=== PATIENT | female | born 1965 | race Caucasian/White ===

== ENCOUNTER 2017-02-18 15:40 | Emergency (ER) | payer MEDICAID ==
[2017-02-18 15:59] VITALS: BP 145/97
--- NOTE | 2017-02-18 16:14 | EDM.PDOC ---
ED HPI GENERAL MEDICAL PROBLEM - General Chief Complaint: ENT Problem Stated Complaint: INFECTION IN EAR Time Seen by Provider: 02/18/17 16:08 Source of Information: Reports: Patient History Limitations: Reports: No Limitations - History of Present Illness INITIAL COMMENTS - FREE TEXT/NARRATIVE: pt has pain in the rt facial area nd in the rt ear. Sh has no pain with swallowing. Sh was concerned that she might have a tick in the rt ear canal. Onset: Gradual Duration: Day(s): Location: Reports: Face, Neck Associated Symptoms: Reports: No Other Symptoms Right Ear Pain Score (Numeric/FACES): 9 - Related Data Allergies Allergy/AdvReac Type Severity Reaction Status Date / Time hydromorphone HCl Allergy Hives Verified 09/19/16 13:24 [From Dilaudid] NSAIDS (Non-Steroidal AdvReac Stomach Verified 09/19/16 13:24 Anti-Inflamma Upset Home Meds: Home Meds Nicotine Polacrilex [Nicotine Gum] 4 mg TRDERM TID PRN 09/20/14 [History] Nicotine [Habitrol] 14 mg TRDERM DAILY #30 patch 07/20/15 [Rx] Albuterol [Ventolin HFA] 18 gm IH Q4H PRN 03/12/16 [History] Cyanocobalamin (Vitamin B-12) [Vitamin B-12] 1 injection IM ASDIRECTED 03/12/16 [History] FLUoxetine [PROzac] 40 mg PO BEDTIME 03/12/16 [History] Lisinopril [Zestril] 20 mg PO DAILY 03/12/16 [History] Famotidine 40 mg PO DAILY #30 tablet 09/19/16 [Rx] Multivit-Min/FA/Lycopene/Lut [Centrum Silver Tablet] 1 tab PO DAILY 09/19/16 [ History] Omeprazole 40 mg PO DAILY 09/19/16 [History] Ondansetron [Zofran ODT] 4 mg PO Q6H PRN #7 tab.dis 09/19/16 [Rx] Sucralfate [Carafate] 1 gm PO Q6HR #60 tab 09/19/16 [Rx] Past Medical History Cardiovascular History: Reports: Hypertension Respiratory History: Reports: Other (See Below) Other Respiratory History: pneumonia, 2012 and 2014 patinet states she had respiratory failure Gastrointestinal History: Reports: GERD, GI Bleed, Pancreatitis Other Gastrointestinal History: Hernia surgery x 5. perforated gastric ulcer Genitourinary History: Reports: Acute Renal Failure [employer]RATOR History: Reports: Other (See Below) Other OB/BYN History: enlarged ovaries Musculoskeletal History: Reports: Fracture Neurological History: Reports: Other (See Below) Other Neuro History: patient states she had a seizure d/t hyponatremia Psychiatric History: Reports: Anxiety, Depression, Panic Attack, PTSD Hematologic History: Reports: Anemia, Blood Transfusion(s) - Infectious Disease History Infectious Disease History: Reports: Chicken Pox - Past Surgical History GI Surgical History: Reports: Bariatric Procedure, Cholecystectomy, Colonoscopy , EGD, Hernia, Abdominal, Hernia Repair/Other, Small Bowel Musculoskeletal Surgical History: Reports: Knee Replacement, Other (See Below) Social & Family History - Family History Family Medical History: Noncontributory Cardiac: Reports: CAD Psychiatric: Reports: Depression - Tobacco Use Smoking Status *Q: Light Tobacco Smoker Years of Tobacco use: 25 Packs/Tins Daily: 0.5 Used Tobacco, but Quit: Yes Month Tobacco Last Used: unknown Second Hand Smoke Exposure: No - Caffeine Use Caffeine Use: Reports: Soda - Alcohol Use Days Per Week of Alcohol Use: 0 Number of Drinks Per Day: 4 Total Drinks Per Week: 0 - Recreational Drug Use Recreational Drug Use: No ED ROS ENT - Review of Systems Review Of Systems: See Below Constitutional: Reports: Other ( facial pain) HEENT: Reports: Ear Pain, Sinus Problem Respiratory: Reports: No Symptoms Cardiovascular: Reports: No Symptoms Endocrine: Reports: No Symptoms GI/Abdominal: Reports: No Symptoms : Reports: No Symptoms ED EXAM, ENT - Physical Exam Exam: See Below Text/Narrative:: Pt felt like she had a tick in her rt ear. She has pain in the ear and pain in rt facial area. Exam Limited By: No Limitations General Appearance: Alert, Anxious, Mild Distress Ears: Other ( left ear is normal. rt ear looks red in the canal and she is tender over the maxillary sinus. ) Nose: Normal Inspection Mouth/Throat: Dental Pain, Other (pt has normal looking teeth but all of her teeth re painful on the rt up and lower. ) Head: Atraumatic Neck: Normal Inspection, Lymphadenopathy (R) Respiratory/Chest: No Respiratory Distress Cardiovascular: Regular Rate, Rhythm GI/Abdominal: Soft, Non-Tender (Female) Exam: Deferred Rectal (Female) Exam: Deferred Course - Vital Signs Last Recorded V/S: Last Vital Signs Temp 36.2 C 02/18/17 15:59 Pulse 75 02/18/17 15:59 Resp 16 02/18/17 15:59 BP 145/97 H 02/18/17 15:59 Pulse Ox 99 02/18/17 15:59 - Orders/Labs/Meds Orders: Active Orders 24 hr Category Date Time Status Sinus Less 4V [CR] Stat Exams 02/18/17 16:06 Ordered Departure - Departure Time of Disposition: 16:19 Disposition: Home, Self-Care 01 Condition: fair Clinical Impression: Otitis media, right, Acute maxillary sinusitis - Discharge Information Forms: ED Department Discharge Care Plan Goals: push fluids, , , tylenol 650 for facial pain. amoxicillin 500mg 2 tabs bid, use yogurt or probiotic. - My Orders Last 24 Hours: My Active Orders 02/18/17 16:06 Sinus Less 4V [CR] Stat - Assessment/Plan Last 24 Hours: My Active Orders 02/18/17 16:06 Sinus Less 4V [CR] Stat
--- NOTE | 2017-02-19 08:36 | CR ---
No evidence for air-fluid levels to suggest sinusitis. The visualized sinuses appear clear.
== END 2017-02-18 16:30 | disposition home or self-care (01) ==
LOC: JP.ED 15:40
DX: H66.91 Otitis media, unspecified, right ear (principal); J01.00 Acute maxillary sinusitis, unspecified; K21.9 Gastro-esophageal reflux disease without esophagitis; F41.0 Panic disorder [episodic paroxysmal anxiety]; F32.9 Major depressive disorder, single episode, unspecified; F17.210 Nicotine dependence, cigarettes, uncomplicated; Z98.84 Bariatric surgery status; Z90.49 Acquired absence of other specified parts of digestive tract; Z96.659 Presence of unspecified artificial knee joint; Z98.890 Other specified postprocedural states; Z79.899 Other long term (current) drug therapy; Z88.5 Allergy status to narcotic agent; Z88.8 Allergy status to other drugs, medicaments and biological substances
CPT/HCPCS: 70210; 70210-26; 99284

== ENCOUNTER 2017-08-12 07:15 | Inpatient (IN) | payer MEDICAID ==
[2017-09-03] MEDS ORDERED: Gabapentin 300 MG Cap PO ONE (06:30)
[2017-09-03] MEDS ORDERED: ceFAZolin 2 GM in Premix Bag 1 BAG IV ONE ×2 (06:30→08:30)
[2017-09-03] MEDS ORDERED: Dextrose 5%-Lactated Ringers 1,000 ML IV SCH (06:30)
[2017-09-03] MEDS ORDERED: Albuterol/Ipratropium 3.0-0.5 MG/3 ML Neb Soln NEB ONE (06:30)
[2017-09-03] MEDS ORDERED: Acetaminophen 500 MG Tab PO ONE (06:30)
[2017-09-03] MEDS ORDERED: Scopolamine 1.5 MG Transdermal Patch TOP SCH (06:30)
[2017-09-03] MEDS ORDERED: Meropenem 500 MG SDV ONE (06:43)
[2017-09-03] MEDS ORDERED: Bupivacaine 0.5%/EPINEPHrine 1:200,000 50 ML MDV ONE (06:43)
[2017-09-03] MEDS ORDERED: Propofol 200 MG/20 ML SDV ONE (07:41)
[2017-09-03] MEDS ORDERED: Glycopyrrolate 0.2 MG/ML 5 ML MDV ONE (07:41)
[2017-09-03] MEDS ORDERED: fentaNYL 250 MCG/5 ML SDV ONE (07:41)
[2017-09-03] MEDS ORDERED: Ondansetron 4 MG/2 ML SDV ONE (07:41)
[2017-09-03] MEDS ORDERED: Rocuronium 50 MG/5 ML Vial ONE (07:41)
[2017-09-03] MEDS ORDERED: Dexamethasone 4 MG/ML SDV ONE (07:41)
[2017-09-03] MEDS ORDERED: Succinylcholine 200 MG/10 ML MDV ONE (07:41)
[2017-09-03] MEDS ORDERED: Neostigmine Methylsulfate 1 MG/ML 5 ML Syringe ONE (07:41)
[2017-09-03] MEDS ORDERED: Ketamine 500 MG/5 ML MDV IV ONE (08:45)
[2017-09-03] MEDS ORDERED: Lidocaine 2% 100 MG/5 ML Syringe IVPUSH ONE (08:45)
[2017-09-03] MEDS ORDERED: Ropivacaine 40 ML, Dexamethasone 8 MG, EPINEPHrine 0.4 MG, Sodium Chloride 0.9% 37.6 ML NERVRT ONE ×4 (10:00)
[2017-09-03] MEDS ORDERED: Linezolid 200 MG/100 ML Bag IRR ONE (10:27)
[2017-09-03] MEDS ORDERED: fentaNYL 100 MCG/2 ML SDV ONE (10:54)
[2017-09-03] MEDS ORDERED: Sugammadex Sodium 200 MG/2 ML VIAL ONE (11:18)
[2017-09-03] MEDS ORDERED: Naloxone 0.4 MG/ML SDV IV PRN (11:37)
[2017-09-03] MEDS: Meperidine 300 MG/30 ML PCA Vial IV PRN (11:40)
[2017-09-03] MEDS: Lidocaine 0.4%/D5W 2 GM/500 ML BAG IV SCH (12:48)
[2017-09-03] MEDS: Dextrose 5%-Lactated Ringers 1,000 ML IV SCH ×2 (13:36→19:37)
[2017-09-03] MEDS ORDERED: hydrOXYzine HCl 100 MG/2 ML SDV IM PRN (14:00)
[2017-09-03] MEDS ORDERED: Albuterol/Ipratropium 3.0-0.5 MG/3 ML Neb Soln INH PRN (14:00)
[2017-09-03] MEDS: FLUoxetine 20 MG Cap PO SCH (14:03)
[2017-09-03] MEDS: Gabapentin 300 MG Cap PO SCH ×2 (14:03→22:06)
[2017-09-03] MEDS: Pantoprazole 40 MG Tab.CR PO SCH (14:03)
[2017-09-03] MEDS: Albuterol/Ipratropium 3.0-0.5 MG/3 ML Neb Soln INH SCH ×2 (14:34→22:06)
[2017-09-03] MEDS ORDERED: LORazepam 2 MG/ML MDV IVPUSH PRN (15:16)
[2017-09-03] MEDS ORDERED: diphenhydrAMINE 25 MG Cap PO PRN (15:17)
[2017-09-03] MEDS ORDERED: diphenhydrAMINE 50 MG/ML SDV IVPUSH PRN (15:19)
[2017-09-03] MEDS: LORazepam 0.5 MG Tab PO PRN (16:06)
[2017-09-03] MEDS: Acetaminophen 325 MG Tab PO SCH ×2 (16:07→22:06)
[2017-09-03] MEDS: traZODone 50 MG Tab PO SCH (22:06)
[2017-09-03] MEDS: Nicotine 14 MG/24 Hr Patch TRDERM SCH (22:23)
[2017-09-04] MEDS: Dextrose 5%-Lactated Ringers 1,000 ML IV SCH ×2 (02:19→10:30)
[2017-09-04] MEDS: Acetaminophen 325 MG Tab PO SCH ×4 (03:15→22:14)
[2017-09-04] MEDS: Lidocaine 0.4%/D5W 2 GM/500 ML BAG IV SCH (03:49)
[2017-09-04] MEDS: Albuterol/Ipratropium 3.0-0.5 MG/3 ML Neb Soln INH SCH ×4 (07:21→22:17)
--- NOTE | 2017-09-04 09:07 | PN ---
DATE OF SERVICE: 09/04/2017 SUBJECTIVE: Kaushik had a temp max of 100.3. She had quite a bit in the way of confusion, tremors. Lidocaine was discontinued. Vital signs; temp max of 100.3, but unable to use her IS effectively due to tremors and confusion. She does have a Freeman catheter and urine output was marginal at 675. Kaushik did state that she does drink Captain Eusebio a little bit throughout the entire day, starts early in the morning and drinks until she goes to bed. She is signed up for outpatient therapy. Surgical pain is controlled. REVIEW OF SYSTEMS: Remainder of review of systems negative for any pertinent positives and negatives. OBJECTIVE: GENERAL: Kaushik Oreilly is a 51-year-old female. VITAL SIGNS: TPR 100.2, 93, 16, blood pressure 135/86. HEENT: Negative. NECK: Supple. HEART: Regular rate and rhythm. LUNGS: Clear. ABDOMEN: Dressings dry and intact. Abdominal binder is on. EXTREMITIES: SCDs are on. There is no peripheral edema. ASSESSMENT: 1. Alcohol withdrawal. 2. Laparoscopy turned to laparotomy with lysis of adhesions and repair of recurrent incarcerated incisional hernia with mesh, repair are of desterilization of the transverse colon and placement of Vicryl mesh for extensive intraabdominal adhesions, recurrent incarcerated incisional hernia, area of desterilization of the transverse colon, part of adherence to previous mesh. Date of surgery, 09/03/2017. PLAN: 1. Give either svetlana or Captain Eusebio one shot every 6 hours to decrease IV to 100 mL at 1600 hours. 2. Leave in Freeman catheter for accurate urine output. 3. Good pulmonary toilet. 4. We will evaluate p.r.n. or in a.m. Annie Hyde PA-C /[id number]
[2017-09-04] MEDS: Pantoprazole 40 MG Tab.CR PO SCH (09:27)
[2017-09-04] MEDS: Nicotine 14 MG/24 Hr Patch TRDERM SCH (09:27)
[2017-09-04] MEDS: FLUoxetine 20 MG Cap PO SCH (09:31)
[2017-09-04] MEDS: Lisinopril 20 MG Tab PO SCH (09:31)
[2017-09-04] MEDS: Gabapentin 300 MG Cap PO SCH ×3 (09:31→22:13)
[2017-09-04] MEDS: SCOPOLAMINE PATCH CHECK TOP SCH (09:31)
[2017-09-04] MEDS: ALCOHOL PO SCH ×4 (09:33→22:14)
[2017-09-04] MEDS: LORazepam 0.5 MG Tab PO PRN (14:30)
[2017-09-04] MEDS: Meperidine 300 MG/30 ML PCA Vial IV PRN (15:54)
[2017-09-04] MEDS ORDERED: Dextrose 5%-Lactated Ringers 1,000 ML IV SCH ×2 (16:00→16:15)
[2017-09-04] MEDS ORDERED: Albuterol/Ipratropium 3.0-0.5 MG/3 ML Neb Soln INH PRN (16:18)
[2017-09-04] MEDS ORDERED: LORazepam 2 MG/ML MDV IM PRN (16:18)
[2017-09-04] MEDS: LORazepam 1 MG Tab PO PRN (16:57)
[2017-09-04] MEDS: traZODone 50 MG Tab PO SCH (22:14)
[2017-09-04] MEDS ORDERED: [UNRECOGNIZED DRUG - OTHER] PO PRN (22:32)
[2017-09-05] MEDS: LORazepam 1 MG Tab PO PRN ×2 (02:28→10:00)
[2017-09-05] MEDS: Acetaminophen 325 MG Tab PO SCH ×4 (04:35→22:19)
[2017-09-05] MEDS: Albuterol/Ipratropium 3.0-0.5 MG/3 ML Neb Soln INH SCH ×4 (07:27→20:36)
[2017-09-05] MEDS: Pantoprazole 40 MG Tab.CR PO SCH (07:34)
[2017-09-05] MEDS ORDERED: [UNRECOGNIZED DRUG - OTHER] PO PRN (08:04)
[2017-09-05] MEDS ORDERED: Albuterol 0.083% 2.5 MG/3 ML Neb Soln NEB PRN (09:30)
[2017-09-05] MEDS ORDERED: Magnesium Hydroxide 400 MG/5 ML Susp 30 ML Cup PO ONE (09:30)
[2017-09-05] MEDS ORDERED: Dextrose 5%-Lactated Ringers 1,000 ML IV SCH (09:30)
--- NOTE | 2017-09-05 09:34 | PCM.CONS ---
H&P History of Present Illness - General Date of Service: 09/05/17 Admit Problem/Dx: Admission Diagnosis/Problem Admission Diagnosis/Problem Hernia repair Source of Information: Patient, Provider, RN History Limitations: Reports: Altered Mental Status (some confusion) - History of Present Illness Initial Comments - Free Text/Narative: Kaushik was admitted 2 days ago for a hernia repair. I was asked to see her today regarding alcohol withdrawal. She is currently delirious and doesn't add much in the way of history. She is oriented to person but not place or time. She currently reports moderate abdominal pain but does not feel short of breath. She is currently on 3 L of supplemental oxygen. CIWA scores have ranged from 9- 14 in signs of alcohol withdrawal include delirium, tremulousness and tachycardia. There is some concern about hallucinations though she denies this. She has been seen picking at things that don't seem to be there. She reports that she's been drinking a liter of rum approximately every 2-3 days. she has not had any fevers. She does report having bronchitis prior to surgery but this seemed to have resolved. She does admit she's been coughing the last couple of days. Abdominal Pain Score (Numeric/FACES): 8 - Related Data Allergies/Adverse Reactions: Allergies Allergy/AdvReac Type Severity Reaction Status Date / Time hydromorphone HCl Allergy Hives Verified 09/03/17 07:03 [From Dilaudid] tramadol Allergy Hives Verified 09/03/17 07:03 amoxicillin [From Augmentin] AdvReac Nausea Verified 09/03/17 09:20 clavulanic acid AdvReac Nausea Verified 09/03/17 09:20 [From Augmentin] NSAIDS (Non-Steroidal AdvReac Stomach Verified 09/03/17 07:03 Anti-Inflamma Upset Home Medications: Home Meds Nicotine [Habitrol] 14 mg TRDERM DAILY #30 patch 07/20/15 [Rx] Albuterol [Ventolin HFA] 1 - 2 puff IH Q4H PRN 03/12/16 [History] Cyanocobalamin (Vitamin B-12) [Vitamin B-12] 1 injection IM ASDIRECTED 03/12/16 [History] FLUoxetine [PROzac] 40 mg PO BEDTIME 03/12/16 [History] Lisinopril [Zestril] 20 mg PO DAILY 03/12/16 [History] Multivit-Min/FA/Lycopene/Lut [Centrum Silver Tablet] 1 tab PO DAILY 09/19/16 [ History] Omeprazole 40 mg PO DAILY 09/19/16 [History] Calcium Citrate/Vitamin D3 [Calcium Cit-Vit D 250-200] 1 each PO BID 08/30/17 [ History] diphenhydrAMINE [Benadryl] 25 mg PO BEDTIME PRN 08/30/17 [History] traZODone 50 mg PO BEDTIME 08/30/17 [History] Past Medical History Cardiovascular History: Reports: Hypertension Respiratory History: Reports: Other (See Below) Other Respiratory History: pneumonia, 2011 and 2013 patinet states she had respiratory failure. icu in 2014 Gastrointestinal History: Reports: Bowel Obstruction, GERD, GI Bleed, Pancreatitis, Other (See Below) Other Gastrointestinal History: Hernia surgery x 5. perforated gastric ulcer. B.M 12-4 girth 41 Genitourinary History: Reports: Acute Renal Failure [employer]PER[employer]OR History: Reports: Other (See Below) Other OB/BYN History: enlarged ovaries Musculoskeletal History: Reports: Fracture Neurological History: Reports: Other (See Below) Other Neuro History: patient states she had a seizure d/t hyponatremia Psychiatric History: Reports: Anxiety, Depression, Panic Attack, PTSD Hematologic History: Reports: Anemia, Blood Transfusion(s) - Infectious Disease History Infectious Disease History: Reports: Chicken Pox - Past Surgical History Cardiovascular Surgical History: Reports: None Respiratory Surgical History: Reports: None GI Surgical History: Reports: Bariatric Procedure, Cholecystectomy, Colonoscopy , EGD, Hernia, Abdominal, Hernia Repair/Other, Small Bowel Female Surgical History: Reports: Hysterectomy, Salpingo-Oophorectomy Neurological Surgical History: Reports: None Musculoskeletal Surgical History: Reports: Knee Replacement, Other (See Below) Other Musculoskeletal Surgeries/Procedures:: left knee, right ankle Social & Family History - Family History Family Medical History: Noncontributory Cardiac: Reports: CAD Psychiatric: Reports: Depression - Tobacco Use Smoking Status *Q: Current Every Day Smoker Years of Tobacco use: 30 Packs/Tins Daily: 0.5 Used Tobacco, but Quit: No Month Tobacco Last Used: unknown Second Hand Smoke Exposure: No - Caffeine Use Caffeine Use: Reports: Soda - Alcohol Use Days Per Week of Alcohol Use: 2 Number of Drinks Per Day: 3 Total Drinks Per Week: 6 Date of Last Drink: 08/31/17 Time of Last Drink: 20:00 - Recreational Drug Use Recreational Drug Use: No H&P Review of Systems - Review of Systems: Review Of Systems: See Below Free Text/Narrative: A complete 12 point review of systems was attempted but I'm not sure of the validity of the questions because the patient is currently confused. Pertinent positives and negatives are noted in the history of present illness. All other systems were reviewed and were negative except as noted. Exam - Exam Exam: See Below - Vital Signs Vital Signs: Last Vital Signs Temp 36.1 C 09/05/17 07:06 Pulse 98 09/05/17 07:22 Resp 17 09/05/17 07:06 BP 121/69 09/05/17 07:06 Pulse Ox 92 L 09/05/17 07:45 Weight: 80.286 kg - Exam Quality Assessment: Supplemental Oxygen General: Alert, Cooperative, Mild Distress. No: Oriented HEENT: Conjunctiva Clear, Mucosa Moist & [place]. No: Scleral Icterus Neck: Supple, Trachea Midline Lungs: Normal Respiratory Effort, Crackles (few both bases and both upper lungs anteriorly) Cardiovascular: Regular Rhythm, Tachycardia. No: Systolic Murmur GI/Abdominal Exam: Normal Bowel Sounds, Soft, Tender Extremities: No Pedal Edema. No: Increased Warmth Skin: Warm, Dry Neuro Extensive - Mental Status: Alert, Nl Response to Commands Neuro Extensive - Motor, Sensory, Reflexes: CN II-XII Intact, Tremor. No: Dysarthria, Abnormal Motor Psychiatric: Alert, Anxious - Patient Data Result Diagrams: 09/05/17 09:25 09/05/17 09:25 Imaging Impressions Last 24 hrs: CXR - images personally reviewed - there is evidence for interstitial infiltrates concerning for congestive heart failure. These are seen diffusely throughout both lungs. Heart size is normal. No definite lobar infiltrate. Consult PN Assessment/Plan POD#: 2 Procedures: Procedures ASSAY OF LIPASE (09/19/16) COMPLETE CBC AUTOMATED (09/19/16) COMPLETE CBC W/AUTO DIFF WBC (11/16/13) COMPREHEN METABOLIC PANEL (11/16/13) CT ABD & PELV W/CONTRAST (06/13/17) CULTURE AEROBIC IDENTIFY (11/20/13) EMERGENCY DEPT VISIT (02/18/17) EMERGENCY DEPT VISIT (05/19/14) EMERGENCY DEPT VISIT (11/16/13) EXTREMITY STUDY (11/16/13) METABOLIC PANEL TOTAL CA (09/19/16) MICROBE SUSCEPTIBLE LIVIA (11/20/13) POLYSOM 6/> YRS 4/> MINI (01/22/16) PT EVALUATION (11/27/13) RBC SED RATE NONAUTOMATED (11/16/13) ROUTINE VENIPUNCTURE (09/19/16) THER/PROPH/DIAG INJ IV PUSH (11/16/13) THER/PROPH/DIAG INJ SC/IM (05/19/14) THERAPEUTIC EXERCISES (12/15/13) TTE W/DOPPLER COMPLETE (05/03/14) TX/PRO/DX INJ NEW DRUG ADDON (11/16/13) URINALYSIS AUTO W/SCOPE (09/19/16) URINE BACTERIA CULTURE (11/20/13) X-RAY EXAM OF LOWER LEG (05/19/14) X-RAY EXAM OF SINUSES (02/18/17) (1) Alcohol withdrawal delirium, acute, mixed level of activity SNOMED Code(s): 1229441 Code(s): F10.231 - ALCOHOL DEPENDENCE WITH WITHDRAWAL DELIRIUM Current Visit: Yes (2) Status post hernia repair SNOMED Code(s): 73335348166733 Code(s): Z98.890 - OTHER SPECIFIED POSTPROCEDURAL STATES; Z87.19 - PERSONAL HISTORY OF OTHER DISEASES OF THE DIGESTIVE SYSTEM Current Visit: Yes Comment : large abdominal incisional hernia repair with mesh, repair of deserosalization of transverse colon Problem List Initiated/Reviewed/Updated: Yes My Orders Last 24 Hours: My Active Orders 09/05/17 09:27 Urinary Catheter Assessment [RC] ASDIRECTED 09/05/17 09:29 Transfer Patient (Change bed) [ADT] Routine CIWAA Assessment [RC] Q1H Furosemide [Lasix] 40 mg IVPUSH NOW ONE 09/05/17 09:30 Insert Freeman Catheter [Insert Urinary Catheter] [OM.PC] Q24H RT Aerosol Therapy [RC] ASDIRECTED Albuterol [Proventil Neb Soln] 2.5 mg NEB Q2H PRN Dextrose 5%-Lactated Ringers 1,000 ml IV ASDIRECTED 09/05/17 09:31 CXR [Chest 1V Frontal] [CR] Routine 09/05/17 21:00 Melatonin 9 mg PO BEDTIME Plan: assessment and plan Acute alcohol withdrawal delirium tremens - patient is disoriented, somnolent as well as tachycardic and tremulous. Per her report as well as her family she' s been drinking regularly and heavily. She would benefit from transfer to the intensive care unit for more aggressive management of her alcohol withdrawal. -intensive care unit transfer -CIWA protocol with lorazepam -Continue 3 times a day gabapentin -Melatonin at bedtime -Consider Haldol if she becomes agitated -Cardiac monitoring Volume overload with hypoxia - history of ARDS following surgeries. She is currently 6 L on the positive side and would benefit from urgent diuresis. Currently requiring supplemental oxygen and need seems to be increasing throughout the day. -Chest x-ray -Furosemide 1 now, reassess this evening -ICU transfer as above Status post hernia repair - patient reports suboptimally controlled pain at this time. Still nothing by mouth. -Postop cares per surgical team Julian Lara M.D. Requesting Provider: Annei Hyde Date Consult Requested: 09/05/17 Reason for Consult: alcohol withdrawal Patient History Reviewed: Yes Admission H&P Reviewed: No (not available) Notified Requestor: No Time Spent (in minutes): 60
[2017-09-05] MEDS: SCOPOLAMINE PATCH CHECK TOP SCH (09:55)
[2017-09-05] MEDS: Lisinopril 20 MG Tab PO SCH (09:55)
[2017-09-05] MEDS: Gabapentin 300 MG Cap PO SCH ×3 (09:55→20:28)
[2017-09-05] MEDS: Folic Acid 1 MG Tab PO SCH (09:55)
[2017-09-05] MEDS: Nicotine 14 MG/24 Hr Patch TRDERM SCH (09:55)
[2017-09-05] MEDS: Multivitamins with Iron/Calcium/Folic Acid/Minerals Tab PO SCH (09:56)
[2017-09-05] MEDS: FLUoxetine 20 MG Cap PO SCH (09:56)
[2017-09-05] MEDS: Thiamine 100 MG Tab PO SCH (09:56)
[2017-09-05] MEDS ORDERED: Furosemide 40 MG/4 ML VIAL IVPUSH ONE ×2 (10:00→19:04)
[2017-09-05] MEDS ORDERED: Bisacodyl 5 MG Tab PO ONE (10:30)
--- NOTE | 2017-09-05 10:41 | CR ---
Chest 1V Frontal INDICATION: hypoxia FINDINGS: Comparison 03/21/2016. Mild pulmonary venous hypertension and prominence of the interstitium . Findings concerning for early CHF versus atypical infectious process.
--- NOTE | 2017-09-05 10:55 | PN ---
DATE OF SERVICE: 09/05/2017 SUBJECTIVE: Kaushik is a 51-year-old female. She is postop day #2. She has been given 1 shot of alcohol every 4 hours plus she is on CIWA. She has ranged between 9 and 14, is in and out of delirium, has some tremors, other times will be well clear, other times will be picking at the air. She has not been up ambulating postoperatively. Her oral intake has been 1460. She is on step-1. Urine output was 2900. She does arouse and use her IS. Reports this morning sore throat and is requesting that if she does go inpatient to go to [place]. REVIEW OF SYSTEMS: Remainder of review of systems negative for any other pertinent positives and negatives. OBJECTIVE: GENERAL: Kaushik Oreilly is a 51-year-old female. She is talkative this morning, mostly alert. VITAL SIGNS: TPR is 96.9, 91, 17, blood pressure 121/69, O2 on at 2 L with O2 saturations by pulse oximetry at 94%. HEENT: Negative. NECK: Supple. HEART: Regular rate and rhythm. LUNGS: Clear, but she can not take a real deep breath. ABDOMEN: Dressing dry and intact. Abdominal binder is on. EXTREMITIES: Reveal trace peripheral edema. SCDs are. ASSESSMENT: 1. Alcohol withdrawal, delirium acute, next level of consciousness. 2. Laparoscopic turned to laparotomy with lysis of adhesions and repair of recurrent incarcerated incisional hernia with mesh repair, de-serialization of the transverse colon, and placement of Vicryl mesh for extensive intraabdominal adhesions, recurrent incarcerated incisional hernia, area of the de-serialization of the transverse colon, part of adherence to previous mesh. Date of surgery 09/03/2017. PLAN: 1. Discontinue Freeman catheter. 2. Physical therapy to evaluate and treat. 3. Ambulate if tolerated to avoid pneumonia. 4. Consult with Julian Lara MD, hospitalist in regard to managing alcohol withdrawal. 5. Referral made for rule 25. Kaushik Oreilly requested and has already contacted a better connection referral made and discharge planning will be contacting them. 6. We will evaluate p.r.n. or in a.m. Annie Hyde PA-C /[id number]
[2017-09-05] MEDS: LORazepam 2 MG/ML MDV IV PRN ×3 (11:04→17:39)
[2017-09-05] MEDS: Haloperidol Lactate 5 MG/ML SDV IVPUSH PRN (19:36)
[2017-09-05] MEDS: Melatonin 3 MG Tab PO SCH (20:28)
[2017-09-05] MEDS: traZODone 50 MG Tab PO SCH (20:28)
[2017-09-06] MEDS: Acetaminophen 325 MG Tab PO SCH ×4 (03:51→21:26)
[2017-09-06] MEDS: LORazepam 2 MG/ML MDV IV PRN (04:04)
[2017-09-06] MEDS: Albuterol/Ipratropium 3.0-0.5 MG/3 ML Neb Soln INH SCH ×4 (07:17→21:28)
--- NOTE | 2017-09-06 07:45 | PN ---
DATE OF SERVICE: 09/06/2017 SUBJECTIVE: Kaushik was transferred to ICU yesterday for closer monitoring with alcohol withdrawal from the surgical standpoint of view. She has slept well. Pain managed. She was given Haldol and Ativan once. Pain has been managed with her WAFER MOUNTER. She has had 3 bowel movements. Oral intake just on sips of clear, basically n.p.o. was 360 and output was 5025. She was given Lasix IV yesterday. She does ambulate to the commode with assistance of 2. Temp max of 99.8. REVIEW OF SYSTEMS: Remainder of review of systems negative for any pertinent positives and negatives. OBJECTIVE: GENERAL: Kaushik Oreilly is a 51-year-old female. She arouses easily, but sleepy. Answers questions appropriately. VITAL SIGNS: TPR is 99, 95, 18, blood pressure 119/81. Saturations by pulse oximetry 90% on 4 L of O2. HEENT: Negative. NECK: Supple. HEART: Regular rate and rhythm. LUNGS: Revealed decreased breath sounds bilaterally. ABDOMEN: Aquacel dressing is on, 4x4s over small stapled sites. EXTREMITIES: Revealed trace peripheral edema. ASSESSMENT: 1. Acute alcohol withdrawal, delirium state. 2. Laparoscopy turned to laparotomy with lysis of adhesions and repair of recurrent incarcerated incisional hernia with mesh repair. De-serialization of the transverse colon and placement of Vicryl mesh for extensive intraabdominal adhesions. Recurrent incarcerated incisional hernia. Area of de-serialization of the transverse colon, part of adherence to previous mesh. Date of surgery 09/03/2017. Surgeon, Obdulio Anna MD. PLAN: 1. Advance diet is step 4 gastric bypass diet. 2. Discontinue WAFER MOUNTER. 3. [place] 5/325 mg 1 to 2 q.4 hours p.r.n. pain. 4. She may shower. 5. Before discharge, remove Aquacel occlusive dressing. 6. Good pulmonary toilet. 7. We will evaluate p.r.n. or in a.m. Annie Hyde PA-C /[id number]
[2017-09-06] MEDS: LORazepam 1 MG Tab PO PRN ×3 (08:07→19:32)
[2017-09-06] MEDS: Pantoprazole 40 MG Tab.CR PO SCH (08:07)
[2017-09-06] MEDS: Folic Acid 1 MG Tab PO SCH (08:08)
[2017-09-06] MEDS: Nicotine 14 MG/24 Hr Patch TRDERM SCH (08:08)
[2017-09-06] MEDS: SCOPOLAMINE PATCH CHECK TOP SCH (08:09)
[2017-09-06] MEDS: Gabapentin 300 MG Cap PO SCH ×3 (08:09→21:26)
[2017-09-06] MEDS: Lisinopril 20 MG Tab PO SCH (08:10)
[2017-09-06] MEDS: FLUoxetine 20 MG Cap PO SCH (08:11)
[2017-09-06] MEDS: Multivitamins with Iron/Calcium/Folic Acid/Minerals Tab PO SCH (08:12)
[2017-09-06] MEDS: Thiamine 100 MG Tab PO SCH (08:12)
--- NOTE | 2017-09-06 08:27 | PCM.CONSN ---
- General Info Date of Service: 09/06/17 Functional Status: Reports: Pain Controlled - Review of Systems General: Reports: Weakness Gastrointestinal: Reports: Abdominal Pain Neurological: Reports: Confusion, Tremors Systems Review Comment:: No acute events overnight. She slept well after a dose of Haldol and did receive one dose of lorazepam overnight as well. She is more alert and interactive but still has obvious evidence for alcohol withdrawal including some confusion and tremor. Heart rate has improved and is now in the 90s. Blood pressures have been stable. Oxygenation improving with diuresis. She did have a bowel movement last night. - Patient Data Vitals - Most Recent: Last Vital Signs Temp 37.2 C 09/06/17 05:41 Pulse 87 09/06/17 07:18 Resp 18 09/06/17 05:41 BP 116/77 09/06/17 08:10 Pulse Ox 90 L 09/06/17 05:42 Weight - Most Recent: 83.6 kg I&O - Last 24 Hours: Intake & Output 09/05/17 09/06/17 09/06/17 22:59 06:59 14:59 Intake Total 1118 316 60 Output Total 2225 500 Balance -1107 -184 60 Lab Results Last 24 Hours: Laboratory Results - last 24 hr 09/05/17 09/05/17 Range/Units 09:25 09:25 WBC 9.4 (4.5-11.0) K/uL RBC 3.21 L (3.30-5.50) M/uL Hgb 11.0 L D (12.0-15.0) g/dL Hct 34.3 L (36.0-48.0) % MCV 107 H (80-98) fL MCH 34 H (27-31) pg MCHC 32 (32-36) % Plt Count 176 (150-400) K/uL Sodium 131 L (140-148) mmol/L Potassium 4.3 (3.6-5.2) mmol/L Chloride 98 L (100-108) mmol/L Carbon Dioxide 29 (21-32) mmol/L Anion Gap 8.3 (5.0-14.0) mmol/L BUN 4 L (7-18) mg/dL Creatinine 0.6 (0.6-1.0) mg/dL Est Cr Clr Drug Dosing 98.65 mL/min Estimated GFR (MDRD) > 60 (>60) Glucose 93 (74-106) mg/dL Calcium 8.9 (8.5-10.1) mg/dL Phosphorus 3.5 (2.5-4.9) mg/dL Magnesium 1.5 L (1.8-2.4) mg/dL Total Bilirubin 0.8 D (0.2-1.0) mg/dL AST 49 H (15-37) U/L ALT 42 (12-78) U/L Alkaline Phosphatase 174 H (46-116) U/L Total Protein 6.6 (6.4-8.2) g/dL Albumin 2.9 L (3.4-5.0) g/dL Globulin 3.7 H (2.3-3.5) g/dL Albumin/Globulin Ratio 0.8 L (1.2-2.2) Med Orders - Current: Current Medications Acetaminophen (Tylenol) 650 mg PO Q6H [facility] Last Admin: 09/06/17 03:51 Dose: 650 mg Hydrocodone Bitart/Acetaminophen (Lulu 325-5 Mg) 1 - 2 tab PO Q4H PRN PRN Reason: Pain Albuterol (Proventil Neb Soln) 2.5 mg NEB Q2H PRN PRN Reason: Shortness of Breath Albuterol/Ipratropium (Duoneb 3.0-0.5 Mg/3 Ml) 3 ml INH QIDRT [facility] Last Admin: 09/06/17 07:17 Dose: 3 ml Cyclobenzaprine HCl (Flexeril) 10 mg PO Q8H PRN PRN Reason: Muscle Spasm Diphenhydramine HCl (Benadryl) 25 - 50 mg PO Q4H PRN PRN Reason: Itching Diphenhydramine HCl (Benadryl) 25 - 50 mg IVPUSH Q4H PRN PRN Reason: Itching Fluoxetine HCl (Prozac) 40 mg PO DAILY [facility] Last Admin: 09/06/17 08:11 Dose: 40 mg Folic Acid (Folic Acid) 1 mg PO DAILY [facility] Last Admin: 09/06/17 08:08 Dose: 1 mg Furosemide (Lasix) 40 mg IVPUSH ONETIME ONE Stop: 09/06/17 08:26 Gabapentin (Neurontin) 300 mg PO TID [facility] Last Admin: 09/06/17 08:09 Dose: 300 mg Haloperidol Lactate (Haldol) 1 mg IVPUSH Q2H PRN PRN Reason: Agitation Last Admin: 09/05/17 19:36 Dose: 1 mg Hydroxyzine HCl (Vistaril) 100 mg IM Q4H PRN PRN Reason: pain Dextrose/Lactated Ringer's (Dextrose 5%-Lactated Ringers) 1,000 mls @ 25 mls/ hr IV ASDIRECTED [facility] Last Admin: 09/06/17 01:23 Dose: 25 mls/hr Magnesium Sulfate 2 gm/ Premix 50 mls @ 25 mls/hr IV Q6H [facility] Stop: 09/06/17 16:59 Lisinopril (Prinivil) 20 mg PO DAILY [facility] Last Admin: 09/06/17 08:10 Dose: 20 mg Lorazepam (Ativan) 0 mg PO ASDIRECTED PRN; Protocol PRN Reason: ETOH WITHDRAWAL Last Admin: 09/06/17 08:07 Dose: 1 mg Lorazepam (Ativan) 0 mg IV ASDIRECTED PRN; Protocol PRN Reason: ETOH WITHDRAWAL Last Admin: 09/06/17 04:04 Dose: 2 mg Lorazepam (Ativan) 0 mg IM ASDIRECTED PRN; Protocol PRN Reason: ETOH WITHDRAWAL Melatonin (Melatonin) 9 mg PO BEDTIME [facility] Last Admin: 09/05/17 20:28 Dose: 9 mg Multivitamins/Minerals (Thera M Plus) 1 tab PO DAILY [facility] Last Admin: 09/06/17 08:12 Dose: 1 tab Naloxone HCl (Narcan) 0.1 mg IV ASDIRECTED PRN PRN Reason: decreased respiratory rate Nicotine (Habitrol) 14 mg TRDERM DAILY [facility] Last Admin: 09/06/17 08:08 Dose: 14 mg Scopolamine Patch (Check) 1 each TOP DAILY [facility] Last Admin: 09/06/17 08:09 Dose: Not Given Pantoprazole Sodium (Protonix) 40 mg PO ACBREAKFAST [facility] Last Admin: 09/06/17 08:07 Dose: 40 mg Spiced Rum (Ptom) 0 each PO ASDIRECTED PRN PRN Reason: ALCOHOL WITHDRAWAL Last Admin: 09/05/17 08:12 Dose: 30 each Thiamine HCl (Vitamin B-1) 100 mg PO DAILY [facility] Stop: 09/08/17 09:01 Last Admin: 09/06/17 08:12 Dose: 100 mg Trazodone HCl (Trazodone) 50 mg PO BEDTIME [facility] Last Admin: 09/05/17 20:28 Dose: 50 mg Discontinued Medications Acetaminophen (Tylenol Extra Strength) 1,000 mg PO ONETIME ONE Stop: 09/03/17 06:31 Last Admin: 09/03/17 06:59 Dose: 1,000 mg Albuterol/Ipratropium (Duoneb 3.0-0.5 Mg/3 Ml) 3 ml NEB ONETIME ONE Stop: 09/03/17 06:31 Last Admin: 09/03/17 06:58 Dose: 3 ml Albuterol/Ipratropium (Duoneb 3.0-0.5 Mg/3 Ml) 3 ml INH ASDIRECTED PRN PRN Reason: BREATHING Albuterol/Ipratropium (Duoneb 3.0-0.5 Mg/3 Ml) 3 ml INH Q2H PRN PRN Reason: SHORTNESS OF BREATH Bisacodyl (Dulcolax) 20 mg PO ONETIME ONE Stop: 09/05/17 10:31 Last Admin: 09/05/17 10:44 Dose: 20 mg Bupivacaine HCl/Epinephrine Bitart (Marcaine 0.5%/Epinephrine 1:200,000) Confirm Administered Dose 50 ml .ROUTE .STK-MED ONE Stop: 09/03/17 06:44 Last Admin: 09/03/17 10:26 Dose: 20 ml Ropivacaine 40 ml/Dexamethasone 8 mg/Epinephrine HCl 0.4 mg/ Sodium Chloride 37.6 ml 0 ml NERVRT ONETIME ONE Stop: 09/03/17 10:01 Last Admin: 09/03/17 09:39 Dose: 80 syringe Dexamethasone (Dexamethasone) Confirm Administered Dose 4 mg .ROUTE .STK-MED ONE Stop: 09/03/17 07:42 Fentanyl (Sublimaze) Confirm Administered Dose 250 mcg .ROUTE .STK-MED ONE Stop: 09/03/17 07:42 Fentanyl (Sublimaze) Confirm Administered Dose 100 mcg .ROUTE .STK-MED ONE Stop: 09/03/17 10:55 Furosemide (Lasix) 40 mg IVPUSH NOW ONE Stop: 09/05/17 10:01 Last Admin: 09/05/17 10:48 Dose: 40 mg Furosemide (Lasix) 40 mg IVPUSH ONETIME ONE Stop: 09/05/17 19:05 Last Admin: 09/05/17 19:57 Dose: 40 mg Gabapentin (Neurontin) 300 mg PO ONETIME ONE Stop: 09/03/17 06:31 Last Admin: 09/03/17 06:58 Dose: 300 mg Glycopyrrolate (Robinul) Confirm Administered Dose 1 mg .ROUTE .STK-MED ONE Stop: 09/03/17 07:42 Dextrose/Lactated Ringer's (Dextrose 5%-Lactated Ringers) 1,000 mls @ 100 mls/ hr IV ASDIRECTED [facility] Cefazolin Sodium 2 gm/ Premix 20 mls @ 600 mls/hr IV ONETIME ONE Stop: 09/03/17 08:31 Last Admin: 09/03/17 09:36 Dose: 600 mls/hr Lidocaine HCl/Dextrose (Lidocaine 2 Gm/D5w 500 Ml) 2 gm in 500 mls @ 30 mls/hr IV .[id number] [facility] PRN Reason: 2 MG/MIN Stop: 09/04/17 12:00 Last Admin: 09/04/17 03:49 Dose: Not Given Ketamine HCl 100 mg/ Sodium (Chloride) 100 mls @ 16 mls/hr IV ASDIRECTED [facility] Stop: 09/03/17 10:45 Linezolid (Zyvox) Confirm Administered Dose 100 mls @ as directed .ROUTE .STK- MED ONE Stop: 09/03/17 08:41 Dextrose/Lactated Ringer's (Dextrose 5%-Lactated Ringers) 1,000 mls @ 175 mls/ hr IV ASDIRECTED [facility] Last Admin: 09/04/17 10:30 Dose: 175 mls/hr Dextrose/Lactated Ringer's (Dextrose 5%-Lactated Ringers) 1,000 mls @ 175 mls/ hr IV ASDIRECTED [facility] Dextrose/Lactated Ringer's (Dextrose 5%-Lactated Ringers) 1,000 mls @ 100 mls/ hr IV ASDIRECTED [facility] Last Infusion: 09/05/17 15:00 Dose: 25 mls/hr Ketamine HCl (Ketalar) 27 mg IV ONETIME ONE Stop: 09/03/17 08:46 Last Admin: 09/03/17 12:48 Dose: Not Given Lidocaine HCl (Xylocaine 2%) 98 mg IVPUSH ONETIME ONE Stop: 09/03/17 08:46 Last Admin: 09/03/17 12:48 Dose: Not Given Linezolid (Zyvox) 200 mg IRR .STK-MED ONE Stop: 09/03/17 10:28 Last Admin: 09/03/17 10:27 Dose: 200 mg Lorazepam (Ativan) 0.5 mg PO Q6H PRN PRN Reason: Anxiety Last Admin: 09/04/17 14:30 Dose: 0.5 mg Lorazepam (Ativan) 0.5 mg IVPUSH Q6H PRN PRN Reason: Anxiety Last Admin: 09/04/17 08:19 Dose: 0.5 mg Magnesium Hydroxide (Milk Of Magnesia) 30 ml PO ONETIME ONE Stop: 09/05/17 09:31 Last Admin: 09/05/17 10:43 Dose: 30 ml Meperidine HCl (Demerol [employer] 300 Mg In 30 Ml) 0 mg IV ASDIRECTED PRN; Protocol PRN Reason: Pain Last Admin: 09/04/17 15:54 Dose: 300 mg Meropenem (Merrem) Confirm Administered Dose 500 mg .ROUTE .STK-MED ONE Stop: 09/03/17 06:44 Last Admin: 09/03/17 10:26 Dose: 500 mg Neostigmine Methylsulfate (Neostigmine) Confirm Administered Dose 5 mg .ROUTE .STK-MED ONE Stop: 09/03/17 07:42 Alcohol 30ml (Vodka) 0 each PO Q6H [facility] Last Admin: 09/04/17 22:14 Dose: Not Given Vodka 30ml Non- (Form) 0 each PO ASDIRECTED PRN PRN Reason: prevent alcohol withdrawl Last Admin: 09/04/17 23:45 Dose: 30 each Ondansetron HCl (Zofran) Confirm Administered Dose 4 mg .ROUTE .STK-MED ONE Stop: 09/03/17 07:42 Propofol (Diprivan 20 Ml) Confirm Administered Dose 200 mg .ROUTE .STK-MED ONE Stop: 09/03/17 07:42 Rocuronium [place] (Zemuron) Confirm Administered Dose 50 mg .ROUTE .STK-MED ONE Stop: 09/03/17 07:42 Scopolamine (Transderm-Scop) 1.5 mg TOP Q72H [facility] Last Admin: 09/03/17 06:58 Dose: 1.5 mg Succinylcholine Chloride (Quelicin) Confirm Administered Dose 200 mg .ROUTE .STK -MED ONE Stop: 09/03/17 07:42 - Exam Quality Assessment: Supplemental Oxygen General: Alert, Cooperative, No Acute Distress, Lethargic Neck: Supple Lungs: Clear to Auscultation, Normal Respiratory Effort. No: Crackles, Wheezing Cardiovascular: Regular Rate, Regular Rhythm GI/Abdominal Exam: Soft, No Distention Extremities: No Pedal Edema Skin: Warm, Dry Psy/Mental Status: Alert, Other (lethargic) Consult PN Assessment/Plan POD#: 3 Procedures: Procedures ASSAY OF LIPASE (09/19/16) COMPLETE CBC AUTOMATED (09/19/16) COMPLETE CBC W/AUTO DIFF WBC (11/16/13) COMPREHEN METABOLIC PANEL (11/16/13) CT ABD & PELV W/CONTRAST (06/13/17) CULTURE AEROBIC IDENTIFY (11/20/13) EMERGENCY DEPT VISIT (02/18/17) EMERGENCY DEPT VISIT (05/19/14) EMERGENCY DEPT VISIT (11/16/13) EXTREMITY STUDY (11/16/13) METABOLIC PANEL TOTAL CA (09/19/16) MICROBE SUSCEPTIBLE LIVIA (11/20/13) POLYSOM 6/> YRS 4/> MINI (01/22/16) PT EVALUATION (11/27/13) RBC SED RATE NONAUTOMATED (11/16/13) ROUTINE VENIPUNCTURE (09/19/16) THER/PROPH/DIAG INJ IV PUSH (11/16/13) THER/PROPH/DIAG INJ SC/IM (05/19/14) THERAPEUTIC EXERCISES (12/15/13) TTE W/DOPPLER COMPLETE (05/03/14) TX/PRO/DX INJ NEW DRUG ADDON (11/16/13) URINALYSIS AUTO W/SCOPE (09/19/16) URINE BACTERIA CULTURE (11/20/13) X-RAY EXAM OF LOWER LEG (05/19/14) X-RAY EXAM OF SINUSES (02/18/17) (1) Alcohol withdrawal delirium, acute, mixed level of activity SNOMED Code(s): 3776141 Code(s): F10.231 - ALCOHOL DEPENDENCE WITH WITHDRAWAL DELIRIUM Current Visit: Yes (2) Status post hernia repair SNOMED Code(s): 56924723756880 Code(s): Z98.890 - OTHER SPECIFIED POSTPROCEDURAL STATES; Z87.19 - PERSONAL HISTORY OF OTHER DISEASES OF THE DIGESTIVE SYSTEM Current Visit: Yes Comment : large abdominal incisional hernia repair with mesh, repair of deserosalization of transverse colon Problem List Initiated/Reviewed/Updated: Yes My Orders Last 24 Hours: My Active Orders 09/05/17 09:27 Urinary Catheter Assessment [RC] ASDIRECTED 09/05/17 09:29 Transfer Patient (Change bed) [ADT] Routine CIWAA Assessment [RC] Q1H 09/05/17 09:30 Insert Freeman Catheter [Insert Urinary Catheter] [OM.PC] Q24H RT Aerosol Therapy [RC] ASDIRECTED Albuterol [Proventil Neb Soln] 2.5 mg NEB Q2H PRN Dextrose 5%-Lactated Ringers 1,000 ml IV ASDIRECTED 09/05/17 19:13 Haloperidol Lactate [Haldol] 1 mg IVPUSH Q2H PRN 09/05/17 21:00 Melatonin 9 mg PO BEDTIME 09/06/17 08:25 Furosemide [Lasix] 40 mg IVPUSH ONETIME ONE 09/06/17 09:00 Magnesium Sulfate/Water [Magnesium Sulfate 2 GM in Water 50 ML] 2 gm Premix Bag 1 bag IV Q6H 09/07/17 05:00 CBC W/O DIFF,HEMOGRAM [HEME] Timed (1) COMPREHENSIVE METABOLIC PN,CMP [CHEM] Timed Plan: assessment and plan Acute alcohol withdrawal delirium tremens - more alert and interactive but still somnolent and tremulous. No obvious hallucinations today. Responded well to Haldol last night. -Haldol as needed for agitation -CIWA protocol with lorazepam -Continue 3 times a day gabapentin -Melatonin at bedtime -Cardiac monitoring Volume overload with hypoxia - history of ARDS following surgeries. Respiratory status improving with diuresis. Clinical exam improving as well. -Furosemide 1 this morning -Supplement oxygen -Close monitoring of respiratory status Status post hernia repair - pain control better today. She is having bowel movements and has been started on a diet. -Postop cares per surgical team Julian Lara M.D.
[2017-09-06] MEDS: Magnesium Sulfate/Water 2 GM in Premix Bag 1 BAG IV SCH ×2 (08:37→14:43)
[2017-09-06] MEDS: Haloperidol Lactate 5 MG/ML SDV IVPUSH PRN ×2 (08:53→14:50)
[2017-09-06] MEDS ORDERED: Furosemide 40 MG/4 ML VIAL IVPUSH ONE (09:00)
[2017-09-06] MEDS: Acetaminophen/HYDROcodone 325-5 MG Tab PO PRN (19:32)
[2017-09-06] MEDS: Melatonin 3 MG Tab PO SCH (21:25)
[2017-09-06] MEDS: traZODone 50 MG Tab PO SCH (21:26)
[2017-09-07] MEDS: Acetaminophen/HYDROcodone 325-5 MG Tab PO PRN ×2 (00:50→11:22)
[2017-09-07] MEDS: LORazepam 1 MG Tab PO PRN ×4 (02:50→21:25)
[2017-09-07] MEDS: Acetaminophen 325 MG Tab PO SCH ×4 (03:00→21:25)
[2017-09-07] MEDS: Albuterol/Ipratropium 3.0-0.5 MG/3 ML Neb Soln INH SCH ×4 (07:03→20:20)
--- NOTE | 2017-09-07 07:15 | PN ---
DATE OF SERVICE: 09/07/2017 SUBJECTIVE: Kaushik has been receiving [place] for her pain. She continues on the same alcohol withdrawal regime. Oral intake 1360. Catheter output 2400. She does arouse easily, but falls back asleep. Has been transferring from her bed to the chair. REVIEW OF SYSTEMS: Remainder of review of systems negative for any pertinent positives and negatives. OBJECTIVE: GENERAL: Kaushik Oreilly is a 51-year-old female. VITAL SIGNS: TPR is 98, 80, 20. Blood pressure 126/88. HEENT: Negative. NECK: Supple. HEART: Regular rate and rhythm. LUNGS: Revealed decreased breath sounds. She remains to be on oxygen. ABDOMEN: Aquacel dressing on, and abdominal binder is on. EXTREMITIES: Without peripheral edema. ASSESSMENT: 1. Acute alcohol withdrawal, delirium state. 2. Laparoscopic turned to laparotomy with lysis of adhesions and repair of recurrent incarcerated incisional hernia with mesh. De-serialization of the transverse colon and placement of Vicryl mesh for extensive intraabdominal adhesions. Recurrent incarcerated incisional hernia. Area of de-serialization of the transverse colon, part of adherence to previous mass. Date of surgery, 09/03/2017. Surgeon, Obdulio Anna M.D. PLAN: 1. Continue same orders per Surgery from a surgical standpoint of view. 2. Following with Julian Lara M.D. for acute alcohol withdrawal. 3. We will evaluate p.r.n. or in the a.m. Annie Hyde PA-C /[id number]
[2017-09-07] MEDS: Pantoprazole 40 MG Tab.CR PO SCH (07:27)
--- NOTE | 2017-09-07 08:37 | PCM.PN ---
- General Info Date of Service: 09/07/17 Functional Status: Reports: Pain Controlled, Tolerating Diet - Review of Systems General: Reports: Weakness Gastrointestinal: Reports: Abdominal Pain Neurological: Reports: Confusion, Tremors Systems Review Comment:: No acute events overnight. Still confused but seems more clear today. Vital signs have been stable and oxygenation has been improving. Still reports moderately severe abdominal pain. Tolerating diet. Still very shaky. Weak and requires the assistance of 2 people to get to the commode near the bed. - Patient Data Vitals - Most Recent: Last Vital Signs Temp 36.7 C 09/07/17 06:00 Pulse 78 09/07/17 06:00 Resp 23 H 09/07/17 06:00 BP 140/77 09/07/17 06:00 Pulse Ox 95 09/07/17 06:00 Weight - Most Recent: 81.9 kg I&O - Last 24 Hours: Intake & Output 09/06/17 09/07/17 09/07/17 22:59 06:59 14:59 Intake Total 990 2407 Output Total 325 275 Balance 665 8812 Lab Results Last 24 Hours: Laboratory Results - last 24 hr 09/07/17 09/07/17 Range/Units 05:36 05:36 WBC 8.4 (4.5-11.0) K/uL RBC 3.13 L (3.30-5.50) M/uL Hgb 10.8 L (12.0-15.0) g/dL Hct 32.8 L (36.0-48.0) % MCV 105 H (80-98) fL MCH 35 H (27-31) pg MCHC 33 (32-36) % Plt Count 215 (150-400) K/uL Sodium 133 L (140-148) mmol/L Potassium 3.6 (3.6-5.2) mmol/L Chloride 98 L (100-108) mmol/L Carbon Dioxide 28 (21-32) mmol/L Anion Gap 10.6 (5.0-14.0) mmol/L BUN 6 L (7-18) mg/dL Creatinine 0.6 (0.6-1.0) mg/dL Est Cr Clr Drug Dosing 98.65 mL/min Estimated GFR (MDRD) > 60 (>60) Glucose 94 (74-106) mg/dL Calcium 8.7 (8.5-10.1) mg/dL Total Bilirubin 0.8 (0.2-1.0) mg/dL AST 39 H (15-37) U/L ALT 30 (12-78) U/L Alkaline Phosphatase 206 H (46-116) U/L Total Protein 6.4 (6.4-8.2) g/dL Albumin 2.4 L (3.4-5.0) g/dL Globulin 4.0 H (2.3-3.5) g/dL Albumin/Globulin Ratio 0.6 L (1.2-2.2) Med Orders - Current: Current Medications Acetaminophen (Tylenol) 650 mg PO Q6H [facility] Last Admin: 09/07/17 03:00 Dose: 650 mg Hydrocodone Bitart/Acetaminophen (Dewey 325-5 Mg) 1 - 2 tab PO Q4H PRN PRN Reason: Pain Last Admin: 09/07/17 00:50 Dose: 2 tab Albuterol (Proventil Neb Soln) 2.5 mg NEB Q2H PRN PRN Reason: Shortness of Breath Albuterol/Ipratropium (Duoneb 3.0-0.5 Mg/3 Ml) 3 ml INH QIDRT [facility] Last Admin: 09/07/17 07:03 Dose: 3 ml Cyclobenzaprine HCl (Flexeril) 10 mg PO Q8H PRN PRN Reason: Muscle Spasm Diphenhydramine HCl (Benadryl) 25 - 50 mg PO Q4H PRN PRN Reason: Itching Diphenhydramine HCl (Benadryl) 25 - 50 mg IVPUSH Q4H PRN PRN Reason: Itching Fluoxetine HCl (Prozac) 40 mg PO DAILY [facility] Last Admin: 09/06/17 08:11 Dose: 40 mg Folic Acid (Folic Acid) 1 mg PO DAILY [facility] Last Admin: 09/06/17 08:08 Dose: 1 mg Gabapentin (Neurontin) 300 mg PO TID [facility] Last Admin: 09/06/17 21:26 Dose: 300 mg Haloperidol Lactate (Haldol) 1 mg IVPUSH Q2H PRN PRN Reason: Agitation Last Admin: 09/06/17 14:50 Dose: 1 mg Hydroxyzine HCl (Vistaril) 100 mg IM Q4H PRN PRN Reason: pain Dextrose/Lactated Ringer's (Dextrose 5%-Lactated Ringers) 1,000 mls @ 25 mls/ hr IV ASDIRECTED [facility] Last Admin: 09/06/17 01:23 Dose: 25 mls/hr Lisinopril (Prinivil) 20 mg PO DAILY [facility] Last Admin: 09/06/17 08:10 Dose: 20 mg Lorazepam (Ativan) 0 mg PO ASDIRECTED PRN; Protocol PRN Reason: ETOH WITHDRAWAL Last Admin: 09/07/17 07:28 Dose: 2 mg Lorazepam (Ativan) 0 mg IV ASDIRECTED PRN; Protocol PRN Reason: ETOH WITHDRAWAL Last Admin: 09/06/17 04:04 Dose: 2 mg Melatonin (Melatonin) 9 mg PO BEDTIME [facility] Last Admin: 09/06/17 21:25 Dose: 9 mg Multivitamins/Minerals (Thera M Plus) 1 tab PO DAILY [facility] Last Admin: 09/06/17 08:12 Dose: 1 tab Naloxone HCl (Narcan) 0.1 mg IV ASDIRECTED PRN PRN Reason: decreased respiratory rate Nicotine (Habitrol) 14 mg TRDERM DAILY [facility] Last Admin: 09/06/17 08:08 Dose: 14 mg Scopolamine Patch (Check) 1 each TOP DAILY [facility] Last Admin: 09/06/17 08:09 Dose: Not Given Pantoprazole Sodium (Protonix) 40 mg PO ACBREAKFAST [facility] Last Admin: 09/07/17 07:27 Dose: 40 mg Spiced Rum (Ptom) 0 each PO ASDIRECTED PRN PRN Reason: ALCOHOL WITHDRAWAL Last Admin: 09/05/17 08:12 Dose: 30 each Potassium Chloride (Klor-Con M20) 40 meq PO ONETIME ONE Stop: 09/07/17 08:36 Thiamine HCl (Vitamin B-1) 100 mg PO DAILY [facility] Stop: 09/08/17 09:01 Last Admin: 09/06/17 08:12 Dose: 100 mg Trazodone HCl (Trazodone) 50 mg PO BEDTIME [facility] Last Admin: 09/06/17 21:26 Dose: 50 mg Discontinued Medications Acetaminophen (Tylenol Extra Strength) 1,000 mg PO ONETIME ONE Stop: 09/03/17 06:31 Last Admin: 09/03/17 06:59 Dose: 1,000 mg Albuterol/Ipratropium (Duoneb 3.0-0.5 Mg/3 Ml) 3 ml NEB ONETIME ONE Stop: 09/03/17 06:31 Last Admin: 09/03/17 06:58 Dose: 3 ml Albuterol/Ipratropium (Duoneb 3.0-0.5 Mg/3 Ml) 3 ml INH ASDIRECTED PRN PRN Reason: BREATHING Albuterol/Ipratropium (Duoneb 3.0-0.5 Mg/3 Ml) 3 ml INH Q2H PRN PRN Reason: SHORTNESS OF BREATH Bisacodyl (Dulcolax) 20 mg PO ONETIME ONE Stop: 09/05/17 10:31 Last Admin: 09/05/17 10:44 Dose: 20 mg Bupivacaine HCl/Epinephrine Bitart (Marcaine 0.5%/Epinephrine 1:200,000) Confirm Administered Dose 50 ml .ROUTE .STK-MED ONE Stop: 09/03/17 06:44 Last Admin: 09/03/17 10:26 Dose: 20 ml Ropivacaine 40 ml/Dexamethasone 8 mg/Epinephrine HCl 0.4 mg/ Sodium Chloride 37.6 ml 0 ml NERVRT ONETIME ONE Stop: 09/03/17 10:01 Last Admin: 09/03/17 09:39 Dose: 80 syringe Dexamethasone (Dexamethasone) Confirm Administered Dose 4 mg .ROUTE .STK-MED ONE Stop: 09/03/17 07:42 Fentanyl (Sublimaze) Confirm Administered Dose 250 mcg .ROUTE .STK-MED ONE Stop: 09/03/17 07:42 Fentanyl (Sublimaze) Confirm Administered Dose 100 mcg .ROUTE .STK-MED ONE Stop: 09/03/17 10:55 Furosemide (Lasix) 40 mg IVPUSH NOW ONE Stop: 09/05/17 10:01 Last Admin: 09/05/17 10:48 Dose: 40 mg Furosemide (Lasix) 40 mg IVPUSH ONETIME ONE Stop: 09/05/17 19:05 Last Admin: 09/05/17 19:57 Dose: 40 mg Furosemide (Lasix) 40 mg IVPUSH ONETIME ONE Stop: 09/06/17 09:01 Last Admin: 09/06/17 09:30 Dose: 40 mg Gabapentin (Neurontin) 300 mg PO ONETIME ONE Stop: 09/03/17 06:31 Last Admin: 09/03/17 06:58 Dose: 300 mg Glycopyrrolate (Robinul) Confirm Administered Dose 1 mg .ROUTE .STK-MED ONE Stop: 09/03/17 07:42 Dextrose/Lactated Ringer's (Dextrose 5%-Lactated Ringers) 1,000 mls @ 100 mls/ hr IV ASDIRECTED [facility] Cefazolin Sodium 2 gm/ Premix 20 mls @ 600 mls/hr IV ONETIME ONE Stop: 09/03/17 08:31 Last Admin: 09/03/17 09:36 Dose: 600 mls/hr Lidocaine HCl/Dextrose (Lidocaine 2 Gm/D5w 500 Ml) 2 gm in 500 mls @ 30 mls/hr IV .[id number] [facility] PRN Reason: 2 MG/MIN Stop: 09/04/17 12:00 Last Admin: 09/04/17 03:49 Dose: Not Given Ketamine HCl 100 mg/ Sodium (Chloride) 100 mls @ 16 mls/hr IV ASDIRECTED [facility] Stop: 09/03/17 10:45 Linezolid (Zyvox) Confirm Administered Dose 100 mls @ as directed .ROUTE .STK- MED ONE Stop: 09/03/17 08:41 Dextrose/Lactated Ringer's (Dextrose 5%-Lactated Ringers) 1,000 mls @ 175 mls/ hr IV ASDIRECTED [facility] Last Admin: 09/04/17 10:30 Dose: 175 mls/hr Dextrose/Lactated Ringer's (Dextrose 5%-Lactated Ringers) 1,000 mls @ 175 mls/ hr IV ASDIRECTED [facility] Dextrose/Lactated Ringer's (Dextrose 5%-Lactated Ringers) 1,000 mls @ 100 mls/ hr IV ASDIRECTED [facility] Last Infusion: 09/05/17 15:00 Dose: 25 mls/hr Magnesium Sulfate 2 gm/ Premix 50 mls @ 25 mls/hr IV Q6H [facility] Stop: 09/06/17 16:59 Last Admin: 09/06/17 14:43 Dose: 25 mls/hr Ketamine HCl (Ketalar) 27 mg IV ONETIME ONE Stop: 09/03/17 08:46 Last Admin: 09/03/17 12:48 Dose: Not Given Lidocaine HCl (Xylocaine 2%) 98 mg IVPUSH ONETIME ONE Stop: 09/03/17 08:46 Last Admin: 09/03/17 12:48 Dose: Not Given Linezolid (Zyvox) 200 mg IRR .STK-MED ONE Stop: 09/03/17 10:28 Last Admin: 09/03/17 10:27 Dose: 200 mg Lorazepam (Ativan) 0.5 mg PO Q6H PRN PRN Reason: Anxiety Last Admin: 09/04/17 14:30 Dose: 0.5 mg Lorazepam (Ativan) 0.5 mg IVPUSH Q6H PRN PRN Reason: Anxiety Last Admin: 09/04/17 08:19 Dose: 0.5 mg Lorazepam (Ativan) 0 mg IM ASDIRECTED PRN; Protocol PRN Reason: ETOH WITHDRAWAL Magnesium Hydroxide (Milk Of Magnesia) 30 ml PO ONETIME ONE Stop: 09/05/17 09:31 Last Admin: 09/05/17 10:43 Dose: 30 ml Meperidine HCl (Demerol [employer] Giving [employer] 300 Mg In 30 Ml) 0 mg IV ASDIRECTED PRN; Protocol PRN Reason: Pain Last Admin: 09/04/17 15:54 Dose: 300 mg Meropenem (Merrem) Confirm Administered Dose 500 mg .ROUTE .STK-MED ONE Stop: 09/03/17 06:44 Last Admin: 09/03/17 10:26 Dose: 500 mg Neostigmine Methylsulfate (Neostigmine) Confirm Administered Dose 5 mg .ROUTE .STK-MED ONE Stop: 09/03/17 07:42 Alcohol 30ml (Vodka) 0 each PO Q6H [facility] Last Admin: 09/04/17 22:14 Dose: Not Given Vodka 30ml Non- (Form) 0 each PO ASDIRECTED PRN PRN Reason: prevent alcohol withdrawl Last Admin: 09/04/17 23:45 Dose: 30 each Ondansetron HCl (Zofran) Confirm Administered Dose 4 mg .ROUTE .STK-MED ONE Stop: 09/03/17 07:42 Propofol (Diprivan 20 Ml) Confirm Administered Dose 200 mg .ROUTE .STK-MED ONE Stop: 09/03/17 07:42 Rocuronium Ozone (Zemuron) Confirm Administered Dose 50 mg .ROUTE .STK-MED ONE Stop: 09/03/17 07:42 Scopolamine (Transderm-Scop) 1.5 mg TOP Q72H [facility] Last Admin: 09/03/17 06:58 Dose: 1.5 mg Succinylcholine Chloride (Quelicin) Confirm Administered Dose 200 mg .ROUTE .STK -MED ONE Stop: 09/03/17 07:42 - Exam Quality Assessment: Supplemental Oxygen General: Alert, Cooperative, No Acute Distress. No: Oriented Neck: Supple Lungs: Clear to Auscultation, Normal Respiratory Effort Cardiovascular: Regular Rhythm, Tachycardia GI/Abdominal Exam: Soft, No Distention Extremities: No Pedal Edema Skin: Warm, Dry Psy/Mental Status: Alert, Anxious (mild) - Problem List & Annotations (1) Alcohol withdrawal delirium, acute, mixed level of activity SNOMED Code(s): 4186164 Code(s): F10.231 - ALCOHOL DEPENDENCE WITH WITHDRAWAL DELIRIUM Status: Acute Current Visit: Yes (2) Status post hernia repair SNOMED Code(s): 56592607102735 Code(s): Z98.890 - OTHER SPECIFIED POSTPROCEDURAL STATES; Z87.19 - PERSONAL HISTORY OF OTHER DISEASES OF THE DIGESTIVE SYSTEM Status: Acute Current Visit: Yes Annotation/Comment:: large abdominal incisional hernia repair with mesh, repair of deserosalization of transverse colon - Problem List Review Problem List Initiated/Reviewed/Updated: Yes - My Orders Last 24 Hours: My Active Orders 09/07/17 08:18 Convert IV to Saline Lock [OM.PC] Routine 09/07/17 08:35 Potassium Chloride [Klor-Con M20] 40 meq PO ONETIME ONE 09/08/17 05:00 BASIC METABOLIC PANEL,BMP [CHEM] Timed HGB [HEMOGLOBIN] [HEME] Timed - Plan Plan:: ASSESSMENT AND PLAN Acute alcohol withdrawal delirium tremens - slowly clearing but still obviously confused. Still tremulous but otherwise vital signs have been stable. Very weak. -Haldol as needed for agitation -CIWA protocol with lorazepam -Continue 3 times a day gabapentin -Melatonin at bedtime -Cardiac monitoring -Physical therapy Volume overload with hypoxia - history of ARDS following surgeries. Exam and clinical status slowly improving. No evidence for volume overload at this time. -Hold on diuresis today -Supplement oxygen -Close monitoring of respiratory status Status post hernia repair - appears comfortable but reports moderately severe pain. Bowels moving and tolerating diet. -Postop cares per surgical team Julian Lara M.D.
[2017-09-07] MEDS ORDERED: Benzocaine/Cetylpyridinium/Menthol Lozenge MUCMEM PRN (08:40)
[2017-09-07] MEDS ORDERED: Potassium Chloride 20 MEQ Tab.ER PO ONE (09:00)
[2017-09-07] MEDS: Folic Acid 1 MG Tab PO SCH (09:08)
[2017-09-07] MEDS: Gabapentin 300 MG Cap PO SCH ×3 (09:09→20:19)
[2017-09-07] MEDS: Nicotine 14 MG/24 Hr Patch TRDERM SCH (09:09)
[2017-09-07] MEDS: SCOPOLAMINE PATCH CHECK TOP SCH (09:10)
[2017-09-07] MEDS: Lisinopril 20 MG Tab PO SCH (09:10)
[2017-09-07] MEDS: Multivitamins with Iron/Calcium/Folic Acid/Minerals Tab PO SCH (09:11)
[2017-09-07] MEDS: FLUoxetine 20 MG Cap PO SCH (09:11)
[2017-09-07] MEDS: Thiamine 100 MG Tab PO SCH (09:12)
[2017-09-07] MEDS: Melatonin 3 MG Tab PO SCH (20:20)
[2017-09-07] MEDS: Cyclobenzaprine 10 MG Tab PO PRN (20:20)
[2017-09-07] MEDS: traZODone 50 MG Tab PO SCH (20:20)
--- NOTE | 2017-09-07 23:50 | PCM.SN ---
- Free Text/Narrative Note: Time 20:49 call from ICU; request escobar cath removal. Ms. Oreilly is ambulatory at this time a; stable p; remove escobar cath. monitor for next voiding, continue present plan of care.
[2017-09-08] MEDS: Acetaminophen/HYDROcodone 325-5 MG Tab PO PRN ×4 (04:32→22:27)
[2017-09-08] MEDS: Acetaminophen 325 MG Tab PO SCH ×5 (04:32→21:00)
[2017-09-08] MEDS: Albuterol/Ipratropium 3.0-0.5 MG/3 ML Neb Soln INH SCH ×4 (07:51→21:00)
[2017-09-08] MEDS: Pantoprazole 40 MG Tab.CR PO SCH (08:28)
[2017-09-08] MEDS: Gabapentin 300 MG Cap PO SCH ×3 (08:29→21:00)
[2017-09-08] MEDS: Nicotine 14 MG/24 Hr Patch TRDERM SCH (08:29)
[2017-09-08] MEDS: Folic Acid 1 MG Tab PO SCH (08:29)
[2017-09-08] MEDS: Lisinopril 20 MG Tab PO SCH (08:30)
[2017-09-08] MEDS: SCOPOLAMINE PATCH CHECK TOP SCH (08:30)
[2017-09-08] MEDS: FLUoxetine 20 MG Cap PO SCH (08:31)
[2017-09-08] MEDS: Multivitamins with Iron/Calcium/Folic Acid/Minerals Tab PO SCH (08:31)
[2017-09-08] MEDS: Thiamine 100 MG Tab PO SCH (08:32)
--- NOTE | 2017-09-08 09:03 | PCM.SURGPN ---
- General Info Date of Service: 09/08/17 Date of Surgery/Procedure: 09/03/17 POD#: 5 Post-Op Diagnosis: Incisional hernia repair Functional Status: Reports: Pain Controlled (She complains of pain but appears well. ), Tolerating Diet - Review of Systems General: Reports: No Symptoms HEENT: Reports: No Symptoms Pulmonary: Reports: No Symptoms Cardiovascular: Reports: No Symptoms Gastrointestinal: Reports: No Symptoms, Abdominal Pain, Flatus Genitourinary: Reports: No Symptoms Musculoskeletal: Reports: No Symptoms Skin: Reports: No Symptoms Neurological: Reports: No Symptoms Psychiatric: Reports: No Symptoms - Patient Data Vitals - Most Recent: Last Vital Signs Temp 205.0 F H 09/08/17 08:32 Pulse 88 09/08/17 07:52 Resp 25 H 09/08/17 05:57 BP 113/72 09/08/17 08:30 Pulse Ox 98 09/08/17 05:57 Weight - Most Recent: 179 lb 14.355 oz I&O - Last 24 Hours: Intake & Output 09/07/17 09/08/17 09/08/17 22:59 06:59 14:59 Intake Total 720 600 Output Total 1800 475 Balance -1080 125 Lab Results Last 24 Hrs: Laboratory Results - last 24 hr 09/08/17 09/08/17 Range/Units 05:00 05:00 Hgb 10.8 L (12.0-15.0) g/dL Sodium 136 L (140-148) mmol/L Potassium 4.0 (3.6-5.2) mmol/L Chloride 103 (100-108) mmol/L Carbon Dioxide 26 (21-32) mmol/L Anion Gap 11.0 (5.0-14.0) mmol/L BUN 7 (7-18) mg/dL Creatinine 0.6 (0.6-1.0) mg/dL Est Cr Clr Drug Dosing 98.65 mL/min Estimated GFR (MDRD) > 60 (>60) Glucose 95 (74-106) mg/dL Calcium 8.9 (8.5-10.1) mg/dL Med Orders - Current: Current Medications Acetaminophen (Tylenol) 650 mg PO Q6H [facility] Last Admin: 09/08/17 08:32 Dose: 650 mg Hydrocodone Bitart/Acetaminophen ([place] 325-5 Mg) 1 - 2 tab PO Q4H PRN PRN Reason: Pain Last Admin: 09/08/17 04:32 Dose: 2 tab Albuterol (Proventil Neb Soln) 2.5 mg NEB Q2H PRN PRN Reason: Shortness of Breath Albuterol/Ipratropium (Duoneb 3.0-0.5 Mg/3 Ml) 3 ml INH QIDRT [facility] Last Admin: 09/08/17 07:51 Dose: 3 ml Benzocaine/Menthol (Cepacol Sore Throat) 1 lozenge MUCMEM Q2H PRN PRN Reason: Sore Throat Last Admin: 09/07/17 09:17 Dose: 1 lozenge Cyclobenzaprine HCl (Flexeril) 10 mg PO Q8H PRN PRN Reason: Muscle Spasm Last Admin: 09/07/17 20:20 Dose: 10 mg Diphenhydramine HCl (Benadryl) 25 - 50 mg PO Q4H PRN PRN Reason: Itching Diphenhydramine HCl (Benadryl) 25 - 50 mg IVPUSH Q4H PRN PRN Reason: Itching Fluoxetine HCl (Prozac) 40 mg PO DAILY [facility] Last Admin: 09/08/17 08:31 Dose: 40 mg Folic Acid (Folic Acid) 1 mg PO DAILY [facility] Last Admin: 09/08/17 08:29 Dose: 1 mg Gabapentin (Neurontin) 300 mg PO TID [facility] Last Admin: 09/08/17 08:29 Dose: 300 mg Haloperidol Lactate (Haldol) 1 mg IVPUSH Q2H PRN PRN Reason: Agitation Last Admin: 09/06/17 14:50 Dose: 1 mg Hydroxyzine HCl (Vistaril) 100 mg IM Q4H PRN PRN Reason: pain Dextrose/Lactated Ringer's (Dextrose 5%-Lactated Ringers) 1,000 mls @ 25 mls/ hr IV ASDIRECTED [facility] Last Admin: 09/06/17 01:23 Dose: 25 mls/hr Lisinopril (Prinivil) 20 mg PO DAILY [facility] Last Admin: 09/08/17 08:30 Dose: 20 mg Lorazepam (Ativan) 0 mg PO ASDIRECTED PRN; Protocol PRN Reason: ETOH WITHDRAWAL Last Admin: 09/07/17 21:25 Dose: 2 mg Lorazepam (Ativan) 0 mg IV ASDIRECTED PRN; Protocol PRN Reason: ETOH WITHDRAWAL Last Admin: 09/06/17 04:04 Dose: 2 mg Melatonin (Melatonin) 9 mg PO BEDTIME [facility] Last Admin: 09/07/17 20:20 Dose: 9 mg Multivitamins/Minerals (Thera M Plus) 1 tab PO DAILY [facility] Last Admin: 09/08/17 08:31 Dose: 1 tab Naloxone HCl (Narcan) 0.1 mg IV ASDIRECTED PRN PRN Reason: decreased respiratory rate Nicotine (Habitrol) 14 mg TRDERM DAILY [facility] Last Admin: 09/08/17 08:29 Dose: 14 mg Scopolamine Patch (Check) 1 each TOP DAILY [facility] Last Admin: 09/08/17 08:30 Dose: Not Given Pantoprazole Sodium (Protonix) 40 mg PO ACBREAKFAST [facility] Last Admin: 09/08/17 08:28 Dose: 40 mg Spiced Rum (Ptom) 0 each PO ASDIRECTED PRN PRN Reason: ALCOHOL WITHDRAWAL Last Admin: 09/05/17 08:12 Dose: 30 each Trazodone HCl (Trazodone) 50 mg PO BEDTIME [facility] Last Admin: 09/07/17 20:20 Dose: 50 mg Discontinued Medications Acetaminophen (Tylenol Extra Strength) 1,000 mg PO ONETIME ONE Stop: 09/03/17 06:31 Last Admin: 09/03/17 06:59 Dose: 1,000 mg Albuterol/Ipratropium (Duoneb 3.0-0.5 Mg/3 Ml) 3 ml NEB ONETIME ONE Stop: 09/03/17 06:31 Last Admin: 09/03/17 06:58 Dose: 3 ml Albuterol/Ipratropium (Duoneb 3.0-0.5 Mg/3 Ml) 3 ml INH ASDIRECTED PRN PRN Reason: BREATHING Albuterol/Ipratropium (Duoneb 3.0-0.5 Mg/3 Ml) 3 ml INH Q2H PRN PRN Reason: SHORTNESS OF BREATH Bisacodyl (Dulcolax) 20 mg PO ONETIME ONE Stop: 09/05/17 10:31 Last Admin: 09/05/17 10:44 Dose: 20 mg Bupivacaine HCl/Epinephrine Bitart (Marcaine 0.5%/Epinephrine 1:200,000) Confirm Administered Dose 50 ml .ROUTE .STK-MED ONE Stop: 09/03/17 06:44 Last Admin: 09/03/17 10:26 Dose: 20 ml Ropivacaine 40 ml/Dexamethasone 8 mg/Epinephrine HCl 0.4 mg/ Sodium Chloride 37.6 ml 0 ml NERVRT ONETIME ONE Stop: 09/03/17 10:01 Last Admin: 09/03/17 09:39 Dose: 80 syringe Dexamethasone (Dexamethasone) Confirm Administered Dose 4 mg .ROUTE .STK-MED ONE Stop: 09/03/17 07:42 Fentanyl (Sublimaze) Confirm Administered Dose 250 mcg .ROUTE .STK-MED ONE Stop: 09/03/17 07:42 Fentanyl (Sublimaze) Confirm Administered Dose 100 mcg .ROUTE .STK-MED ONE Stop: 09/03/17 10:55 Furosemide (Lasix) 40 mg IVPUSH NOW ONE Stop: 09/05/17 10:01 Last Admin: 09/05/17 10:48 Dose: 40 mg Furosemide (Lasix) 40 mg IVPUSH ONETIME ONE Stop: 09/05/17 19:05 Last Admin: 09/05/17 19:57 Dose: 40 mg Furosemide (Lasix) 40 mg IVPUSH ONETIME ONE Stop: 09/06/17 09:01 Last Admin: 09/06/17 09:30 Dose: 40 mg Gabapentin (Neurontin) 300 mg PO ONETIME ONE Stop: 09/03/17 06:31 Last Admin: 09/03/17 06:58 Dose: 300 mg Glycopyrrolate (Robinul) Confirm Administered Dose 1 mg .ROUTE .STK-MED ONE Stop: 09/03/17 07:42 Dextrose/Lactated Ringer's (Dextrose 5%-Lactated Ringers) 1,000 mls @ 100 mls/ hr IV ASDIRECTED [facility] Cefazolin Sodium 2 gm/ Premix 20 mls @ 600 mls/hr IV ONETIME ONE Stop: 09/03/17 08:31 Last Admin: 09/03/17 09:36 Dose: 600 mls/hr Lidocaine HCl/Dextrose (Lidocaine 2 Gm/D5w 500 Ml) 2 gm in 500 mls @ 30 mls/hr IV .[id number] [facility] PRN Reason: 2 MG/MIN Stop: 09/04/17 12:00 Last Admin: 09/04/17 03:49 Dose: Not Given Ketamine HCl 100 mg/ Sodium (Chloride) 100 mls @ 16 mls/hr IV ASDIRECTED [facility] Stop: 09/03/17 10:45 Linezolid (Zyvox) Confirm Administered Dose 100 mls @ as directed .ROUTE .STK- MED ONE Stop: 09/03/17 08:41 Dextrose/Lactated Ringer's (Dextrose 5%-Lactated Ringers) 1,000 mls @ 175 mls/ hr IV ASDIRECTED [facility] Last Admin: 09/04/17 10:30 Dose: 175 mls/hr Dextrose/Lactated Ringer's (Dextrose 5%-Lactated Ringers) 1,000 mls @ 175 mls/ hr IV ASDIRECTED [facility] Dextrose/Lactated Ringer's (Dextrose 5%-Lactated Ringers) 1,000 mls @ 100 mls/ hr IV ASDIRECTED [facility] Last Infusion: 09/05/17 15:00 Dose: 25 mls/hr Magnesium Sulfate 2 gm/ Premix 50 mls @ 25 mls/hr IV Q6H [facility] Stop: 09/06/17 16:59 Last Admin: 09/06/17 14:43 Dose: 25 mls/hr Ketamine HCl (Ketalar) 27 mg IV ONETIME ONE Stop: 09/03/17 08:46 Last Admin: 09/03/17 12:48 Dose: Not Given Lidocaine HCl (Xylocaine 2%) 98 mg IVPUSH ONETIME ONE Stop: 09/03/17 08:46 Last Admin: 09/03/17 12:48 Dose: Not Given Linezolid (Zyvox) 200 mg IRR .STK-MED ONE Stop: 09/03/17 10:28 Last Admin: 09/03/17 10:27 Dose: 200 mg Lorazepam (Ativan) 0.5 mg PO Q6H PRN PRN Reason: Anxiety Last Admin: 09/04/17 14:30 Dose: 0.5 mg Lorazepam (Ativan) 0.5 mg IVPUSH Q6H PRN PRN Reason: Anxiety Last Admin: 09/04/17 08:19 Dose: 0.5 mg Lorazepam (Ativan) 0 mg IM ASDIRECTED PRN; Protocol PRN Reason: ETOH WITHDRAWAL Magnesium Hydroxide (Milk Of Magnesia) 30 ml PO ONETIME ONE Stop: 12/07/17 09:31 Last Admin: 09/05/17 10:43 Dose: 30 ml Meperidine HCl (Demerol [employer] 300 Mg In 30 Ml) 0 mg IV ASDIRECTED PRN; Protocol PRN Reason: Pain Last Admin: 09/04/17 15:54 Dose: 300 mg Meropenem (Merrem) Confirm Administered Dose 500 mg .ROUTE .STK-MED ONE Stop: 09/03/17 06:44 Last Admin: 09/03/17 10:26 Dose: 500 mg Neostigmine Methylsulfate (Neostigmine) Confirm Administered Dose 5 mg .ROUTE .STK-MED ONE Stop: 09/03/17 07:42 Alcohol 30ml (Vodka) 0 each PO Q6H [facility] Last Admin: 09/04/17 22:14 Dose: Not Given Vodka 30ml Non- (Form) 0 each PO ASDIRECTED PRN PRN Reason: prevent alcohol withdrawl Last Admin: 09/04/17 23:45 Dose: 30 each Ondansetron HCl (Zofran) Confirm Administered Dose 4 mg .ROUTE .STK-MED ONE Stop: 09/03/17 07:42 Potassium Chloride (Klor-Con M20) 40 meq PO ONETIME ONE Stop: 09/07/17 09:01 Last Admin: 09/07/17 09:12 Dose: 40 meq Propofol (Diprivan 20 Ml) Confirm Administered Dose 200 mg .ROUTE .STK-MED ONE Stop: 09/03/17 07:42 Rocuronium [place] (Zemuron) Confirm Administered Dose 50 mg .ROUTE .STK-MED ONE Stop: 09/03/17 07:42 Scopolamine (Transderm-Scop) 1.5 mg TOP Q72H [facility] Last Admin: 09/03/17 06:58 Dose: 1.5 mg Succinylcholine Chloride (Quelicin) Confirm Administered Dose 200 mg .ROUTE .STK -MED ONE Stop: 09/03/17 07:42 Thiamine HCl (Vitamin B-1) 100 mg PO DAILY [facility] Stop: 09/08/17 09:01 Last Admin: 09/08/17 08:32 Dose: 100 mg - Exam General: Alert, Oriented, Cooperative, No Acute Distress, Other (Her withdrawal is improving. ) Lungs: Clear to Auscultation, Normal Respiratory Effort Cardiovascular: Regular Rate, Regular Rhythm GI/Abdominal Exam: Normal Bowel Sounds, Soft, No Organomegaly, Other (Incisions appear well with no evidence of infection. ) Skin: Warm, Dry, Intact Neurological: No New Focal Deficit Psy/Mental Status: Alert, Normal Affect, Normal Mood - Problem List & Annotations (1) Status post hernia repair SNOMED Code(s): 41307380246416 Code(s): Z98.890 - OTHER SPECIFIED POSTPROCEDURAL STATES; Z87.19 - PERSONAL HISTORY OF OTHER DISEASES OF THE DIGESTIVE SYSTEM Status: Acute Current Visit: Yes Annotation/Comment:: large abdominal incisional hernia repair with mesh, repair of deserosalization of transverse colon - Problem List Review Problem List Initiated/Reviewed/Updated: Yes - My Orders Last 24 Hours: Active Orders 24 hr Category Date Time Status Benzocaine/Cetylpyrd/Menthol [Cepacol Sore Throat] Med 09/07/17 08:40 Active 1 lozenge MUCMEM Q2H PRN Convert IV to Saline Lock [OM.PC] Routine Oth 09/07/17 08:18 Ordered Peripheral IV Discontinue [OM.PC] Routine Oth 09/07/17 22:02 Ordered Medication Orders Acetaminophen (Tylenol) 650 mg PO Q6H [facility] Last Admin: 09/08/17 08:32 Dose: 650 mg Admin: 09/08/17 04:32 Dose: 650 mg Admin: 09/07/17 21:25 Dose: 650 mg Admin: 09/07/17 15:55 Dose: 650 mg Admin: 09/07/17 09:12 Dose: 650 mg Admin: 09/07/17 03:00 Dose: 650 mg Admin: 09/06/17 21:26 Dose: 650 mg Admin: 09/06/17 17:15 Dose: 650 mg Admin: 09/06/17 09:32 Dose: 650 mg Admin: 09/06/17 03:51 Dose: 650 mg Admin: 09/05/17 22:19 Dose: 650 mg Admin: 09/05/17 15:28 Dose: 650 mg Admin: 09/05/17 09:57 Dose: 650 mg Admin: 09/05/17 04:35 Dose: 650 mg Admin: 09/04/17 22:14 Dose: 650 mg Admin: 09/04/17 16:47 Dose: 650 mg Admin: 09/04/17 09:32 Dose: 650 mg Admin: 09/04/17 03:15 Dose: 650 mg Admin: 09/03/17 22:06 Dose: 650 mg Admin: 09/03/17 16:07 Dose: 650 mg Hydrocodone Bitart/Acetaminophen ([place] 325-5 Mg) 1 - 2 tab PO Q4H PRN PRN Reason: Pain Last Admin: 09/08/17 04:32 Dose: 2 tab Admin: 09/07/17 11:22 Dose: 1 tab Admin: 09/07/17 00:50 Dose: 2 tab Admin: 09/06/17 19:32 Dose: 1 tab Albuterol (Proventil Neb Soln) 2.5 mg NEB Q2H PRN PRN Reason: Shortness of Breath Albuterol/Ipratropium (Duoneb 3.0-0.5 Mg/3 Ml) 3 ml INH QIDRT [facility] Last Admin: 09/08/17 07:51 Dose: 3 ml Admin: 09/07/17 20:20 Dose: 3 ml Admin: 09/07/17 14:44 Dose: 3 ml Admin: 09/07/17 11:01 Dose: 3 ml Admin: 09/07/17 07:03 Dose: 3 ml Admin: 09/06/17 21:28 Dose: 3 ml Admin: 09/06/17 14:34 Dose: 3 ml Admin: 09/06/17 10:55 Dose: 3 ml Admin: 09/06/17 07:17 Dose: 3 ml Admin: 09/05/17 20:36 Dose: 3 ml Admin: 09/05/17 14:22 Dose: 3 ml Admin: 09/05/17 11:13 Dose: 3 ml Admin: 09/05/17 07:27 Dose: 3 ml Admin: 09/04/17 22:17 Dose: 3 ml Admin: 09/04/17 14:42 Dose: 3 ml Admin: 09/04/17 11:03 Dose: 3 ml Admin: 09/04/17 07:21 Dose: 3 ml Admin: 09/03/17 22:06 Dose: 3 ml Admin: 09/03/17 14:34 Dose: 3 ml Benzocaine/Menthol (Cepacol Sore Throat) 1 lozenge MUCMEM Q2H PRN PRN Reason: Sore Throat Last Admin: 09/07/17 09:17 Dose: 1 lozenge Cyclobenzaprine HCl (Flexeril) 10 mg PO Q8H PRN PRN Reason: Muscle Spasm Last Admin: 09/07/17 20:20 Dose: 10 mg Diphenhydramine HCl (Benadryl) 25 - 50 mg PO Q4H PRN PRN Reason: Itching Diphenhydramine HCl (Benadryl) 25 - 50 mg IVPUSH Q4H PRN PRN Reason: Itching Fluoxetine HCl (Prozac) 40 mg PO DAILY [facility] Last Admin: 09/08/17 08:31 Dose: 40 mg Admin: 09/07/17 09:11 Dose: 40 mg Admin: 09/06/17 08:11 Dose: 40 mg Admin: 09/05/17 09:56 Dose: 40 mg Admin: 09/04/17 09:31 Dose: 40 mg Admin: 09/03/17 14:03 Dose: 40 mg Folic Acid (Folic Acid) 1 mg PO DAILY [facility] Last Admin: 09/08/17 08:29 Dose: 1 mg Admin: 09/07/17 09:08 Dose: 1 mg Admin: 09/06/17 08:08 Dose: 1 mg Admin: 09/05/17 09:55 Dose: 1 mg Gabapentin (Neurontin) 300 mg PO TID [facility] Last Admin: 09/08/17 08:29 Dose: 300 mg Admin: 09/07/17 20:19 Dose: 300 mg Admin: 09/07/17 14:15 Dose: 300 mg Admin: 09/07/17 09:09 Dose: 300 mg Admin: 09/06/17 21:26 Dose: 300 mg Admin: 09/06/17 14:45 Dose: 300 mg Admin: 09/06/17 08:09 Dose: 300 mg Admin: 09/05/17 20:28 Dose: 300 mg Admin: 09/05/17 15:28 Dose: 300 mg Admin: 09/05/17 09:55 Dose: 300 mg Admin: 09/04/17 22:13 Dose: 300 mg Admin: 09/04/17 13:35 Dose: 300 mg Admin: 09/04/17 09:31 Dose: 300 mg Admin: 09/03/17 22:06 Dose: 300 mg Admin: 09/03/17 14:03 Dose: 300 mg Haloperidol Lactate (Haldol) 1 mg IVPUSH Q2H PRN PRN Reason: Agitation Last Admin: 09/06/17 14:50 Dose: 1 mg Admin: 09/06/17 08:53 Dose: 1 mg Admin: 09/05/17 19:36 Dose: 1 mg Hydroxyzine HCl (Vistaril) 100 mg IM Q4H PRN PRN Reason: pain Dextrose/Lactated Ringer's (Dextrose 5%-Lactated Ringers) 1,000 mls @ 25 mls/ hr IV ASDIRECTED [facility] Last Admin: 09/06/17 01:23 Dose: 25 mls/hr Lisinopril (Prinivil) 20 mg PO DAILY [facility] Last Admin: 09/08/17 08:30 Dose: 20 mg Admin: 09/07/17 09:10 Dose: 20 mg Admin: 09/06/17 08:10 Dose: 20 mg Admin: 09/05/17 09:55 Dose: 20 mg Admin: 09/04/17 09:31 Dose: 20 mg Lorazepam (Ativan) 0 mg PO ASDIRECTED PRN; Protocol PRN Reason: ETOH WITHDRAWAL Last Admin: 09/07/17 21:25 Dose: 2 mg Admin: 09/07/17 15:54 Dose: 1 mg Admin: 09/07/17 07:28 Dose: 2 mg Admin: 09/07/17 02:50 Dose: 2 mg Admin: 09/06/17 19:32 Dose: 1 mg Admin: 09/06/17 14:49 Dose: 1 mg Admin: 09/06/17 08:07 Dose: 1 mg Admin: 09/05/17 10:00 Dose: 1 mg Admin: 09/05/17 02:28 Dose: 1 mg Admin: 09/04/17 16:57 Dose: 1 mg Lorazepam (Ativan) 0 mg IV ASDIRECTED PRN; Protocol PRN Reason: ETOH WITHDRAWAL Last Admin: 09/06/17 04:04 Dose: 2 mg Admin: 09/05/17 17:39 Dose: 2 mg Admin: 09/05/17 13:04 Dose: 2 mg Admin: 09/05/17 11:04 Dose: 2 mg Melatonin (Melatonin) 9 mg PO BEDTIME [facility] Last Admin: 09/07/17 20:20 Dose: 9 mg Admin: 09/06/17 21:25 Dose: 9 mg Admin: 09/05/17 20:28 Dose: 9 mg Multivitamins/Minerals (Thera M Plus) 1 tab PO DAILY [facility] Last Admin: 09/08/17 08:31 Dose: 1 tab Admin: 09/07/17 09:11 Dose: 1 tab Admin: 09/06/17 08:12 Dose: 1 tab Admin: 09/05/17 09:56 Dose: 1 tab Naloxone HCl (Narcan) 0.1 mg IV ASDIRECTED PRN PRN Reason: decreased respiratory rate Nicotine (Habitrol) 14 mg TRDERM DAILY [facility] Last Admin: 09/08/17 08:29 Dose: 14 mg Admin: 09/07/17 09:09 Dose: 14 mg Admin: 09/06/17 08:08 Dose: 14 mg Admin: 09/05/17 09:55 Dose: 14 mg Admin: 09/04/17 09:27 Dose: 14 mg Admin: 09/03/17 22:23 Dose: 14 mg Scopolamine Patch (Check) 1 each TOP DAILY [facility] Last Admin: 09/08/17 08:30 Dose: Admin: 09/07/17 09:10 Dose: Admin: 09/06/17 08:09 Dose: Admin: 09/05/17 09:55 Dose: Admin: 09/04/17 09:31 Dose: Pantoprazole Sodium (Protonix) 40 mg PO ACBREAKFAST [facility] Last Admin: 09/08/17 08:28 Dose: 40 mg Admin: 09/07/17 07:27 Dose: 40 mg Admin: 09/06/17 08:07 Dose: 40 mg Admin: 09/05/17 07:34 Dose: 40 mg Admin: 09/04/17 09:27 Dose: 40 mg Admin: 09/03/17 14:03 Dose: 40 mg Spiced Rum (Ptom) 0 each PO ASDIRECTED PRN PRN Reason: ALCOHOL WITHDRAWAL Last Admin: 09/05/17 08:12 Dose: 30 each Trazodone HCl (Trazodone) 50 mg PO BEDTIME [facility] Last Admin: 09/07/17 20:20 Dose: 50 mg Admin: 09/06/17 21:26 Dose: 50 mg Admin: 09/05/17 20:28 Dose: 50 mg Admin: 09/04/17 22:14 Dose: 50 mg Admin: 09/03/17 22:06 Dose: 50 mg - Assessment Assessment (Free Text/Narrative):: Improving. - Plan Plan (Free Text/Narrative):: No change. Dr. Anna will be back tomorrow.
--- NOTE | 2017-09-08 09:19 | PCM.PN ---
- General Info Date of Service: 09/08/17 Functional Status: Reports: Pain Controlled, Tolerating Diet, Ambulating - Review of Systems General: Reports: Weakness Gastrointestinal: Reports: Abdominal Pain Systems Review Comment:: No acute events overnight. Her Freeman catheter was removed yesterday evening. She has not required and lorazepam. Mental status seems to have improved and is now back to baseline. No identifiable confusion or hallucinations today. Strength has been improving steadily. She continues to have bowel movements. Tolerating her diet. She does continue to report moderately severe abdominal pain but appears very comfortable. - Patient Data Vitals - Most Recent: Last Vital Signs Temp 96.1 C H 09/08/17 08:32 Pulse 87 09/08/17 08:00 Resp 17 09/08/17 08:00 BP 113/72 09/08/17 08:30 Pulse Ox 97 09/08/17 08:00 Weight - Most Recent: 81.6 kg I&O - Last 24 Hours: Intake & Output 09/07/17 09/08/17 09/08/17 22:59 06:59 14:59 Intake Total 720 600 Output Total 1800 475 300 Balance -1080 125 -300 Lab Results Last 24 Hours: Laboratory Results - last 24 hr 09/08/17 09/08/17 Range/Units 05:00 05:00 Hgb 10.8 L (12.0-15.0) g/dL Sodium 136 L (140-148) mmol/L Potassium 4.0 (3.6-5.2) mmol/L Chloride 103 (100-108) mmol/L Carbon Dioxide 26 (21-32) mmol/L Anion Gap 11.0 (5.0-14.0) mmol/L BUN 7 (7-18) mg/dL Creatinine 0.6 (0.6-1.0) mg/dL Est Cr Clr Drug Dosing 98.65 mL/min Estimated GFR (MDRD) > 60 (>60) Glucose 95 (74-106) mg/dL Calcium 8.9 (8.5-10.1) mg/dL Med Orders - Current: Current Medications Acetaminophen (Tylenol) 650 mg PO Q6H [facility] Last Admin: 09/08/17 08:32 Dose: 650 mg Hydrocodone Bitart/Acetaminophen ([place] 325-5 Mg) 1 - 2 tab PO Q4H PRN PRN Reason: Pain Last Admin: 09/08/17 04:32 Dose: 2 tab Albuterol (Proventil Neb Soln) 2.5 mg NEB Q2H PRN PRN Reason: Shortness of Breath Albuterol/Ipratropium (Duoneb 3.0-0.5 Mg/3 Ml) 3 ml INH QIDRT [facility] Last Admin: 09/08/17 07:51 Dose: 3 ml Benzocaine/Menthol (Cepacol Sore Throat) 1 lozenge MUCMEM Q2H PRN PRN Reason: Sore Throat Last Admin: 09/07/17 09:17 Dose: 1 lozenge Cyclobenzaprine HCl (Flexeril) 10 mg PO Q8H PRN PRN Reason: Muscle Spasm Last Admin: 09/07/17 20:20 Dose: 10 mg Diphenhydramine HCl (Benadryl) 25 - 50 mg PO Q4H PRN PRN Reason: Itching Fluoxetine HCl (Prozac) 40 mg PO DAILY [facility] Last Admin: 09/08/17 08:31 Dose: 40 mg Folic Acid (Folic Acid) 1 mg PO DAILY [facility] Last Admin: 09/08/17 08:29 Dose: 1 mg Gabapentin (Neurontin) 300 mg PO TID [facility] Last Admin: 09/08/17 08:29 Dose: 300 mg Hydroxyzine HCl (Vistaril) 100 mg IM Q4H PRN PRN Reason: pain Lisinopril (Prinivil) 20 mg PO DAILY [facility] Last Admin: 09/08/17 08:30 Dose: 20 mg Melatonin (Melatonin) 9 mg PO BEDTIME [facility] Last Admin: 09/07/17 20:20 Dose: 9 mg Multivitamins/Minerals (Thera M Plus) 1 tab PO DAILY [facility] Last Admin: 09/08/17 08:31 Dose: 1 tab Naloxone HCl (Narcan) 0.1 mg IV ASDIRECTED PRN PRN Reason: decreased respiratory rate Nicotine (Habitrol) 14 mg TRDERM DAILY [facility] Last Admin: 09/08/17 08:29 Dose: 14 mg Scopolamine Patch (Check) 1 each TOP DAILY [facility] Last Admin: 09/08/17 08:30 Dose: Not Given Pantoprazole Sodium (Protonix) 40 mg PO ACBREAKFAST [facility] Last Admin: 09/08/17 08:28 Dose: 40 mg Spiced Rum (Ptom) 0 each PO ASDIRECTED PRN PRN Reason: ALCOHOL WITHDRAWAL Last Admin: 09/05/17 08:12 Dose: 30 each Trazodone HCl (Trazodone) 50 mg PO BEDTIME [facility] Last Admin: 09/07/17 20:20 Dose: 50 mg Discontinued Medications Acetaminophen (Tylenol Extra Strength) 1,000 mg PO ONETIME ONE Stop: 09/03/17 06:31 Last Admin: 09/03/17 06:59 Dose: 1,000 mg Albuterol/Ipratropium (Duoneb 3.0-0.5 Mg/3 Ml) 3 ml NEB ONETIME ONE Stop: 09/03/17 06:31 Last Admin: 09/03/17 06:58 Dose: 3 ml Albuterol/Ipratropium (Duoneb 3.0-0.5 Mg/3 Ml) 3 ml INH ASDIRECTED PRN PRN Reason: BREATHING Albuterol/Ipratropium (Duoneb 3.0-0.5 Mg/3 Ml) 3 ml INH Q2H PRN PRN Reason: SHORTNESS OF BREATH Bisacodyl (Dulcolax) 20 mg PO ONETIME ONE Stop: 09/05/17 10:31 Last Admin: 09/05/17 10:44 Dose: 20 mg Bupivacaine HCl/Epinephrine Bitart ([place] 0.5%/Epinephrine 1:200,000) Confirm Administered Dose 50 ml .ROUTE .STK-MED ONE Stop: 09/03/17 06:44 Last Admin: 09/03/17 10:26 Dose: 20 ml Ropivacaine 40 ml/Dexamethasone 8 mg/Epinephrine HCl 0.4 mg/ Sodium Chloride 37.6 ml 0 ml NERVRT ONETIME ONE Stop: 09/03/17 10:01 Last Admin: 09/03/17 09:39 Dose: 80 syringe Dexamethasone (Dexamethasone) Confirm Administered Dose 4 mg .ROUTE .STK-MED ONE Stop: 09/03/17 07:42 Diphenhydramine HCl (Benadryl) 25 - 50 mg IVPUSH Q4H PRN PRN Reason: Itching Fentanyl (Sublimaze) Confirm Administered Dose 250 mcg .ROUTE .STK-MED ONE Stop: 09/03/17 07:42 Fentanyl (Sublimaze) Confirm Administered Dose 100 mcg .ROUTE .STK-MED ONE Stop: 09/03/17 10:55 Furosemide (Lasix) 40 mg IVPUSH NOW ONE Stop: 09/05/17 10:01 Last Admin: 09/05/17 10:48 Dose: 40 mg Furosemide (Lasix) 40 mg IVPUSH ONETIME ONE Stop: 09/05/17 19:05 Last Admin: 09/05/17 19:57 Dose: 40 mg Furosemide (Lasix) 40 mg IVPUSH ONETIME ONE Stop: 09/06/17 09:01 Last Admin: 09/06/17 09:30 Dose: 40 mg Gabapentin (Neurontin) 300 mg PO ONETIME ONE Stop: 09/03/17 06:31 Last Admin: 09/03/17 06:58 Dose: 300 mg Glycopyrrolate (Robinul) Confirm Administered Dose 1 mg .ROUTE .ST-MED ONE Stop: 09/03/17 07:42 Haloperidol Lactate (Haldol) 1 mg IVPUSH Q2H PRN PRN Reason: Agitation Last Admin: 09/06/17 14:50 Dose: 1 mg Dextrose/Lactated Ringer's (Dextrose 5%-Lactated Ringers) 1,000 mls @ 100 mls/ hr IV ASDIRECTED [facility] Cefazolin Sodium 2 gm/ Premix 20 mls @ 600 mls/hr IV ONETIME ONE Stop: 09/03/17 08:31 Last Admin: 09/03/17 09:36 Dose: 600 mls/hr Lidocaine HCl/Dextrose (Lidocaine 2 Gm/D5w 500 Ml) 2 gm in 500 mls @ 30 mls/hr IV .[id number] [facility] PRN Reason: 2 MG/MIN Stop: 09/04/17 12:00 Last Admin: 09/04/17 03:49 Dose: Not Given Ketamine HCl 100 mg/ Sodium (Chloride) 100 mls @ 16 mls/hr IV ASDIRECTED [facility] Stop: 09/03/17 10:45 Linezolid (Zyvox) Confirm Administered Dose 100 mls @ as directed .ROUTE .ST- MED ONE Stop: 09/03/17 08:41 Dextrose/Lactated Ringer's (Dextrose 5%-Lactated Ringers) 1,000 mls @ 175 mls/ hr IV ASDIRECTED [facility] Last Admin: 09/04/17 10:30 Dose: 175 mls/hr Dextrose/Lactated Ringer's (Dextrose 5%-Lactated Ringers) 1,000 mls @ 175 mls/ hr IV ASDIRECTED [facility] Dextrose/Lactated Ringer's (Dextrose 5%-Lactated Ringers) 1,000 mls @ 100 mls/ hr IV ASDIRECTED [facility]HU[facility] Last Infusion: 09/05/17 15:00 Dose: 25 mls/hr Dextrose/Lactated Ringer's (Dextrose 5%-Lactated Ringers) 1,000 mls @ 25 mls/ hr IV ASDIRECTED [facility] Last Admin: 09/06/17 01:23 Dose: 25 mls/hr Magnesium Sulfate 2 gm/ Premix 50 mls @ 25 mls/hr IV Q6H [facility] Stop: 09/06/17 16:59 Last Admin: 09/06/17 14:43 Dose: 25 mls/hr Ketamine HCl (Ketalar) 27 mg IV ONETIME ONE Stop: 09/03/17 08:46 Last Admin: 09/03/17 12:48 Dose: Not Given Lidocaine HCl (Xylocaine 2%) 98 mg IVPUSH ONETIME ONE Stop: 09/03/17 08:46 Last Admin: 09/03/17 12:48 Dose: Not Given Linezolid (Zyvox) 200 mg IRR .STK-MED ONE Stop: 09/03/17 10:28 Last Admin: 09/03/17 10:27 Dose: 200 mg Lorazepam (Ativan) 0.5 mg PO Q6H PRN PRN Reason: Anxiety Last Admin: 09/04/17 14:30 Dose: 0.5 mg Lorazepam (Ativan) 0.5 mg IVPUSH Q6H PRN PRN Reason: Anxiety Last Admin: 09/04/17 08:19 Dose: 0.5 mg Lorazepam (Ativan) 0 mg PO ASDIRECTED PRN; Protocol PRN Reason: ETOH WITHDRAWAL Last Admin: 09/07/17 21:25 Dose: 2 mg Lorazepam (Ativan) 0 mg IV ASDIRECTED PRN; Protocol PRN Reason: ETOH WITHDRAWAL Last Admin: 09/06/17 04:04 Dose: 2 mg Lorazepam (Ativan) 0 mg IM ASDIRECTED PRN; Protocol PRN Reason: ETOH WITHDRAWAL Magnesium Hydroxide (Milk Of Magnesia) 30 ml PO ONETIME ONE Stop: 09/05/17 09:31 Last Admin: 09/05/17 10:43 Dose: 30 ml Meperidine HCl (Demerol Industrial Engineering Technologist 300 Mg In 30 Ml) 0 mg IV ASDIRECTED PRN; Protocol PRN Reason: Pain Last Admin: 09/04/17 15:54 Dose: 300 mg Meropenem (Merrem) Confirm Administered Dose 500 mg .ROUTE .STK-MED ONE Stop: 09/03/17 06:44 Last Admin: 09/03/17 10:26 Dose: 500 mg Neostigmine Methylsulfate (Neostigmine) Confirm Administered Dose 5 mg .ROUTE .STK-MED ONE Stop: 09/03/17 07:42 Alcohol 30ml (Vodka) 0 each PO Q6H [facility] Last Admin: 09/04/17 22:14 Dose: Not Given Vodka 30ml Non- (Form) 0 each PO ASDIRECTED PRN PRN Reason: prevent alcohol withdrawl Last Admin: 09/04/17 23:45 Dose: 30 each Ondansetron HCl (Zofran) Confirm Administered Dose 4 mg .ROUTE .STK-MED ONE Stop: 09/03/17 07:42 Potassium Chloride (Klor-Con M20) 40 meq PO ONETIME ONE Stop: 09/07/17 09:01 Last Admin: 09/07/17 09:12 Dose: 40 meq Propofol (Diprivan 20 Ml) Confirm Administered Dose 200 mg .ROUTE .STK-MED ONE Stop: 09/03/17 07:42 Rocuronium [place] (Zemuron) Confirm Administered Dose 50 mg .ROUTE .STK-MED ONE Stop: 09/03/17 07:42 Scopolamine (Transderm-Scop) 1.5 mg TOP Q72H [facility] Last Admin: 09/03/17 06:58 Dose: 1.5 mg Succinylcholine Chloride (Quelicin) Confirm Administered Dose 200 mg .ROUTE .STK -MED ONE Stop: 09/03/17 07:42 Thiamine HCl (Vitamin B-1) 100 mg PO DAILY [facility] Stop: 09/08/17 09:01 Last Admin: 09/08/17 08:32 Dose: 100 mg - Exam Quality Assessment: Supplemental Oxygen General: Alert, Oriented, Cooperative, No Acute Distress Neck: Supple Lungs: Clear to Auscultation, Normal Respiratory Effort Cardiovascular: Regular Rate, Regular Rhythm GI/Abdominal Exam: Soft, No Distention Extremities: No Pedal Edema Psy/Mental Status: Alert, Normal Affect - Problem List & Annotations (1) Alcohol withdrawal delirium, acute, mixed level of activity SNOMED Code(s): 6238999 Code(s): F10.231 - ALCOHOL DEPENDENCE WITH WITHDRAWAL DELIRIUM Status: Acute Current Visit: Yes (2) Status post hernia repair SNOMED Code(s): 14136995579753 Code(s): Z98.890 - OTHER SPECIFIED POSTPROCEDURAL STATES; Z87.19 - PERSONAL HISTORY OF OTHER DISEASES OF THE DIGESTIVE SYSTEM Status: Acute Current Visit: Yes Annotation/Comment:: large abdominal incisional hernia repair with mesh, repair of deserosalization of transverse colon - Problem List Review Problem List Initiated/Reviewed/Updated: Yes - My Orders Last 24 Hours: My Active Orders 09/07/17 08:40 Benzocaine/Cetylpyrd/Menthol [Cepacol Sore Throat] 1 lozenge MUCMEM Q2H PRN 09/08/17 09:17 Transfer Patient (Change bed) [ADT] Routine - Plan Plan:: ASSESSMENT AND PLAN Acute alcohol withdrawal delirium tremens - mental status back to baseline. No evidence for hallucinations and withdrawal seems to have resolved at this time. She is interested in therapy and reports that she has outpatient therapy are lined up with a local counseling team. -Continue 3 times a day gabapentin -Melatonin at bedtime -Physical therapy -Transfer to med/surg floor today Volume overload with hypoxia - history of ARDS following surgeries. Slowly seems to be getting better but is not off supplemental oxygen at this time. She is down to 1-1/2 L. Volume status seems appropriate to me today. Exam is benign. -Hold on diuresis today -Supplement oxygen -Good pulmonary toilet -Close monitoring of respiratory status Status post hernia repair - appears comfortable but still reports moderately severe pain. Bowels moving and tolerating diet. -Postop cares per surgical team Disposition - patient will be transferred out of the intensive care unit today and should be ready to go home in a day or 2. Julian Lara M.D.
[2017-09-08] MEDS: Melatonin 3 MG Tab PO SCH (21:00)
[2017-09-08] MEDS: traZODone 50 MG Tab PO SCH (21:01)
[2017-09-09] MEDS: Acetaminophen/HYDROcodone 325-5 MG Tab PO PRN ×5 (03:52→23:56)
[2017-09-09] MEDS: Acetaminophen 325 MG Tab PO SCH ×4 (03:53→22:24)
--- NOTE | 2017-09-09 07:02 | PN ---
DATE OF SERVICE: 09/09/2017 SUBJECTIVE: Kaushik cabrera is postop day #6 and she reports she is having some incisional pain. The [place] is helping relieve the pain. She has been up ambulating, alert, orientated. Vital signs have been stable. She has been afebrile. Oral intake, on a step-4 gastric bypass diet, was 2320. Output was 1800. REVIEW OF SYSTEMS: Remainder of review of systems negative for any pertinent positives and negatives. OBJECTIVE: GENERAL: Kaushik Oreilly is a 51-year-old female. She is alert and orientated today. VITAL SIGNS: TPR is 97.4, 77, 18, blood pressure 110/74, and O2 is 91% by pulse oximetry on 1 L. HEENT: Negative. NECK: Supple. HEART: Regular rate and rhythm. LUNGS: Clear. ABDOMEN: [place] intact and incision looks good. Washcloth was rolled up to put pressure over the actual former hernia site to prevent seroma build up. Abdominal binder has been on. EXTREMITIES: Without peripheral edema. ASSESSMENT: 1. Acute alcohol withdrawal, delirium state. 2. Laparoscopic turned to laparotomy with lysis of adhesions and repair of recurrent incarcerated incisional hernia with mesh, de-serialization of the transverse colon and placement of Vicryl mesh for extensive intraabdominal adhesions, recurrent incarcerated incisional hernia, area of de-serialization of the transverse colon, part of adherence up to previous mesh. Date of surgery 09/03/2015. Surgeon, Obdulio Anna MD. PLAN: 1. Continue same orders. 2. Discharge planning to work on chemical dependency issues. 3. We will evaluate p.r.n. or in a.m. Annie Hyde PA-C /[id number]
[2017-09-09] MEDS: Albuterol/Ipratropium 3.0-0.5 MG/3 ML Neb Soln INH SCH ×4 (07:13→20:00)
[2017-09-09] MEDS: Pantoprazole 40 MG Tab.CR PO SCH (08:36)
[2017-09-09] MEDS: Folic Acid 1 MG Tab PO SCH (08:36)
[2017-09-09] MEDS: Nicotine 14 MG/24 Hr Patch TRDERM SCH (08:36)
[2017-09-09] MEDS: Gabapentin 300 MG Cap PO SCH ×3 (08:37→20:00)
[2017-09-09] MEDS: Lisinopril 20 MG Tab PO SCH (08:38)
[2017-09-09] MEDS: SCOPOLAMINE PATCH CHECK TOP SCH (08:38)
[2017-09-09] MEDS: FLUoxetine 20 MG Cap PO SCH (08:39)
[2017-09-09] MEDS: Multivitamins with Iron/Calcium/Folic Acid/Minerals Tab PO SCH (08:39)
--- NOTE | 2017-09-09 11:59 | PCM.PN ---
- General Info Date of Service: 09/09/17 Subjective Update: Ms. Oreilly has been stable since yesterday, no further evidence of delirium related to alcohol withdrawal. Respiratory status and fluid status have been good and she denies significant shortness of breath. - Review of Systems General: Reports: Weakness. Denies: Fever, Chills Pulmonary: Denies: Shortness of Breath, Pleuritic Chest Pain, Cough, Sputum, Hemoptysis, Wheezing Cardiovascular: Denies: Chest Pain, Palpitations, Dyspnea on Exertion, Orthopnea , PND, Edema Gastrointestinal: Reports: Abdominal Pain, Constipation, Flatus. Denies: Difficulty Swallowing, Nausea, Vomiting - Patient Data Vitals - Most Recent: Last Vital Signs Temp 97.8 F 09/09/17 07:00 Pulse 84 09/09/17 10:53 Resp 18 09/09/17 07:00 BP 142/87 H 09/09/17 08:38 Pulse Ox 91 L 09/09/17 07:00 Weight - Most Recent: 179 lb 14.355 oz I&O - Last 24 Hours: Intake & Output 09/08/17 09/09/17 09/09/17 22:59 06:59 14:59 Intake Total 1300 500 Output Total 200 1000 300 Balance 1100 -500 -300 Med Orders - Current: Current Medications Acetaminophen (Tylenol) 650 mg PO Q6H [facility] Last Admin: 09/09/17 09:48 Dose: Not Given Hydrocodone Bitart/Acetaminophen ([place] 325-5 Mg) 1 - 2 tab PO Q4H PRN PRN Reason: Pain Last Admin: 09/09/17 09:47 Dose: 2 tab Albuterol (Proventil Neb Soln) 2.5 mg NEB Q2H PRN PRN Reason: Shortness of Breath Albuterol/Ipratropium (Duoneb 3.0-0.5 Mg/3 Ml) 3 ml INH QIDRT [facility] Last Admin: 09/09/17 10:53 Dose: 3 ml Benzocaine/Menthol (Cepacol Sore Throat) 1 lozenge MUCMEM Q2H PRN PRN Reason: Sore Throat Last Admin: 09/07/17 09:17 Dose: 1 lozenge Bisacodyl (Dulcolax) 10 mg PO ONETIME ONE Stop: 09/09/17 12:01 Cyclobenzaprine HCl (Flexeril) 10 mg PO Q8H PRN PRN Reason: Muscle Spasm Last Admin: 09/07/17 20:20 Dose: 10 mg Diphenhydramine HCl (Benadryl) 25 - 50 mg PO Q4H PRN PRN Reason: Itching Fluoxetine HCl (Prozac) 40 mg PO DAILY [facility] Last Admin: 09/09/17 08:39 Dose: 40 mg Folic Acid (Folic Acid) 1 mg PO DAILY [facility] Last Admin: 09/09/17 08:36 Dose: 1 mg Gabapentin (Neurontin) 300 mg PO TID [facility] Last Admin: 09/09/17 08:37 Dose: 300 mg Hydroxyzine HCl (Vistaril) 100 mg IM Q4H PRN PRN Reason: pain Lisinopril (Prinivil) 20 mg PO DAILY [facility] Last Admin: 09/09/17 08:38 Dose: 20 mg Melatonin (Melatonin) 9 mg PO BEDTIME [facility] Last Admin: 09/08/17 21:00 Dose: 9 mg Multivitamins/Minerals (Thera M Plus) 1 tab PO DAILY [facility] Last Admin: 09/09/17 08:39 Dose: 1 tab Naloxone HCl (Narcan) 0.1 mg IV ASDIRECTED PRN PRN Reason: decreased respiratory rate Nicotine (Habitrol) 14 mg TRDERM DAILY [facility] Last Admin: 09/09/17 08:36 Dose: 14 mg Scopolamine Patch (Check) 1 each TOP DAILY [facility] Last Admin: 09/09/17 08:38 Dose: Not Given Pantoprazole Sodium (Protonix) 40 mg PO ACBREAKFAST [facility] Last Admin: 09/09/17 08:36 Dose: 40 mg Spiced Rum (Ptom) 0 each PO ASDIRECTED PRN PRN Reason: ALCOHOL WITHDRAWAL Last Admin: 09/05/17 08:12 Dose: 30 each Trazodone HCl (Trazodone) 50 mg PO BEDTIME [facility] Last Admin: 09/08/17 21:01 Dose: 50 mg Discontinued Medications Acetaminophen (Tylenol Extra Strength) 1,000 mg PO ONETIME ONE Stop: 09/03/17 06:31 Last Admin: 09/03/17 06:59 Dose: 1,000 mg Albuterol/Ipratropium (Duoneb 3.0-0.5 Mg/3 Ml) 3 ml NEB ONETIME ONE Stop: 09/03/17 06:31 Last Admin: 09/03/17 06:58 Dose: 3 ml Albuterol/Ipratropium (Duoneb 3.0-0.5 Mg/3 Ml) 3 ml INH ASDIRECTED PRN PRN Reason: BREATHING Albuterol/Ipratropium (Duoneb 3.0-0.5 Mg/3 Ml) 3 ml INH Q2H PRN PRN Reason: SHORTNESS OF BREATH Bisacodyl (Dulcolax) 20 mg PO ONETIME ONE Stop: 09/05/17 10:31 Last Admin: 09/05/17 10:44 Dose: 20 mg Bupivacaine HCl/Epinephrine Bitart (Marcaine 0.5%/Epinephrine 1:200,000) Confirm Administered Dose 50 ml .ROUTE .STK-MED ONE Stop: 09/03/17 06:44 Last Admin: 09/03/17 10:26 Dose: 20 ml Ropivacaine 40 ml/Dexamethasone 8 mg/Epinephrine HCl 0.4 mg/ Sodium Chloride 37.6 ml 0 ml NERVRT ONETIME ONE Stop: 09/03/17 10:01 Last Admin: 09/03/17 09:39 Dose: 80 syringe Dexamethasone (Dexamethasone) Confirm Administered Dose 4 mg .ROUTE .STK-MED ONE Stop: 09/03/17 07:42 Diphenhydramine HCl (Benadryl) 25 - 50 mg IVPUSH Q4H PRN PRN Reason: Itching Fentanyl (Sublimaze) Confirm Administered Dose 250 mcg .ROUTE .STK-MED ONE Stop: 09/03/17 07:42 Fentanyl (Sublimaze) Confirm Administered Dose 100 mcg .ROUTE .STK-MED ONE Stop: 09/03/17 10:55 Furosemide (Lasix) 40 mg IVPUSH NOW ONE Stop: 09/05/17 10:01 Last Admin: 09/05/17 10:48 Dose: 40 mg Furosemide (Lasix) 40 mg IVPUSH ONETIME ONE Stop: 09/05/17 19:05 Last Admin: 09/05/17 19:57 Dose: 40 mg Furosemide (Lasix) 40 mg IVPUSH ONETIME ONE Stop: 09/06/17 09:01 Last Admin: 09/06/17 09:30 Dose: 40 mg Gabapentin (Neurontin) 300 mg PO ONETIME ONE Stop: 09/03/17 06:31 Last Admin: 09/03/17 06:58 Dose: 300 mg Glycopyrrolate (Robinul) Confirm Administered Dose 1 mg .ROUTE .STK-MED ONE Stop: 09/03/17 07:42 Haloperidol Lactate (Haldol) 1 mg IVPUSH Q2H PRN PRN Reason: Agitation Last Admin: 09/06/17 14:50 Dose: 1 mg Dextrose/Lactated Ringer's (Dextrose 5%-Lactated Ringers) 1,000 mls @ 100 mls/ hr IV ASDIRECTED [facility] Cefazolin Sodium 2 gm/ Premix 20 mls @ 600 mls/hr IV ONETIME ONE Stop: 09/03/17 08:31 Last Admin: 09/03/17 09:36 Dose: 600 mls/hr Lidocaine HCl/Dextrose (Lidocaine 2 Gm/D5w 500 Ml) 2 gm in 500 mls @ 30 mls/hr IV .[id number] [facility] PRN Reason: 2 MG/MIN Stop: 09/04/17 12:00 Last Admin: 09/04/17 03:49 Dose: Not Given Ketamine HCl 100 mg/ Sodium (Chloride) 100 mls @ 16 mls/hr IV ASDIRECTED [facility] Stop: 09/03/17 10:45 Linezolid (Zyvox) Confirm Administered Dose 100 mls @ as directed .ROUTE .STK- MED ONE Stop: 09/03/17 08:41 Dextrose/Lactated Ringer's (Dextrose 5%-Lactated Ringers) 1,000 mls @ 175 mls/ hr IV ASDIRECTED [facility] Last Admin: 09/04/17 10:30 Dose: 175 mls/hr Dextrose/Lactated Ringer's (Dextrose 5%-Lactated Ringers) 1,000 mls @ 175 mls/ hr IV ASDIRECTED [facility] Dextrose/Lactated Ringer's (Dextrose 5%-Lactated Ringers) 1,000 mls @ 100 mls/ hr IV ASDIRECTED [facility] Last Infusion: 09/05/17 15:00 Dose: 25 mls/hr Dextrose/Lactated Ringer's (Dextrose 5%-Lactated Ringers) 1,000 mls @ 25 mls/ hr IV ASDIRECTED [facility] Last Admin: 09/06/17 01:23 Dose: 25 mls/hr Magnesium Sulfate 2 gm/ Premix 50 mls @ 25 mls/hr IV Q6H [facility] Stop: 09/06/17 16:59 Last Admin: 09/06/17 14:43 Dose: 25 mls/hr Ketamine HCl (Ketalar) 27 mg IV ONETIME ONE Stop: 09/03/17 08:46 Last Admin: 09/03/17 12:48 Dose: Not Given Lidocaine HCl (Xylocaine 2%) 98 mg IVPUSH ONETIME ONE Stop: 09/03/17 08:46 Last Admin: 09/03/17 12:48 Dose: Not Given Linezolid (Zyvox) 200 mg IRR .STK-MED ONE Stop: 09/03/17 10:28 Last Admin: 09/03/17 10:27 Dose: 200 mg Lorazepam (Ativan) 0.5 mg PO Q6H PRN PRN Reason: Anxiety Last Admin: 09/04/17 14:30 Dose: 0.5 mg Lorazepam (Ativan) 0.5 mg IVPUSH Q6H PRN PRN Reason: Anxiety Last Admin: 09/04/17 08:19 Dose: 0.5 mg Lorazepam (Ativan) 0 mg PO ASDIRECTED PRN; Protocol PRN Reason: ETOH WITHDRAWAL Last Admin: 09/07/17 21:25 Dose: 2 mg Lorazepam (Ativan) 0 mg IV ASDIRECTED PRN; Protocol PRN Reason: ETOH WITHDRAWAL Last Admin: 09/06/17 04:04 Dose: 2 mg Lorazepam (Ativan) 0 mg IM ASDIRECTED PRN; Protocol PRN Reason: ETOH WITHDRAWAL Magnesium Hydroxide (Milk Of Magnesia) 30 ml PO ONETIME ONE Stop: 09/05/17 09:31 Last Admin: 09/05/17 10:43 Dose: 30 ml Magnesium Hydroxide (Milk Of Magnesia) 30 ml PO ONETIME ONE Stop: 09/09/17 11:01 Meperidine HCl (Demerol Supervisor Hardboard 300 Mg In 30 Ml) 0 mg IV ASDIRECTED PRN; Protocol PRN Reason: Pain Last Admin: 09/04/17 15:54 Dose: 300 mg Meropenem (Merrem) Confirm Administered Dose 500 mg .ROUTE .STK-MED ONE Stop: 09/03/17 06:44 Last Admin: 09/03/17 10:26 Dose: 500 mg Neostigmine Methylsulfate (Neostigmine) Confirm Administered Dose 5 mg .ROUTE .STK-MED ONE Stop: 09/03/17 07:42 Alcohol 30ml (Vodka) 0 each PO Q6H [facility] Last Admin: 09/04/17 22:14 Dose: Not Given Vodka 30ml Non- (Form) 0 each PO ASDIRECTED PRN PRN Reason: prevent alcohol withdrawl Last Admin: 09/04/17 23:45 Dose: 30 each Ondansetron HCl (Zofran) Confirm Administered Dose 4 mg .ROUTE .STK-MED ONE Stop: 09/03/17 07:42 Potassium Chloride (Klor-Con M20) 40 meq PO ONETIME ONE Stop: 09/07/17 09:01 Last Admin: 09/07/17 09:12 Dose: 40 meq Propofol (Diprivan 20 Ml) Confirm Administered Dose 200 mg .ROUTE .STK-MED ONE Stop: 09/03/17 07:42 Rocuronium [place] (Zemuron) Confirm Administered Dose 50 mg .ROUTE .STK-MED ONE Stop: 09/03/17 07:42 Scopolamine (Transderm-Scop) 1.5 mg TOP Q72H [facility] Last Admin: 09/03/17 06:58 Dose: 1.5 mg Succinylcholine Chloride (Quelicin) Confirm Administered Dose 200 mg .ROUTE .STK -MED ONE Stop: 09/03/17 07:42 Thiamine HCl (Vitamin B-1) 100 mg PO DAILY [facility] Stop: 09/08/17 09:01 Last Admin: 09/08/17 08:32 Dose: 100 mg - Exam Quality Assessment: DVT Prophylaxis. No: Supplemental Oxygen General: Alert, Oriented, No Acute Distress Lungs: Clear to Auscultation, Normal Respiratory Effort Cardiovascular: Regular Rate, Regular Rhythm, No Murmurs GI/Abdominal Exam: Soft, No Organomegaly, Tender. No: Distended, Guarding, Rigid, Rebound Extremities: Non-Tender, No Pedal Edema Skin: Warm, Dry - Problem List Review Problem List Initiated/Reviewed/Updated: Yes - Plan Plan:: ASSESSMENT AND PLAN Acute alcohol withdrawal delirium tremens - mental status back to baseline. No evidence for hallucinations and withdrawal seems to have resolved at this time. Continues to experience some weakness and shakiness with activity -Continue 3 times a day gabapentin -Melatonin at bedtime -Physical therapy -Transfer to med/surg floor today Volume overload with hypoxia - off of supplemental oxygen, denies shortness of breath -Hold on diuresis today -Good pulmonary toilet -Close monitoring of respiratory status Status post hernia repair - appears comfortable but still reports moderately severe pain. Bowels moving and tolerating diet. -Postop cares per surgical team Disposition -anticipate discharge to home tomorrow
[2017-09-09] MEDS ORDERED: Bisacodyl 5 MG Tab PO ONE (12:00)
[2017-09-09] MEDS: Magnesium Hydroxide 400 MG/5 ML Susp 30 ML Cup PO ONE ×2 (12:04→15:17)
[2017-09-09] MEDS: traZODone 50 MG Tab PO SCH (20:00)
[2017-09-09] MEDS: Melatonin 3 MG Tab PO SCH (20:01)
[2017-09-10] MEDS: Cyclobenzaprine 10 MG Tab PO PRN (02:49)
[2017-09-10] MEDS: Acetaminophen 325 MG Tab PO SCH ×2 (05:32→09:27)
[2017-09-10] MEDS: Acetaminophen/HYDROcodone 325-5 MG Tab PO PRN (06:29)
[2017-09-10 06:53] VITALS: BP 129/93
[2017-09-10] MEDS: Albuterol/Ipratropium 3.0-0.5 MG/3 ML Neb Soln INH SCH (07:09)
[2017-09-10] MEDS: Pantoprazole 40 MG Tab.CR PO SCH (07:52)
[2017-09-10] MEDS: Folic Acid 1 MG Tab PO SCH (08:57)
[2017-09-10] MEDS: Gabapentin 300 MG Cap PO SCH (08:58)
[2017-09-10] MEDS: SCOPOLAMINE PATCH CHECK TOP SCH (08:58)
[2017-09-10] MEDS: Nicotine 14 MG/24 Hr Patch TRDERM SCH (08:58)
[2017-09-10] MEDS: FLUoxetine 20 MG Cap PO SCH (08:59)
[2017-09-10] MEDS: Lisinopril 20 MG Tab PO SCH (08:59)
[2017-09-10] MEDS: Multivitamins with Iron/Calcium/Folic Acid/Minerals Tab PO SCH (08:59)
[2017-09-10] MEDS ORDERED: FLU Vacc QS 2017-18 (36mos UP)/PF 60 MCG/0.5 ML Syringe IM ONE (10:00)
--- NOTE | 2017-09-10 17:14 | DISCH ---
FINAL DIAGNOSES: 1. Recurrent incarcerated incisional hernia. 2. Area of deserosalization of transverse colon at point of adherence to previous mesh secondary to operation. 3. Postoperative alcohol withdrawal. 4. Bariatric surgery status. 5. Nicotine addiction. OPERATIVE PROCEDURES: This was done on the date of admission, which was 09/03/2017, would be diagnostic laparoscopy converted to laparotomy with lysis of extensive adhesions and; 1. Repair of recurrent incarcerated incisional hernia with mesh. 2. Repair of area of deserosalization of transverse colon. 3. Placement of Vicryl mesh to displace small bowel and other viscera from pelvic and abdominal wall. HOSPITAL COURSE: This is a 51-year-old presenting with a recurrent incisional hernia located above previously placed mesh. Initial diagnostic laparoscopy found too much in the way of adhesions and an open laparotomy was performed. Extensive adhesions were taken down, which included an area of deserosalization of the transverse colon, which was repaired, and a new mesh then placed along with Vicryl mesh underneath the pelvic and abdominal wall to limit recurrent adhesion formation. Postoperatively, the patient had some degree of alcohol withdrawal requiring ICU management. This now appears to have been resolved. The patient will be discharged home at this time to follow up with Annie Hyde this 09/13/2017, for suture removal and postoperative check. She has established care with [facility] regarding alcoholism treatment and that appointment will be started tomorrow. DISCHARGE MEDICATIONS: Include those prior to hospitalization plus [facility] 5/325 mg 1 or 2 tabs q.4 hours p.r.n. pain, #50.
--- NOTE | 2017-09-10 17:50 | OR ---
DATE OF PROCEDURE: 09/03/2017 PREOPERATIVE DIAGNOSIS: Recurrent incisional hernia. POSTOPERATIVE DIAGNOSES: 1. Recurrent incarcerated incisional hernia. 2. Extensive intraabdominal adhesions including area of dense adherence at the transverse colon to portion of previously placed intraperitoneal mesh. OPERATIVE PROCEDURES: Diagnostic laparoscopy converted to laparotomy with lysis of extensive adhesions and; 1. Repair of recurrent incarcerated incisional hernia with mesh (95388, [id number]). 2. Repair of area of deserosalization of the transverse colon ([id number]). 3. Placement of Vicryl mesh to displace small bowel and other viscera away from pelvic and abdominal wall to limit recurrent adhesion formation ([id number]). ANESTHESIA: General. SKOOG PATCHING MACHINE OPERATOR: Annie Hyde PA-C. INDICATIONS FOR PROCEDURE: The patient presents with increasingly symptomatic incisional hernia. This is located at a point adjacent to previous mesh repair, however, it has recurred. The plan is to proceed with a diagnostic laparoscopy, laparotomy if necessary, and repair of the hernia most likely with mesh if open bowel is encountered. She is aware that we may not be able to repair the mesh and also there may be some indication to remove the previously-placed mesh otherwise. Potential risks including bleeding, infection, injury to underlying viscera, problems with the mesh becoming infected, hernia recurring, as well as the remote possibility of cardiopulmonary, septic, or hemorrhagic complications leading to were all discussed, and the patient wishes to proceed. DETAILS OF PROCEDURE: The patient was taken to the operating room and placed in a supine position. After general endotracheal anesthesia was induced, a Freeman catheter was inserted, and the abdomen was prepped and draped. Beginning in the right lateral abdomen, a transverse incision was made. The peritoneal cavity was entered under direct vision with an Optiview trocar and inflated to 15 mmHg pressure with CO2. Laparoscope was then reinserted. No underlying trocar insertion site injuries were seen. Following this, two 5 mm trocars were placed on the right side of the abdomen. After initial evaluation, the patient was noted to have extensive small and large bowel adhesions quite densely adherent to the abdominal wall including areas of previously- placed mesh. Given this, the decision was made to convert to an open laparotomy. Trocars were removed, and the peritoneal cavity was deflated. A midline incision from below the xiphoid to the lower to midabdomen was made and carried down through the skin and subcutaneous tissue and down to the hernia sac. The hernia sac was eventually opened and dissected free from the surrounding soft tissues. There was some incarcerated omentum as well as a loop of small bowel within the area of the recurrent hernia formation. In order to obtain a satisfactory coverage of the recurrent hernia, extensive dissection was then initiated, removing small and large bowel from the previously- placed mesh, which was inferior to the current hernia. This included an area which was densely adherent to the transverse colon. This resulted in an area of deserosalization with no entrance into the transverse colon itself. Once this was accomplished, this was then closed off with a SEE omer load, again, without entering the bowel lumen. This area was then reinforced with some 3-0 Vicryl seromuscular stitch and, at the end of the case, some omentum tacked over that area as well. Eventually, the adhesions were sufficiently cleared that the new mesh could be placed with a good margin around the current hernia. A 15 x [address] hernia patch was then selected. The best orientation for this appeared to be transverse with a long axis in transverse orientation and roughly 5 to 6 cm intervals around its circumference. 2-0 Vicryl sutures were placed on the polypropylene side of the mesh. Small stab wounds were made in the abdominal wall where those sutures will be pulled up, thus initially fixing the mesh in a location well away from the edges of the current hernia. Once after these were in place, the abdomen was irrigated with an antibiotic- containing saline solution and to limit recurrent adhesion formation, a 12 square inch of Vicryl mesh was placed. This was placed down toward the pelvis, along the pelvic sidewalls, and up against the abdominal wall underneath the current mesh as well as the previously- placed mesh, thus displacing the small bowel, colon, and other viscera from the surfaces to limit recurrent adhesion formation. At that point, the remaining of the initial sutures were pulled up through the abdominal wall, and the mesh appeared to be generally fixed well away from the edges of the current defect. The underside shelf of the mesh was then tacked with titanium tacking screws to the abdominal wall circumferentially as well and, at that point, the area was once again irrigated with antibiotic-containing saline solution. The midline fascia was then approximated with #2 Vicryl stitch. The subcutaneous tissue was then closed with 2 layers of 3-0 and 4-0 Vicryl stitch deep and then lavon for the skin. Dressing was applied. The patient was taken to the recovery room in satisfactory condition. Physician mortgage assistant, Annie Hyde, played an essential role in assisting in this case, helping to position the patient, retracting structures as needed, as well as suturing and cutting sutures when indicated. Her presence improved patient safety and decreased the operative time. Obdulio Anna MD /[id number]
== END 2017-09-10 10:05 | disposition home or self-care (01) | DRG 330 ==
LOC: JP.SDSSCHI 09-03 06:44 → UNDOADMIN 09-03 06:44 → JP.SDS 09-03 06:44 → EDSTATUS 09-03 07:30 → JP.SDSSCHI 09-03 11:30 → JP.2SS 09-03 11:30 → JP.ICU 09-05 10:07 → JP.MS 09-08 14:02
PROVIDERS: ADMIT Surgery; ATTEND Surgery
PROC: 0WUF0JZ Supplement Abdominal Wall with Synthetic Substitute, Open Approach (ICD-10-PCS; principal; 2017-09-03)
PROC: 0DQL0ZZ Repair Transverse Colon, Open Approach (ICD-10-PCS; 2017-09-03)
PROC: 0WJF4ZZ Inspection of Abdominal Wall, Percutaneous Endoscopic Approach (ICD-10-PCS; 2017-09-03)
PROC: 3E0M05Z Introduction of Adhesion Barrier into Peritoneal Cavity, Open Approach (ICD-10-PCS; 2017-09-03)
DX: K43.0 Incisional hernia with obstruction, without gangrene (principal); F10.231 Alcohol dependence with withdrawal delirium; Z53.31 Laparoscopic surgical procedure converted to open procedure; K66.0 Peritoneal adhesions (postprocedural) (postinfection); Z98.84 Bariatric surgery status; K21.9 Gastro-esophageal reflux disease without esophagitis; F32.9 Major depressive disorder, single episode, unspecified; F41.9 Anxiety disorder, unspecified; F17.210 Nicotine dependence, cigarettes, uncomplicated; F43.10 Post-traumatic stress disorder, unspecified; I10 Essential (primary) hypertension; Z87.11 Personal history of peptic ulcer disease; E87.70 Fluid overload, unspecified; R09.02 Hypoxemia; Z96.659 Presence of unspecified artificial knee joint; Z88.6 Allergy status to analgesic agent; Z88.1 Allergy status to other antibiotic agents; Z88.5 Allergy status to narcotic agent; Z88.8 Allergy status to other drugs, medicaments and biological substances; K63.89 Other specified diseases of intestine
CPT/HCPCS: 36415; 51702; 71010; 71010-26; 80048; 80053; 83735; 84100; 85018; 85027; 88302; 90686; 94640; 94667; 94668; 94762; A9270-GY; C1781; C9399; J0171; J0330; J0690; J1100; J1630; J1940; J2001; J2020; J2060; J2175; J2185; J2405; J2704; J2710; J2795; J3010; J3410; J3475; J7030; J7042; J7050; J7620

== ENCOUNTER 2018-02-09 09:46 | Emergency (ER) | payer MEDICAID ==
[2018-02-09 10:46] VITALS: BP 129/88
--- NOTE | 2018-02-09 11:13 | EDM.PDOC ---
ED HPI GENERAL MEDICAL PROBLEM - General Chief Complaint: Respiratory Problem Stated Complaint: COUGH Time Seen by Provider: 02/09/18 11:00 Source of Information: Reports: Patient History Limitations: Reports: No Limitations - History of Present Illness INITIAL COMMENTS - FREE TEXT/NARRATIVE: 52 yo presents to ER with complaint of nasal congestion that has been present for 7 days. Frontal headache and face pressure. Cough harsh and painful. spouse has like symptoms. fatigue. smoke free for 5 months. Chest Pain Score (Numeric/FACES): 6 - Related Data Allergies Allergy/AdvReac Type Severity Reaction Status Date / Time hydromorphone HCl Allergy Hives Verified 02/09/18 10:51 [From Dilaudid] tramadol Allergy Hives Verified 02/09/18 10:51 amoxicillin [From Augmentin] AdvReac Nausea Verified 02/09/18 10:51 clavulanic acid AdvReac Nausea Verified 02/09/18 10:51 [From Augmentin] NSAIDS (Non-Steroidal AdvReac Stomach Verified 02/09/18 10:51 Anti-Inflamma Upset Home Meds: Home Meds Nicotine [Habitrol] 14 mg TRDERM DAILY #30 patch 07/20/15 [Rx] Albuterol [Ventolin HFA] 1 - 2 puff IH Q4H PRN 03/12/16 [History] Cyanocobalamin (Vitamin B-12) [Vitamin B-12] 1 injection IM ASDIRECTED 03/12/16 [History] FLUoxetine [PROzac] 40 mg PO BEDTIME 03/12/16 [History] Lisinopril [Zestril] 20 mg PO DAILY 03/12/16 [History] Multivit-Min/FA/Lycopene/Lut [Centrum Silver Tablet] 1 tab PO DAILY 09/19/16 [ History] Omeprazole 40 mg PO DAILY 09/19/16 [History] Calcium Citrate/Vitamin D3 [Calcium Cit-Vit D 250-200] 1 each PO BID 08/30/17 [ History] diphenhydrAMINE [Benadryl] 25 mg PO BEDTIME PRN 08/30/17 [History] traZODone 50 mg PO BEDTIME 08/30/17 [History] Past Medical History Cardiovascular History: Reports: Hypertension Respiratory History: Reports: Other (See Below) Other Respiratory History: pneumonia, 2012 and 2013 patinet states she had respiratory failure. icu in 2015 Gastrointestinal History: Reports: Bowel Obstruction, GERD, GI Bleed, Pancreatitis, Other (See Below) Other Gastrointestinal History: Hernia surgery x 5. perforated gastric ulcer. B.M 12-4 girth 41 Genitourinary History: Reports: Acute Renal Failure DONOR SERVICES COORDINATOR History: Reports: Other (See Below) Other OB/BYN History: enlarged ovaries Musculoskeletal History: Reports: Fracture Neurological History: Reports: Other (See Below) Other Neuro History: patient states she had a seizure d/t hyponatremia Psychiatric History: Reports: Anxiety, Depression, Panic Attack, PTSD Hematologic History: Reports: Anemia, Blood Transfusion(s) - Infectious Disease History Infectious Disease History: Reports: Chicken Pox - Past Surgical History GI Surgical History: Reports: Bariatric Procedure, Cholecystectomy, Colonoscopy , EGD, Hernia, Abdominal, Hernia Repair/Other, Small Bowel Female Surgical History: Reports: Hysterectomy, Salpingo-Oophorectomy Musculoskeletal Surgical History: Reports: Knee Replacement, Other (See Below) Other Musculoskeletal Surgeries/Procedures:: left knee, right ankle Social & Family History - Family History Family Medical History: Noncontributory Cardiac: Reports: CAD Psychiatric: Reports: Depression - Tobacco Use Smoking Status *Q: Never Smoker - Caffeine Use Caffeine Use: Reports: Soda - Recreational Drug Use Recreational Drug Use: No ED ROS GENERAL - Review of Systems Review Of Systems: See Below Constitutional: Reports: Chills, Malaise, Fatigue. Denies: Fever HEENT: Reports: Rhinitis, Sinus Problem Respiratory: Reports: Cough. Denies: Shortness of Breath, Wheezing, Sputum Cardiovascular: Denies: Chest Pain GI/Abdominal: Denies: Abdominal Pain : Denies: Dysuria Skin: Denies: Rash ED EXAM, GENERAL - Physical Exam Exam: See Below Exam Limited By: No Limitations General Appearance: Alert, WD/WN, No Apparent Distress Ears: Normal External Exam, Normal Canal, Normal TMs Nose: Nasal Swelling, Clear Rhinorrhea Throat/Mouth: No Airway Compromise, Inflammation (tonsils 2+ with exudate) Head: Atraumatic, Normocephalic Neck: Normal Inspection, Supple, Non-Tender, Full Range of Motion Respiratory/Chest: No Respiratory Distress, Lungs Clear, Normal Breath Sounds. No: Rhonchi, Wheezing Cardiovascular: Regular Rate, Rhythm, No Gallop, No Murmur, No Rub GI/Abdominal: Normal Bowel Sounds, Soft, Non-Tender Extremities: Normal Inspection, Normal Range of Motion Neurological: Alert, Oriented Psychiatric: Normal Affect, Normal Mood Skin Exam: Warm, Dry, Intact. No: Rash Course - Vital Signs Last Recorded V/S: Last Vital Signs Temp 36.1 C 02/09/18 10:49 Pulse 78 02/09/18 10:49 Resp 16 02/09/18 10:49 BP 129/88 02/09/18 10:49 Pulse Ox 96 02/09/18 10:49 Departure - Departure Time of Disposition: 11:11 Disposition: Home, Self-Care 01 Condition: Good Clinical Impression: Sinusitis, acute Qualifiers: Sinusitis location: unspecified location Recurrence: non-recurrent Qualified Code(s): J01.90 - Acute sinusitis, unspecified - Discharge Information Instructions: Sinus Rinse Referrals: Artemio Santiago MD [Primary Care Provider] - Forms: ED Department Discharge Additional Instructions: increase fluid intake with goal of 1.5-2 liters per day Rest nasal saline flushes for relief of nasal congestion
== END 2018-02-09 11:48 | disposition home or self-care (01) ==
LOC: JP.ED 09:46
DX: J01.90 Acute sinusitis, unspecified (principal); K21.9 Gastro-esophageal reflux disease without esophagitis; F41.9 Anxiety disorder, unspecified; F32.9 Major depressive disorder, single episode, unspecified; Z88.5 Allergy status to narcotic agent; Z88.1 Allergy status to other antibiotic agents; Z88.8 Allergy status to other drugs, medicaments and biological substances; Z79.899 Other long term (current) drug therapy
CPT/HCPCS: 99283

== ENCOUNTER 2018-04-09 17:05 | Emergency (ER) | payer MEDICAID ==
[2018-04-09] MEDS ORDERED: fentaNYL 12 MCG/HR Transdermal Patch TRDERM SCH (18:30)
[2018-04-09] MEDS ORDERED: Acetaminophen/HYDROcodone 325-5 MG Tab PO ONE (18:31)
--- NOTE | 2018-04-09 18:36 | EDM.PDOC ---
ED HPI GENERAL MEDICAL PROBLEM - General Chief Complaint: Respiratory Problem Stated Complaint: BROKEN RIBS Time Seen by Provider: 04/09/18 18:25 Source of Information: Reports: Patient, RN History Limitations: Reports: No Limitations - History of Present Illness INITIAL COMMENTS - FREE TEXT/NARRATIVE: 52 yo female was referred to the ER from the clinic for rib fx's x 3 from an injury almost 2 days ago. Has not had any SOB. Her oximeter readings are normal and her CXR from the clinic did not reveal any pneumothorax. Was given Toradol with partial relief of her pain. Onset: Sudden Onset Date: 04/07/18 Duration: Day(s): (2), Constant Location: Reports: Chest Quality: Reports: Sharp, Stabbing Severity: Moderate Improves with: Reports: Rest Worsens with: Reports: Breathing, Movement Associated Symptoms: Reports: No Other Symptoms Treatments GRADUATE STUDENT INSTRUCTOR: Reports: NSAIDS Left Chest Pain Score (Numeric/FACES): 14 - Related Data Allergies Allergy/AdvReac Type Severity Reaction Status Date / Time hydromorphone HCl Allergy Hives Verified 04/09/18 18:05 [From Dilaudid] tramadol Allergy Hives Verified 04/09/18 18:05 amoxicillin [From Augmentin] AdvReac Nausea Verified 04/09/18 18:05 clavulanic acid AdvReac Nausea Verified 04/09/18 18:05 [From Augmentin] NSAIDS (Non-Steroidal AdvReac Stomach Verified 04/09/18 18:05 Anti-Inflamma Upset Home Meds: Home Meds Nicotine [Habitrol] 14 mg TRDERM DAILY #30 patch 07/20/15 [Rx] Albuterol [Ventolin HFA] 1 - 2 puff IH Q4H PRN 03/12/16 [History] Cyanocobalamin (Vitamin B-12) [Vitamin B-12] 1 injection IM ASDIRECTED 03/12/16 [History] FLUoxetine [PROzac] 50 mg PO BEDTIME 03/12/16 [History] Lisinopril [Zestril] 20 mg PO DAILY 03/12/16 [History] Multivit-Min/FA/Lycopene/Lut [Centrum Silver Tablet] 1 tab PO DAILY 09/19/16 [ History] Omeprazole 40 mg PO DAILY 09/19/16 [History] Calcium Citrate/Vitamin D3 [Calcium Cit-Vit D 250-200] 1 each PO BID 08/30/17 [ History] diphenhydrAMINE [Benadryl] 25 mg PO BEDTIME PRN 08/30/17 [History] Ferrous Sulfate, Dried [Iron] 1 tab PO DAILY 04/09/18 [History] fentaNYL [Duragesic] 12 mcg TD Q72H PRN #3 patch.[id number] 04/09/18 [Rx] Past Medical History Cardiovascular History: Reports: Hypertension Respiratory History: Reports: Other (See Below) Other Respiratory History: pneumonia, 2012 and 2013 patinet states she had respiratory failure. icu in 2014 Gastrointestinal History: Reports: Bowel Obstruction, GERD, GI Bleed, Pancreatitis, Other (See Below) Other Gastrointestinal History: Hernia surgery x 5. perforated gastric ulcer. B.M 12-4 girth 41 Genitourinary History: Reports: Acute Renal Failure SYSTEMS INTEGRATOR History: Reports: Other (See Below) Other SYSTEMS INTEGRATOR History: enlarged ovaries Musculoskeletal History: Reports: Fracture Neurological History: Reports: Other (See Below) Other Neuro History: patient states she had a seizure d/t hyponatremia Psychiatric History: Reports: Anxiety, Depression, Panic Attack, PTSD Hematologic History: Reports: Anemia, Blood Transfusion(s) - Infectious Disease History Infectious Disease History: Reports: Chicken Pox, Measles, Mumps - Past Surgical History GI Surgical History: Reports: Bariatric Procedure, Cholecystectomy, Colonoscopy , EGD, Hernia, Abdominal, Hernia Repair/Other, Small Bowel Female Surgical History: Reports: Hysterectomy, Salpingo-Oophorectomy Musculoskeletal Surgical History: Reports: Knee Replacement, Other (See Below) Other Musculoskeletal Surgeries/Procedures:: left knee, right ankle Social & Family History - Family History Family Medical History: Noncontributory Cardiac: Reports: CAD Psychiatric: Reports: Depression - Tobacco Use Smoking Status *Q: Former Smoker Years of Tobacco use: 32 Packs/Tins Daily: 0.5 Used Tobacco, but Quit: Yes Month/Year Tobacco Last Used: 01/2016 Second Hand Smoke Exposure: Yes - Caffeine Use Caffeine Use: Reports: Coffee - Recreational Drug Use Recreational Drug Use: No ED ROS GENERAL - Review of Systems Review Of Systems: See Below Constitutional: Reports: No Symptoms HEENT: Reports: No Symptoms Respiratory: Reports: Pleuritic Chest Pain. Denies: Shortness of Breath Cardiovascular: Reports: No Symptoms GI/Abdominal: Reports: No Symptoms : Reports: No Symptoms Musculoskeletal: Reports: Other (Rib pain) Skin: Reports: No Symptoms Neurological: Reports: No Symptoms ED EXAM, GENERAL - Physical Exam Exam: See Below Exam Limited By: No Limitations General Appearance: Alert, WD/WN, No Apparent Distress Eye Exam: Bilateral Eye: Normal Inspection Ears: Normal External Exam, Normal Canal, Hearing Grossly Normal Ear Exam: Bilateral Ear: Auricle Normal, Canal Normal Nose: Normal Inspection, Normal Mucosa, No Blood Throat/Mouth: Normal Inspection, Normal Lips, Normal Oropharynx, Normal Voice, No Airway Compromise Head: Atraumatic, Normocephalic Neck: Normal Inspection, Supple, Non-Tender Respiratory/Chest: No Respiratory Distress, Lungs Clear, Normal Breath Sounds, No Accessory Muscle Use Cardiovascular: Regular Rate, Rhythm, No Edema GI/Abdominal: Normal Bowel Sounds, Soft, Non-Tender, No Distention Extremities: Normal Inspection Neurological: Alert, Oriented, CN II-XII Intact, Normal Cognition, No Motor/ Sensory Deficits Psychiatric: Normal Affect, Normal Mood Skin Exam: Warm, Dry, Intact, Normal Color, No Rash Lymphatic: No Adenopathy Course - Vital Signs Last Recorded V/S: Last Vital Signs Temp 37.1 C 04/09/18 18:15 Pulse 66 04/09/18 19:32 Resp 16 04/09/18 19:32 BP 155/98 H 04/09/18 19:32 Pulse Ox 97 04/09/18 19:32 - Orders/Labs/Meds Orders: Active Orders 24 hr Category Date Time Status fentaNYL [Duragesic] Med 04/09/18 18:30 Active 12 mcg TRDERM Q72H Medication Orders Fentanyl (Duragesic) 12 mcg TRDERM Q72H YEHUDA Last Admin: 04/09/18 18:51 Dose: 12 mcg Meds: Medications Generic Name Dose Route Start Last Admin Trade Name Freq PRN Reason Stop Dose Admin Fentanyl 12 mcg 04/09/18 18:30 04/09/18 18:51 Duragesic TRDERM 12 mcg Q72H YEHUDA Administration Discontinued Medications Generic Name Dose Route Start Last Admin Trade Name Freq PRN Reason Stop Dose Admin Hydrocodone Bitart/Acetaminophen 2 tab 04/09/18 18:31 04/09/18 19:00 [place] 325-5 Mg PO 04/09/18 18:32 2 tab ONETIME ONE Administration Hydrocodone Bitart/Acetaminophen Confirm 07/11/18 18:58 04/09/18 19:01 [place] 325-5 Mg Administered 04/09/18 18:59 Not Given Dose 1 tab .ROUTE .STK-MED ONE Departure - Departure Time of Disposition: 19:39 Disposition: Home, Self-Care 01 Condition: Good Clinical Impression: Ribs, multiple fractures Qualifiers: Encounter type: initial encounter Fracture type: closed Laterality: left Qualified Code(s): S22.42XA - Multiple fractures of ribs, left side, initial encounter for closed fracture - Discharge Information Prescriptions: fentaNYL [Duragesic] 12 mcg TD Q72H PRN #3 patch.td72 PRN Reason: Pain Referrals: Artemio Santiago MD [Primary Care Provider] - Forms: ED Department Discharge - My Orders Last 24 Hours: My Active Orders 04/09/18 18:30 fentaNYL [Duragesic] 12 mcg TRDERM Q72H - Assessment/Plan Last 24 Hours: My Active Orders 04/09/18 18:30 fentaNYL [Duragesic] 12 mcg TRDERM Q72H
[2018-04-09] MEDS ORDERED: Acetaminophen/HYDROcodone 325-5 MG Tab ONE (18:58)
[2018-04-09 19:33] VITALS: BP 155/98
== END 2018-04-09 19:50 | disposition home or self-care (01) ==
LOC: JP.ED 17:05
DX: S22.42XA Multiple fractures of ribs, left side, initial encounter for closed fracture (principal); I10 Essential (primary) hypertension; K21.9 Gastro-esophageal reflux disease without esophagitis; Z88.5 Allergy status to narcotic agent; Z88.1 Allergy status to other antibiotic agents; Z88.8 Allergy status to other drugs, medicaments and biological substances; Z79.899 Other long term (current) drug therapy; Z87.891 Personal history of nicotine dependence; X58.XXXA Exposure to other specified factors, initial encounter
CPT/HCPCS: 99283; A9270

== ENCOUNTER 2019-01-26 12:38 | Inpatient (IN) | payer MEDICAID ==
--- NOTE | 2019-01-26 13:31 | EDM.PDOC ---
ED HPI GENERAL MEDICAL PROBLEM - General Chief Complaint: Respiratory Problem Stated Complaint: BREATHING ISSUES COLD Time Seen by Provider: 01/26/19 13:31 Source of Information: Reports: Patient History Limitations: Reports: No Limitations - History of Present Illness INITIAL COMMENTS - FREE TEXT/NARRATIVE: 53-year-old female who arrives to the emergency room with shortness of breath. She had increased respiratory effort and O2 saturations of 84% on room air on arrival. She has been evaluated in the emergency room recently where she was diagnosed with bilateral pneumonia, given antibiotics and told to follow-up if not improving. She feels she is worsening. No fever or chills but she is constantly wheezing and her inhalers are not helping. She has not smoked for 2 years. She has a history of severe respiratory failure and mechanical ventilation. She has developed upper abdominal pain from "coughing so hard". Onset: Today Associated Symptoms: Reports: Cough, Malaise, Shortness of Breath, Weakness. Denies: Fever/Chills Back Pain Score (Numeric/FACES): 9 - Related Data Allergies Allergy/AdvReac Type Severity Reaction Status Date / Time fentanyl Allergy Delusions Verified 01/26/19 13:07 hydromorphone HCl Allergy Hives Verified 04/09/18 18:05 [From Dilaudid] tramadol Allergy Hives Verified 04/09/18 18:05 amoxicillin [From Augmentin] AdvReac Nausea Verified 04/09/18 18:05 clavulanic acid AdvReac Nausea Verified 04/09/18 18:05 [From Augmentin] NSAIDS (Non-Steroidal AdvReac Stomach Verified 04/09/18 18:05 Anti-Inflamma Upset Home Meds: Home Meds Nicotine [Habitrol] 14 mg TRDERM DAILY #30 patch 07/20/15 [Rx] Albuterol [Ventolin HFA] 1 - 2 puff IH Q4H PRN 03/12/16 [History] Cyanocobalamin (Vitamin B-12) [Vitamin B-12] 1 injection IM ASDIRECTED 03/12/16 [History] FLUoxetine [PROzac] 50 mg PO BEDTIME 03/12/16 [History] Lisinopril [Zestril] 20 mg PO DAILY 03/12/16 [History] Multivit-Min/FA/Lycopene/Lut [Centrum Silver Tablet] 1 tab PO DAILY 09/19/16 [ History] Omeprazole 40 mg PO DAILY 09/19/16 [History] Calcium Citrate/Vitamin D3 [Calcium Cit-Vit D 250-200] 1 each PO BID 08/30/17 [ History] diphenhydrAMINE [Benadryl] 25 mg PO BEDTIME PRN 08/30/17 [History] Ferrous Sulfate, Dried [Iron] 1 tab PO DAILY 04/09/18 [History] Cefdinir [Omnicef] 300 mg PO BID 01/26/19 [History] Past Medical History Cardiovascular History: Reports: Hypertension Respiratory History: Reports: Pneumonia, Recurrent, Other (See Below) Other Respiratory History: pneumonia, 2011 and 2013 patinet states she had respiratory failure. icu in 2014 Gastrointestinal History: Reports: Bowel Obstruction, GERD, GI Bleed, Pancreatitis, Other (See Below) Other Gastrointestinal History: Hernia surgery x 5. perforated gastric ulcer. B.M 12-4 girth 43 Genitourinary History: Reports: Acute Renal Failure APPLICATIONS INTERN History: Reports: Other (See Below) Other APPLICATIONS INTERN History: enlarged ovaries Musculoskeletal History: Reports: Fracture Neurological History: Reports: Other (See Below) Other Neuro History: patient states she had a seizure d/t hyponatremia Psychiatric History: Reports: Anxiety, Depression, Panic Attack, PTSD Hematologic History: Reports: Anemia, Blood Transfusion(s) - Infectious Disease History Infectious Disease History: Reports: Chicken Pox - Past Surgical History GI Surgical History: Reports: Bariatric Procedure, Cholecystectomy, Colonoscopy , EGD, Hernia, Abdominal, Hernia Repair/Other, Small Bowel Female Surgical History: Reports: Hysterectomy, Salpingo-Oophorectomy Musculoskeletal Surgical History: Reports: Knee Replacement, Other (See Below) Other Musculoskeletal Surgeries/Procedures:: left knee, right ankle Social & Family History - Family History Family Medical History: Noncontributory Cardiac: Reports: CAD Psychiatric: Reports: Depression - Tobacco Use Smoking Status *Q: Never Smoker - Caffeine Use Caffeine Use: Reports: None - Recreational Drug Use Recreational Drug Use: No - Living Situation & Occupation Living situation: Reports: Single, with Family ED ROS GENERAL - Review of Systems Review Of Systems: See Below Constitutional: Reports: Malaise, Weakness, Decreased Appetite. Denies: Fever, Chills HEENT: Denies: Throat Pain Respiratory: Reports: Shortness of Breath, Wheezing, Cough. Denies: Sputum Cardiovascular: Denies: Chest Pain GI/Abdominal: Reports: Abdominal Pain (Muscular pain from coughing) Skin: Reports: No Symptoms Neurological: Reports: Weakness. Denies: Headache Psychiatric: Reports: No Symptoms ED EXAM, GENERAL - Physical Exam Exam: See Below Exam Limited By: No Limitations General Appearance: Alert, No Apparent Distress, Other (Now 94% saturations with 2 L nasal cannula oxygen) Eye Exam: Bilateral Eye: EOMI (No jaundice) Respiratory/Chest: No Respiratory Distress, Other (Decreased breath sounds left base, some rales right base) Cardiovascular: Regular Rate, Rhythm. No: Tachycardia GI/Abdominal: Soft, Tender Neurological: Alert (Some tenderness to palpation across the upper abdomen but no guarding or rebound tenderness), Oriented Skin Exam: Warm, Dry, Other (Some pallor) Course - Vital Signs Last Recorded V/S: Last Vital Signs Temp 97.4 F 01/26/19 15:07 Pulse 68 01/26/19 15:07 Resp 24 H 01/26/19 13:11 BP 133/58 L 01/26/19 15:07 Pulse Ox 96 01/26/19 15:07 - Orders/Labs/Meds Orders: Active Orders 24 hr Category Date Time Status CULTURE BLOOD [BC] Urgent Lab 01/26/19 14:41 Received CULTURE BLOOD [BC] Urgent Lab 01/26/19 14:50 Received Blood Culture x2 Reflex Set [OM.PC] Urgent Oth 01/26/19 14:22 Ordered Medication Orders Acetaminophen (Tylenol) 650 mg PO Q4H PRN PRN Reason: Pain (Mild 1-3)/fever Albuterol (Proventil Neb Soln) 2.5 mg NEB Q4H PRN PRN Reason: Shortness Of Breath/wheezing Enoxaparin Sodium (Lovenox) 40 mg SUBCUT Q24H YEHUDA Fluoxetine HCl 40 mg/ (Fluoxetine HCl 10 mg) 50 mg PO BEDTIME YEHUDA Lactated Ringer's (Ringers, Lactated) 1,000 mls @ 125 mls/hr IV ASDIRECTED YEHUDA Levofloxacin/Dextrose 750 mg/ (Premix) 150 mls @ 100 mls/hr IV Q24H YEHUDA Meropenem 1 gm/ Sodium (Chloride) 50 mls @ 100 mls/hr IV Q8H YEHUDA Lisinopril (Prinivil) 20 mg PO DAILY YEHUDA Ondansetron HCl (Zofran) 4 mg IV Q4H PRN PRN Reason: Nausea/Vomiting Pantoprazole Sodium (Protonix) 40 mg PO ACBREAKFAST [facility] Polyethylene Glycol (Miralax) 17 gm PO DAILY PRN PRN Reason: Constipation Sodium Chloride (Saline Flush) 10 ml FLUSH ASDIRECTED PRN PRN Reason: Keep Vein Open Labs: Laboratory Tests 01/26/19 01/26/19 01/26/19 Range/Units 13:51 13:51 13:51 WBC 8.5 (4.5-11.0) K/uL RBC 3.39 (3.30-5.50) M/uL Hgb 12.2 (12.0-15.0) g/dL Hct 35.0 L (36.0-48.0) % MCV 103 H (80-98) fL MCH 36 H (27-31) pg MCHC 35 (32-36) % Plt Count 251 (150-400) K/uL Neut % (Auto) 72 H (36-66) % Lymph % (Auto) 20 L (24-44) % [place] % (Auto) 7 H (2-6) % Eos % (Auto) 1 L (2-4) % Baso % (Auto) 0 (0-1) % D-Dimer, Quantitative 487 H (0.0-400.0) ng/mL Puncture Site ABG pH (7.350-7.450) ABG pCO2 (35.0-42.0) mmHg ABG pO2 (75.0-100.0) mmHg ABG HCO3 (22.0-26.0) mmol/L ABG Total CO2 (21.0-25.0) mmol/L ABG O2 Saturation (95.0-98.0) % ABG O2 Content (15.0-23.0) %vol ABG Base Excess mm/L ABG Hemoglobin (12.0-16.0) g/dL ABG Oxyhemoglobin % ABG Carboxyhemoglobin (0.0-1.6) % ABG Methemoglobin % Brown Test O2 Delivery Device Oxygen Flow Rate L Sodium 134 L (140-148) mmol/L Potassium 3.3 L (3.6-5.2) mmol/L Chloride 97 L (100-108) mmol/L Carbon Dioxide 24 (21-32) mmol/L Anion Gap 16.3 H (5.0-14.0) mmol/L BUN 5 L (7-18) mg/dL Creatinine 0.5 L (0.6-1.0) mg/dL Est Cr Clr Drug Dosing 117.36 mL/min Estimated GFR (MDRD) > 60 (>60) Glucose 94 (74-106) mg/dL Lactic Acid (0.4-2.0) mmol/L Calcium 9.1 (8.5-10.1) mg/dL Total Bilirubin 0.8 D (0.2-1.0) mg/dL AST 81 H (15-37) U/L ALT 57 (12-78) U/L Alkaline Phosphatase 275 H (46-116) U/L Total Protein 7.0 (6.4-8.2) g/dL Albumin 3.0 L (3.4-5.0) g/dL Globulin 4.0 H (2.3-3.5) g/dL Albumin/Globulin Ratio 0.8 L (1.2-2.2) 01/26/19 01/26/19 Range/Units 14:41 14:50 WBC (4.5-11.0) K/uL RBC (3.30-5.50) M/uL Hgb (12.0-15.0) g/dL Hct (36.0-48.0) % MCV (80-98) fL MCH (27-31) pg MCHC (32-36) % Plt Count (150-400) K/uL Neut % (Auto) (36-66) % Lymph % (Auto) (24-44) % [place] % (Auto) (2-6) % Eos % (Auto) (2-4) % Baso % (Auto) (0-1) % D-Dimer, Quantitative (0.0-400.0) ng/mL Puncture Site Rt radial ABG pH 7.493 H (7.350-7.450) ABG pCO2 29.9 L (35.0-42.0) mmHg ABG pO2 68.5 L (75.0-100.0) mmHg ABG HCO3 22.7 (22.0-26.0) mmol/L ABG Total CO2 20.1 L (21.0-25.0) mmol/L ABG O2 Saturation 93.7 L (95.0-98.0) % ABG O2 Content 16.0 (15.0-23.0) %vol ABG Base Excess 0.6 mm/L ABG Hemoglobin 12.4 (12.0-16.0) g/dL ABG Oxyhemoglobin 91.9 % ABG Carboxyhemoglobin 1.2 (0.0-1.6) % ABG Methemoglobin 0.7 % Brown Test Pass O2 Delivery Device Nasal cannula Oxygen Flow Rate 2 L Sodium (140-148) mmol/L Potassium (3.6-5.2) mmol/L Chloride (100-108) mmol/L Carbon Dioxide (21-32) mmol/L Anion Gap (5.0-14.0) mmol/L BUN (7-18) mg/dL Creatinine (0.6-1.0) mg/dL Est Cr Clr Drug Dosing mL/min Estimated GFR (MDRD) (>60) Glucose (74-106) mg/dL Lactic Acid 1.4 (0.4-2.0) mmol/L Calcium (8.5-10.1) mg/dL Total Bilirubin (0.2-1.0) mg/dL AST (15-37) U/L ALT (12-78) U/L Alkaline Phosphatase (46-116) U/L Total Protein (6.4-8.2) g/dL Albumin (3.4-5.0) g/dL Globulin (2.3-3.5) g/dL Albumin/Globulin Ratio (1.2-2.2) Meds: Medications Generic Name Dose Route Start Last Admin Trade Name Freq PRN Reason Stop Dose Admin Acetaminophen 650 mg 01/26/19 16:26 Tylenol PO Q4H PRN Pain (Mild 1-3)/fever Albuterol 2.5 mg 01/26/19 16:26 Proventil Neb Soln NEB Q4H PRN Shortness Of Breath/wheezing Enoxaparin Sodium 40 mg 01/26/19 17:30 Lovenox SUBCUT Q24H YEHUDA Fluoxetine HCl 40 mg/ 50 mg 01/26/19 21:00 Fluoxetine HCl 10 mg PO BEDTIME YEHUDA Lactated Ringer's 1,000 mls @ 125 mls/hr 01/26/19 16:26 Ringers, Lactated IV ASDIRECTED YEHUDA Levofloxacin/Dextrose 750 mg/ 150 mls @ 100 mls/hr 01/26/19 17:00 Premix IV Q24H YEHUDA Meropenem 1 gm/ Sodium 50 mls @ 100 mls/hr 01/26/19 20:30 Chloride IV Q8H YEHUDA Lisinopril 20 mg 01/27/19 09:00 Prinivil PO DAILY YEHUDA Ondansetron HCl 4 mg 01/26/19 16:26 Zofran IV Q4H PRN Nausea/Vomiting Pantoprazole Sodium 40 mg 01/27/19 07:30 Protonix PO ACBREAKFAST YEHUDA Polyethylene Glycol 17 gm 01/26/19 16:26 Miralax PO DAILY PRN Constipation Sodium Chloride 10 ml 01/26/19 16:26 Saline Flush FLUSH ASDIRECTED PRN Keep Vein Open Discontinued Medications Generic Name Dose Route Start Last Admin Trade Name Freq PRN Reason Stop Dose Admin Meropenem 1 gm/ Sodium 50 mls @ 100 mls/hr 01/26/19 14:28 01/26/19 15:19 Chloride IV 01/26/19 14:57 100 mls/hr ONETIME ONE Administration - Re-Assessments/Exams Free Text/Narrative Re-Assessment/Exam: 01/26/19 14:29 O2 nasal cannula was given to the patient which improved her sats to 94%. Two- view chest x-ray confirmed worsening bilateral pulmonary infiltrates. 01/26/19 16:58 Blood cultures were drawn, an IV started and the hospitalist service consulted. ABGs revealed a pH of 7.49, and decreased O2 and CO2. Lactic acid was normal, white count normal. After blood cultures were drawn, patient was given 1 g of IV meropenem. Patient was admitted by the hospitalist service, Dr. Cooper. Departure - Departure Time of Disposition: 16:15 Disposition: Admitted As Inpatient 68 Condition: Fair Clinical Impression: Pneumonia Qualifiers: Pneumonia type: due to unspecified organism Laterality: bilateral Lung location : unspecified part of lung Qualified Code(s): J18.9 - Pneumonia, unspecified organism - Discharge Information - My Orders Last 24 Hours: My Active Orders 01/26/19 14:22 Blood Culture x2 Reflex Set [OM.PC] Urgent 01/26/19 14:41 CULTURE BLOOD [BC] Urgent 01/26/19 14:50 CULTURE BLOOD [BC] Urgent - Assessment/Plan Last 24 Hours: My Active Orders 01/26/19 14:22 Blood Culture x2 Reflex Set [OM.PC] Urgent 01/26/19 14:41 CULTURE BLOOD [BC] Urgent 01/26/19 14:50 CULTURE BLOOD [BC] Urgent
--- NOTE | 2019-01-26 14:13 | CR ---
CHEST: 2 view CLINICAL HISTORY:Dyspnea COMPARISON:2018 FINDINGS: Heart and pulmonary vascularity are normal. There are diffuse bilateral pulmonary infiltrates predominating in both lower lobes.. There is also some left upper lobe infiltrate. There is no effusion Impression: Diffuse bilateral pulmonary infiltrates most consistent with bilateral pneumonia Short-term follow-up recommended until clear
--- NOTE | 2019-01-26 15:27 | PCM.HP ---
H&P History of Present Illness - General Date of Service: 01/26/19 Admit Problem/Dx: Admission Diagnosis/Problem Admission Diagnosis/Problem Pneumonia Source of Information: Patient, Old Records, Provider, RN Notes Reviewed History Limitations: Reports: No Limitations - History of Present Illness Initial Comments - Free Text/Narative: Ms. Oreilly is a 53-year-old woman who was admitted through the emergency department with shortness of breath and cough secondary to bilateral pneumonia. She has had a history of recurrent episodes of pancreatitis as well as pulmonary infections. She has had a cough over the past 2 weeks and has noted progressive symptoms of shortness of breath. She was seen in an urgent care clinic in [facility], just one week ago. At that time she was told that she had pneumonia and was given oral antibiotic therapy with Omnicef. Initially she felt somewhat improved but now over the past few days has developed progressive weakness and shortness of breath with cough. White blood cell count is within normal range, chest x-ray shows bilateral pulmonary infiltrates consistent with infection. On initial presentation to the emergency department was found to be hypoxic, current oxygen saturation within the desired range on supplemental oxygen. Back Pain Score (Numeric/FACES): 9 - Related Data Allergies/Adverse Reactions: Allergies Allergy/AdvReac Type Severity Reaction Status Date / Time fentanyl Allergy Delusions Verified 01/26/19 13:07 hydromorphone HCl Allergy Hives Verified 04/09/18 18:05 [From Dilaudid] tramadol Allergy Hives Verified 04/09/18 18:05 amoxicillin [From Augmentin] AdvReac Nausea Verified 04/09/18 18:05 clavulanic acid AdvReac Nausea Verified 04/09/18 18:05 [From Augmentin] NSAIDS (Non-Steroidal AdvReac Stomach Verified 04/09/18 18:05 Anti-Inflamma Upset Home Medications: Home Meds Nicotine [Habitrol] 14 mg TRDERM DAILY #30 patch 07/20/15 [Rx] Albuterol [Ventolin HFA] 1 - 2 puff IH Q4H PRN 03/12/16 [History] Cyanocobalamin (Vitamin B-12) [Vitamin B-12] 1 injection IM ASDIRECTED 03/12/16 [History] FLUoxetine [PROzac] 50 mg PO BEDTIME 03/12/16 [History] Lisinopril [Zestril] 20 mg PO DAILY 03/12/16 [History] Multivit-Min/FA/Lycopene/Lut [Centrum Silver Tablet] 1 tab PO DAILY 09/19/16 [ History] Omeprazole 40 mg PO DAILY 09/19/16 [History] Calcium Citrate/Vitamin D3 [Calcium Cit-Vit D 250-200] 1 each PO BID 08/30/17 [ History] diphenhydrAMINE [Benadryl] 25 mg PO BEDTIME PRN 08/30/17 [History] Ferrous Sulfate, Dried [Iron] 1 tab PO DAILY 04/09/18 [History] Cefdinir [Omnicef] 300 mg PO BID 01/26/19 [History] Past Medical History Cardiovascular History: Reports: Hypertension Respiratory History: Reports: Pneumonia, Recurrent, Other (See Below) Other Respiratory History: pneumonia, 2011 and 2013 patinet states she had respiratory failure. icu in 2014 Gastrointestinal History: Reports: Bowel Obstruction, GERD, GI Bleed, Pancreatitis, Other (See Below) Other Gastrointestinal History: Hernia surgery x 5. perforated gastric ulcer. B.M 12-4 girth 43 Genitourinary History: Reports: Acute Renal Failure CORE DIPPER History: Reports: Other (See Below) Other OB/BYN History: enlarged ovaries Musculoskeletal History: Reports: Fracture Neurological History: Reports: Other (See Below) Other Neuro History: patient states she had a seizure d/t hyponatremia Psychiatric History: Reports: Anxiety, Depression, Panic Attack, PTSD Hematologic History: Reports: Anemia, Blood Transfusion(s) - Infectious Disease History Infectious Disease History: Reports: Chicken Pox - Past Surgical History GI Surgical History: Reports: Bariatric Procedure, Cholecystectomy, Colonoscopy , EGD, Hernia, Abdominal, Hernia Repair/Other, Small Bowel Female Surgical History: Reports: Hysterectomy, Salpingo-Oophorectomy Musculoskeletal Surgical History: Reports: Knee Replacement, Other (See Below) Other Musculoskeletal Surgeries/Procedures:: left knee, right ankle Social & Family History - Family History Family Medical History: Noncontributory Cardiac: Reports: CAD Psychiatric: Reports: Depression - Tobacco Use Smoking Status *Q: Never Smoker - Caffeine Use Caffeine Use: Reports: None - Recreational Drug Use Recreational Drug Use: No - Living Situation & Occupation Living situation: Reports: Single, with Family H&P Review of Systems - Review of Systems: Review Of Systems: See Below General: Reports: Fever, Chills, Weakness HEENT: Reports: No Symptoms Pulmonary: Reports: Shortness of Breath, Cough, Sputum. Denies: Wheezing, Pleuritic Chest Pain, Hemoptysis Cardiovascular: Reports: Dyspnea on Exertion. Denies: Chest Pain, Palpitations , Orthopnea, PND, Edema, Lightheadedness Gastrointestinal: Reports: No Symptoms Genitourinary: Reports: No Symptoms Musculoskeletal: Reports: No Symptoms Skin: Reports: No Symptoms Psychiatric: Reports: No Symptoms Neurological: Reports: No Symptoms Hematologic/Lymphatic: Reports: No Symptoms Immunologic: Reports: No Symptoms Exam - Exam Exam: See Below - Vital Signs Vital Signs: Last Vital Signs Temp 97.4 F 01/26/19 15:07 Pulse 68 01/26/19 15:07 Resp 24 H 01/26/19 13:11 BP 133/58 L 01/26/19 15:07 Pulse Ox 96 01/26/19 15:07 Weight: 178 lb - Exam Quality Assessment: Supplemental Oxygen, DVT Prophylaxis General: Alert, Oriented, Cooperative, Mild Distress HEENT: Conjunctiva Clear, Hearing Intact, Mucosa Moist & [place], Normal Nasal Septum, Posterior Pharynx Clear, Pupils Equal Neck: Supple, Trachea Midline, +2 Carotid Pulse wo Bruit Lungs: Decreased Breath Sounds, Crackles, Rhonchi. No: Rales, Rub, Stridor Cardiovascular: Regular Rate, Regular Rhythm, Normal S1, Normal S2. No: Systolic Murmur, Diastolic Murmur GI/Abdominal Exam: Soft, Non-Tender, No Organomegaly, No Distention Back Exam: Normal Inspection, Full Range of Motion Extremities: Non-Tender, No Pedal Edema Skin: Warm, Dry, Intact Neurological: Cranial Nerves Intact, Strength Equal Bilateral, Normal Speech, Normal Tone, Sensation Intact. No: Focal Deficit Neuro Extensive - Mental Status: Alert, Oriented x3, Normal Mood/Affect, Normal Cognition, Memory Intact - Patient Data Lab Results Last 24 hrs: Laboratory Results - last 24 hr 01/26/19 01/26/19 01/26/19 Range/Units 13:51 13:51 13:51 WBC 8.5 (4.5-11.0) K/uL RBC 3.39 (3.30-5.50) M/uL Hgb 12.2 (12.0-15.0) g/dL Hct 35.0 L (36.0-48.0) % MCV 103 H (80-98) fL MCH 36 H (27-31) pg MCHC 35 (32-36) % Plt Count 251 (150-400) K/uL Neut % (Auto) 72 H (36-66) % Lymph % (Auto) 20 L (24-44) % [place] % (Auto) 7 H (2-6) % Eos % (Auto) 1 L (2-4) % Baso % (Auto) 0 (0-1) % D-Dimer, Quantitative 487 H (0.0-400.0) ng/mL Puncture Site ABG pH (7.350-7.450) ABG pCO2 (35.0-42.0) mmHg ABG pO2 (75.0-100.0) mmHg ABG HCO3 (22.0-26.0) mmol/L ABG Total CO2 (21.0-25.0) mmol/L ABG O2 Saturation (95.0-98.0) % ABG O2 Content (15.0-23.0) %vol ABG Base Excess mm/L ABG Hemoglobin (12.0-16.0) g/dL ABG Oxyhemoglobin % ABG Carboxyhemoglobin (0.0-1.6) % ABG Methemoglobin % Brown Test O2 Delivery Device Oxygen Flow Rate L Sodium 134 L (140-148) mmol/L Potassium 3.3 L (3.6-5.2) mmol/L Chloride 97 L (100-108) mmol/L Carbon Dioxide 24 (21-32) mmol/L Anion Gap 16.3 H (5.0-14.0) mmol/L BUN 5 L (7-18) mg/dL Creatinine 0.5 L (0.6-1.0) mg/dL Est Cr Clr Drug Dosing 117.36 mL/min Estimated GFR (MDRD) > 60 (>60) Glucose 94 (74-106) mg/dL Lactic Acid (0.4-2.0) mmol/L Calcium 9.1 (8.5-10.1) mg/dL Total Bilirubin 0.8 D (0.2-1.0) mg/dL AST 81 H (15-37) U/L ALT 57 (12-78) U/L Alkaline Phosphatase 275 H (46-116) U/L Total Protein 7.0 (6.4-8.2) g/dL Albumin 3.0 L (3.4-5.0) g/dL Globulin 4.0 H (2.3-3.5) g/dL Albumin/Globulin Ratio 0.8 L (1.2-2.2) 01/26/19 01/26/19 Range/Units 14:41 14:50 WBC (4.5-11.0) K/uL RBC (3.30-5.50) M/uL Hgb (12.0-15.0) g/dL Hct (36.0-48.0) % MCV (80-98) fL MCH (27-31) pg MCHC (32-36) % Plt Count (150-400) K/uL Neut % (Auto) (36-66) % Lymph % (Auto) (24-44) % [place] % (Auto) (2-6) % Eos % (Auto) (2-4) % Baso % (Auto) (0-1) % D-Dimer, Quantitative (0.0-400.0) ng/mL Puncture Site Rt radial ABG pH 7.493 H (7.350-7.450) ABG pCO2 29.9 L (35.0-42.0) mmHg ABG pO2 68.5 L (75.0-100.0) mmHg ABG HCO3 22.7 (22.0-26.0) mmol/L ABG Total CO2 20.1 L (21.0-25.0) mmol/L ABG O2 Saturation 93.7 L (95.0-98.0) % ABG O2 Content 16.0 (15.0-23.0) %vol ABG Base Excess 0.6 mm/L ABG Hemoglobin 12.4 (12.0-16.0) g/dL ABG Oxyhemoglobin 91.9 % ABG Carboxyhemoglobin 1.2 (0.0-1.6) % ABG Methemoglobin 0.7 % Brown Test Pass O2 Delivery Device Nasal cannula Oxygen Flow Rate 2 L Sodium (140-148) mmol/L Potassium (3.6-5.2) mmol/L Chloride (100-108) mmol/L Carbon Dioxide (21-32) mmol/L Anion Gap (5.0-14.0) mmol/L BUN (7-18) mg/dL Creatinine (0.6-1.0) mg/dL Est Cr Clr Drug Dosing mL/min Estimated GFR (MDRD) (>60) Glucose (74-106) mg/dL Lactic Acid 1.4 (0.4-2.0) mmol/L Calcium (8.5-10.1) mg/dL Total Bilirubin (0.2-1.0) mg/dL AST (15-37) U/L ALT (12-78) U/L Alkaline Phosphatase (46-116) U/L Total Protein (6.4-8.2) g/dL Albumin (3.4-5.0) g/dL Globulin (2.3-3.5) g/dL Albumin/Globulin Ratio (1.2-2.2) Result Diagrams: 01/26/19 13:51 01/26/19 13:51 *Q Meaningful Use (ADM) - VTE Risk Assess *Q Each Risk Factor Represents 1 Point: Age 41 - 59 years, Obesity ( BMI > 25 kg/m2 ) Total Score 1 Point Risk Factors: 2 Each Risk Factor Represents 2 Points: None Total Score 2 Point Risk Factors: 0 Each Risk Factor Represents 3 Points: None Total Score 3 Point Risk Factors: 0 Each Risk Factor Represents 5 Points: None Total Score 5 Point Risk Factors: 0 Venous Thromboembolism Risk Factor Score *Q: 2 Problem List Initiated/Reviewed/Updated: Yes Orders Last 24hrs: Active Orders 24 hr Category Date Time Status Patient Status Manage Transfer [TRANSFER] Routine ADT 01/26/19 15:22 Ordered CULTURE BLOOD [BC] Urgent Lab 01/26/19 14:41 Received CULTURE BLOOD [BC] Urgent Lab 01/26/19 14:50 Received Blood Culture x2 Reflex Set [OM.PC] Urgent Oth 01/26/19 14:22 Ordered Resuscitation Status Routine Resus Stat 01/26/19 15:23 Ordered Assessment/Plan Comment:: ASSESSMENT AND PLAN BILATERAL PNEUMONIA-failed outpatient management with oral antibiotic therapy, complicated by hypoxia, no evidence of sepsis at the present time. -Sputum and blood cultures pending -IV fluids for hydration -IV meropenem and levofloxacin, pending culture results HYPOXIA-secondary to bilateral pneumonia -Supplemental oxygen as needed HISTORY OF ALCOHOL ABUSE-she reports no alcohol use since July of last year -Monitor closely for alcohol withdrawal MAINTENANCE ISSUES -DVT prophylaxis; Lovenox 40 mg subcutaneous daily -GI prophylaxis; not indicated -Freeman catheter; not indicated -Nutrition; regular diet -Nicotine dependence; not required CODE STATUS-FULL CODE ADMISSION STATUS-patient will be admitted to inpatient status, expect at least a 2 night hospital stay for evaluation and management of problems as outlined above. At the time of this admission I do not reasonably expected evaluation and management of this problem will require more than a 96 hour hospital stay. DISPOSITION-anticipate discharge to home after the hospital stay. PRIMARY CARE PROVIDER-
[2019-01-26] MEDS ORDERED: Ondansetron 4 MG/2 ML SDV IV PRN (16:26)
[2019-01-26] MEDS ORDERED: Sodium Chloride 0.9% 10 ML Syringe FLUSH PRN (16:26)
[2019-01-26] MEDS ORDERED: Polyethylene Glycol 3350 Powder 17 GM Packet PO PRN (16:26)
[2019-01-26] MEDS: Enoxaparin 40 MG/0.4 ML Syringe SUBCUT SCH (17:32)
[2019-01-26] MEDS: Acetaminophen 325 MG Tab PO PRN (17:32)
[2019-01-26] MEDS: Levofloxacin/Dextrose 5%-Water 750 MG in Premix Bag 1 BAG IV SCH (17:32)
[2019-01-26] MEDS: Lactated Ringers 1,000 ML IV SCH (17:40)
[2019-01-26] MEDS ORDERED: FLUoxetine 20 MG Cap PO SCH (21:00)
[2019-01-26] MEDS: FLUOXETINE PO SCH ×2 (21:41)
[2019-01-26] MEDS: Melatonin 3 MG Tab PO PRN (21:42)
[2019-01-26] MEDS: oxyCODONE 5 MG Tab PO PRN (21:45)
[2019-01-27] MEDS: oxyCODONE 5 MG Tab PO PRN ×5 (01:56→21:58)
[2019-01-27] MEDS: Lactated Ringers 1,000 ML IV SCH (04:11)
[2019-01-27] MEDS: Pantoprazole 40 MG Tab.CR PO SCH (07:19)
[2019-01-27] MEDS ORDERED: Non-Formulary Medication 1 Each (Omeprazole [Omeprazole] 40 MG) PO SCH (09:00)
[2019-01-27] MEDS: Magnesium Oxide 400 MG Tab PO SCH ×2 (09:31→20:23)
[2019-01-27] MEDS: Lisinopril 20 MG Tab PO SCH (09:31)
[2019-01-27] MEDS ORDERED: Potassium Chloride 20 MEQ Tab.ER PO ONE (10:00)
[2019-01-27] MEDS ORDERED: Magnesium Sulfate/Water 2 GM in Premix Bag 1 BAG IV ONE (10:00)
[2019-01-27] MEDS: Potassium Chloride 20 MEQ, Lidocaine 1% 2 ML in Sodium Chloride 0.9% 100 ML IV SCH ×2 (10:39→12:28)
--- NOTE | 2019-01-27 14:34 | PCM.PN ---
- General Info Date of Service: 01/27/19 Subjective Update: Ms. Oreilly has been stable since admission, but continues to experience significant shortness of breath with minimal exertion. White blood cell count remains normal and there have been no significant temperature elevations. Functional Status: Reports: Tolerating Diet, Ambulating, Urinating - Review of Systems General: Reports: Weakness. Denies: Fever, Chills Pulmonary: Reports: Shortness of Breath, Cough, Sputum. Denies: Pleuritic Chest Pain, Hemoptysis, Wheezing Cardiovascular: Reports: Dyspnea on Exertion. Denies: Chest Pain, Palpitations , Orthopnea, PND, Edema, Lightheadedness Gastrointestinal: Reports: No Symptoms - Patient Data Vitals - Most Recent: Last Vital Signs Temp 98.6 F 01/27/19 11:30 Pulse 72 01/27/19 11:30 Resp 16 01/27/19 11:30 BP 134/75 01/27/19 11:30 Pulse Ox 95 01/27/19 11:30 Weight - Most Recent: 175 lb 6.008 oz I&O - Last 24 Hours: Intake & Output 01/26/19 01/27/19 01/27/19 22:59 06:59 14:59 Intake Total 1300 1441 Balance 1300 1441 Lab Results Last 24 Hours: Laboratory Results - last 24 hr 01/26/19 01/26/19 01/27/19 Range/Units 14:41 14:50 05:00 WBC 7.1 (4.5-11.0) K/uL RBC 3.22 L (3.30-5.50) M/uL Hgb 11.8 L (12.0-15.0) g/dL Hct 34.0 L (36.0-48.0) % MCV 106 H (80-98) fL MCH 37 H (27-31) pg MCHC 35 (32-36) % Plt Count 264 (150-400) K/uL Neut % (Auto) 65 (36-66) % Lymph % (Auto) 23 L (24-44) % [place] % (Auto) 9 H (2-6) % Eos % (Auto) 2 (2-4) % Baso % (Auto) 0 (0-1) % Puncture Site Rt radial ABG pH 7.493 H (7.350-7.450) ABG pCO2 29.9 L (35.0-42.0) mmHg ABG pO2 68.5 L (75.0-100.0) mmHg ABG HCO3 22.7 (22.0-26.0) mmol/L ABG Total CO2 20.1 L (21.0-25.0) mmol/L ABG O2 Saturation 93.7 L (95.0-98.0) % ABG O2 Content 16.0 (15.0-23.0) %vol ABG Base Excess 0.6 mm/L ABG Hemoglobin 12.4 (12.0-16.0) g/dL ABG Oxyhemoglobin 91.9 % ABG Carboxyhemoglobin 1.2 (0.0-1.6) % ABG Methemoglobin 0.7 % Brown Test Pass O2 Delivery Device Nasal cannula Oxygen Flow Rate 2 L Sodium (140-148) mmol/L Potassium (3.6-5.2) mmol/L Chloride (100-108) mmol/L Carbon Dioxide (21-32) mmol/L Anion Gap (5.0-14.0) mmol/L BUN (7-18) mg/dL Creatinine (0.6-1.0) mg/dL Est Cr Clr Drug Dosing mL/min Estimated GFR (MDRD) (>60) Glucose (74-106) mg/dL Lactic Acid 1.4 (0.4-2.0) mmol/L Calcium (8.5-10.1) mg/dL Magnesium (1.8-2.4) mg/dL 01/27/19 Range/Units 05:00 WBC (4.5-11.0) K/uL RBC (3.30-5.50) M/uL Hgb (12.0-15.0) g/dL Hct (36.0-48.0) % MCV (80-98) fL MCH (27-31) pg MCHC (32-36) % Plt Count (150-400) K/uL Neut % (Auto) (36-66) % Lymph % (Auto) (24-44) % [place] % (Auto) (2-6) % Eos % (Auto) (2-4) % Baso % (Auto) (0-1) % Puncture Site ABG pH (7.350-7.450) ABG pCO2 (35.0-42.0) mmHg ABG pO2 (75.0-100.0) mmHg ABG HCO3 (22.0-26.0) mmol/L ABG Total CO2 (21.0-25.0) mmol/L ABG O2 Saturation (95.0-98.0) % ABG O2 Content (15.0-23.0) %vol ABG Base Excess mm/L ABG Hemoglobin (12.0-16.0) g/dL ABG Oxyhemoglobin % ABG Carboxyhemoglobin (0.0-1.6) % ABG Methemoglobin % Brown Test O2 Delivery Device Oxygen Flow Rate L Sodium 132 L (140-148) mmol/L Potassium 3.1 L (3.6-5.2) mmol/L Chloride 95 L (100-108) mmol/L Carbon Dioxide 28 (21-32) mmol/L Anion Gap 12.1 (5.0-14.0) mmol/L BUN 3 L (7-18) mg/dL Creatinine 0.6 (0.6-1.0) mg/dL Est Cr Clr Drug Dosing 95.79 mL/min Estimated GFR (MDRD) > 60 (>60) Glucose 94 (74-106) mg/dL Lactic Acid (0.4-2.0) mmol/L Calcium 9.0 (8.5-10.1) mg/dL Magnesium 1.6 L (1.8-2.4) mg/dL Med Orders - Current: Current Medications Acetaminophen (Tylenol) 650 mg PO Q4H PRN PRN Reason: Pain (Mild 1-3)/fever Last Admin: 01/26/19 17:32 Dose: 650 mg Albuterol (Proventil Neb Soln) 2.5 mg NEB Q4H PRN PRN Reason: Shortness Of Breath/wheezing Enoxaparin Sodium (Lovenox) 40 mg SUBCUT Q24H [facility] Last Admin: 01/26/19 17:32 Dose: 40 mg Fluoxetine HCl 40 mg/ (Fluoxetine HCl 10 mg) 50 mg PO BEDTIME [facility] Last Admin: 01/26/19 21:41 Dose: 50 mg Guaifenesin/Codeine Phosphate (Robitussin Ac) 10 ml PO Q4H PRN PRN Reason: Cough Levofloxacin/Dextrose 750 mg/ (Premix) 150 mls @ 100 mls/hr IV Q24H [facility] Last Admin: 01/26/19 17:32 Dose: 100 mls/hr Meropenem 1 gm/ Sodium (Chloride) 50 mls @ 100 mls/hr IV Q8H [facility] Last Admin: 01/27/19 13:30 Dose: 100 mls/hr Lisinopril (Prinivil) 20 mg PO DAILY [facility] Last Admin: 01/27/19 09:31 Dose: 20 mg Magnesium Oxide (Magnesium Oxide) 400 mg PO BID [facility] Last Admin: 01/27/19 09:31 Dose: 400 mg Melatonin (Melatonin) 9 mg PO BEDTIME PRN PRN Reason: Insomnia Last Admin: 01/26/19 21:42 Dose: 9 mg Nicotine (Habitrol) 7 mg TRDERM DAILY [facility] Nicotine Polacrilex (Nicorelief) 2 mg CHEW Q1H PRN PRN Reason: Other Ondansetron HCl (Zofran) 4 mg IV Q4H PRN PRN Reason: Nausea/Vomiting Oxycodone HCl (Oxycodone) 5 mg PO Q4H PRN PRN Reason: Pain Last Admin: 01/27/19 12:33 Dose: 5 mg Pantoprazole Sodium (Protonix) 40 mg PO ACBREAKFAST [facility] Last Admin: 01/27/19 07:19 Dose: 40 mg Polyethylene Glycol (Miralax) 17 gm PO DAILY PRN PRN Reason: Constipation Sodium Chloride (Saline Flush) 10 ml FLUSH ASDIRECTED PRN PRN Reason: Keep Vein Open Discontinued Medications Meropenem 1 gm/ Sodium (Chloride) 50 mls @ 100 mls/hr IV ONETIME ONE Stop: 01/26/19 14:57 Last Admin: 01/26/19 15:19 Dose: 100 mls/hr Lactated Ringer's (Ringers, Lactated) 1,000 mls @ 125 mls/hr IV ASDIRECTED [facility] Last Admin: 01/27/19 04:11 Dose: 125 mls/hr Magnesium Sulfate 2 gm/ Premix 50 mls @ 25 mls/hr IV ONETIME ONE Stop: 01/27/19 11:59 Last Admin: 01/27/19 09:32 Dose: 25 mls/hr Potassium Chloride 20 meq/Lidocaine HCl 2 ml/ Sodium Chloride 112 mls @ 56 mls/ hr IV Q2H [facility] Stop: 01/27/19 13:59 Last Admin: 01/27/19 12:28 Dose: 56 mls/hr Potassium Chloride (Klor-Con M20) 40 meq PO ONETIME ONE Stop: 01/27/19 10:01 Last Admin: 01/27/19 09:32 Dose: 40 meq - Exam Quality Assessment: DVT Prophylaxis General: Alert, Oriented, Cooperative, Moderate Distress Lungs: Clear to Auscultation, Normal Respiratory Effort, Decreased Breath Sounds. No: Rales, Rhonchi, Wheezing Cardiovascular: Regular Rate, Regular Rhythm, No Murmurs GI/Abdominal Exam: Soft, Non-Tender, No Organomegaly, No Distention Extremities: Non-Tender, No Pedal Edema - Problem List Review Problem List Initiated/Reviewed/Updated: Yes - My Orders Last 24 Hours: My Active Orders 01/26/19 15:23 Resuscitation Status Routine 01/26/19 16:26 Patient Status [ADT] Routine Ambulate [RC] QID Height and Weight [RC] DAILY Intake and Output [RC] QSHIFT Notify Provider Vital Signs [RC] ASDIRECTED Oxygen Therapy [RC] PRN Peripheral IV Care [RC] . DIRECTED RT Aerosol Therapy [RC] ASDIRECTED Up to Chair [RC] QID Vital Signs [RC] Q4H CULTURE RESPIRATORY + SMEAR [RM] Stat Acetaminophen [Tylenol] 650 mg PO Q4H PRN Albuterol [Proventil Neb Soln] 2.5 mg NEB Q4H PRN Ondansetron [Zofran] 4 mg IV Q4H PRN Polyethylene Glycol 3350 [MiraLAX] 17 gm PO DAILY PRN Sodium Chloride 0.9% [Saline Flush] 10 ml FLUSH ASDIRECTED PRN Peripheral IV Insertion Adult [OM.PC] Routine 01/26/19 17:00 Levofloxacin/Dextrose 5%-Water [Levaquin in D5W 750 MG/150 ML] 750 mg Premix Bag 1 bag IV Q24H 01/26/19 17:30 Enoxaparin [Lovenox] 40 mg SUBCUT Q24H 01/26/19 20:11 Melatonin 9 mg PO BEDTIME PRN oxyCODONE 5 mg PO Q4H PRN 01/26/19 20:30 Meropenem [Merrem] 1 gm Sodium Chloride 0.9% [Normal Saline] 50 ml IV Q8H 01/26/19 21:00 Fluoxetine [Prozac] 50 mg PO BEDTIME 01/27/19 07:30 Pantoprazole [ProTONIX] 40 mg PO ACBREAKFAST 01/27/19 09:00 Lisinopril [Prinivil] 20 mg PO DAILY Magnesium Oxide 400 mg PO BID 01/27/19 13:58 Ang Chest [CT] Stat 01/27/19 14:00 Codeine/guaiFENesin [Robitussin AC] 10 ml PO Q4H PRN Nicotine Polacrilex [Nicorelief] 2 mg CHEW Q1H PRN Convert IV to Saline Lock [OM.PC] Routine 01/27/19 14:15 Nicotine [Habitrol] 7 mg TRDERM DAILY 01/28/19 05:00 BASIC METABOLIC PANEL,BMP [CHEM] Timed MAGNESIUM [CHEM] Timed - Plan Plan:: ASSESSMENT AND PLAN BILATERAL PNEUMONIA-failed outpatient management with oral antibiotic therapy, complicated by hypoxia, no evidence of sepsis at the present time. Level of dyspnea and hypoxia worse than expected based on infiltrates noted on chest x- ray. -CT angiogram of the chest to evaluate for other causes of dyspnea -Sputum and blood cultures pending -Saline lock IV -IV meropenem and levofloxacin, pending culture results HYPOXIA-secondary to bilateral pneumonia, seems to be disproportionate to infiltrates noted on chest x-ray, CT scan of the chest as above -Supplemental oxygen as needed HISTORY OF ALCOHOL ABUSE-she reports no alcohol use since July of last year -Monitor closely for alcohol withdrawal MAINTENANCE ISSUES -DVT prophylaxis; Lovenox 40 mg subcutaneous daily -GI prophylaxis; not indicated -Freeman catheter; not indicated -Nutrition; regular diet -Nicotine dependence; not required CODE STATUS-FULL CODE ADMISSION STATUS-patient will be admitted to inpatient status, expect at least a 2 night hospital stay for evaluation and management of problems as outlined above. At the time of this admission I do not reasonably expected evaluation and management of this problem will require more than a 96 hour hospital stay. DISPOSITION-anticipate discharge to home after the hospital stay. PRIMARY CARE PROVIDER-
[2019-01-27] MEDS: Nicotine 7 MG/24 Hr Patch TRDERM SCH (14:49)
[2019-01-27] MEDS ORDERED: Iopamidol 755 Mg/ML 100 ML Bottle IV SCH (15:45)
[2019-01-27] MEDS ORDERED: Sodium Chloride 0.9% 100 ML IV SCH (15:45)
[2019-01-27] MEDS: Levofloxacin/Dextrose 5%-Water 750 MG in Premix Bag 1 BAG IV SCH (16:20)
[2019-01-27] MEDS: Enoxaparin 40 MG/0.4 ML Syringe SUBCUT SCH (16:37)
--- NOTE | 2019-01-27 17:22 | CRLCT ---
INDICATION: Hypoxia, persistent infiltrates TECHNIQUE: CT chest pulmonary angiogram acquired with IV contrast. 100 cc Isovue 370 COMPARISON: 03/15/2016 FINDINGS: Cardiovascular structures: Normal vascular enhancement of the pulmonary arteries, no sign of pulmonary embolism. Heart size is normal. No sign of aneurysm or dissection in the thoracic aorta. Mediastinum and rufino: Stone adenopathy measuring up to 1.7 centimeters. Lungs: Diffuse bilateral infiltrates consistent with pneumonia. Pleura and pericardium: No effusions. Chest wall and axilla: No mass or adenopathy. Bones: No significant findings. Upper abdomen: Evidence of prior bariatric surgery. IMPRESSION: No evidence of pulmonary embolus. Diffuse bilateral infiltrates. Mediastinal adenopathy measuring up to 1.7 centimeters. Dictated by Artemio Canela MD @ 01/27/2019 5:19:24 PM Please note that all CT scans at this facility use dose modulation, iterative reconstruction, and/or weight-based dosing when appropriate to reduce radiation dose to as low as reasonably achievable. Dictated by: Artemio Canela MD @ 01/27/2019 17:19:37 (Electronically Signed)
[2019-01-27] MEDS: Codeine/guaiFENesin 100mg-10 MG/5 ML Syrup 10 ML Cup PO PRN (19:26)
[2019-01-27] MEDS: Acetaminophen 325 MG Tab PO PRN (19:29)
[2019-01-27] MEDS: FLUOXETINE PO SCH ×2 (20:23)
[2019-01-27] MEDS: Melatonin 3 MG Tab PO PRN (20:23)
[2019-01-28] MEDS: Acetaminophen 325 MG Tab PO PRN ×5 (02:35→22:56)
[2019-01-28] MEDS: Codeine/guaiFENesin 100mg-10 MG/5 ML Syrup 10 ML Cup PO PRN ×3 (02:35→19:03)
[2019-01-28] MEDS: Pantoprazole 40 MG Tab.CR PO SCH (08:10)
[2019-01-28] MEDS: Nicotine 7 MG/24 Hr Patch TRDERM SCH (09:03)
[2019-01-28] MEDS: Magnesium Oxide 400 MG Tab PO SCH ×2 (09:04→20:49)
[2019-01-28] MEDS: Lisinopril 20 MG Tab PO SCH (09:04)
[2019-01-28] MEDS: Albuterol 0.083% 2.5 MG/3 ML Neb Soln NEB PRN ×2 (09:25→15:42)
--- NOTE | 2019-01-28 13:04 | PCM.PN ---
- General Info Date of Service: 01/28/19 Subjective Update: Ms. Oreilly is noted significant improvement over last 24 hours with less shortness of breath and cough. She has been able to be more active and has noted less shortness of breath. Vital signs have been stable and she has remained afebrile. - Review of Systems General: Reports: Weakness. Denies: Fever, Chills Pulmonary: Reports: Shortness of Breath, Cough, Sputum. Denies: Hemoptysis, Wheezing Cardiovascular: Reports: Dyspnea on Exertion. Denies: Chest Pain, Palpitations , Orthopnea, PND, Edema, Lightheadedness Gastrointestinal: Reports: No Symptoms - Patient Data Vitals - Most Recent: Last Vital Signs Temp 97.3 F 01/28/19 10:42 Pulse 82 01/28/19 10:42 Resp 18 01/28/19 10:42 BP 122/75 01/28/19 10:42 Pulse Ox 94 L 01/28/19 10:42 Weight - Most Recent: 174 lb 3.2 oz I&O - Last 24 Hours: Intake & Output 01/27/19 01/28/19 01/28/19 22:59 06:59 14:59 Intake Total 100 Balance 100 Lab Results Last 24 Hours: Laboratory Results - last 24 hr 01/28/19 Range/Units 05:00 Sodium 134 L (140-148) mmol/L Potassium 4.2 (3.6-5.2) mmol/L Chloride 99 L (100-108) mmol/L Carbon Dioxide 28 (21-32) mmol/L Anion Gap 11.2 (5.0-14.0) mmol/L BUN 3 L (7-18) mg/dL Creatinine 0.6 (0.6-1.0) mg/dL Est Cr Clr Drug Dosing 96.48 mL/min Estimated GFR (MDRD) > 60 (>60) Glucose 100 (74-106) mg/dL Calcium 8.8 (8.5-10.1) mg/dL Magnesium 1.8 (1.8-2.4) mg/dL Clem Results Last 24 Hours: Microbiology 01/26/19 14:50 Aerobic Blood Culture - Preliminary Blood - Artery NO GROWTH AFTER 1 DAY Anaerobic Blood Culture - Preliminary NO GROWTH AFTER 1 DAY 01/26/19 14:41 Aerobic Blood Culture - Preliminary Blood - Venous - Iv Start NO GROWTH AFTER 1 DAY Anaerobic Blood Culture - Preliminary NO GROWTH AFTER 1 DAY Med Orders - Current: Current Medications Acetaminophen (Tylenol) 650 mg PO Q4H PRN PRN Reason: Pain (Mild 1-3)/fever Last Admin: 01/28/19 11:18 Dose: 650 mg Albuterol (Proventil Neb Soln) 2.5 mg NEB Q4H PRN PRN Reason: Shortness Of Breath/wheezing Last Admin: 01/28/19 09:25 Dose: 2.5 mg Enoxaparin Sodium (Lovenox) 40 mg SUBCUT Q24H [facility] Last Admin: 01/27/19 16:37 Dose: 40 mg Fluoxetine HCl 40 mg/ (Fluoxetine HCl 10 mg) 50 mg PO BEDTIME [facility] Last Admin: 01/27/19 20:23 Dose: 50 mg Guaifenesin/Codeine Phosphate (Robitussin Ac) 10 ml PO Q4H PRN PRN Reason: Cough Last Admin: 01/28/19 11:20 Dose: 10 ml Levofloxacin/Dextrose 750 mg/ (Premix) 150 mls @ 100 mls/hr IV Q24H [facility] Last Admin: 01/27/19 16:20 Dose: 100 mls/hr Meropenem 1 gm/ Sodium (Chloride) 50 mls @ 100 mls/hr IV Q8H [facility] Last Admin: 01/28/19 04:11 Dose: 100 mls/hr Lisinopril (Prinivil) 20 mg PO DAILY [facility] Last Admin: 01/28/19 09:04 Dose: 20 mg Magnesium Oxide (Magnesium Oxide) 400 mg PO BID [facility] Last Admin: 01/28/19 09:04 Dose: 400 mg Melatonin (Melatonin) 9 mg PO BEDTIME PRN PRN Reason: Insomnia Last Admin: 01/27/19 20:23 Dose: 9 mg Nicotine (Habitrol) 7 mg TRDERM DAILY [facility] Last Admin: 01/28/19 09:03 Dose: 7 mg Nicotine Polacrilex (Nicorelief) 2 mg CHEW Q1H PRN PRN Reason: Other Ondansetron HCl (Zofran) 4 mg IV Q4H PRN PRN Reason: Nausea/Vomiting Oxycodone HCl (Oxycodone) 5 mg PO Q4H PRN PRN Reason: Pain Last Admin: 01/27/19 21:58 Dose: 5 mg Pantoprazole Sodium (Protonix) 40 mg PO ACBREAKFAST [facility] Last Admin: 01/28/19 08:10 Dose: 40 mg Polyethylene Glycol (Miralax) 17 gm PO DAILY PRN PRN Reason: Constipation Sodium Chloride (Saline Flush) 10 ml FLUSH ASDIRECTED PRN PRN Reason: Keep Vein Open Last Admin: 01/27/19 16:11 Dose: 10 ml Discontinued Medications Meropenem 1 gm/ Sodium (Chloride) 50 mls @ 100 mls/hr IV ONETIME ONE Stop: 01/26/19 14:57 Last Admin: 01/26/19 15:19 Dose: 100 mls/hr Lactated Ringer's (Ringers, Lactated) 1,000 mls @ 125 mls/hr IV ASDIRECTED [facility] Last Admin: 01/27/19 04:11 Dose: 125 mls/hr Magnesium Sulfate 2 gm/ Premix 50 mls @ 25 mls/hr IV ONETIME ONE Stop: 01/27/19 11:59 Last Admin: 01/27/19 09:32 Dose: 25 mls/hr Potassium Chloride 20 meq/Lidocaine HCl 2 ml/ Sodium Chloride 112 mls @ 56 mls/ hr IV Q2H [facility] Stop: 01/27/19 13:59 Last Admin: 01/27/19 12:28 Dose: 56 mls/hr Sodium Chloride (Normal Saline) 100 mls @ 3 mls/sec IV ASDIRECTED [facility] Stop: 01/27/19 16:30 Last Admin: 01/27/19 16:11 Dose: 3 mls/sec Iopamidol (Isovue-370 (76%)) 100 ml IV . DIRECTED [facility] Stop: 01/27/19 16:30 Last Admin: 01/27/19 16:11 Dose: 100 ml Potassium Chloride (Klor-Con M20) 40 meq PO ONETIME ONE Stop: 01/27/19 10:01 Last Admin: 01/27/19 09:32 Dose: 40 meq - Exam General: Alert, Oriented, Cooperative, Mild Distress Lungs: Decreased Breath Sounds, Rales, Rhonchi. No: Rub, Wheezing Cardiovascular: Regular Rate, Regular Rhythm, No Murmurs GI/Abdominal Exam: Soft, Non-Tender, No Organomegaly, No Distention Extremities: Non-Tender, No Pedal Edema - Problem List Review Problem List Initiated/Reviewed/Updated: Yes - My Orders Last 24 Hours: My Active Orders 01/27/19 14:00 Codeine/guaiFENesin [Robitussin AC] 10 ml PO Q4H PRN Nicotine Polacrilex [Nicorelief] 2 mg CHEW Q1H PRN Convert IV to Saline Lock [OM.PC] Routine 01/27/19 14:15 Nicotine [Habitrol] 7 mg TRDERM DAILY - Plan Plan:: ASSESSMENT AND PLAN BILATERAL PNEUMONIA-failed outpatient management with oral antibiotic therapy, complicated by hypoxia, no evidence of sepsis at the present time. CT angiogram of the chest obtained yesterday did show bilateral infiltrates, no evidence of pulmonary emboli. She has noted significant improvement over the last 24 hours with less shortness of breath and cough -Sputum and blood cultures pending -Saline lock IV -IV meropenem and levofloxacin, pending culture results HYPOXIA-secondary to bilateral pneumonia, seems to be disproportionate to infiltrates noted on chest x-ray, CT scan of the chest as above -Supplemental oxygen as needed HISTORY OF ALCOHOL ABUSE-she reports no alcohol use since July of last year -Monitor closely for alcohol withdrawal MAINTENANCE ISSUES -DVT prophylaxis; Lovenox 40 mg subcutaneous daily -GI prophylaxis; not indicated -Freeman catheter; not indicated -Nutrition; regular diet -Nicotine dependence; not required CODE STATUS-FULL CODE ADMISSION STATUS-patient will be admitted to inpatient status, expect at least a 2 night hospital stay for evaluation and management of problems as outlined above. At the time of this admission I do not reasonably expected evaluation and management of this problem will require more than a 96 hour hospital stay. DISPOSITION-anticipate discharge to home after the hospital stay. PRIMARY CARE PROVIDER-
[2019-01-28] MEDS: Nicotine Polacrilex 2 MG Gum CHEW PRN (13:50)
[2019-01-28] MEDS: Levofloxacin/Dextrose 5%-Water 750 MG in Premix Bag 1 BAG IV SCH (16:15)
[2019-01-28] MEDS: Enoxaparin 40 MG/0.4 ML Syringe SUBCUT SCH (17:44)
[2019-01-28] MEDS: FLUOXETINE PO SCH ×2 (20:49)
[2019-01-28] MEDS: Melatonin 3 MG Tab PO PRN (22:56)
[2019-01-29] MEDS: Codeine/guaiFENesin 100mg-10 MG/5 ML Syrup 10 ML Cup PO PRN ×2 (02:45→09:44)
[2019-01-29] MEDS: Acetaminophen 325 MG Tab PO PRN ×4 (06:10→21:16)
[2019-01-29] MEDS: Pantoprazole 40 MG Tab.CR PO SCH (08:28)
[2019-01-29] MEDS: Nicotine 7 MG/24 Hr Patch TRDERM SCH (08:30)
[2019-01-29] MEDS: Lisinopril 20 MG Tab PO SCH (08:32)
[2019-01-29] MEDS: Magnesium Oxide 400 MG Tab PO SCH ×2 (08:33→20:42)
--- NOTE | 2019-01-29 12:17 | PCM.PN ---
- General Info Date of Service: 01/29/19 Subjective Update: Ms. Oreilly does not feel as well today as she did yesterday, slightly more short of breath, cough has significantly improved. She is currently off of supplemental oxygen and has been able to ambulate the hallways without significant difficulty. Vital signs have been stable and she has remained afebrile. Functional Status: Reports: Tolerating Diet, Ambulating, Urinating - Review of Systems General: Reports: Weakness. Denies: Fever, Chills Pulmonary: Reports: Shortness of Breath, Cough. Denies: Pleuritic Chest Pain, Sputum, Hemoptysis, Wheezing Cardiovascular: Reports: Dyspnea on Exertion. Denies: Chest Pain, Palpitations , Orthopnea, PND, Edema, Lightheadedness Gastrointestinal: Reports: No Symptoms - Patient Data Vitals - Most Recent: Last Vital Signs Temp 98.0 F 01/29/19 08:07 Pulse 66 01/29/19 08:07 Resp 16 01/29/19 03:00 BP 159/88 H 01/29/19 08:32 Pulse Ox 94 L 01/29/19 08:07 Weight - Most Recent: 174 lb 3.2 oz I&O - Last 24 Hours: Intake & Output 01/28/19 01/29/19 01/29/19 22:59 06:59 14:59 Intake Total 880 331 7220 Balance 977 629 9520 Clem Results Last 24 Hours: Microbiology 01/26/19 14:50 Aerobic Blood Culture - Preliminary Blood - Artery NO GROWTH AFTER 2 DAYS Anaerobic Blood Culture - Preliminary NO GROWTH AFTER 2 DAYS 01/26/19 14:41 Aerobic Blood Culture - Preliminary Blood - Venous - Iv Start NO GROWTH AFTER 2 DAYS Anaerobic Blood Culture - Preliminary NO GROWTH AFTER 2 DAYS Med Orders - Current: Current Medications Acetaminophen (Tylenol) 650 mg PO Q4H PRN PRN Reason: Pain (Mild 1-3)/fever Last Admin: 01/29/19 06:10 Dose: 650 mg Albuterol (Proventil Neb Soln) 2.5 mg NEB Q4H PRN PRN Reason: Shortness Of Breath/wheezing Last Admin: 01/28/19 15:42 Dose: 2.5 mg Enoxaparin Sodium (Lovenox) 40 mg SUBCUT Q24H [facility] Last Admin: 01/28/19 17:44 Dose: 40 mg Fluoxetine HCl 40 mg/ (Fluoxetine HCl 10 mg) 50 mg PO BEDTIME [facility] Last Admin: 01/28/19 20:49 Dose: 50 mg Guaifenesin/Codeine Phosphate (Robitussin Ac) 10 ml PO Q4H PRN PRN Reason: Cough Last Admin: 01/29/19 09:44 Dose: 10 ml Levofloxacin/Dextrose 750 mg/ (Premix) 150 mls @ 100 mls/hr IV Q24H [facility] Last Admin: 01/28/19 16:15 Dose: 100 mls/hr Meropenem 1 gm/ Sodium (Chloride) 50 mls @ 100 mls/hr IV Q8H [facility] Last Admin: 01/29/19 04:11 Dose: 100 mls/hr Lisinopril (Prinivil) 20 mg PO DAILY [facility] Last Admin: 01/29/19 08:32 Dose: 20 mg Magnesium Oxide (Magnesium Oxide) 400 mg PO BID [facility] Last Admin: 01/29/19 08:33 Dose: 400 mg Melatonin (Melatonin) 9 mg PO BEDTIME PRN PRN Reason: Insomnia Last Admin: 01/28/19 22:56 Dose: 9 mg Nicotine (Habitrol) 7 mg TRDERM DAILY [facility] Last Admin: 01/29/19 08:30 Dose: 7 mg Nicotine Polacrilex (Nicorelief) 2 mg CHEW Q1H PRN PRN Reason: Other Last Admin: 01/28/19 13:50 Dose: 2 mg Ondansetron HCl (Zofran) 4 mg IV Q4H PRN PRN Reason: Nausea/Vomiting Oxycodone HCl (Oxycodone) 5 mg PO Q4H PRN PRN Reason: Pain Last Admin: 01/27/19 21:58 Dose: 5 mg Pantoprazole Sodium (Protonix) 40 mg PO ACBREAKFAST [facility] Last Admin: 01/29/19 08:28 Dose: 40 mg Polyethylene Glycol (Miralax) 17 gm PO DAILY PRN PRN Reason: Constipation Sodium Chloride (Saline Flush) 10 ml FLUSH ASDIRECTED PRN PRN Reason: Keep Vein Open Last Admin: 01/27/19 16:11 Dose: 10 ml Discontinued Medications Meropenem 1 gm/ Sodium (Chloride) 50 mls @ 100 mls/hr IV ONETIME ONE Stop: 01/26/19 14:57 Last Admin: 01/26/19 15:19 Dose: 100 mls/hr Lactated Ringer's (Ringers, Lactated) 1,000 mls @ 125 mls/hr IV ASDIRECTED [facility] Last Admin: 01/27/19 04:11 Dose: 125 mls/hr Magnesium Sulfate 2 gm/ Premix 50 mls @ 25 mls/hr IV ONETIME ONE Stop: 01/27/19 11:59 Last Admin: 01/27/19 09:32 Dose: 25 mls/hr Potassium Chloride 20 meq/Lidocaine HCl 2 ml/ Sodium Chloride 112 mls @ 56 mls/ hr IV Q2H [facility] Stop: 01/27/19 13:59 Last Admin: 01/27/19 12:28 Dose: 56 mls/hr Sodium Chloride (Normal Saline) 100 mls @ 3 mls/sec IV ASDIRECTED [facility] Stop: 01/27/19 16:30 Last Admin: 01/27/19 16:11 Dose: 3 mls/sec Iopamidol (Isovue-370 (76%)) 100 ml IV . DIRECTED [facility] Stop: 01/27/19 16:30 Last Admin: 01/27/19 16:11 Dose: 100 ml Potassium Chloride (Klor-Con M20) 40 meq PO ONETIME ONE Stop: 01/27/19 10:01 Last Admin: 01/27/19 09:32 Dose: 40 meq - Exam Quality Assessment: DVT Prophylaxis. No: Supplemental Oxygen, Urine Catheter General: Alert, Oriented, Cooperative, Mild Distress Lungs: Decreased Breath Sounds. No: Rales, Rhonchi, Rub, Wheezing Cardiovascular: Regular Rate, Regular Rhythm, No Murmurs GI/Abdominal Exam: Soft, Non-Tender, No Organomegaly, No Distention Extremities: Non-Tender, No Pedal Edema - Problem List Review Problem List Initiated/Reviewed/Updated: Yes - Plan Plan:: ASSESSMENT AND PLAN BILATERAL PNEUMONIA-failed outpatient management with oral antibiotic therapy, complicated by hypoxia, no evidence of sepsis at the present time. Feeling as well as she did yesterday but overall significantly improved from admission. -Sputum and blood cultures pending -Saline lock IV -IV meropenem and levofloxacin, pending culture results HYPOXIA-secondary to bilateral pneumonia, significantly improved from admission , currently off of supplemental oxygen -Supplemental oxygen as needed HISTORY OF ALCOHOL ABUSE-she reports no alcohol use since July of last year -Monitor closely for alcohol withdrawal MAINTENANCE ISSUES -DVT prophylaxis; Lovenox 40 mg subcutaneous daily -GI prophylaxis; not indicated -Freeman catheter; not indicated -Nutrition; regular diet -Nicotine dependence; not required CODE STATUS-FULL CODE ADMISSION STATUS-patient will be admitted to inpatient status, expect at least a 2 night hospital stay for evaluation and management of problems as outlined above. At the time of this admission I do not reasonably expected evaluation and management of this problem will require more than a 96 hour hospital stay. DISPOSITION-anticipate discharge to home after the hospital stay. PRIMARY CARE PROVIDER-Dr. Santiago
[2019-01-29] MEDS ORDERED: Fluconazole 150 MG Tab PO ONE (14:26)
[2019-01-29] MEDS: Nicotine Polacrilex 2 MG Gum CHEW PRN ×2 (14:26→20:49)
[2019-01-29] MEDS: oxyCODONE 5 MG Tab PO PRN ×2 (17:17→21:16)
[2019-01-29] MEDS: Levofloxacin/Dextrose 5%-Water 750 MG in Premix Bag 1 BAG IV SCH (17:20)
[2019-01-29] MEDS: Enoxaparin 40 MG/0.4 ML Syringe SUBCUT SCH (18:38)
[2019-01-29] MEDS: FLUOXETINE PO SCH ×2 (20:42)
[2019-01-29] MEDS ORDERED: Clotrimazole 1% Vaginal Crm 45 GM Tube VAG SCH (21:00)
[2019-01-29] MEDS: Melatonin 3 MG Tab PO PRN (21:15)
[2019-01-30] MEDS: Codeine/guaiFENesin 100mg-10 MG/5 ML Syrup 10 ML Cup PO PRN ×3 (01:35→12:19)
[2019-01-30 07:13] VITALS: BP 143/84
[2019-01-30] MEDS: Pantoprazole 40 MG Tab.CR PO SCH (07:15)
[2019-01-30] MEDS: oxyCODONE 5 MG Tab PO PRN ×2 (07:19→12:19)
[2019-01-30] MEDS: Acetaminophen 325 MG Tab PO PRN ×2 (07:19→12:19)
[2019-01-30] MEDS: Magnesium Oxide 400 MG Tab PO SCH (08:57)
[2019-01-30] MEDS: Nicotine 7 MG/24 Hr Patch TRDERM SCH (08:57)
[2019-01-30] MEDS: Lisinopril 20 MG Tab PO SCH (08:57)
[2019-01-30] MEDS ORDERED: Ondansetron 4 MG Tab.DIS PO PRN (09:08)
--- NOTE | 2019-01-30 13:12 | PCM.DCSUM1 ---
Discharge Summary - Hospital Course Brief History: Ms. Oreilly is a 53-year-old woman who was admitted through the emergency department with, hypoxia, shortness of breath and cough secondary to bilateral pneumonia. - Discharge Data Discharge Date: 01/30/19 Discharge Disposition: Home, Self-Care 01 Condition: Fair - Discharge Diagnosis/Problem(s) (1) Hypoxia SNOMED Code(s): 195574081 ICD Code: R09.02 - HYPOXEMIA Status: Acute Current Visit: Yes (2) Pneumonia SNOMED Code(s): 475987237 ICD Code: J18.9 - PNEUMONIA, UNSPECIFIED ORGANISM Status: Acute Current Visit: Yes Qualifiers: Pneumonia type: due to unspecified organism Laterality: bilateral Lung location: unspecified part of lung Qualified Code(s): J18.9 - Pneumonia, unspecified organism (3) Bariatric surgery status SNOMED Code(s): 686503094, 599482119, 180580135 ICD Code: Z98.84 - BARIATRIC SURGERY STATUS Status: Chronic Current Visit : No - Patient Summary/Data Hospital Course: Ms. Oreilly is a 53-year-old woman who was admitted through the emergency department with shortness of breath and cough secondary to bilateral pneumonia. She has had a history of recurrent episodes of pancreatitis as well as pulmonary infections. She has had a cough over the past 2 weeks and has noted progressive symptoms of shortness of breath. She was seen in an urgent care clinic in [facility], just one week ago. At that time she was told that she had pneumonia and was given oral antibiotic therapy with Omnicef. Initially she felt somewhat improved but now over the past few days has developed progressive weakness and shortness of breath with cough. White blood cell count is within normal range, chest x-ray shows bilateral pulmonary infiltrates consistent with infection. On initial presentation to the emergency department was found to be hypoxic, current oxygen saturation within the desired range on supplemental oxygen. Because she had failed outpatient treatment she was initially placed on broad- spectrum IV antibiotic therapy with meropenem and levofloxacin. Blood cultures were obtained at time of admission and remained negative throughout her hospital stay. She was treated with supplemental oxygen, over the next few days of hospitalization oxygenation improved and she no longer required supplemental oxygen at the time of discharge. Prior to discharge she was up and walking in the halls feeling significantly improved although still somewhat weak. She was transitioned to oral levofloxacin and will be discharged with an additional 3 days which should complete a 7 day course of antibiotic therapy. She is instructed to take probiotic twice daily for the next several weeks. Activity will be as tolerated and she will resume her usual diet. Follow-up appointment will be scheduled with her primary care provider within one week, chest x-ray will be obtained at the time of follow-up appointment. - Patient Instructions Diet: Usual Diet as Tolerated Activity: As Tolerated Other/Special Instructions: Instruct patient to take probiotic twice daily for several weeks. Please schedule follow-up appointment with primary care provider within one week, chest x-ray should be obtained at the time of follow-up appointment. - Discharge Plan *PRESCRIPTION DRUG MONITORING PROGRAM REVIEWED*: Not Applicable *COPY OF PRESCRIPTION DRUG MONITORING REPORT IN PATIENT DIMAS: Not Applicable Prescriptions/Med Rec: Codeine/guaiFENesin [Robitussin AC] 10 ml PO Q4H PRN #4 oz PRN Reason: Cough Levofloxacin [Levaquin] 750 mg PO DAILY #3 tablet Home Medications: Home Meds Nicotine [Habitrol] 14 mg TRDERM DAILY #30 patch 07/20/15 [Rx] Albuterol [Ventolin HFA] 1 - 2 puff IH Q4H PRN 03/12/16 [History] Cyanocobalamin (Vitamin B-12) [Vitamin B-12] 1 injection IM ASDIRECTED 03/12/16 [History] FLUoxetine [PROzac] 50 mg PO BEDTIME 03/12/16 [History] Lisinopril [Zestril] 20 mg PO DAILY 03/12/16 [History] Multivit-Min/FA/Lycopene/Lut [Centrum Silver Tablet] 1 tab PO DAILY 09/19/16 [ History] Omeprazole 40 mg PO DAILY 09/19/16 [History] Calcium Citrate/Vitamin D3 [Calcium Cit-Vit D 250-200] 1 each PO BID 08/30/17 [ History] diphenhydrAMINE [Benadryl] 25 mg PO BEDTIME PRN 08/30/17 [History] Ferrous Sulfate, Dried [Iron] 1 tab PO DAILY 04/09/18 [History] Codeine/guaiFENesin [Robitussin AC] 10 ml PO Q4H PRN #4 oz 01/30/19 [Rx] Levofloxacin [Levaquin] 750 mg PO DAILY #3 tablet 01/30/19 [Rx] Patient Handouts: Community-Acquired Pneumonia, Adult, [id number] Referrals: Artemio Santiago MD [Primary Care Provider] - - Discharge Summary/Plan Comment DC Time >30 min.: No - Patient Data Vitals - Most Recent: Last Vital Signs Temp 98.6 F 01/30/19 07:11 Pulse 64 01/30/19 07:11 Resp 18 01/30/19 07:11 BP 143/84 H 01/30/19 08:57 Pulse Ox 95 01/30/19 07:11 Weight - Most Recent: 180 lb 12.8 oz I&O - Last 24 hours: Intake & Output 01/29/19 01/30/19 01/30/19 22:59 06:59 14:59 Intake Total 150 500 500 Balance 150 500 500 LIVIA Results - Last 24 hrs: Microbiology 01/26/19 14:50 Aerobic Blood Culture - Preliminary Blood - Artery NO GROWTH AFTER 3 DAYS Anaerobic Blood Culture - Preliminary NO GROWTH AFTER 3 DAYS 01/26/19 14:41 Aerobic Blood Culture - Preliminary Blood - Venous - Iv Start NO GROWTH AFTER 3 DAYS Anaerobic Blood Culture - Preliminary NO GROWTH AFTER 3 DAYS Med Orders - Current: Current Medications Acetaminophen (Tylenol) 650 mg PO Q4H PRN PRN Reason: Pain (Mild 1-3)/fever Last Admin: 01/30/19 12:19 Dose: 650 mg Albuterol (Proventil Neb Soln) 2.5 mg NEB Q4H PRN PRN Reason: Shortness Of Breath/wheezing Last Admin: 01/28/19 15:42 Dose: 2.5 mg Clotrimazole (Clotrimazole 1%) 0 gm VAG BEDTIME [facility] Stop: 02/04/19 21:01 Last Admin: 01/29/19 20:41 Dose: 1 applic Enoxaparin Sodium (Lovenox) 40 mg SUBCUT Q24H YEHUDA Last Admin: 01/29/19 18:38 Dose: 40 mg Fluoxetine HCl 40 mg/ (Fluoxetine HCl 10 mg) 50 mg PO BEDTIME YEHUDA Last Admin: 01/29/19 20:42 Dose: 50 mg Guaifenesin/Codeine Phosphate (Robitussin Ac) 10 ml PO Q4H PRN PRN Reason: Cough Last Admin: 01/30/19 12:19 Dose: 10 ml Levofloxacin/Dextrose 750 mg/ (Premix) 150 mls @ 100 mls/hr IV Q24H [facility] Last Admin: 01/29/19 17:20 Dose: 100 mls/hr Lisinopril (Prinivil) 20 mg PO DAILY [facility] Last Admin: 01/30/19 08:57 Dose: 20 mg Magnesium Oxide (Magnesium Oxide) 400 mg PO BID [facility] Last Admin: 01/30/19 08:57 Dose: 400 mg Melatonin (Melatonin) 9 mg PO BEDTIME PRN PRN Reason: Insomnia Last Admin: 01/29/19 21:15 Dose: 9 mg Nicotine (Habitrol) 7 mg TRDERM DAILY [facility] Last Admin: 01/30/19 08:57 Dose: 7 mg Nicotine Polacrilex (Nicorelief) 2 mg CHEW Q1H PRN PRN Reason: Other Last Admin: 01/29/19 20:49 Dose: 2 mg Ondansetron HCl (Zofran) 4 mg IV Q4H PRN PRN Reason: Nausea/Vomiting Last Admin: 01/29/19 17:15 Dose: 4 mg Ondansetron HCl (Zofran Odt) 4 mg PO Q4H PRN PRN Reason: Nausea/Vomiting Last Admin: 01/30/19 09:35 Dose: 4 mg Oxycodone HCl (Oxycodone) 5 mg PO Q4H PRN PRN Reason: Pain Last Admin: 01/30/19 12:19 Dose: 5 mg Pantoprazole Sodium (Protonix) 40 mg PO ACBREAKFAST [facility] Last Admin: 01/30/19 07:15 Dose: 40 mg Polyethylene Glycol (Miralax) 17 gm PO DAILY PRN PRN Reason: Constipation Sodium Chloride (Saline Flush) 10 ml FLUSH ASDIRECTED PRN PRN Reason: Keep Vein Open Last Admin: 01/27/19 16:11 Dose: 10 ml Discontinued Medications Meropenem 1 gm/ Sodium (Chloride) 50 mls @ 100 mls/hr IV ONETIME ONE Stop: 01/26/19 14:57 Last Admin: 01/26/19 15:19 Dose: 100 mls/hr Lactated Ringer's (Ringers, Lactated) 1,000 mls @ 125 mls/hr IV ASDIRECTED [facility] Last Admin: 01/27/19 04:11 Dose: 125 mls/hr Meropenem 1 gm/ Sodium (Chloride) 50 mls @ 100 mls/hr IV Q8H [facility] Last Admin: 01/29/19 12:55 Dose: 100 mls/hr Magnesium Sulfate 2 gm/ Premix 50 mls @ 25 mls/hr IV ONETIME ONE Stop: 01/27/19 11:59 Last Admin: 01/27/19 09:32 Dose: 25 mls/hr Potassium Chloride 20 meq/Lidocaine HCl 2 ml/ Sodium Chloride 112 mls @ 56 mls/ hr IV Q2H YEHUDA Stop: 01/27/19 13:59 Last Admin: 01/27/19 12:28 Dose: 56 mls/hr Sodium Chloride (Normal Saline) 100 mls @ 3 mls/sec IV ASDIRECTED [facility] Stop: 01/27/19 16:30 Last Admin: 01/27/19 16:11 Dose: 3 mls/sec Iopamidol (Isovue-370 (76%)) 100 ml IV . DIRECTED YEHUDA Stop: 01/27/19 16:30 Last Admin: 01/27/19 16:11 Dose: 100 ml Potassium Chloride (Klor-Con M20) 40 meq PO ONETIME ONE Stop: 01/27/19 10:01 Last Admin: 01/27/19 09:32 Dose: 40 meq - Exam General: Reports: Alert, Oriented, Cooperative, No Acute Distress Lungs: Reports: Clear to Auscultation, Normal Respiratory Effort, Decreased Breath Sounds Cardiovascular: Reports: Regular Rate, Regular Rhythm, No Murmurs GI/Abdominal Exam: Soft, Non-Tender, No Organomegaly, No Distention Extremities: Non-Tender, No Pedal Edema
[2019-01-30] MEDS: Nicotine Polacrilex 2 MG Gum CHEW PRN (13:57)
== END 2019-01-30 14:10 | disposition home or self-care (01) | DRG 195 ==
LOC: JP.ED 12:38 → JP.MS 15:22
PROVIDERS: ADMIT Hospitalist; ATTEND Hospitalist
DX: J18.9 Pneumonia, unspecified organism (principal); F10.21 Alcohol dependence, in remission; R09.02 Hypoxemia; I10 Essential (primary) hypertension; Z98.84 Bariatric surgery status; K21.9 Gastro-esophageal reflux disease without esophagitis; Z87.891 Personal history of nicotine dependence; F32.9 Major depressive disorder, single episode, unspecified; F41.9 Anxiety disorder, unspecified; F43.10 Post-traumatic stress disorder, unspecified; F41.0 Panic disorder [episodic paroxysmal anxiety]; Z88.1 Allergy status to other antibiotic agents; Z88.5 Allergy status to narcotic agent; Z88.8 Allergy status to other drugs, medicaments and biological substances; Z90.49 Acquired absence of other specified parts of digestive tract; Z90.710 Acquired absence of both cervix and uterus; Z90.79 Acquired absence of other genital organ(s); Z90.722 Acquired absence of ovaries, bilateral; Z96.659 Presence of unspecified artificial knee joint
CPT/HCPCS: 36415; 36600; 71046; 71046-26; 71275; 80048; 80053; 82803; 83605; 83735; 85025; 85379; 87040; 94640; 96374; 99285; 99285-25; A9270-GY; J1650; J1956; J2001; J2185; J2405; J3475; J3480; J7030; J7050; J7120; Q9967

== ENCOUNTER 2020-10-07 23:29 | Emergency (ER) | payer MEDICAID ==
[2020-10-07 23:49] VITALS: PULSE 87
[2020-10-08] MEDS ORDERED: Morphine 4 MG/ML Syringe IVPUSH ONE (00:03)
--- NOTE | 2020-10-08 00:06 | EDM.PDOC ---
ED HPI GENERAL MEDICAL PROBLEM - General Chief Complaint: Abdominal Pain Stated Complaint: [facility] Time Seen by Provider: 10/08/20 00:00 Source of Information: Reports: Patient, Old Records, RN History Limitations: Reports: No Limitations - History of Present Illness INITIAL COMMENTS - FREE TEXT/NARRATIVE: 54 yo female with a complicated medical hx presents with epigastric pain that began about 16 hrs ago. Has had some nausea and vomiting. Had one loose stool in the morning, but none since. Pain seems worse after eating. Has had multiple abdominal surgeries per Dr. Anna. EMS transported and administered 100 mcg of IV Fentanyl with partial relief. Has had perforated gastric ulcer, pancreatitis, and bowel obstructions and is not able to tell based on her sx's which of these may be going on? Onset: Gradual Onset Date: 10/07/20 Duration: Hour(s): (16), Getting Worse Location: Reports: Abdomen Quality: Reports: Ache Severity: Moderate (now, was severe before Fentanyl) Improves with: Reports: Medication Worsens with: Reports: Eating Context: Reports: Other (See HPI) Associated Symptoms: Reports: Nausea/Vomiting. Denies: Fever/Chills Treatments RN PAIN MANAGEMENT: Reports: IV/IO, Other Medication(s) abd pain Pain Score (Numeric/FACES): 8 - Related Data Allergies Allergy/AdvReac Type Severity Reaction Status Date / Time fentanyl Allergy Delusions Verified 10/07/20 23:44 hydromorphone HCl Allergy Hives Verified 10/07/20 23:44 [From Dilaudid] tramadol Allergy Hives Verified 10/07/20 23:44 amoxicillin [From Augmentin] AdvReac Nausea Verified 10/07/20 23:44 clavulanic acid AdvReac Nausea Verified 10/07/20 23:44 [From Augmentin] NSAIDS (Non-Steroidal AdvReac Stomach Verified 10/07/20 23:44 Anti-Inflamma Upset Home Meds: Home Meds Nicotine [Habitrol] 14 mg TRDERM DAILY #30 patch 07/20/15 [Rx] Albuterol [Ventolin HFA] 1 - 2 puff IH Q4H PRN 03/12/16 [History] Cyanocobalamin (Vitamin B-12) [Vitamin B-12] 1 injection IM ASDIRECTED 03/12/16 [History] FLUoxetine [PROzac] 50 mg PO DAILY 03/12/16 [History] lisinopriL [Zestril] 20 mg PO BEDTIME 03/12/16 [History] Multivit-Min/FA/Lycopen/Lutein [Centrum Silver Tablet] 1 tab PO DAILY 09/19/16 [History] Omeprazole 40 mg PO DAILY 09/19/16 [History] Calcium Citrate/Vitamin D3 [Calcium Cit-Vit D 250-200] 1 each PO BID 08/30/17 [History] diphenhydrAMINE [Benadryl] 25 mg PO BEDTIME PRN 08/30/17 [History] Ferrous Sulfate, Dried [Iron] 1 tab PO DAILY 04/09/18 [History] Codeine/guaiFENesin [Robitussin AC] 10 ml PO Q4H PRN #4 oz 01/30/19 [Rx] Acetaminophen/HYDROcodone [[place] 325-5 MG] 1 - 2 tab PO Q6H PRN #15 tab 10/08/20 [Rx] Ondansetron [Zofran ODT] 4 mg PO Q6H PRN #7 tab.dis 10/08/20 [Rx] Pantoprazole Sodium [Protonix] 40 mg PO DAILY #30 tablet. 10/08/20 [Rx] Past Medical History Cardiovascular History: Reports: Hypertension Respiratory History: Reports: Pneumonia, Recurrent, Other (See Below) Other Respiratory History: pneumonia, 2011 and 2013 patinet states she had respiratory failure. icu in 2014 Gastrointestinal History: Reports: Bowel Obstruction, GERD, GI Bleed, Pancre atitis, Other (See Below) Other Gastrointestinal History: Hernia surgery x 5. perforated gastric ulcer. B.M 12-4 girth 41 Genitourinary History: Reports: Acute Renal Failure [employer] History: Reports: Other (See Below) Other [employer] History: enlarged ovaries Musculoskeletal History: Reports: Fracture Neurological History: Reports: Other (See Below) Other Neuro History: patient states she had a seizure d/t hyponatremia Psychiatric History: Reports: Anxiety, Depression, Panic Attack, PTSD Hematologic History: Reports: Anemia, Blood Transfusion(s) - Infectious Disease History Infectious Disease History: Reports: Chicken Pox - Past Surgical History Cardiovascular Surgical History: Reports: None Respiratory Surgical History: Reports: None GI Surgical History: Reports: Bariatric Procedure, Cholecystectomy, Colonoscopy, EGD, Hernia, Abdominal, Hernia Repair/Other, Small Bowel Female Surgical History: Reports: Hysterectomy, Salpingo-Oophorectomy Neurological Surgical History: Reports: None Musculoskeletal Surgical History: Reports: Knee Replacement, Other (See Below) Other Musculoskeletal Surgeries/Procedures:: left knee, right ankle Social & Family History - Family History Family Medical History: No Pertinent Family History Cardiac: Reports: CAD Psychiatric: Reports: Depression - Tobacco Use Tobacco Use Status *Q: Unknown Ever Used Tobacco - Caffeine Use Caffeine Use: Reports: None Other Caffeine Use: Gatorade - Recreational Drug Use Recreational Drug Use: No - Living Situation & Occupation Living situation: Reports: Single, with Family ED ROS GENERAL - Review of Systems Review Of Systems: See Below Constitutional: Reports: No Symptoms HEENT: Reports: No Symptoms Respiratory: Reports: No Symptoms Cardiovascular: Reports: No Symptoms GI/Abdominal: Reports: Abdominal Pain, Diarrhea, Nausea, Vomiting. Denies: Black Stool, Bloody Stool, Constipation, Distension, Hematemesis, Hematochezia, Melena : Reports: No Symptoms Musculoskeletal: Reports: No Symptoms Skin: Reports: No Symptoms Neurological: Reports: No Symptoms ED EXAM, GI/ABD - Physical Exam Exam: See Below Exam Limited By: No Limitations General Appearance: Alert, WD/WN, No Apparent Distress Eyes: Bilateral: Normal Appearance Ears: Normal External Exam, Normal Canal, Hearing Grossly Normal Nose: Normal Inspection, No Blood Throat/Mouth: Normal Inspection, Normal Lips, Normal Oropharynx, Normal Voice, No Airway Compromise Head: Atraumatic, Normocephalic Neck: Normal Inspection Respiratory/Chest: No Respiratory Distress, Lungs Clear, Normal Breath Sounds, No Accessory Muscle Use Cardiovascular: Regular Rate, Rhythm, No Edema GI/Abdominal Exam: Normal Bowel Sounds, Soft, No Distention, Tender (moderate increase in pain with palpation). No: Non-Tender, Distended, Guarding, Rigid, Rebound Back Exam: Normal Inspection Extremities: Normal Inspection, Normal Range of Motion, Non-Tender, No Pedal Edema. No: Pedal Edema Neurological: Alert, Oriented, CN II-XII Intact, Normal Cognition, No Motor/Sensory Deficits Psychiatric: Normal Affect, Normal Mood Skin Exam: Warm, Dry, Intact, Normal Color, No Rash Course - Vital Signs Last Recorded V/S: Last Vital Signs Temp 36.1 C 10/07/20 23:53 Pulse 87 10/07/20 23:53 Resp 14 10/07/20 23:53 BP 137/85 10/07/20 23:53 Pulse Ox 97 10/07/20 23:53 - Orders/Labs/Meds Orders: Active Orders 24 hr Category Date Time Status Lactated Ringers [Ringers, Lactated] 1,000 ml Med 10/08/20 00:15 Active IV ASDIRECTED Sodium Chloride 0.9% [Normal Saline] 80 ml Med 10/08/20 00:30 Active IV ASDIRECTED Medication Orders Lactated Ringer's (Ringers, Lactated) 1,000 mls @ 500 mls/hr IV ASDIRECTED YEHUDA Last Admin: 10/08/20 00:10 Dose: 500 mls/hr Documented by: JACQUE Sodium Chloride (Normal Saline) 80 mls @ 3.5 mls/sec IV ASDIRECTED YEHUDA Last Admin: 10/08/20 00:36 Dose: 3.5 mls/sec Documented by: SAMARA Labs: Laboratory Tests 10/08/20 10/08/20 Range/Units 00:14 00:14 WBC 6.7 (4.5-11.0) K/uL RBC 4.02 (3.30-5.50) M/uL Hgb 14.0 D (12.0-15.0) g/dL Hct 40.7 (36.0-48.0) % MCV 101 H (80-98) fL MCH 35 H (27-31) pg MCHC 34 (32-36) % Plt Count 229 (150-400) K/uL Sodium 132 L (140-148) mmol/L Potassium 4.2 (3.6-5.2) mmol/L Chloride 98 L (100-108) mmol/L Carbon Dioxide 21 (21-32) mmol/L Anion Gap 17.2 H (5.0-14.0) mmol/L BUN 7 D (7-18) mg/dL Creatinine 0.8 (0.6-1.0) mg/dL Est Cr Clr Drug Dosing 71.03 mL/min Estimated GFR (MDRD) > 60 (>60) Glucose 133 H (74-106) mg/dL Calcium 9.5 (8.5-10.1) mg/dL Total Bilirubin 0.7 (0.2-1.0) mg/dL AST 91 H (15-37) U/L ALT 71 (12-78) U/L Alkaline Phosphatase 158 H (46-116) U/L Total Protein 7.5 (6.4-8.2) g/dL Albumin 3.7 (3.4-5.0) g/dL Globulin 3.8 H (2.3-3.5) g/dL Albumin/Globulin Ratio 1.0 L (1.2-2.2) Lipase 47 L (73-393) U/L Meds: Medications Generic Name Dose Route Start Last Admin Trade Name Freq PRN Reason Stop Dose Admin Lactated Ringer's 1,000 mls @ 500 mls/hr 10/08/20 00:15 10/08/20 00:10 Ringers, Lactated IV 500 mls/hr ASDIRECTED YEHUDA Administration Sodium Chloride 80 mls @ 3.5 mls/sec 10/08/20 00:30 10/08/20 00:36 Normal Saline IV 3.5 mls/sec ASDIRECTED YEHUDA Administration Discontinued Medications Generic Name Dose Route Start Last Admin Trade Name Freq PRN Reason Stop Dose Admin Al Hydroxide/Mg Hydroxide 15 0 ml 10/08/20 01:19 10/08/20 01:24 ml/ Lidocaine HCl 15 ml PO 10/08/20 01:20 30 ml ONETIME ONE Administration Iopamidol 118 ml 10/08/20 00:25 10/08/20 00:36 Isovue-300 (61%) IV 10/08/20 00:26 118 ml ONETIME ONE Administration Morphine Sulfate 4 mg 10/08/20 00:03 10/08/20 00:12 Morphine IVPUSH 10/08/20 00:04 4 mg ONETIME ONE Administration Sodium Chloride 10 ml 10/08/20 00:25 10/08/20 00:36 Saline Flush FLUSH 10/08/20 00:26 10 ml ONETIME ONE Administration - Radiology Interpretation Free Text/Narrative:: CT abd/pelvis with IV contrast-neg CT Results Date: 10/08/20 CT Results Time: 01:19 - Re-Assessments/Exams Free Text/Narrative Re-Assessment/Exam: 10/08/20 01:33 Got good relief with a GI cocktail. Departure - Departure Time of Disposition: 01:55 Disposition: Home, Self-Care 01 Condition: Fair Clinical Impression: Gastritis Qualifiers: Gastritis type: unspecified gastritis Chronicity: acute Gastritis bleeding: without bleeding Qualified Code(s): K29.00 - Acute gastritis without bleeding - Discharge Information *PRESCRIPTION DRUG MONITORING PROGRAM REVIEWED*: No *COPY OF PRESCRIPTION DRUG MONITORING REPORT IN PATIENT DIMAS: No Instructions: Gastritis, Adult, [id number] Referrals: PCP,None [Primary Care Provider] - Forms: ED Department Discharge Additional Instructions: Take [place] as directed for pain relief. Take Protonix 40 mg every day. You may substitute acetaminophen for the [place]. Take Zofran as needed for nausea control. Avoid ibuprofen, Aleve, or aspirin. Also, avoid carbonated beverages, caffeine, alcohol, or tobacco. Take Maalox or Mylanta 30 ml after meals and at bedtime until your pain stays away. Recheck in the clinic this next week. Return for bloody emesis or bloody stool. Sepsis Event Note (ED) - Evaluation Sepsis Screening Result: No Definite Risk - Focused Exam Vital Signs: Vital Signs Temp Pulse Resp BP Pulse Ox 10/07/20 23:53 36.1 C 87 14 137/85 97 10/07/20 23:48 36.1 C 87 14 137/85 97 - My Orders Last 24 Hours: My Active Orders 10/08/20 00:15 Lactated Ringers [Ringers, Lactated] 1,000 ml IV ASDIRECTED 10/08/20 00:30 Sodium Chloride 0.9% [Normal Saline] 80 ml IV ASDIRECTED - Assessment/Plan Last 24 Hours: My Active Orders 10/08/20 00:15 Lactated Ringers [Ringers, Lactated] 1,000 ml IV ASDIRECTED 10/08/20 00:30 Sodium Chloride 0.9% [Normal Saline] 80 ml IV ASDIRECTED
[2020-10-08] MEDS ORDERED: Lactated Ringers 1,000 ML IV SCH (00:15)
[2020-10-08] MEDS ORDERED: Sodium Chloride 0.9% 10 ML Syringe FLUSH ONE (00:25)
[2020-10-08] MEDS ORDERED: Iopamidol 612 MG/ML 500 ML Multipack Bottle IV ONE (00:25)
[2020-10-08] MEDS ORDERED: Sodium Chloride 0.9% 80 ML IV SCH (00:30)
--- NOTE | 2020-10-08 01:06 | CRLCT ---
INDICATION: Pain, nausea, vomiting. History of gastric bypass. COMPARISON: CT of the abdomen and pelvis with contrast from 08/14/2018 TECHNIQUE: CT examination of the abdomen and pelvis was performed with the uneventful intravenous administration of 118 cc of Isovue-300 while 3 mm thick axial sections were obtained from the lung bases through the pubic symphysis. Oral contrast was not administered. Please note that all CT scans at this facility use dose modulation, iterative reconstruction, and/or weight-based dosing when appropriate to reduce radiation dose to as low as reasonably achievable. FINDINGS: In the abdomen, the liver is seen to have slightly increased mild intrahepatic ductal dilatation. This is associated with slightly increased moderate dilatation of the common bile duct to 12 millimeters and surgical clips from cholecystectomy. Previously the common bile duct was dilated to 10 millimeters. I do not see any choledocholithiasis, and the findings are consistent with post-cholecystectomy status. Recommend correlation with patient`s LFTs. Again seen is moderate hepatomegaly, with the spleen measuring slack spleen measuring liver measuring 23.6 centimeters in length, previously 24.0 centimeters. There continues to be mildly decreased density of the liver from mild fatty infiltration. The liver is otherwise normal in appearance. Small calcified granulomata are again seen in the otherwise normal spleen. The pancreas and adrenals are normal in appearance. The kidneys are normal in appearance. The gallbladder is normal in appearance. The abdominal aorta is normal in caliber with no sign of dilatation. There is no sign of retroperitoneal mass or adenopathy. There are stable changes mesh hernia repair of the abdominal and superior pelvic wall. There is no sign of recurrence of a hernia. Again are several lines of surgical lavon in the gastric fundus consistent with gastric bypass surgery. A small bowl anastamosis is again seen in the left upper quadrant with no sign of stricture. The distal stomach, the rest of the loops of small bowel, and colon in the abdomen are normal in appearance. In the pelvis, the appendix is nonvisualized, but there is no sign of an inflammatory process in the area of the appendix. The loops of small bowel and colon in the pelvis are normal in appearance. The uterus is again seen to be absent and the adnexal regions are normal in appearance. The urinary bladder is normal in appearance. There is no sign of pelvic or inguinal mass or adenopathy. There is no sign of free air or free fluid in the abdomen or pelvis. The lung bases are clear. There is no change in prominent L5-S1 and moderate L3-4 disc degenerative disease. Again seen is minimal scoliosis of the thoracolumbar spine convex towards the right. IMPRESSION: Nothing seen to explain the patient`s abdominal pain, nausea, or vomiting. No sign of distention of the stomach or small bowel, with stable satisfactory appearance status post gastric bypass surgery. CT of the abdomen shows slightly increased mild intrahepatic and moderate extrahepatic biliary ductal dilatation consistent with post cholecystectomy status. Recommend correlation with patient`s LFTs. Stable moderate hepatomegaly with mild fatty infiltration. Spleen remains normal in size. CT of the pelvis shows stable changes of hysterectomy. Please note that all CT scans at this facility use dose modulation, iterative reconstruction, and/or weight-based dosing when appropriate to reduce radiation dose to as low as reasonably achievable. Dictated by Reza Angeles MD @ Oct 08 2020 12:57AM Signed by Dr. Reza Angeles @ Oct 08 2020 1:06AM
[2020-10-08] MEDS ORDERED: Alum Hydrox/Mag Hydrox/Simeth 15 ML, Lidocaine 2% 15 ML PO ONE ×2 (01:19)
[2020-10-08] MEDS ORDERED: Pantoprazole 40 MG Vial IVPUSH ONE (01:33)
[2020-10-08] MEDS ORDERED: Acetaminophen/HYDROcodone 325-5 MG Tab PO ONE (01:39)
[2020-10-08 01:51] VITALS: BP 131/85
== END 2020-10-08 02:10 | disposition home or self-care (01) ==
LOC: JP.ED 23:29
DX: K29.00 Acute gastritis without bleeding (principal); K21.9 Gastro-esophageal reflux disease without esophagitis; I10 Essential (primary) hypertension; Z88.4 Allergy status to anesthetic agent; Z88.5 Allergy status to narcotic agent; Z88.1 Allergy status to other antibiotic agents; Z88.8 Allergy status to other drugs, medicaments and biological substances; Z79.899 Other long term (current) drug therapy
CPT/HCPCS: 36415; 74177; 80053; 83690; 85027; 96374; 96375; 99283; 99285-25; A9270-GY; C9113; J2270; J7120; Q9967

== ENCOUNTER 2020-10-10 15:13 | Emergency (ER) | payer MEDICAID ==
[2020-10-10 15:58] VITALS: BP 156/110; PULSE 76
--- NOTE | 2020-10-10 16:23 | EDM.PDOC ---
ED HPI GENERAL MEDICAL PROBLEM - General Chief Complaint: Abdominal Pain Stated Complaint: SEVERE STOMACH PAIN Time Seen by Provider: 10/10/20 16:03 Source of Information: Reports: Patient, Old Records, RN Notes Reviewed History Limitations: Reports: No Limitations - History of Present Illness INITIAL COMMENTS - FREE TEXT/NARRATIVE: 54-year-old female presents emergency department a complaint of abdominal pain, she was evaluated in the emergency department on 08 [address] scan at that time did not reveal any etiology to her abdominal pain, she does have a history of gastric bypass surgery she was scheduled for follow-up in the gastric bypass clinic tomorrow however she could not take the pain because it was so intense she reported to the emergency department Abdominal Pain Score (Numeric/FACES): 10 - Related Data Allergies Allergy/AdvReac Type Severity Reaction Status Date / Time fentanyl Allergy Delusions Verified 10/10/20 15:50 hydromorphone HCl Allergy Hives Verified 10/10/20 15:50 [From Dilaudid] tramadol Allergy Hives Verified 10/10/20 15:50 amoxicillin [From Augmentin] AdvReac Nausea Verified 10/10/20 15:50 clavulanic acid AdvReac Nausea Verified 10/10/20 15:50 [From Augmentin] NSAIDS (Non-Steroidal AdvReac Stomach Verified 10/10/20 15:50 Anti-Inflamma Upset Home Meds: Home Meds Nicotine [Habitrol] 14 mg TRDERM DAILY #30 patch 07/20/15 [Rx] Albuterol [Ventolin HFA] 1 - 2 puff IH Q4H PRN 03/12/16 [History] Cyanocobalamin (Vitamin B-12) [Vitamin B-12] 1 injection IM ASDIRECTED 03/12/16 [History] FLUoxetine [PROzac] 50 mg PO DAILY 03/12/16 [History] lisinopriL [Zestril] 20 mg PO BEDTIME 03/12/16 [History] Multivit-Min/FA/Lycopen/Lutein [Centrum Silver Tablet] 1 tab PO DAILY 09/19/16 [History] Omeprazole 20 mg PO DAILY 09/19/16 [History] Calcium Citrate/Vitamin D3 [Calcium Cit-Vit D 250-200] 1 each PO BID 08/30/17 [History] diphenhydrAMINE [Benadryl] 25 mg PO BEDTIME PRN 08/30/17 [History] Ferrous Sulfate, Dried [Iron] 1 tab PO DAILY 04/09/18 [History] Acetaminophen/HYDROcodone [Raritan 325-5 MG] 1 - 2 tab PO Q6H PRN #15 tab 10/08/20 [Rx] Ondansetron [Zofran ODT] 4 mg PO Q6H PRN #7 tab.dis 10/08/20 [Rx] Pantoprazole Sodium [Protonix] 40 mg PO DAILY #30 tablet. 10/08/20 [Rx] Past Medical History Cardiovascular History: Reports: Hypertension Respiratory History: Reports: Pneumonia, Recurrent, Other (See Below) Other Respiratory History: pneumonia, 2011 and 2013 patinet states she had respiratory failure. icu in 2014 Gastrointestinal History: Reports: Bowel Obstruction, GERD, GI Bleed, Pancreatitis, Other (See Below) Other Gastrointestinal History: Hernia surgery x 5. perforated gastric ulcer. 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 Musculoskeletal History: Reports: Fracture Neurological History: Reports: Other (See Below) Other Neuro History: patient states she had a seizure d/t hyponatremia Psychiatric History: Reports: Anxiety, Depression, Panic Attack, PTSD Hematologic History: Reports: Anemia, Blood Transfusion(s) - Infectious Disease History Infectious Disease History: Reports: Chicken Pox - Past Surgical History Cardiovascular Surgical History: Reports: None Respiratory Surgical History: Reports: None GI Surgical History: Reports: Bariatric Procedure, Cholecystectomy, Colonoscopy, EGD, Hernia, Abdominal, Hernia Repair/Other, Small Bowel Female Surgical History: Reports: Hysterectomy, Salpingo-Oophorectomy Neurological Surgical History: Reports: None Musculoskeletal Surgical History: Reports: Knee Replacement, Other (See Below) Other Musculoskeletal Surgeries/Procedures:: left knee, right ankle Social & Family History - Family History Family Medical History: No Pertinent Family History Cardiac: Reports: CAD Psychiatric: Reports: Depression - Tobacco Use Tobacco Use Status *Q: Former Tobacco User Used Tobacco, but Quit: Yes Month/Year Tobacco Last Used: years - Caffeine Use Caffeine Use: Reports: None Other Caffeine Use: Gatorade Caffeine Use Comment: for 2 weeks - Recreational Drug Use Recreational Drug Use: No - Living Situation & Occupation Living situation: Reports: Single, with Family ED ROS GENERAL - Review of Systems Review Of Systems: See Below GI/Abdominal: Reports: Abdominal Pain, Nausea, Vomiting ED EXAM, RENAL/ - Physical Exam Exam: See Below Exam Limited By: No Limitations General Appearance: Alert, WD/WN, No Apparent Distress GI/Abdominal: Soft, Tender (Epigastric region) Course - Vital Signs Last Recorded V/S: Last Vital Signs Temp 96.3 F L 10/10/20 15:45 Pulse 76 10/10/20 15:57 Resp 16 10/10/20 15:57 BP 156/110 H 10/10/20 15:57 Pulse Ox 95 10/10/20 15:57 Departure - Departure Time of Disposition: 16:22 Disposition: Home, Self-Care 01 Condition: Fair Clinical Impression: Abdominal pain Qualifiers: Abdominal location: epigastric Qualified Code(s): R10.13 - Epigastric pain - Discharge Information Instructions: Abdominal Pain, Adult, [id number] Referrals: Artemio Santiago MD [Primary Care Provider] - Additional Instructions: Use hydrocodone as needed for pain control, use Zofran as needed for nausea and vomiting symptoms, outpatient will schedule with you when to report to the outpatient surgery for your EGD Sepsis Event Note (ED) - Evaluation Sepsis Screening Result: No Definite Risk - Focused Exam Vital Signs: Vital Signs Temp Pulse Resp BP Pulse Ox 10/10/20 15:57 76 16 156/110 H 95 10/10/20 15:45 96.3 F L 90 18 155/106 H 97 10/10/20 15:28 96.3 F L 90 18 155/106 H 97 - Assessment/Plan Plan: Assessment Acuity = acute Site and laterality = epigastric tenderness complicating the patient with known history of gastric bypass Etiology = unknown Manifestations = none Location of injury = Home Lab values = none Plan Call discussed case with Dr. Anna at 1610 recommended EGD and dilation she is w ill be scheduled for that tomorrow morning, prescription written for hydrocodone 5/325 1 tab p.o. 3 times daily as needed total #4 as well as Zofran 4 mg ODT 1 tab p.o. 3 times daily as needed total #5 This note was dictated using [employer] voice recognition software please call with any questions on syntax or grammar.
== END 2020-10-10 16:43 | disposition home or self-care (01) ==
LOC: JP.ED 15:13
DX: R10.13 Epigastric pain (principal); I10 Essential (primary) hypertension; Z88.5 Allergy status to narcotic agent; Z88.1 Allergy status to other antibiotic agents; Z88.8 Allergy status to other drugs, medicaments and biological substances; K21.9 Gastro-esophageal reflux disease without esophagitis; Z79.899 Other long term (current) drug therapy; Z87.891 Personal history of nicotine dependence
CPT/HCPCS: 99283

== ENCOUNTER 2020-10-11 10:00 | Inpatient (IN) | payer MEDICAID ==
[~2020-10-11 10:00] MED LIST: Midazolam 1 MG/ML 2 ML SDV ONE; Propofol 200 MG/20 ML SDV ONE; fentaNYL 100 MCG/2 ML SDV ONE
[2020-10-11] MEDS ORDERED: Cyanocobalamin (Vitamin B12) 1,000 MCG/ML SDV IM ONE (10:30)
[2020-10-11] MEDS ORDERED: Lactated Ringers 1,000 ML IV ONE (10:30)
[2020-10-11] MEDS ORDERED: Glycopyrrolate 0.2 MG/ML 2 ML SDV IVPUSH ONE (10:30)
[2020-10-11] MEDS ORDERED: Ampicillin/Sulbactam Na 1.5 GM in Sodium Chloride 0.9% 50 ML IV ONE (10:30)
[2020-10-11] MEDS ORDERED: MVI, Adult with Vitamin K 10 ML, Thiamine 200 MG, Zinc/Copper/Manganese/Selenium 1 ML i... IV ONE ×4 (11:30)
[2020-10-11] MEDS ORDERED: Morphine 2 MG/ML SYRINGE IVPUSH ONE (13:37)
[2020-10-11] MEDS ORDERED: Ondansetron 4 MG/2 ML SDV IVPUSH PRN (13:39)
[2020-10-11] MEDS ORDERED: Albuterol/Ipratropium 3.0-0.5 MG/3 ML Neb Soln INH PRN (13:41)
[2020-10-11] MEDS ORDERED: Naloxone 0.4 MG/ML SDV IV PRN (14:00)
[2020-10-11] MEDS: Morphine PF 150 MG/30 ML PCA Syringe IV PRN (14:29)
[2020-10-11] MEDS: Albuterol/Ipratropium 3.0-0.5 MG/3 ML Neb Soln INH SCH ×2 (14:30→22:18)
--- NOTE | 2020-10-11 14:31 | US ---
Abdomen Comp CLINICAL HISTORY: Fullness and pain in the right mid upper abdomen FINDINGS: Real-time images were obtained over the region of tenderness and fullness. This is correlated with current CT. There is a loop of bowel with peristalsis near the midline. Just above this is a a portion of the left lobe of the liver which causes a slight anterior convexity of the abdominal wall no solid mass or abnormal fluid collection identified IMPRESSION: Area of discomfort and fullness correlates to a loop of peristalsing bowel which appears to be transverse colon and above this portion of the left lobe of the liver.
[2020-10-11] MEDS: Dextrose 5%-Lactated Ringers 1,000 ML IV SCH ×2 (15:35→23:40)
[2020-10-11] MEDS: Nicotine 14 MG/24 Hr Patch TRDERM SCH (15:48)
[2020-10-11] MEDS: hydrOXYzine HCL 100 MG/2 ML SDV IM PRN (17:08)
[2020-10-11] MEDS: FLUoxetine 20 MG Cap PO SCH (17:10)
[2020-10-11] MEDS: Lisinopril 20 MG Tab PO SCH (22:17)
[2020-10-11] MEDS ORDERED: diphenhydrAMINE 50 MG/ML SDV IVPUSH PRN (22:21)
[2020-10-11] MEDS: diphenhydrAMINE 25 MG Cap PO PRN (23:40)
[2020-10-12] MEDS: Albuterol/Ipratropium 3.0-0.5 MG/3 ML Neb Soln INH SCH ×4 (07:11→20:51)
[2020-10-12] MEDS: Pantoprazole 40 MG Tab.CR PO SCH (07:25)
[2020-10-12] MEDS: hydrOXYzine HCL 100 MG/2 ML SDV IM PRN (07:33)
[2020-10-12] MEDS: Dextrose 5%-Lactated Ringers 1,000 ML IV SCH ×2 (07:39→16:45)
[2020-10-12] MEDS ORDERED: FLUoxetine 20 MG Cap PO SCH (09:00)
[2020-10-12] MEDS ORDERED: Iopamidol 612 MG/ML 50 ML SDV PO ONE (09:04)
[2020-10-12] MEDS ORDERED: Sodium Chloride 0.9% 75 ML IV ONE (09:04)
[2020-10-12] MEDS ORDERED: Iopamidol 612 MG/ML 100 ML Bottle IV PRN (09:04)
[2020-10-12] MEDS: Sodium Chloride 0.9% 10 ML Syringe FLUSH PRN (09:27)
[2020-10-12] MEDS: Nicotine 14 MG/24 Hr Patch TRDERM SCH (10:09)
[2020-10-12] MEDS: FLUoxetine 20 MG Cap PO SCH ×2 (10:10→16:52)
--- NOTE | 2020-10-12 10:33 | CT ---
Abdomen Pelvis w Cont CLINICAL HISTORY: Liver enlargement, abdominal pain COMPARISON: 10/08/2020. TECHNIQUE: Axial tomographic images are obtained from the dome of the diaphragm to the pubic symphysis with IV contrast enhancement. Oral contrast was used. The dosage reduction and iterative reconstruction techniques employed. FINDINGS: The lung bases show some mild patchy groundglass opacities. These are new since the prior study. The liver is enlarged. There is some intrahepatic biliary dilatation. This is likely related to previous cholecystectomy. Common bile duct remains prominent at 1.6 cm in diameter. This is unchanged from prior study. Patient has had previous bariatric surgery. There is also been previous ventral hernia repair in the upper abdomen. There is a mild convexity. There are are some fluid-filled mildly dilated loops of proximal small bowel. The spleen has a normal size and shape. The pancreas shows some atrophic changes. The adrenal glands appear normal bilaterally. The kidneys show no mass, stones or hydronephrosis. The aorta has a normal course and contour. There is no suspicious retroperitoneal adenopathy. There is a small fluid collection in the presacral region of the mid pelvis. This measures 3.2 x 1.2 x 1.5 cm. This is not identified on the prior study. No other free pelvic or abdominal fluid is seen. IMPRESSION: Previous bariatric surgery as well as previous ventral hernia repair Mild proximal small bowel distention is nonspecific. Small nonspecific fluid collection in the presacral space in the mid pelvis, new since prior study. There is no other free pelvic or abdominal fluid seen. Hepatomegaly Previous cholecystectomy
--- NOTE | 2020-10-12 10:43 | HP ---
HISTORY OF PRESENT ILLNESS: Kaushik states she developed severe abdominal pain which started on Saturday, . Her boyfriend, Rudy Hassan, called the ambulance and she was brought into [facility] ED. She was given 100 mcg IV fentanyl with only partial relief. She states the pain started on 10/07/2020, gradually getting worse. It is a "hard dull ache" without any radiation. Worsens with eating and it is associated with nausea, vomiting. Kaushik was seen on 10/08/2020, and then she returned to the emergency room on 10/10/2020, had an EGD on 10/11/2020 by Obdulio Anna MD, and was admitted to the hospital for further evaluation. MEDICATIONS: See Formatta. PAST MEDICAL HISTORY: Hypertension, multiple episodes of pneumonia. She has had acute respiratory distress after surgeries in 2013 and 2019. GI history of Johana-en-Y gastric bypass surgery, bowel obstruction, GERD, GI bleed, pancreatitis. She has had a perforated ulcer, hernia surgery x5. history of acute renal failure. Neuro history of seizure secondary to hyponatremia. Psychiatric history; anxiety, depression, panic attack, PTSD, and alcoholism. She reports she last drink 2 years ago. Hematology; has had iron infusions in the past. PAST SURGICAL HISTORY: See EMR. FAMILY HISTORY: Positive for coronary artery disease and depression. Negative for diabetes, liver disease, kidney disease, and cancer. SOCIAL HISTORY: , currently unemployed. History of smoking, but quit. Caffeine use, negative. Alcohol use, she reports 2 years ago. REVIEW OF SYSTEM: HEENT: Negative for headache, dizziness, loss of coordination. NECK: Negative. RESPIRATORY: No shortness of breath, cough. CARDIOVASCULAR: No chest pain. Fast irregular heart beat. GASTROINTESTINAL: As above. GENITOURINARY: No UTI signs and symptoms. Post hysterectomy. MUSCULOSKELETAL: No joint pain or swelling. SKIN: Without rash. NEUROLOGIC: No headaches, dizziness, loss of coordination. PHYSICAL EXAMINATION: GENERAL: Kaushik Oreilly is a 54-year-old female. She is alert and orientated. VITAL SIGNS: TPR; 97.9, 80, and 16. Blood pressure 99/69. HEENT: Negative. NECK: Supple. HEART: Regular rate and rhythm. LUNGS: Clear. ABDOMEN: Slightly distended, increased pain and fullness in the right upper quadrant. Incisions are well healed. EXTREMITIES: Without peripheral edema. NEUROLOGIC: Intact. PSYCHIATRIC: Mood and affect appropriate. SKIN: Eleuterio facial complexion. ASSESSMENT: 1. Abdominal pain. 2. Hepatomegaly by CT scan. 3. SP Johana-en-Y gastric bypass surgery. 4. Unspecified surgical malabsorption. 5. B12 deficiency. 6. History of pancreatitis. 7. EGD on 10/11/2020, Obdulio Anna MD. PLAN: 1. CT scan of abdomen and pelvis with IV and oral contrast stat, call results to Obdulio Anna MD. 2. Check CBC, CMP, mag, phos, amylase and lipase in a.m. 3. We will evaluate p.r.n. or in a.m. Annie Hyde PA-C /[id number]
[2020-10-12] MEDS ORDERED: Lisinopril 10 MG Tab ONE (21:32)
[2020-10-12] MEDS: diphenhydrAMINE 25 MG Cap PO PRN (21:51)
[2020-10-12] MEDS: Lisinopril 20 MG Tab PO SCH (21:53)
[2020-10-12] MEDS ORDERED: Acetaminophen 1,000 MG in Premix Bag 1 BAG IV ONE (23:37)
[2020-10-13] MEDS: Dextrose 5%-Lactated Ringers 1,000 ML IV SCH ×2 (01:27→09:18)
[2020-10-13] MEDS: Albuterol/Ipratropium 3.0-0.5 MG/3 ML Neb Soln INH SCH ×4 (07:24→20:10)
[2020-10-13] MEDS: Pantoprazole 40 MG Tab.CR PO SCH (07:38)
[2020-10-13] MEDS: FLUoxetine 20 MG Cap PO SCH ×2 (08:04→17:02)
[2020-10-13] MEDS: Nicotine 14 MG/24 Hr Patch TRDERM SCH (08:05)
[2020-10-13] MEDS ORDERED: Ondansetron 4 MG/2 ML SDV ONE (08:41)
[2020-10-13] MEDS ORDERED: Dexamethasone 4 MG/ML SDV ONE (08:41)
[2020-10-13] MEDS ORDERED: Neostigmine Methylsulfate 1 MG/ML 5 ML Syringe ONE (08:41)
[2020-10-13] MEDS ORDERED: Rocuronium 50 MG/5 ML Vial ONE (08:41)
[2020-10-13] MEDS ORDERED: Propofol 200 MG/20 ML SDV ONE (08:41)
[2020-10-13] MEDS ORDERED: Succinylcholine 200 MG/10 ML MDV ONE (08:41)
[2020-10-13] MEDS ORDERED: Glycopyrrolate 0.2 MG/ML 5 ML MDV ONE (08:41)
[2020-10-13] MEDS ORDERED: fentaNYL 250 MCG/5 ML SDV ONE (08:42)
[2020-10-13] MEDS: Acetaminophen 500 MG Tab PO PRN ×2 (09:22→22:22)
--- NOTE | 2020-10-13 09:42 | PN ---
DATE OF SERVICE: 10/13/2020 SUBJECTIVE: Kaushik is n.p.o. She will be having an exploratory laparotomy today. She continues to report pain in the right upper quadrant, 10/10; and after using the [employer] it remains an 8/10. She did spike a temp of 101.9 at 2300 on 08/12/2021. It did come down to 99.1; and at 0552 it was 98.7. Up ambulating remainder. REVIEW OF SYSTEMS: Remainder of review of systems negative for any pertinent positives or negatives. OBJECTIVE: GENERAL: Kaushik Oreilly is a 54-year-old female. VITAL SIGNS: TPR left full set was at 10/12/2020. Temp was 101.9 and rechecked at 0552, 10/13/2020 is 98.7. Pulse at 2300 on 10/12/2020 is 102, respirations 16, blood pressure 107/67, and O2 is 94% on 1 L of O2. HEENT: Negative. NECK: Supple. HEART: Regular rate and rhythm. LUNGS: Reveal decreased breath sounds bilaterally. ABDOMEN: Tenderness is noted with fullness in the right upper and mid quadrant. EXTREMITIES: Without peripheral edema. ASSESSMENT: Right upper quadrant abdominal pain, hepatomegaly, status post Johana-en-Y gastric bypass surgery, unspecified surgical malabsorption, B12 deficiency. PLAN: Orders were written for exploratory laparotomy. Consent is signed. After preoperative evaluation and discussion of possible risks and possible complication, Kaushik wishes to proceed with surgical procedure. Orders to be written postoperatively. We will evaluate p.r.n. or in the a.m. Annie Hyde PA-C /[id number]
[2020-10-13] MEDS ORDERED: Meropenem 500 MG SDV ONE (09:54)
[2020-10-13] MEDS ORDERED: Meropenem 500 MG in Sodium Chloride 0.9% 50 ML IV ONE (11:30)
[2020-10-13] MEDS ORDERED: Ketamine 500 MG/5 ML MDV IV SCH (11:30)
[2020-10-13] MEDS ORDERED: Ropivacaine 38 ML, dexAMETHasone 8 MG, EPINEPHrine 0.4 MG, Sodium Chloride 0.9% 39.6 ML NERVRT SCH ×4 (11:30)
[2020-10-13] MEDS ORDERED: Ketamine 50 MG in Sodium Chloride 0.9% 49.5 ML IV SCH (11:30)
[2020-10-13] MEDS ORDERED: Dextrose 5%-Lactated Ringers 1,000 ML IV SCH (13:20)
[2020-10-13] MEDS ORDERED: Albuterol 0.083% 2.5 MG/3 ML Neb Soln NEB PRN (13:37)
--- NOTE | 2020-10-13 13:42 | PCM.CONS ---
H&P History of Present Illness - General Date of Service: 10/13/20 Admit Problem/Dx: Admission Diagnosis/Problem Admission Diagnosis/Problem Abdominal pain Source of Information: Patient, Provider History Limitations: Reports: No Limitations - History of Present Illness Initial Comments - Free Text/Narative: CC: My belly hurts so bad HPI: Kaushik was admitted yesterday for management of mostly epigastric but also generalized abdominal pain. Surgical intervention was planned today with concern that she may have a portion of her liver adherent to mesh from previous abdominal surgeries. I was asked to see her by Dr. Anna regarding respiratory status after she had increasing supplemental oxygen requirements. She is currently on 5 to 6 L of supplemental oxygen. She does not feel shortness of breath necessarily. She does feel dizzy and like her legs are weak. No reports of chest tightness. No nausea. She is hungry. She does continue to have moderately severe abdominal pain with the most intense location in the epigastric area. She did have a fever overnight and again this morning. Right Upper Abdominal Pain Score (Numeric/FACES): 8 - Related Data Allergies/Adverse Reactions: Allergies Allergy/AdvReac Type Severity Reaction Status Date / Time fentanyl Allergy Delusions Verified 10/10/20 15:50 hydromorphone HCl Allergy Hives Verified 10/10/20 15:50 [From Dilaudid] tramadol Allergy Hives Verified 10/10/20 15:50 amoxicillin [From Augmentin] AdvReac Nausea Verified 10/10/20 15:50 clavulanic acid AdvReac Nausea Verified 10/10/20 15:50 [From Augmentin] NSAIDS (Non-Steroidal AdvReac Stomach Verified 10/10/20 15:50 Anti-Inflamma Upset Home Medications: Home Meds Nicotine [Habitrol] 14 mg TRDERM DAILY #30 patch 07/20/15 [Rx] Albuterol [Ventolin HFA] 1 - 2 puff IH Q4H PRN 03/12/16 [History] Cyanocobalamin (Vitamin B-12) [Vitamin B-12] 1 injection IM ASDIRECTED 03/12/16 [History] FLUoxetine [PROzac] 40 mg PO DAILY 03/12/16 [History] lisinopriL [Zestril] 20 mg PO BEDTIME 03/12/16 [History] Multivit-Min/FA/Lycopen/Lutein [Centrum Silver Tablet] 1 tab PO DAILY 09/19/16 [History] Calcium Citrate/Vitamin D3 [Calcium Cit-Vit D 250-200] 1 each PO BID 08/30/17 [History] diphenhydrAMINE [Benadryl] 25 mg PO BEDTIME PRN 08/30/17 [History] Ferrous Sulfate, Dried [Iron] 1 tab PO DAILY 04/09/18 [History] Acetaminophen/HYDROcodone [[place] 325-5 MG] 1 - 2 tab PO Q6H PRN #15 tab 10/08/20 [Rx] Ondansetron [Zofran ODT] 4 mg PO Q6H PRN #7 tab.dis 10/08/20 [Rx] Pantoprazole Sodium [Protonix] 40 mg PO DAILY #30 tablet.dr 10/08/20 [Rx] FLUoxetine HCl [Prozac] 20 mg PO QPM 10/11/20 [History] Past Medical History HEENT History: Reports: Impaired Vision Cardiovascular History: Reports: Hypertension Respiratory History: Reports: Pneumonia, Recurrent, Other (See Below) Other Respiratory History: pneumonia, 2012 and 2013 patinet states she had respiratory failure. icu in 2014 Gastrointestinal History: Reports: Bowel Obstruction, GERD, GI Bleed, Pancreatitis, Other (See Below) Other Gastrointestinal History: Hernia surgery x 5. perforated gastric ulcer. B.M 12-4 girth 43 Genitourinary History: Reports: None PUBLIC HEALTH History: Reports: Other (See Below) Other OB/BYN History: enlarged ovaries Musculoskeletal History: Reports: Fracture Neurological History: Reports: Seizure, Other (See Below) Other Neuro History: patient states she had a seizure d/t hyponatremia Psychiatric History: Reports: Anxiety, Depression, Panic Attack, PTSD Endocrine/Metabolic History: Reports: Obesity/BMI 30+ Hematologic History: Reports: Anemia, Blood Transfusion(s) - Infectious Disease History Infectious Disease History: Reports: Chicken Pox, Influenza - Past Surgical History HEENT Surgical History: Reports: Oral Surgery Cardiovascular Surgical History: Reports: None Respiratory Surgical History: Reports: None GI Surgical History: Reports: Bariatric Procedure, Cholecystectomy, Colonoscopy, EGD, Hernia, Abdominal, Hernia Repair/Other, Small Bowel Female Surgical History: Reports: Hysterectomy, Salpingo-Oophorectomy Neurological Surgical History: Reports: None Musculoskeletal Surgical History: Reports: Knee Replacement, Other (See Below) Other Musculoskeletal Surgeries/Procedures:: left knee, right ankle Social & Family History - Family History Family Medical History: No Pertinent Family History Cardiac: Reports: CAD Psychiatric: Reports: Depression - Tobacco Use Tobacco Use Status *Q: Current Some Day Tobacco User Years of Tobacco use: 30 Packs/Tins Daily: 0 Used Tobacco, but Quit: No - Caffeine Use Caffeine Use: Reports: Coffee, Soda Other Caffeine Use: Gatorade Caffeine Use Comment: for 2 weeks - Alcohol Use Days Per Week of Alcohol Use: 2 Number of Drinks Per Day: 4 Total Drinks Per Week: 8 Date of Last Drink: 10/05/20 - Recreational Drug Use Recreational Drug Use: No - Living Situation & Occupation Living situation: Reports: Single, with Family H&P Review of Systems - Review of Systems: Review Of Systems: See Below Free Text/Narrative: A complete 12 point review of systems was obtained. Pertinent positives and negatives are noted in the history of present illness. All other systems were reviewed and were negative except as noted. Exam - Exam Exam: See Below - Vital Signs Vital Signs: Last Vital Signs Temp 38.1 C 10/13/20 13:20 Pulse 103 H 10/13/20 13:20 Resp 18 10/13/20 13:20 BP 116/73 10/13/20 13:20 Pulse Ox 83 L 10/13/20 13:38 Weight: 77.111 kg - Exam Quality Assessment: Supplemental Oxygen General: Alert, Oriented, Cooperative. No: Mild Distress HEENT: Conjunctiva Clear, Mucosa Moist & Trilla. No: Scleral Icterus Neck: Supple, Trachea Midline, JVD Lungs: Normal Respiratory Effort, Crackles (both bases) Cardiovascular: Regular Rate, Regular Rhythm, Systolic Murmur GI/Abdominal Exam: Soft, No Distention, Tender (moderately severe diffuse ). No: Normal Bowel Sounds (hypoactive ) Extremities: No Pedal Edema. No: Increased Warmth Peripheral Pulses: 2+: Dorsalis Pedis (L), Dorsalis Pedis (R) Skin: Warm, Dry Neuro Extensive - Mental Status: Alert, Oriented x3, Nl Response to Commands Neuro Extensive - Motor, Sensory, Reflexes: No: Dysarthria, Abnormal Motor, Tremor Psychiatric: Alert, Normal Affect - Patient Data Lab Results Last 24 hrs: Laboratory Results - last 24 hr 10/13/20 10/13/20 10/13/20 Range/Units 04:12 04:12 04:12 WBC 9.7 (4.5-11.0) K/uL RBC 3.22 L (3.30-5.50) M/uL Hgb 11.3 L D (12.0-15.0) g/dL Hct 34.2 L (36.0-48.0) % MCV 106 H (80-98) fL MCH 35 H (27-31) pg MCHC 33 (32-36) % Plt Count 174 (150-400) K/uL Neut % (Auto) 75 H (36-66) % Lymph % (Auto) 17 L (24-44) % [place] % (Auto) 9 H (2-6) % Eos % (Auto) 0 L (2-4) % Baso % (Auto) 0 (0-1) % Sodium 131 L (140-148) mmol/L Potassium 3.9 (3.6-5.2) mmol/L Chloride 96 L (100-108) mmol/L Carbon Dioxide 26 (21-32) mmol/L Anion Gap 12.9 (5.0-14.0) mmol/L BUN 5 L (7-18) mg/dL Creatinine 0.8 (0.6-1.0) mg/dL Est Cr Clr Drug Dosing 71.03 mL/min Estimated GFR (MDRD) > 60 (>60) Glucose 129 H (74-106) mg/dL Calcium 8.8 (8.5-10.1) mg/dL Phosphorus 4.6 (2.5-4.9) mg/dL Magnesium 1.7 L (1.8-2.4) mg/dL Total Bilirubin 0.7 (0.2-1.0) mg/dL AST 43 H (15-37) U/L ALT 44 (12-78) U/L Alkaline Phosphatase 160 H (46-116) U/L Total Protein 6.1 L (6.4-8.2) g/dL Albumin 2.9 L (3.4-5.0) g/dL Globulin 3.2 (2.3-3.5) g/dL Albumin/Globulin Ratio 0.9 L (1.2-2.2) Amylase 14 L (25-115) U/L Lipase 51 L (73-393) U/L Blood Type O POSITIVE Gel Antibody Screen Negative Crossmatch See Detail Result Diagrams: 10/13/20 04:12 10/13/20 04:12 Imaging Impressions Last 24 hrs: CXR-images personally reviewed-there is evidence for cephalization of vessels concerning for volume overload and potentially early ARDS. No mass, infiltrate or effusion. Heart size is normal. Sepsis Event Note - Evaluation Sepsis Screening Result: No Definite Risk - Focused Exam Vital Signs: Vital Signs Temp Temp Pulse Resp BP Pulse Ox 10/13/20 13:38 83 L 10/13/20 13:20 38.1 C 103 H 18 116/73 87 L 10/13/20 13:06 92 L 10/13/20 12:41 37.8 C 92 L 10/13/20 12:37 81 L 10/13/20 11:20 80 L 10/13/20 10:02 83 L 10/13/20 09:00 38.7 C H 76 16 110/66 92 L 10/13/20 07:14 90 L 10/13/20 05:52 37.1 C 10/13/20 02:19 37.3 C *Q Meaningful Use (ADM) - VTE Risk Assess *Q Each Risk Factor Represents 1 Point: Age 41 - 59 years, Obesity ( BMI > 25 kg/m2), Serious lung disease including pneumonia Total Score 1 Point Risk Factors: 3 Each Risk Factor Represents 2 Points: None Total Score 2 Point Risk Factors: 0 Each Risk Factor Represents 3 Points: None Total Score 3 Point Risk Factors: 0 Each Risk Factor Represents 5 Points: None Total Score 5 Point Risk Factors: 0 Venous Thromboembolism Risk Factor Score *Q: 3 Consult PN Assessment/Plan Procedures: Procedures ASSAY OF LIPASE (10/07/20) BREAST TOMOSYNTHESIS BI (09/17/18) COMPLETE CBC AUTOMATED (10/07/20) COMPLETE CBC W/AUTO DIFF WBC (11/16/13) COMPREHEN METABOLIC PANEL (10/07/20) CT ABD & PELV W/CONTRAST (10/07/20) CULTURE AEROBIC IDENTIFY (11/20/13) EMERGENCY DEPT VISIT (10/07/20) EMERGENCY DEPT VISIT (10/07/20) EMERGENCY DEPT VISIT (04/09/18) EMERGENCY DEPT VISIT (02/18/17) EMERGENCY DEPT VISIT (05/19/14) EMERGENCY DEPT VISIT (11/16/13) EXTREMITY STUDY (11/16/13) METABOLIC PANEL TOTAL CA (09/19/16) MICROBE SUSCEPTIBLE LIVIA (11/20/13) POLYSOM 6/> YRS 4/> MINI (01/22/16) PT EVALUATION (11/27/13) RBC SED RATE NONAUTOMATED (11/16/13) ROUTINE VENIPUNCTURE (10/07/20) SCR MAMMO BI INCL CAD (09/17/18) THER/PROPH/DIAG INJ IV PUSH (10/07/20) THER/PROPH/DIAG INJ SC/IM (05/19/14) THERAPEUTIC EXERCISES (12/15/13) TTE W/DOPPLER COMPLETE (05/03/14) TX/PRO/DX INJ NEW DRUG ADDON (10/07/20) URINALYSIS AUTO W/SCOPE (09/19/16) URINE BACTERIA CULTURE (11/20/13) X-RAY EXAM OF LOWER LEG (05/19/14) X-RAY EXAM OF SINUSES (02/18/17) Problem List Initiated/Reviewed/Updated: Yes My Orders Last 24 Hours: My Active Orders 10/13/20 13:20 Dextrose 5%-Lactated Ringers 1,000 ml IV ASDIRECTED 10/13/20 13:37 Albuterol [Proventil Neb Soln] 2.5 mg NEB Q2H PRN 10/13/20 13:38 RT Aerosol Therapy [RC] ASDIRECTED Urinary Catheter Assessment [RC] ASDIRECTED Furosemide [Lasix] 40 mg IVPUSH NOW ONE 10/13/20 13:40 diphenhydrAMINE [Benadryl] 50 mg PO Q6H PRN 10/13/20 13:45 Insert Freeman Catheter [Insert Urinary Catheter] [OM.PC] Q24H 10/14/20 05:00 BASIC METABOLIC PANEL,BMP [CHEM] Timed CBC W/O DIFF,HEMOGRAM [HEME] Timed (1) Plan: ASSESSMENT AND RECOMMENDATIONS - Acute respiratory failure with hypoxia-suspect volume overload with patient being about 4 L positive since admission. She does have a history of ARDS and her lungs are quite sensitive to excess volume. I do not see any evidence for pneumonia on the chest x-ray. She did have fevers but I suspect this is atelectasis. Recent CT scan of the abdomen pelvis did not show any evidence for infection. No urinary symptoms. -Transferred to the intensive care unit -Supplemental oxygen -She may need BiPAP -Furosemide 40 mg IV now -Place Freeman catheter for strict intake and output monitoring -Reassess volume status later in the day, consider additional furosemide Generalized abdominal pain-concern for mesh adherent to her liver. Surgical intervention was planned but is on hold until respiratory status improves. -Surgical cares per Dr. Anna Thank you for the consultation. The patient has been transferred to the intensive care unit. She will be monitored closely. Critical care time today was 60 minutes with stabilization of respiratory status and transferred to the intensive care unit for initiation of noninvasive positive pressure ventilation. Julian Lara MD Requesting Provider: Dr Anna Date Consult Requested: 10/13/20 Reason for Consult: hypoxia Patient History Reviewed: Yes Admission H&P Reviewed: Yes Notified Requestor: Yes Time Spent (in minutes): 60
[2020-10-13] MEDS ORDERED: Furosemide 40 MG/4 ML VIAL IVPUSH ONE ×2 (14:00→23:59)
--- NOTE | 2020-10-13 14:13 | CR ---
CHEST: 2 view CLINICAL HISTORY:Hypoxia COMPARISON:CT chest 2019 FINDINGS: Patient has diffuse bilateral interstitial and groundglass opacities. There is some patchy perihilar density bilaterally. Heart size and pulmonary vascular are normal. There are atherosclerotic changes in the aorta. Impression: Diffuse bilateral interstitial and groundglass opacities with patchy infiltrate suggesting pneumonitis. The prior CT chest from 2019 has a similar appearance. Some of these densities may be chronic
[2020-10-13] MEDS: Benzocaine/Cetylpyridinium/Menthol Lozenge MUCMEM PRN ×2 (18:52→22:24)
[2020-10-13] MEDS: Morphine PF 150 MG/30 ML PCA Syringe IV PRN (19:38)
[2020-10-13] MEDS: diphenhydrAMINE 25 MG Cap PO PRN (22:21)
[2020-10-14] MEDS: diphenhydrAMINE 25 MG Cap PO PRN ×2 (04:30→23:00)
[2020-10-14] MEDS: Albuterol/Ipratropium 3.0-0.5 MG/3 ML Neb Soln INH SCH (06:59)
[2020-10-14] MEDS: Pantoprazole 40 MG Tab.CR PO SCH (07:19)
[2020-10-14] MEDS: FLUoxetine 20 MG Cap PO SCH ×2 (08:58→16:52)
[2020-10-14] MEDS: Nicotine 14 MG/24 Hr Patch TRDERM SCH (08:58)
[2020-10-14] MEDS ORDERED: Furosemide 40 MG/4 ML VIAL IVPUSH ONE (09:00)
[2020-10-14] MEDS ORDERED: Levalbuterol HCl 1.25 MG/3 ML Neb NEB PRN (09:30)
--- NOTE | 2020-10-14 09:32 | PCM.CONSN ---
- General Info Date of Service: 10/14/20 Subjective Update: No acute events overnight. Patient reports that she feels much less short of breath today. She does still complain of some tightness in the lower part of her chest but this is improving. Excellent response to diuresis yesterday with about 2 L off. She has had increasing supplemental oxygen requirements and is up to 15 L by high flow nasal cannula this morning. She appears comfortable and does not feel significantly short of breath. She does have a mild cough. She has not had any fevers overnight. Heart rate is borderline tachycardic but stable. Abdominal pain is a little better today but persists. Tolerating her full liquid diet. Functional Status: Reports: Pain Controlled, Tolerating Diet - Review of Systems General: Denies: Fever Pulmonary: Reports: Shortness of Breath, Cough Gastrointestinal: Reports: Abdominal Pain - Patient Data Vitals - Most Recent: Last Vital Signs Temp 36.6 C 10/14/20 07:00 Pulse 93 10/14/20 09:00 Resp 20 10/14/20 09:00 BP 126/86 10/14/20 09:00 Pulse Ox 93 L 10/14/20 09:00 Weight - Most Recent: 77.111 kg I&O - Last 24 Hours: Intake & Output 10/13/20 10/14/20 10/14/20 22:59 06:59 14:59 Intake Total 1546 1137 380 Output Total 2800 2100 550 Balance -1254 -963 -170 Lab Results Last 24 Hours: Laboratory Results - last 24 hr 10/11/20 10/11/20 10/14/20 Range/Units 13:42 13:42 04:58 WBC 11.4 H (4.5-11.0) K/uL RBC 3.49 (3.30-5.50) M/uL Hgb 12.3 (12.0-15.0) g/dL Hct 36.8 (36.0-48.0) % MCV 105 H (80-98) fL MCH 35 H (27-31) pg MCHC 33 (32-36) % Plt Count 165 (150-400) K/uL Sodium (140-148) mmol/L Potassium (3.6-5.2) mmol/L Chloride (100-108) mmol/L Carbon Dioxide (21-32) mmol/L Anion Gap (5.0-14.0) mmol/L BUN (7-18) mg/dL Creatinine (0.6-1.0) mg/dL Est Cr Clr Drug Dosing mL/min Estimated GFR (MDRD) (>60) Glucose (74-106) mg/dL Calcium (8.5-10.1) mg/dL Serum Copper 124 (80-158) ug/dL Zinc 102 (44-115) ug/dL 10/14/20 Range/Units 04:58 WBC (4.5-11.0) K/uL RBC (3.30-5.50) M/uL Hgb (12.0-15.0) g/dL Hct (36.0-48.0) % MCV (80-98) fL MCH (27-31) pg MCHC (32-36) % Plt Count (150-400) K/uL Sodium 135 L (140-148) mmol/L Potassium 3.7 (3.6-5.2) mmol/L Chloride 98 L (100-108) mmol/L Carbon Dioxide 28 (21-32) mmol/L Anion Gap 12.7 (5.0-14.0) mmol/L BUN 5 L (7-18) mg/dL Creatinine 0.7 (0.6-1.0) mg/dL Est Cr Clr Drug Dosing 81.18 mL/min Estimated GFR (MDRD) > 60 (>60) Glucose 98 (74-106) mg/dL Calcium 8.6 (8.5-10.1) mg/dL Serum Copper (80-158) ug/dL Zinc (44-115) ug/dL Med Orders - Current: Current Medications Acetaminophen (Tylenol Extra Strength) 500 mg PO Q6H PRN PRN Reason: Pain/Fever Last Admin: 10/13/20 22:22 Dose: 500 mg Documented by: Albuterol (Proventil Neb Soln) 2.5 mg NEB Q2H PRN PRN Reason: wheezing/shortness of breath Albuterol/Ipratropium (Duoneb 3.0-0.5 Mg/3 Ml) 3 ml INH QIDRT YEHUDA Last Admin: 10/14/20 06:59 Dose: 3 ml Documented by: Benzocaine/Menthol (Cepacol Sore Throat) 1 lozenge MUCMEM Q2H PRN PRN Reason: Cough Last Admin: 10/13/20 22:24 Dose: 1 shanna Documented by: Diphenhydramine HCl (Benadryl) 50 mg PO Q6H PRN PRN Reason: Itching Last Admin: 10/14/20 04:30 Dose: 50 mg Documented by: Fluoxetine HCl (Prozac) 40 mg PO DAILY [facility] Last Admin: 10/14/20 08:58 Dose: 40 mg Documented by: Fluoxetine HCl (Prozac) 20 mg PO QPM [facility] Last Admin: 10/13/20 17:02 Dose: 20 mg Documented by: Hydroxyzine HCl (Vistaril) 100 mg IM Q4H PRN PRN Reason: Pain Last Admin: 10/12/20 07:33 Dose: 100 mg Documented by: Dextrose/Lactated Ringer's (Dextrose 5%-Lactated Ringers) 1,000 mls @ 25 mls/hr IV ASDIRECTED [facility] Lisinopril (Prinivil) 20 mg PO BEDTIME [facility] Last Admin: 10/12/20 21:53 Dose: 20 mg Documented by: Miscellaneous Information (Remove Patch) 1 ea TRDERM BEDTIME [facility] Last Admin: 10/13/20 22:10 Dose: Not Given Documented by: Morphine Sulfate (Morphine Kennel Supervisor 150 Mg In 30 Ml) 0 mg IV ASDIRECTED PRN; Protocol PRN Reason: Pain Last Admin: 10/13/20 19:38 Dose: 150 mg Documented by: Naloxone HCl (Narcan) 0.1 mg IV ASDIRECTED PRN PRN Reason: decreased respiratory rate Nicotine (Habitrol) 14 mg TRDERM DAILY [facility] Last Admin: 10/14/20 08:58 Dose: 14 mg Documented by: Ondansetron HCl (Zofran) 4 mg IVPUSH Q4H PRN PRN Reason: Nausea Last Admin: 10/12/20 11:02 Dose: 4 mg Documented by: Pantoprazole Sodium (Protonix) 40 mg PO ACBREAKFAST [facility] Last Admin: 10/14/20 07:19 Dose: 40 mg Documented by: Sodium Chloride (Saline Flush) 10 ml FLUSH ONETIME PRN PRN Reason: PER RADIOLOGY PROTOCOL Last Admin: 10/12/20 09:27 Dose: 10 ml Documented by: Discontinued Medications Albuterol/Ipratropium (Duoneb 3.0-0.5 Mg/3 Ml) 3 ml INH ASDIRECTED PRN PRN Reason: Shortness of Breath Cyanocobalamin (Vitamin B12) 1,000 mcg IM ONETIME ONE Stop: 10/11/20 10:31 Last Admin: 10/11/20 11:31 Dose: 1,000 mcg Documented by: Dexamethasone (Decadron) Confirm Administered Dose 4 mg .ROUTE .STK-MED ONE Stop: 10/13/20 08:42 Diphenhydramine HCl (Benadryl) 50 mg IVPUSH Q4H PRN PRN Reason: Itching Diphenhydramine HCl (Benadryl) 25 mg PO Q6H PRN PRN Reason: Itching Last Admin: 10/12/20 21:51 Dose: 25 mg Documented by: Fentanyl (Sublimaze) Confirm Administered Dose 100 mcg .ROUTE .STK-MED ONE Stop: 10/11/20 09:02 Fluoxetine HCl (Prozac) 60 mg PO DAILY YEHUDA Furosemide (Lasix) 40 mg IVPUSH NOW ONE Stop: 10/13/20 14:01 Last Admin: 10/13/20 13:54 Dose: 40 mg Documented by: Furosemide (Lasix) 40 mg IVPUSH ONETIME ONE Stop: 10/14/20 00:00 Last Admin: 10/13/20 23:40 Dose: 40 mg Documented by: Furosemide (Lasix) 40 mg IVPUSH ONETIME ONE Stop: 10/14/20 09:01 Last Admin: 10/14/20 08:58 Dose: 40 mg Documented by: Glycopyrrolate (Glycopyrrolate) 0.4 mg IVPUSH ONETIME ONE Stop: 10/11/20 10:31 Last Admin: 10/11/20 12:12 Dose: 0.4 mg Documented by: Lactated Ringer's (Ringers, Lactated) 1,000 mls @ 999 mls/hr IV BOLUS ONE Stop: 10/11/20 11:30 Last Admin: 10/11/20 10:56 Dose: 999 mls/hr Documented by: Multivitamins/Minerals 10 ml/Thiamine HCl 200 mg/ Zinc 1 ml / Lactated Ringer's 1,013 mls @ 500 mls/hr IV ONETIME ONE Stop: 10/11/20 13:31 Last Admin: 10/11/20 11:47 Dose: 500 mls/hr Documented by: Ampicillin Sodium/Sulbactam (Sodium 1.5 gm/ Sodium Chloride) 50 mls @ 100 mls/hr IV ONETIME ONE Stop: 10/11/20 10:59 Last Admin: 10/11/20 12:13 Dose: 100 mls/hr Documented by: Dextrose/Lactated Ringer's (Dextrose 5%-Lactated Ringers) 1,000 mls @ 125 mls/hr IV ASDIRECTED YEHUDA Last Admin: 10/13/20 09:18 Dose: 125 mls/hr Documented by: Sodium Chloride (Normal Saline) 75 mls @ 3 mls/sec IV ONETIME ONE Stop: 10/12/20 09:05 Last Admin: 10/12/20 09:28 Dose: 3 mls/sec Documented by: Meropenem 500 mg/ Sodium (Chloride) 50 mls @ 100 mls/hr IV ONCALL ONE Stop: 10/13/20 11:59 Last Admin: 10/14/20 06:32 Dose: Not Given Documented by: Acetaminophen 1,000 mg/ Premix 100 mls @ 400 mls/hr IV NOW ONE Stop: 10/12/20 23:51 Last Admin: 10/12/20 23:52 Dose: 400 mls/hr Documented by: Linezolid (Zyvox) Confirm Administered Dose 300 mls @ as directed .ROUTE .STK- MED ONE Stop: 10/13/20 09:56 Iopamidol (Isovue-300 (61%)) 30 ml PO ASDIRECTED ONE Stop: 10/12/20 09:05 Last Admin: 10/12/20 09:29 Dose: 30 ml Documented by: Iopamidol (Isovue-300 (61%)) 100 ml IV . DIRECTED PRN PRN Reason: RADIOLOGY EXAM Last Admin: 10/12/20 09:27 Dose: 100 ml Documented by: Lisinopril (Prinivil) Confirm Administered Dose 20 mg .ROUTE .STK-MED ONE Stop: 10/12/20 21:33 Last Admin: 10/12/20 21:42 Dose: Not Given Documented by: Meropenem (Merrem) Confirm Administered Dose 500 mg .ROUTE .STK-MED ONE Stop: 10/13/20 09:55 Midazolam HCl (Versed 1 Mg/Ml) Confirm Administered Dose 2 mg .ROUTE .STK-MED ONE Stop: 10/11/20 09:02 Morphine Sulfate (Morphine) 2 mg IVPUSH ONETIME ONE Stop: 10/11/20 13:38 Last Admin: 10/11/20 13:56 Dose: 2 mg Documented by: Ondansetron HCl (Zofran) Confirm Administered Dose 4 mg .ROUTE .STK-MED ONE Stop: 10/13/20 08:42 Propofol (Diprivan 20 Ml) Confirm Administered Dose 200 mg .ROUTE .STK-MED ONE Stop: 10/11/20 09:02 - Exam Quality Assessment: Supplemental Oxygen General: Alert, Oriented, Cooperative, No Acute Distress Neck: JVD Lungs: Normal Respiratory Effort, Crackles (right lung base) Cardiovascular: Regular Rate, Regular Rhythm GI/Abdominal Exam: Soft, No Distention Extremities: No Pedal Edema. No: Increased Warmth Skin: Warm, Dry Psy/Mental Status: Alert, Normal Affect Sepsis Event Note - Evaluation Sepsis Screening Result: No Definite Risk - Focused Exam Vital Signs: Vital Signs Temp Pulse Resp BP Pulse Ox 10/14/20 09:00 93 20 126/86 93 L 10/14/20 07:12 94 L 10/14/20 07:00 36.6 C 94 27 H 130/81 93 L 10/14/20 05:00 15 118/79 96 10/14/20 03:00 25 H 107/67 98 10/14/20 01:00 24 H 118/78 93 L 10/13/20 23:55 36.3 C 20 91 L 10/13/20 23:00 21 H 123/77 88 L Consult PN Assessment/Plan Procedures: Procedures ASSAY OF LIPASE (10/07/20) BREAST TOMOSYNTHESIS BI (09/17/18) COMPLETE CBC AUTOMATED (10/07/20) COMPLETE CBC W/AUTO DIFF WBC (11/16/13) COMPREHEN METABOLIC PANEL (10/07/20) CT ABD & PELV W/CONTRAST (10/07/20) CULTURE AEROBIC IDENTIFY (11/20/13) EMERGENCY DEPT VISIT (10/10/20) EMERGENCY DEPT VISIT (10/07/20) EMERGENCY DEPT VISIT (04/09/18) EMERGENCY DEPT VISIT (02/18/17) EMERGENCY DEPT VISIT (05/19/14) EMERGENCY DEPT VISIT (11/16/13) EXTREMITY STUDY (11/16/13) METABOLIC PANEL TOTAL CA (09/19/16) MICROBE SUSCEPTIBLE LIVIA (11/20/13) POLYSOM 6/> YRS 4/> MINI (01/22/16) PT EVALUATION (11/27/13) RBC SED RATE NONAUTOMATED (11/16/13) ROUTINE VENIPUNCTURE (10/07/20) SCR MAMMO BI INCL CAD (09/17/18) THER/PROPH/DIAG INJ IV PUSH (10/07/20) THER/PROPH/DIAG INJ SC/IM (05/19/14) THERAPEUTIC EXERCISES (12/15/13) TTE W/DOPPLER COMPLETE (05/03/14) TX/PRO/DX INJ NEW DRUG ADDON (10/07/20) URINALYSIS AUTO W/SCOPE (09/19/16) URINE BACTERIA CULTURE (11/20/13) X-RAY EXAM OF LOWER LEG (05/19/14) X-RAY EXAM OF SINUSES (02/18/17) Problem List Initiated/Reviewed/Updated: Yes My Orders Last 24 Hours: My Active Orders 10/13/20 13:20 Dextrose 5%-Lactated Ringers 1,000 ml IV ASDIRECTED 10/13/20 13:38 RT Aerosol Therapy [RC] ASDIRECTED Urinary Catheter Assessment [RC] Q12H 10/13/20 13:40 diphenhydrAMINE [Benadryl] 50 mg PO Q6H PRN 10/13/20 14:00 Transfer Patient (Change bed) [ADT] Routine 10/13/20 14:01 Cardiac Monitoring [RC] Q6H 10/13/20 15:18 BIPAP [RT BiPAP/CPAP] [RC] ASDIRECTED 10/13/20 Dinner Full Liquid Diet [DIET] 10/13/20 18:38 Benzocaine/Cetylpyrd/Menthol [Cepacol Sore Throat] 1 lozenge MUCMEM Q2H PRN 10/14/20 09:30 RT Aerosol Therapy [RC] ASDIRECTED levalbuterol HCL [Xopenex] 1.25 mg NEB Q4HRRT PRN 10/14/20 11:00 levalbuterol HCL [Xopenex] 1.25 mg NEB QIDRT 10/14/20 Lunch Fluid Restriction [DIET] 10/14/20 13:45 Insert Freeman Catheter [Insert Urinary Catheter] [OM.PC] Q24H 10/14/20 17:00 Furosemide [Lasix] 40 mg IVPUSH Q8H 10/15/20 05:00 CBC W/O DIFF,HEMOGRAM [HEME] Timed (1) COMPREHENSIVE METABOLIC PN,CMP [CHEM] Timed MAGNESIUM [CHEM] Timed Plan: ASSESSMENT AND RECOMMENDATIONS - Acute respiratory failure with hypoxia-suspect volume overload. Symptomatically feeling better with diuresis and had a good response to diuresis. Still quite compromised and is currently on 15 L via high flow nasal cannula. Fevers are better today. Still has evidence for volume overload on examination. -Supplemental oxygen -She may need BiPAP -Furosemide 40 mg every 8 hours -Continue Freeman catheter for strict intake and output monitoring -Chest x-ray in the morning -Echo on Saturday Generalized abdominal pain-concern for mesh adherent to her liver. Surgical intervention was planned but is on hold until respiratory status improves. Pain is somewhat better today. -Surgical cares per Dr. Wilfrido Lara MD
[2020-10-14] MEDS: Trolamine Salicylate/Aloe Vera 10% Crm 85 GM Tube TOP PRN (10:24)
[2020-10-14] MEDS: Levalbuterol HCl 1.25 MG/3 ML Neb NEB SCH ×3 (10:36→20:27)
--- NOTE | 2020-10-14 16:23 | PN ---
DATE OF SERVICE: 10/14/2020 The patient began noting some fevers and having worsening oxygenation and increasingly productive cough yesterday in the mid part of the morning into the early afternoon. Given this, the surgical resection of the liver was put on hold. The patient is presently in the ICU. She is on high rate O2, and with this is not making reasonably good sats, should have a temperature of 99.8 degrees this morning looks fairly comfortable, but still with a productive cough. The plan at this point will be to have the patient get more or less per hospitalist and once that is achieved, then we will proceed with the resection. The patient in the past has almost always required some extra support postoperatively following abdominal procedure due to underlying cardiopulmonary problems. Obdulio Anna MD /[id number]
[2020-10-14] MEDS: Furosemide 40 MG/4 ML VIAL IVPUSH SCH (16:50)
[2020-10-14] MEDS: Acetaminophen 500 MG Tab PO PRN (20:26)
[2020-10-15] MEDS: Furosemide 40 MG/4 ML VIAL IVPUSH SCH ×3 (00:40→16:05)
[2020-10-15] MEDS: Acetaminophen 500 MG Tab PO PRN ×4 (04:48→23:30)
[2020-10-15] MEDS ORDERED: Potassium Chloride 20 MEQ, Lidocaine 1% 2 ML in Sodium Chloride 0.9% 100 ML IV SCH (06:45)
[2020-10-15] MEDS ORDERED: Magnesium Sulfate/Water 2 GM/50 ML BAG IV SCH ×2 (06:45→08:00)
[2020-10-15] MEDS: Levalbuterol HCl 1.25 MG/3 ML Neb NEB SCH ×4 (07:11→20:42)
[2020-10-15] MEDS ORDERED: Potassium Chloride 20 MEQ Tab.ER PO SCH (08:00)
[2020-10-15] MEDS ORDERED: Sodium Chloride 0.65% Nasal Spray 45 ML Bottle NAS PRN (08:04)
[2020-10-15] MEDS ORDERED: Aloe Vera/Sodium Chloride Gel 14.1 GM Tube NAS PRN (08:07)
[2020-10-15] MEDS: Magnesium Sulfate/Water 2 GM/50 ML BAG IV SCH ×2 (08:09→13:21)
[2020-10-15] MEDS: Pantoprazole 40 MG Tab.CR PO SCH (08:39)
[2020-10-15] MEDS: FLUoxetine 20 MG Cap PO SCH ×2 (08:39→16:15)
[2020-10-15] MEDS: Nicotine 14 MG/24 Hr Patch TRDERM SCH (08:41)
[2020-10-15] MEDS ORDERED: Potassium Chloride 10 MEQ Cap.ER PO SCH (09:00)
[2020-10-15] MEDS: Potassium Chloride 20 MEQ, Lidocaine 1% 2 ML in Sodium Chloride 0.9% 100 ML IV SCH ×2 (09:22→11:10)
--- NOTE | 2020-10-15 10:20 | PCM.CONSN ---
- General Info Date of Service: 10/15/20 Subjective Update: No acute events overnight. Respiratory status is stable but she does continue to require 15 L of supplemental oxygen. She did decline her furosemide last night because her mouth was dry. We did still have a pretty good response to the diuretic. She feels less short of breath today. She is hungry and hoping for something more than full liquids. Abdominal pain has been fairly well controlled. No nausea or vomiting. Chest x-ray shows increased diffuse changes concerning for early ARDS. Potassium slightly low. Kidney function stable. No fevers. Functional Status: Reports: Pain Controlled, Tolerating Diet - Review of Systems General: Denies: Fever Pulmonary: Reports: Shortness of Breath, Cough Gastrointestinal: Reports: Abdominal Pain - Patient Data Vitals - Most Recent: Last Vital Signs Temp 36.2 C 10/15/20 08:00 Pulse 85 10/15/20 08:00 Resp 25 H 10/15/20 08:00 BP 119/71 10/15/20 08:00 Pulse Ox 91 L 10/15/20 08:00 Weight - Most Recent: 77.111 kg I&O - Last 24 Hours: Intake & Output 10/14/20 10/15/20 10/15/20 22:59 06:59 14:59 Intake Total 526 1189 162 Output Total 1500 550 700 Balance -974 079 -518 Lab Results Last 24 Hours: Laboratory Results - last 24 hr 10/15/20 10/15/20 Range/Units 04:11 04:11 WBC 10.6 (4.5-11.0) K/uL RBC 3.50 (3.30-5.50) M/uL Hgb 12.3 (12.0-15.0) g/dL Hct 36.3 (36.0-48.0) % MCV 104 H (80-98) fL MCH 35 H (27-31) pg MCHC 34 (32-36) % Plt Count 193 (150-400) K/uL Sodium 130 L (140-148) mmol/L Potassium 3.3 L (3.6-5.2) mmol/L Chloride 94 L (100-108) mmol/L Carbon Dioxide 29 (21-32) mmol/L Anion Gap 10.3 (5.0-14.0) mmol/L BUN 6 L (7-18) mg/dL Creatinine 0.7 (0.6-1.0) mg/dL Est Cr Clr Drug Dosing 81.18 mL/min Estimated GFR (MDRD) > 60 (>60) Glucose 108 H (74-106) mg/dL Calcium 8.8 (8.5-10.1) mg/dL Magnesium 1.5 L (1.8-2.4) mg/dL Total Bilirubin 1.4 H D (0.2-1.0) mg/dL AST 62 H (15-37) U/L ALT 50 (12-78) U/L Alkaline Phosphatase 231 H (46-116) U/L Total Protein 6.3 L (6.4-8.2) g/dL Albumin 2.7 L (3.4-5.0) g/dL Globulin 3.6 H (2.3-3.5) g/dL Albumin/Globulin Ratio 0.8 L (1.2-2.2) Med Orders - Current: Current Medications Acetaminophen (Tylenol Extra Strength) 500 mg PO Q6H PRN PRN Reason: Pain/Fever Last Admin: 10/15/20 04:48 Dose: 500 mg Documented by: Benzocaine/Menthol (Cepacol Sore Throat) 1 lozenge MUCMEM Q2H PRN PRN Reason: Cough Last Admin: 10/13/20 22:24 Dose: 1 shanna Documented by: Cyclobenzaprine HCl (Flexeril) 10 mg PO Q8H PRN PRN Reason: Muscle Spasm Diphenhydramine HCl (Benadryl) 50 mg PO Q6H PRN PRN Reason: Itching Last Admin: 10/14/20 23:00 Dose: 50 mg Documented by: Fluoxetine HCl (Prozac) 40 mg PO DAILY [facility] Last Admin: 10/15/20 08:39 Dose: 40 mg Documented by: Fluoxetine HCl (Prozac) 20 mg PO QPM [facility] Last Admin: 10/14/20 16:52 Dose: 20 mg Documented by: Furosemide (Lasix) 40 mg IVPUSH Q8H [facility] Stop: 10/15/20 16:01 Last Admin: 10/15/20 08:42 Dose: 40 mg Documented by: Hydroxyzine HCl (Vistaril) 100 mg IM Q4H PRN PRN Reason: Pain Last Admin: 10/12/20 07:33 Dose: 100 mg Documented by: Dextrose/Lactated Ringer's (Dextrose 5%-Lactated Ringers) 1,000 mls @ 25 mls/hr IV ASDIRECTED [facility] Stop: 10/15/20 16:00 Last Admin: 10/14/20 16:56 Dose: 25 mls/hr Documented by: Potassium Chloride 20 meq/Lidocaine HCl 2 ml/ Sodium Chloride 112 mls @ 56 mls/hr IV Q2H [facility] Stop: 10/15/20 12:29 Last Admin: 10/15/20 09:22 Dose: 56 mls/hr Documented by: Magnesium Sulfate (Magnesium Sulfate In Water Premix) 2 gm in 50 mls @ 25 mls/hr IV Q6H [facility] Stop: 10/15/20 15:59 Last Admin: 10/15/20 08:09 Dose: 25 mls/hr Documented by: Levalbuterol HCl (Xopenex) 1.25 mg NEB QIDRT [facility] Last Admin: 10/15/20 07:11 Dose: 1.25 mg Documented by: Levalbuterol HCl (Xopenex) 1.25 mg NEB Q4H PRN PRN Reason: shortness of breath/wheezing Lisinopril (Prinivil) 20 mg PO BEDTIME [facility] Last Admin: 10/12/20 21:53 Dose: 20 mg Documented by: Lorazepam (Ativan) 0.5 mg PO Q6H PRN PRN Reason: Anxiety Miscellaneous Information (Remove Patch) 1 ea TRDERM BEDTIME [facility] Last Admin: 10/14/20 20:31 Dose: Not Given Documented by: Nicotine (Habitrol) 14 mg TRDERM DAILY [facility] Last Admin: 10/15/20 08:41 Dose: 14 mg Documented by: Non-Formulary Medication (Potassium Gluconate [Potassium Gluconate]) 2 tab PO BID [facility] Ondansetron HCl (Zofran) 4 mg IVPUSH Q4H PRN PRN Reason: Nausea Last Admin: 10/12/20 11:02 Dose: 4 mg Documented by: Oxycodone HCl (Oxycodone) 5 - 10 mg PO Q4H PRN PRN Reason: Pain Pantoprazole Sodium (Protonix) 40 mg PO ACBREAKFAST [facility] Last Admin: 10/15/20 08:39 Dose: 40 mg Documented by: Sodium Chloride (Saline Flush) 10 ml FLUSH ONETIME PRN PRN Reason: PER RADIOLOGY PROTOCOL Last Admin: 10/12/20 09:27 Dose: 10 ml Documented by: Sodium Chloride (Center Nasal [place]) 0 ml NELLY Q2H PRN PRN Reason: Congestion Last Admin: 10/15/20 08:35 Dose: 1 spray Documented by: Sodium Chloride ([place] Saline Nasal Gel) 0 gm NELLY ASDIRECTED PRN PRN Reason: Congestion Last Admin: 10/15/20 08:36 Dose: 1 applic Documented by: Trazodone HCl (Trazodone) 100 mg PO BEDTIME [facility] Trolamine Salicylate (Aspercreme 10%) 0 gm TOP Q4H PRN PRN Reason: back pain Last Admin: 10/14/20 10:24 Dose: 1 applic Documented by: Discontinued Medications Albuterol (Proventil Neb Soln) 2.5 mg NEB Q2H PRN PRN Reason: wheezing/shortness of breath Albuterol/Ipratropium (Duoneb 3.0-0.5 Mg/3 Ml) 3 ml INH QIDRT [facility] Last Admin: 10/14/20 06:59 Dose: 3 ml Documented by: Albuterol/Ipratropium (Duoneb 3.0-0.5 Mg/3 Ml) 3 ml INH ASDIRECTED PRN PRN Reason: Shortness of Breath Cyanocobalamin (Vitamin B12) 1,000 mcg IM ONETIME ONE Stop: 10/11/20 10:31 Last Admin: 10/11/20 11:31 Dose: 1,000 mcg Documented by: Dexamethasone (Decadron) Confirm Administered Dose 4 mg .ROUTE .STK-MED ONE Stop: 10/13/20 08:42 Diphenhydramine HCl (Benadryl) 50 mg IVPUSH Q4H PRN PRN Reason: Itching Diphenhydramine HCl (Benadryl) 25 mg PO Q6H PRN PRN Reason: Itching Last Admin: 10/12/20 21:51 Dose: 25 mg Documented by: Fentanyl (Sublimaze) Confirm Administered Dose 100 mcg .ROUTE .STK-MED ONE Stop: 10/11/20 09:02 Fluoxetine HCl (Prozac) 60 mg PO DAILY [facility] Furosemide (Lasix) 40 mg IVPUSH NOW ONE Stop: 10/13/20 14:01 Last Admin: 10/13/20 13:54 Dose: 40 mg Documented by: Furosemide (Lasix) 40 mg IVPUSH ONETIME ONE Stop: 10/14/20 00:00 Last Admin: 10/13/20 23:40 Dose: 40 mg Documented by: Furosemide (Lasix) 40 mg IVPUSH ONETIME ONE Stop: 10/14/20 09:01 Last Admin: 10/14/20 08:58 Dose: 40 mg Documented by: Furosemide (Lasix) 40 mg IVPUSH Q8H [facility] Stop: 10/15/20 01:01 Last Admin: 10/15/20 00:40 Dose: Not Given Documented by: Glycopyrrolate (Glycopyrrolate) 0.4 mg IVPUSH ONETIME ONE Stop: 10/11/20 10:31 Last Admin: 10/11/20 12:12 Dose: 0.4 mg Documented by: Lactated Ringer's (Ringers, Lactated) 1,000 mls @ 999 mls/hr IV BOLUS ONE Stop: 10/11/20 11:30 Last Admin: 10/11/20 10:56 Dose: 999 mls/hr Documented by: Multivitamins/Minerals 10 ml/Thiamine HCl 200 mg/ Zinc 1 ml / Lactated Ringer's 1,013 mls @ 500 mls/hr IV ONETIME ONE Stop: 10/11/20 13:31 Last Admin: 10/11/20 11:47 Dose: 500 mls/hr Documented by: Ampicillin Sodium/Sulbactam (Sodium 1.5 gm/ Sodium Chloride) 50 mls @ 100 mls/hr IV ONETIME ONE Stop: 10/11/20 10:59 Last Admin: 10/11/20 12:13 Dose: 100 mls/hr Documented by: Dextrose/Lactated Ringer's (Dextrose 5%-Lactated Ringers) 1,000 mls @ 125 [facility]ls[facility] Last Admin: 10/13/20 09:18 Dose: 125 mls/hr Documented by: Sodium Chloride (Normal Saline) 75 mls @ 3 mls/sec IV ONETIME ONE Stop: 10/12/20 09:05 Last Admin: 10/12/20 09:28 Dose: 3 mls/sec Documented by: Meropenem 500 mg/ Sodium (Chloride) 50 mls @ 100 mls/hr IV ONCALL ONE Stop: 10/13/20 11:59 Last Admin: 10/14/20 06:32 Dose: Not Given Documented by: Acetaminophen 1,000 mg/ Premix 100 mls @ 400 mls/hr IV NOW ONE Stop: 10/12/20 23:51 Last Admin: 10/12/20 23:52 Dose: 400 mls/hr Documented by: Linezolid (Zyvox) Confirm Administered Dose 300 mls @ as directed .ROUTE .STK- MED ONE Stop: 10/13/20 09:56 Iopamidol (Isovue-300 (61%)) 30 ml PO ASDIRECTED ONE Stop: 10/12/20 09:05 Last Admin: 10/12/20 09:29 Dose: 30 ml Documented by: Iopamidol (Isovue-300 (61%)) 100 ml IV . DIRECTED PRN PRN Reason: RADIOLOGY EXAM Last Admin: 10/12/20 09:27 Dose: 100 ml Documented by: Lisinopril (Prinivil) Confirm Administered Dose 20 mg .ROUTE .STK-MED ONE Stop: 10/12/20 21:33 Last Admin: 10/12/20 21:42 Dose: Not Given Documented by: Meropenem (Merrem) Confirm Administered Dose 500 mg .ROUTE .STK-MED ONE Stop: 10/13/20 09:55 Midazolam HCl (Versed 1 Mg/Ml) Confirm Administered Dose 2 mg .ROUTE .STK-MED ONE Stop: 10/11/20 09:02 Morphine Sulfate (Morphine [place] 150 Mg In 30 Ml) 0 mg IV ASDIRECTED PRN; Protocol PRN Reason: Pain Last Admin: 10/13/20 19:38 Dose: 150 mg Documented by: Morphine Sulfate (Morphine) 2 mg IVPUSH ONETIME ONE Stop: 10/11/20 13:38 Last Admin: 10/11/20 13:56 Dose: 2 mg Documented by: Naloxone HCl (Narcan) 0.1 mg IV ASDIRECTED PRN PRN Reason: decreased respiratory rate Ondansetron HCl (Zofran) Confirm Administered Dose 4 mg .ROUTE .STK-MED ONE Stop: 10/13/20 08:42 Potassium Chloride (Potassium Chloride) 40 meq PO BID@0900,1200 [facility] Stop: 10/15/20 12:01 Propofol (Diprivan 20 Ml) Confirm Administered Dose 200 mg .ROUTE .STK-MED ONE Stop: 10/11/20 09:02 - Exam Quality Assessment: Supplemental Oxygen General: Alert, Oriented, Cooperative, No Acute Distress Lungs: Normal Respiratory Effort, Crackles (both bases) Cardiovascular: Regular Rate, Regular Rhythm GI/Abdominal Exam: Soft, No Distention Extremities: No Pedal Edema. No: Increased Warmth Skin: Warm, Dry Psy/Mental Status: Alert, Normal Affect Sepsis Event Note - Evaluation Sepsis Screening Result: Sepsis Risk - Focused Exam Vital Signs: Vital Signs Temp Pulse Resp BP Pulse Ox Pulse Ox 10/15/20 08:00 36.2 C 85 25 H 119/71 91 L 10/15/20 07:11 84 89 L 10/15/20 06:00 82 27 H 113/73 89 L 10/15/20 04:48 36.9 C 10/15/20 03:00 89 33 H 114/76 87 L 10/15/20 01:00 83 31 H 119/79 92 L 10/14/20 22:45 36.3 C 84 29 H 119/80 92 L Consult PN Assessment/Plan Procedures: Procedures ASSAY OF LIPASE (10/07/20) BREAST TOMOSYNTHESIS BI (09/17/18) COMPLETE CBC AUTOMATED (10/07/20) COMPLETE CBC W/AUTO DIFF WBC (11/16/13) COMPREHEN METABOLIC PANEL (10/07/20) CT ABD & PELV W/CONTRAST (10/07/20) CULTURE AEROBIC IDENTIFY (11/20/13) EMERGENCY DEPT VISIT (10/10/20) EMERGENCY DEPT VISIT (10/07/20) EMERGENCY DEPT VISIT (04/09/18) EMERGENCY DEPT VISIT (02/18/17) EMERGENCY DEPT VISIT (05/19/14) EMERGENCY DEPT VISIT (11/16/13) EXTREMITY STUDY (11/16/13) METABOLIC PANEL TOTAL CA (09/19/16) MICROBE SUSCEPTIBLE LIIVA (11/20/13) POLYSOM 6/> YRS 4/> MINI (01/22/16) PT EVALUATION (11/27/13) RBC SED RATE NONAUTOMATED (11/16/13) ROUTINE VENIPUNCTURE (10/07/20) SCR MAMMO BI INCL CAD (09/17/18) THER/PROPH/DIAG INJ IV PUSH (10/07/20) THER/PROPH/DIAG INJ SC/IM (05/19/14) THERAPEUTIC EXERCISES (12/15/13) TTE W/DOPPLER COMPLETE (05/03/14) TX/PRO/DX INJ NEW DRUG ADDON (10/07/20) URINALYSIS AUTO W/SCOPE (09/19/16) URINE BACTERIA CULTURE (11/20/13) X-RAY EXAM OF LOWER LEG (05/19/14) X-RAY EXAM OF SINUSES (02/18/17) Problem List Initiated/Reviewed/Updated: Yes My Orders Last 24 Hours: My Active Orders 10/14/20 09:30 levalbuterol HCL [Xopenex] 1.25 mg NEB Q4H PRN 10/14/20 10:06 Trolamine Salicylate/Aloe Vera [Aspercreme 10%] 0 gm TOP Q4H PRN 10/14/20 11:00 levalbuterol HCL [Xopenex] 1.25 mg NEB QIDRT 10/14/20 Lunch Fluid Restriction [DIET] 10/15/20 05:11 Chest 1V Frontal [CR] AM 10/15/20 08:00 Furosemide [Lasix] 40 mg IVPUSH Q8H 10/15/20 08:04 Sodium Chloride 0.65% [Center Nasal [place]] 0 ml NELLY Q2H PRN 10/15/20 10:13 oxyCODONE 5 - 10 mg PO Q4H PRN 10/15/20 10:16 Cyclobenzaprine [Flexeril] 10 mg PO Q8H PRN LORazepam [Ativan] 0.5 mg PO Q6H PRN 10/15/20 10:30 Potassium Gluconate [Potassium Gluconate] 2 tab PO BID 10/15/20 Lunch Regular Diet [DIET] 10/15/20 13:45 Insert Freeman Catheter [Insert Urinary Catheter] [OM.PC] Q24H 10/15/20 16:00 Convert IV to Saline Lock [OM.PC] Routine 10/15/20 21:00 traZODone 100 mg PO BEDTIME 10/16/20 05:00 BASIC METABOLIC PANEL,BMP [CHEM] Timed CBC W/O DIFF,HEMOGRAM [HEME] Timed (1) 10/17/20 07:00 Echo Comp wo Cont [US] Routine Plan: ASSESSMENT AND RECOMMENDATIONS - Acute respiratory failure with hypoxia-suspect volume overload. History of ARDS with previous surgeries and volume resuscitation. Symptomatically feeling better and good response to diuresis again yesterday. Still requiring 15 L of supplemental oxygen. Chest x-ray looks slightly worse today. Still has JVD and evidence for volume overload. -Supplemental oxygen -She may need BiPAP -Furosemide 40 mg every 8 hours, reassess in the morning -Continue Freeman catheter for strict intake and output monitoring -Echo on Saturday -Fluid restriction Generalized abdominal pain-concern for mesh adherent to her liver. Surgical intervention was planned but is on hold until respiratory status improves. Pain is somewhat better today. -Regular diet -Surgical cares per Dr. Wilfrido Lara MD
[2020-10-15] MEDS: oxyCODONE 5 MG Tab PO PRN ×4 (10:51→23:29)
[2020-10-15] MEDS: Cyclobenzaprine 10 MG Tab PO PRN ×2 (10:51→20:59)
[2020-10-15] MEDS: POTASSIUM GLUCONATE 99 MG PO SCH ×2 (10:52→16:01)
[2020-10-15] MEDS: Trolamine Salicylate/Aloe Vera 10% Crm 85 GM Tube TOP PRN ×2 (15:59→21:45)
[2020-10-15] MEDS: LORazepam 0.5 MG Tab PO PRN (19:25)
[2020-10-15] MEDS: traZODone 50 MG Tab PO SCH (20:42)
[2020-10-16] MEDS: LORazepam 0.5 MG Tab PO PRN (03:30)
[2020-10-16] MEDS: oxyCODONE 5 MG Tab PO PRN ×2 (03:30→14:04)
[2020-10-16] MEDS: Levalbuterol HCl 1.25 MG/3 ML Neb NEB SCH ×4 (07:08→21:42)
[2020-10-16] MEDS ORDERED: Morphine 4 MG/ML Syringe IVPUSH ONE (07:45)
[2020-10-16] MEDS ORDERED: LORazepam 2 MG/ML SDV IVPUSH ONE (07:45)
[2020-10-16] MEDS: Nicotine 14 MG/24 Hr Patch TRDERM SCH ×2 (07:47→09:18)
[2020-10-16] MEDS: Acetaminophen 500 MG Tab PO PRN ×2 (09:18→15:11)
[2020-10-16] MEDS: POTASSIUM GLUCONATE 99 MG PO SCH ×2 (09:18→17:08)
[2020-10-16] MEDS: Pantoprazole 40 MG Tab.CR PO SCH (09:18)
[2020-10-16] MEDS: FLUoxetine 20 MG Cap PO SCH ×2 (09:18→16:33)
--- NOTE | 2020-10-16 09:24 | PN ---
DATE OF SERVICE: 10/15/2020 The patient has been afebrile with stable vital signs overnight. She is still requiring quite a bit of supplemental oxygen, around 15 L of high-flow oxygen with O2 saturation in the 89 to 91 range. After a fair bit of reduction, she did have net diuresis yesterday of 1435 mL. At this point, we will continue to have the patient being stabilized per Dr. Lara and subsequently Dr. Cooper, and when she is stable from a cardiopulmonary standpoint for at least a day or 2, we will proceed with the liver resection. Her magnesium and potassium are low this morning. These will be supplemented. Obdulio Anna MD /[id number]
--- NOTE | 2020-10-16 11:13 | PN ---
DATE OF SERVICE: 10/16/2020 The patient has been afebrile with stable vital signs. She did require quite a bit of oxygen, receiving high-flow 15 L of oxygen, and maintaining O2 sats in the 87% to 90% range. Given this, she currently is not deemed any surgical procedure tomorrow. We will continue to work with the hospitalist regarding optimizing her cardiopulmonary status prior to proceeding with anything surgical. Obdulio Anna MD /[id number]
[2020-10-16] MEDS ORDERED: LORazepam 0.5 MG Tab PO PRN (14:17)
[2020-10-16] MEDS ORDERED: oxyCODONE 5 MG Tab PO PRN (14:18)
[2020-10-16] MEDS ORDERED: Furosemide 40 MG/4 ML VIAL IVPUSH ONE ×2 (14:20→23:00)
--- NOTE | 2020-10-16 14:30 | PCM.CONSN ---
- General Info Date of Service: 10/16/20 Subjective Update: Ms. Oreilly experienced increased respiratory compromise through the night. She was started on BiPAP early this morning but has been unable to tolerate it. Respiratory status has stabilized somewhat through the morning and she remains on high flow oxygen via nasal cannula. - Review of Systems General: Reports: No Symptoms Pulmonary: Reports: Shortness of Breath. Denies: Pleuritic Chest Pain, Cough, Sputum, Hemoptysis, Wheezing Cardiovascular: Reports: Dyspnea on Exertion. Denies: Chest Pain, Palpitations, Orthopnea, PND, Edema, Lightheadedness Gastrointestinal: Reports: Abdominal Pain. Denies: Difficulty Swallowing, Hematochezia, Melena, Nausea, Vomiting Genitourinary: Reports: No Symptoms - Patient Data Vitals - Most Recent: Last Vital Signs Temp 98.3 F 10/16/20 07:00 Pulse 89 10/16/20 14:13 Resp 32 H 10/16/20 14:13 BP 123/67 10/16/20 14:13 Pulse Ox 90 L 10/16/20 14:13 Weight - Most Recent: 170 lb I&O - Last 24 Hours: Intake & Output 10/15/20 10/16/20 10/16/20 22:59 06:59 14:59 Intake Total 655 480 220 Output Total 750 Balance 655 -270 220 Lab Results Last 24 Hours: Laboratory Results - last 24 hr 10/16/20 10/16/20 10/16/20 Range/Units 05:50 05:50 08:11 WBC 11.4 H (4.5-11.0) K/uL RBC 3.45 (3.30-5.50) M/uL Hgb 11.9 L (12.0-15.0) g/dL Hct 35.6 L (36.0-48.0) % MCV 103 H (80-98) fL MCH 35 H (27-31) pg MCHC 33 (32-36) % Plt Count 271 (150-400) K/uL Puncture Site Lt brachial ABG pH 7.466 H (7.350-7.450) ABG pCO2 35.1 (35.0-42.0) mmHg ABG pO2 89.1 (75.0-100.0) mmHg ABG HCO3 25.0 (22.0-26.0) mmol/L ABG Total CO2 22.3 (21.0-25.0) mmol/L ABG O2 Saturation 96.8 (95.0-98.0) % ABG O2 Content 16.0 (15.0-23.0) %vol ABG Base Excess 1.9 mm/L ABG Hemoglobin 12.0 (12.0-16.0) g/dL ABG Oxyhemoglobin 94.0 % ABG Carboxyhemoglobin 2.1 H (0.0-1.6) % ABG Methemoglobin 0.8 % Brown Test Not performed O2 Delivery Device Oxygen Flow Rate L Sodium 132 L (140-148) mmol/L Potassium 3.8 (3.6-5.2) mmol/L Chloride 94 L (100-108) mmol/L Carbon Dioxide 28 (21-32) mmol/L Anion Gap 13.8 (5.0-14.0) mmol/L BUN 8 (7-18) mg/dL Creatinine 0.7 (0.6-1.0) mg/dL Est Cr Clr Drug Dosing 81.18 mL/min Estimated GFR (MDRD) > 60 (>60) Glucose 99 (74-106) mg/dL Calcium 8.8 (8.5-10.1) mg/dL Phosphorus 4.5 (2.5-4.9) mg/dL Troponin I (0.000-0.056) ng/mL SARS-CoV-2 RNA (ACE) (NEGATIVE) 10/16/20 10/16/20 Range/Units 08:29 09:31 WBC (4.5-11.0) K/uL RBC (3.30-5.50) M/uL Hgb (12.0-15.0) g/dL Hct (36.0-48.0) % MCV (80-98) fL MCH (27-31) pg MCHC (32-36) % Plt Count (150-400) K/uL Puncture Site ABG pH (7.350-7.450) ABG pCO2 (35.0-42.0) mmHg ABG pO2 (75.0-100.0) mmHg ABG HCO3 (22.0-26.0) mmol/L ABG Total CO2 (21.0-25.0) mmol/L ABG O2 Saturation (95.0-98.0) % ABG O2 Content (15.0-23.0) %vol ABG Base Excess mm/L ABG Hemoglobin (12.0-16.0) g/dL ABG Oxyhemoglobin % ABG Carboxyhemoglobin (0.0-1.6) % ABG Methemoglobin % Brown Test O2 Delivery Device Oxygen Flow Rate L Sodium (140-148) mmol/L Potassium (3.6-5.2) mmol/L Chloride (100-108) mmol/L Carbon Dioxide (21-32) mmol/L Anion Gap (5.0-14.0) mmol/L BUN (7-18) mg/dL Creatinine (0.6-1.0) mg/dL Est Cr Clr Drug Dosing mL/min Estimated GFR (MDRD) (>60) Glucose (74-106) mg/dL Calcium (8.5-10.1) mg/dL Phosphorus (2.5-4.9) mg/dL Troponin I < 0.017 (0.000-0.056) ng/mL SARS-CoV-2 RNA (ACE) Negative (NEGATIVE) Med Orders - Current: Current Medications Acetaminophen (Tylenol Extra Strength) 500 mg PO Q6H PRN PRN Reason: Pain/Fever Last Admin: 10/16/20 09:18 Dose: 500 mg Documented by: Benzocaine/Menthol (Cepacol Sore Throat) 1 lozenge MUCMEM Q2H PRN PRN Reason: Cough Last Admin: 10/13/20 22:24 Dose: 1 shanna Documented by: Diphenhydramine HCl (Benadryl) 50 mg PO Q6H PRN PRN Reason: Itching Last Admin: 10/14/20 23:00 Dose: 50 mg Documented by: Fluoxetine HCl (Prozac) 40 mg PO DAILY [facility] Last Admin: 10/16/20 09:18 Dose: 40 mg Documented by: Fluoxetine HCl (Prozac) 20 mg PO QPM [facility] Last Admin: 10/15/20 16:15 Dose: 20 mg Documented by: Furosemide (Lasix) 40 mg IVPUSH NOW ONE Stop: 10/16/20 23:01 Hydroxyzine HCl (Vistaril) 100 mg IM Q4H PRN PRN Reason: Pain Last Admin: 10/12/20 07:33 Dose: 100 mg Documented by: Levalbuterol HCl (Xopenex) 1.25 mg NEB QIDRT [facility] Last Admin: 10/16/20 10:52 Dose: 1.25 mg Documented by: Levalbuterol HCl (Xopenex) 1.25 mg NEB Q4H PRN PRN Reason: shortness of breath/wheezing Lisinopril (Prinivil) 20 mg PO BEDTIME [facility] Last Admin: 10/12/20 21:53 Dose: 20 mg Documented by: Lorazepam (Ativan) 0.5 mg PO Q4H PRN PRN Reason: Anxiety Miscellaneous Information (Remove Patch) 1 ea TRDERM BEDTIME [facility] Last Admin: 10/15/20 20:42 Dose: 1 ea Documented by: Nicotine (Habitrol) 14 mg TRDERM DAILY [facility] Last Admin: 10/16/20 09:18 Dose: Not Given Documented by: Ondansetron HCl (Zofran) 4 mg IVPUSH Q4H PRN PRN Reason: Nausea Last Admin: 10/12/20 11:02 Dose: 4 mg Documented by: Oxycodone HCl (Oxycodone) 5 mg PO Q4H PRN PRN Reason: Pain Pantoprazole Sodium (Protonix) 40 mg PO ACBREAKFAST [facility] Last Admin: 10/16/20 09:18 Dose: 40 mg Documented by: Potassium Gluconate (99mg Tab (Ptom)) 2 each PO BIDMEALS [facility] Last Admin: 10/16/20 09:18 Dose: Not Given Documented by: Sodium Chloride (Saline Flush) 10 ml FLUSH ONETIME PRN PRN Reason: PER RADIOLOGY PROTOCOL Last Admin: 10/12/20 09:27 Dose: 10 ml Documented by: Sodium Chloride ([place] Nasal [place]) 0 ml NELLY Q2H PRN PRN Reason: Congestion Last Admin: 10/15/20 08:35 Dose: 1 spray Documented by: Sodium Chloride ([place] Saline Nasal Gel) 0 gm NELLY ASDIRECTED PRN PRN Reason: Congestion Last Admin: 10/15/20 08:36 Dose: 1 applic Documented by: Trazodone HCl (Trazodone) 100 mg PO BEDTIME [facility] Last Admin: 10/15/20 20:42 Dose: 100 mg Documented by: Trolamine Salicylate (Aspercreme 10%) 0 gm TOP Q4H PRN PRN Reason: back pain Last Admin: 10/15/20 21:45 Dose: 1 applic Documented by: Discontinued Medications Albuterol (Proventil Neb Soln) 2.5 mg NEB Q2H PRN PRN Reason: wheezing/shortness of breath Albuterol/Ipratropium (Duoneb 3.0-0.5 Mg/3 Ml) 3 ml INH QIDRT YEHUDA Last Admin: 10/14/20 06:59 Dose: 3 ml Documented by: Albuterol/Ipratropium (Duoneb 3.0-0.5 Mg/3 Ml) 3 ml INH ASDIRECTED PRN PRN Reason: Shortness of Breath Cyanocobalamin (Vitamin B12) 1,000 mcg IM ONETIME ONE Stop: 10/11/20 10:31 Last Admin: 10/11/20 11:31 Dose: 1,000 mcg Documented by: Cyclobenzaprine HCl (Flexeril) 10 mg PO Q8H PRN PRN Reason: Muscle Spasm Last Admin: 10/15/20 20:59 Dose: 10 mg Documented by: Dexamethasone (Decadron) Confirm Administered Dose 4 mg .ROUTE .STK-MED ONE Stop: 10/13/20 08:42 Diphenhydramine HCl (Benadryl) 50 mg IVPUSH Q4H PRN PRN Reason: Itching Diphenhydramine HCl (Benadryl) 25 mg PO Q6H PRN PRN Reason: Itching Last Admin: 10/12/20 21:51 Dose: 25 mg Documented by: Fentanyl (Sublimaze) Confirm Administered Dose 100 mcg .ROUTE .STK-MED ONE Stop: 10/11/20 09:02 Fluoxetine HCl (Prozac) 60 mg PO DAILY [facility] Furosemide (Lasix) 40 mg IVPUSH NOW ONE Stop: 10/13/20 14:01 Last Admin: 10/13/20 13:54 Dose: 40 mg Documented by: Furosemide (Lasix) 40 mg IVPUSH ONETIME ONE Stop: 10/14/20 00:00 Last Admin: 10/13/20 23:40 Dose: 40 mg Documented by: Furosemide (Lasix) 40 mg IVPUSH ONETIME ONE Stop: 10/14/20 09:01 Last Admin: 10/14/20 08:58 Dose: 40 mg Documented by: Furosemide (Lasix) 40 mg IVPUSH Q8H [facility] Stop: 10/15/20 01:01 Last Admin: 10/15/20 00:40 Dose: Not Given Documented by: Furosemide (Lasix) 40 mg IVPUSH Q8H [facility] Stop: 10/15/20 16:01 Last Admin: 10/15/20 16:05 Dose: 40 mg Documented by: Furosemide (Lasix) 40 mg IVPUSH NOW ONE Stop: 10/16/20 14:21 Last Admin: 10/16/20 14:27 Dose: 40 mg Documented by: Glycopyrrolate (Glycopyrrolate) 0.4 mg IVPUSH ONETIME ONE Stop: 10/11/20 10:31 Last Admin: 10/11/20 12:12 Dose: 0.4 mg Documented by: Lactated Ringer's (Ringers, Lactated) 1,000 mls @ 999 mls/hr IV BOLUS ONE Stop: 10/11/20 11:30 Last Admin: 10/11/20 10:56 Dose: 999 mls/hr Documented by: Multivitamins/Minerals 10 ml/Thiamine HCl 200 mg/ Zinc 1 ml / Lactated Ringer's 1,013 mls @ 500 mls/hr IV ONETIME ONE Stop: 10/11/20 13:31 Last Admin: 10/11/20 11:47 Dose: 500 mls/hr Documented by: Ampicillin Sodium/Sulbactam (Sodium 1.5 gm/ Sodium Chloride) 50 mls @ 100 mls/hr IV ONETIME ONE Stop: 10/11/20 10:59 Last Admin: 10/11/20 12:13 Dose: 100 mls/hr Documented by: Dextrose/Lactated Ringer's (Dextrose 5%-Lactated Ringers) 1,000 mls @ 125 mls/hr IV ASDIRECTED [facility] Last Admin: 10/13/20 09:18 Dose: 125 mls/hr Documented by: Sodium Chloride (Normal Saline) 75 mls @ 3 mls/sec IV ONETIME ONE Stop: 10/12/20 09:05 Last Admin: 10/12/20 09:28 Dose: 3 mls/sec Documented by: Meropenem 500 mg/ Sodium (Chloride) 50 mls @ 100 mls/hr IV ONCALL ONE Stop: 10/13/20 11:59 Last Admin: 10/14/20 06:32 Dose: Not Given Documented by: Acetaminophen 1,000 mg/ Premix 100 mls @ 400 mls/hr IV NOW ONE Stop: 10/12/20 23:51 Last Admin: 10/12/20 23:52 Dose: 400 mls/hr Documented by: Linezolid (Zyvox) Confirm Administered Dose 300 mls @ as directed .ROUTE .STK- MED ONE Stop: 10/13/20 09:56 Dextrose/Lactated Ringer's (Dextrose 5%-Lactated Ringers) 1,000 mls @ 25 mls/hr IV ASDIRECTED [facility] Stop: 10/15/20 16:00 Last Admin: 10/14/20 16:56 Dose: 25 mls/hr Documented by: Potassium Chloride 20 meq/Lidocaine HCl 2 ml/ Sodium Chloride 112 mls @ 56 mls/hr IV Q2H YEHUDA Stop: 10/15/20 12:29 Last Admin: 10/15/20 11:10 Dose: 56 mls/hr Documented by: Magnesium Sulfate (Magnesium Sulfate In Water Premix) 2 gm in 50 mls @ 25 mls/hr IV Q6H YEHUDA Stop: 10/15/20 15:59 Last Admin: 10/15/20 13:21 Dose: 25 mls/hr Documented by: Iopamidol (Isovue-300 (61%)) 30 ml PO ASDIRECTED ONE Stop: 10/12/20 09:05 Last Admin: 10/12/20 09:29 Dose: 30 ml Documented by: Iopamidol (Isovue-300 (61%)) 100 ml IV . DIRECTED PRN PRN Reason: RADIOLOGY EXAM Last Admin: 10/12/20 09:27 Dose: 100 ml Documented by: Lisinopril (Prinivil) Confirm Administered Dose 20 mg .ROUTE .STK-MED ONE Stop: 10/12/20 21:33 Last Admin: 10/12/20 21:42 Dose: Not Given Documented by: Lorazepam (Ativan) 0.5 mg PO Q6H PRN PRN Reason: Anxiety Last Admin: 10/16/20 03:30 Dose: 0.5 mg Documented by: Lorazepam (Ativan) 0.5 mg IVPUSH ONETIME ONE Stop: 10/16/20 07:46 Last Admin: 10/16/20 07:53 Dose: 0.5 mg Documented by: Meropenem (Merrem) Confirm Administered Dose 500 mg .ROUTE .STK-MED ONE Stop: 10/13/20 09:55 Midazolam HCl (Versed 1 Mg/Ml) Confirm Administered Dose 2 mg .ROUTE .STK-MED ONE Stop: 10/11/20 09:02 Morphine Sulfate (Morphine Braid Maker 150 Mg In 30 Ml) 0 mg IV ASDIRECTED PRN; Protocol PRN Reason: Pain Last Admin: 10/13/20 19:38 Dose: 150 mg Documented by: Morphine Sulfate (Morphine) 2 mg IVPUSH ONETIME ONE Stop: 10/11/20 13:38 Last Admin: 10/11/20 13:56 Dose: 2 mg Documented by: Morphine Sulfate (Morphine) 4 mg IVPUSH ONETIME ONE Stop: 10/16/20 07:46 Last Admin: 10/16/20 07:53 Dose: 4 mg Documented by: Naloxone HCl (Narcan) 0.1 mg IV ASDIRECTED PRN PRN Reason: decreased respiratory rate Ondansetron HCl (Zofran) Confirm Administered Dose 4 mg .ROUTE .STK-MED ONE Stop: 10/13/20 08:42 Oxycodone HCl (Oxycodone) 5 - 10 mg PO Q4H PRN PRN Reason: Pain Last Admin: 10/16/20 14:04 Dose: 10 mg Documented by: Potassium Chloride (Potassium Chloride) 40 meq PO BID@0900,1200 YEHUDA Stop: 10/15/20 12:01 Last Admin: 10/15/20 19:42 Dose: Not Given Documented by: Propofol (Diprivan 20 Ml) Confirm Administered Dose 200 mg .ROUTE .STK-MED ONE Stop: 10/11/20 09:02 - Exam Quality Assessment: Supplemental Oxygen, DVT Prophylaxis General: Alert, Oriented, Cooperative, Moderate Distress Lungs: Decreased Breath Sounds, Rales. No: Rhonchi, Wheezing Cardiovascular: Regular Rate, Regular Rhythm, No Murmurs GI/Abdominal Exam: Soft, No Organomegaly, Tender. No: Distended, Guarding, Rigid, Rebound Extremities: Non-Tender, No Pedal Edema Skin: Warm, Dry, Intact Sepsis Event Note - Evaluation Sepsis Screening Result: Sepsis Risk - Focused Exam Vital Signs: Vital Signs Temp Pulse Resp BP Pulse Ox Pulse Ox 10/16/20 14:13 89 32 H 123/67 90 L 10/16/20 13:00 85 25 H 115/79 85 L 10/16/20 12:00 90 L 10/16/20 11:00 98 24 H 92 L 10/16/20 10:52 90 10/16/20 09:00 97 37 H 123/82 83 L 10/16/20 07:59 100 43 H 130/76 85 L 10/16/20 07:09 90 87 L 10/16/20 07:00 98.3 F 100 49 H 130/76 83 L 10/16/20 05:00 101 H 36 H 122/77 88 L 10/16/20 03:00 97.7 F 91 21 H 106/75 92 L Consult PN Assessment/Plan Procedures: Procedures ASSAY OF LIPASE (10/07/20) BREAST TOMOSYNTHESIS BI (09/17/18) COMPLETE CBC AUTOMATED (10/07/20) COMPLETE CBC W/AUTO DIFF WBC (11/16/13) COMPREHEN METABOLIC PANEL (10/07/20) CT ABD & PELV W/CONTRAST (10/07/20) CULTURE AEROBIC IDENTIFY (11/20/13) EMERGENCY DEPT VISIT (10/10/20) EMERGENCY DEPT VISIT (10/07/20) EMERGENCY DEPT VISIT (04/09/18) EMERGENCY DEPT VISIT (02/18/17) EMERGENCY DEPT VISIT (05/19/14) EMERGENCY DEPT VISIT (11/16/13) EXTREMITY STUDY (11/16/13) METABOLIC PANEL TOTAL CA (09/19/16) MICROBE SUSCEPTIBLE LIVIA (11/20/13) POLYSOM 6/> YRS 4/> MINI (01/22/16) PT EVALUATION (11/27/13) RBC SED RATE NONAUTOMATED (11/16/13) ROUTINE VENIPUNCTURE (10/07/20) SCR MAMMO BI INCL CAD (09/17/18) THER/PROPH/DIAG INJ IV PUSH (10/07/20) THER/PROPH/DIAG INJ SC/IM (05/19/14) THERAPEUTIC EXERCISES (12/15/13) TTE W/DOPPLER COMPLETE (05/03/14) TX/PRO/DX INJ NEW DRUG ADDON (10/07/20) URINALYSIS AUTO W/SCOPE (09/19/16) URINE BACTERIA CULTURE (02/21/14) X-RAY EXAM OF LOWER LEG (05/19/14) X-RAY EXAM OF SINUSES (02/18/17) Problem List Initiated/Reviewed/Updated: Yes My Orders Last 24 Hours: My Active Orders 10/16/20 08:12 Chest 1V Frontal [CR] Stat 10/16/20 09:45 Resuscitation Status Routine 10/16/20 14:17 LORazepam [Ativan] 0.5 mg PO Q4H PRN 10/16/20 14:18 oxyCODONE 5 mg PO Q4H PRN 10/16/20 23:00 Furosemide [Lasix] 40 mg IVPUSH NOW ONE 10/17/20 05:00 BASIC METABOLIC PANEL,BMP [CHEM] Timed BLOOD GAS ARTERIAL [BG] Timed CBC WITH AUTO DIFF [HEME] Timed Plan: ASSESSMENT AND RECOMMENDATIONS Acute respiratory failure with hypoxia-History of ARDS with previous surgeries and volume resuscitation. Chest x-ray shows bilateral patchy infiltrates. Worse during the night, but so far has been intolerant of BiPAP. -IV antibiotic therapy ceftriaxone and doxycycline -Supplemental oxygen -BiPAP as tolerated -Furosemide 40 mg twice today -Continue Freeman catheter for strict intake and output monitoring -Echo on Saturday -Fluid restriction Generalized abdominal pain-concern for mesh adherent to her liver. Surgical intervention was planned but is on hold until respiratory status improves. Pain is somewhat better today. -Regular diet -Surgical cares per Dr. Anna
[2020-10-16] MEDS: cefTRIAXone 1 GM in Sodium Chloride 0.9% 50 ML IV SCH (15:11)
[2020-10-16] MEDS: Lactobacillus Rhamnosus GG (Probiotic) Cap PO SCH ×2 (15:11→21:11)
[2020-10-16] MEDS ORDERED: Doxycycline 100 MG in Sodium Chloride 0.9% 100 ML IV SCH (16:00)
[2020-10-16] MEDS: LORazepam 1 MG Tab PO SCH ×2 (17:07→17:57)
[2020-10-16] MEDS: Sodium Chloride 0.9% 10 ML Syringe FLUSH PRN (17:10)
[2020-10-16] MEDS ORDERED: PHENobarbital Sodium 65 MG/ML SDV IVPUSH ONE (19:05)
[2020-10-16] MEDS: LORazepam 2 MG/ML SDV IV SCH (20:05)
[2020-10-16] MEDS ORDERED: Succinylcholine 200 MG/10 ML MDV ONE (20:11)
[2020-10-16] MEDS ORDERED: Rocuronium 50 MG/5 ML Vial ONE (20:14)
[2020-10-16] MEDS ORDERED: Rocuronium 50 MG/5 ML Vial IVPUSH ONE (20:15)
[2020-10-16] MEDS ORDERED: Etomidate 2 MG/ML 10 ML SDV IVPUSH ONE (20:15)
[2020-10-16] MEDS ORDERED: propofoL 100 ML ONE (20:17)
[2020-10-16] MEDS: propofoL 100 ML IV SCH (20:20)
[2020-10-16] MEDS ORDERED: Heparin Sodium 5,000 Units/ML Vial ONE (20:30)
[2020-10-16] MEDS ORDERED: Sodium Chloride 0.9% 500 ML IV ONE (20:30)
--- NOTE | 2020-10-16 20:39 | PCM.PRNOTE ---
- Free Text/Narrative Note: 10/16/2020 20:13 RODO QUINONES called to the ICU room 125. I arrived at the patient's bedside to find her in respiratory distress with significant hypoxia and an SPO2 of 54% on high flow oxygen. Patient had facial cyanosis and was hypoventilating. She was in the process of being ventilated by bag valve mask. We elected to perform RSI and intubate the patient to secure her airway. The equipment was assembled and I ordered RSI medications etomidate 30 mg IV push and rocuronium 100 mg IV push. A timeout was taken to ensure that everyone was prepared, the equipment was ready including suction, glide scope, appropriate ET tube, [id number], and supplemental oxygen. The etomidate and rocuronium were pushed. We waited approximately 45 to 60 seconds until full effect of the sedative and paralytic. A 7.5 ET tube was selected and the glottis and vocal cords were visualized with video laryngoscopy. I was able to pass the 7.5 ET tube through the vocal cords watching the balloon pass below the cords. The balloon was then inflated and auscultation was utilized over the stomach first and then over both lung fong with negative sounds over the stomach and equal breath sounds bilaterally. The tube is inserted at 21 cm at the teeth. A bedside chest x-ray was obtained showing the tip of the tube about 1 cm above the macho which is adequate placement. The patient was started on propofol infusion at 40 mg/h. At bedside ABG was obtained after intubation and is currently pending. The ET tube was secured using a tube tamer device prior to the chest x-ray and auscultation again was obtained after securing the tube.
[2020-10-16] MEDS ORDERED: Vancomycin 1 GM SDV IV SCH (21:00)
[2020-10-16] MEDS: traZODone 50 MG Tab PO SCH (21:11)
[2020-10-16] MEDS: Lisinopril 20 MG Tab PO SCH (21:11)
[2020-10-16] MEDS: Levofloxacin/Dextrose 5%-Water 750 MG in Premix Bag 1 BAG IV SCH (21:14)
--- NOTE | 2020-10-16 21:24 | PCM.SN.2 ---
- Free Text/Narrative Note: Ms. Oreilly unfortunately developed progressive respiratory decline associated with worsening alcohol withdrawal. Saturations dropped significantly requiring intubation and mechanical ventilation. She is stable on current ventilator settings although is requiring relatively high level of supplemental oxygen. Rate remains somewhat elevated but has come down following intubation. Arterial line has been placed by anesthesia and intubation was performed by the ER physician. Chest x-ray shows appropriate positioning of the endotracheal tube with bilateral infiltrates as noted on previous x-rays. We will expand IV antibiotic coverage stopping doxycycline and adding vancomycin and levofloxacin. Continue to work towards diuresis with regular doses of furosemide.
[2020-10-16] MEDS ORDERED: Enoxaparin 40 MG/0.4 ML Syringe SUBCUT SCH (21:30)
[2020-10-16] MEDS: Pantoprazole 40 MG Vial IVPUSH SCH (21:42)
--- NOTE | 2020-10-16 22:00 | ANES ---
DATE OF SERVICE: 10/16/2020 INDICATIONS: Kaushik is a 54-year-old, female patient in our intensive care unit of Dr. Obdulio Anna. Dr. Cooper is also hospitalist working with the patient. I was consulted late this evening for emergency cardiac arrest. Upon arrival, I found a 54-year-old female who was intubated at that time. I believe the emergency room physician intubated the patient this evening after the bhavana blue was called. TECHNIQUE: I proceeded to locate arterial pulse for an arterial waveform and an art line was placed in the left radial artery. Sterile ChloraPrep, sterile gloves were used, and I used an ultrasound after a failed attempt and I was able to locate the left radial artery and cannulated with ease. Very good blood return and excellent waveform. It was then secured with 2-0 Prolene and taped to the left wrist. The patient tolerated the procedure quite well. Please refer to nurse's notes for vital signs and neuro status, which were unchanged and within normal limits. Sahil Knight CRNA /[id number]
[2020-10-17] MEDS: propofoL 100 ML IV SCH ×5 (02:49→21:51)
[2020-10-17] MEDS: Levalbuterol HCl 1.25 MG/3 ML Neb NEB SCH ×4 (07:04→20:17)
[2020-10-17] MEDS: POTASSIUM GLUCONATE 99 MG PO SCH ×2 (08:10→16:48)
[2020-10-17] MEDS: Lactobacillus Rhamnosus GG (Probiotic) Cap PO SCH ×2 (08:11→20:09)
[2020-10-17] MEDS: FLUoxetine 20 MG Cap PO SCH ×2 (08:11→16:48)
--- NOTE | 2020-10-17 08:33 | OR ---
DATE OF PROCEDURE: 10/11/2020 SURGEON: Obdulio Anna MD PREOPERATIVE DIAGNOSES: Upper abdominal pain, status post Johana-en-Y gastric bypass. POSTOPERATIVE DIAGNOSES: Normal upper gastrointestinal endoscopy, status post Johana-en-Y gastric bypass. OPERATIVE PROCEDURE: Upper gastrointestinal endoscopy. ANESTHESIA: IV sedation. INDICATIONS FOR PROCEDURE: The patient presents with worsening upper abdominal pain. As initial workup, the patient will undergo an upper endoscopy and she is status post Johana-en-Y gastric bypass. Potential risks of the procedure including bleeding and perforation were discussed, and the patient wishes to proceed. DETAILS OF PROCEDURE: The patient was taken to the operating room and placed in a left lateral decubitus position. IV sedation was administered after which the upper GI endoscope was passed orally through the length of the esophagus, into the stomach with retroflexion view of the fundus, and thereafter through the pyloric channel and into the proximal duodenum. Findings included a normal hypopharynx, larynx, upper esophageal sphincter, esophageal body, and EG junction. The gastric pouch was normally sized and unremarkable as was the gastrojejunostomy. The visualized portion of the Johana limb was unremarkable as well. The scope was then withdrawn, and the procedure was then concluded. The patient has a focal area of quite marked abdominal tenderness and general fullness in the right upper quadrant extending into the right midabdomen and will be admitted for pain control and further evaluation of that problem. Obdulio Anna MD /[id number]
[2020-10-17] MEDS: Nicotine 14 MG/24 Hr Patch TRDERM SCH (08:41)
--- NOTE | 2020-10-17 09:21 | CR ---
CHEST: Portable 10/15/2020 at 5:49 AM CLINICAL HISTORY:Congestive heart failure COMPARISON:10/13/2020 FINDINGS: Patient has diffuse bilateral pulmonary infiltrates which have increased since 10/13/2020. Heart size is within normal limits. Pulmonary vascular is obscured. IMPRESSION: Increasing bilateral pulmonary infiltrates. These are predominantly interstitial. Clinical history states CHF. Pneumonitis can have a similar appearance. Clinical correlation necessary
--- NOTE | 2020-10-17 09:48 | CR ---
CHEST: Portable 10/16/2020 at 8:41 AM CLINICAL HISTORY:Hypoxia COMPARISON:10/15/2020 FINDINGS: Patient has persistent diffuse bilateral pulmonary infiltrates. These may be increased slightly since prior study. Some of this may be technical. Heart size is normal IMPRESSION: Persistent diffuse bilateral pulmonary infiltrates CHEST: Portable 10/16/2020 at 8:30 PM CLINICAL HISTORY:Status post intubation COMPARISON:Earlier same day FINDINGS: Patient has been intubated. The tip of the endotracheal tube is partially 1.8 cm from the macho. Diffuse dense bilateral pulmonary infiltrates persist. IMPRESSION: Status post intubation Persistent diffuse bilateral pulmonary infiltrates CHEST: Portable 10/17/2020 at 4:22 AM CLINICAL HISTORY:Respiratory failure COMPARISON:10/16/2020 FINDINGS: Endotracheal tube has been pulled back. It is now approximately 3.5 cm from the macho. Diffuse bilateral pulmonary infiltrates persist IMPRESSION: ET tube in mid trachea Persistent diffuse bilateral pulmonary infiltrates
[2020-10-17] MEDS ORDERED: Furosemide 40 MG/4 ML VIAL IVPUSH ONE ×2 (10:50→22:00)
[2020-10-17] MEDS ORDERED: Potassium Chloride Riders 40 MEQ in Premix Bag 1 BAG IV ONE (11:30)
--- NOTE | 2020-10-17 12:24 | PCM.CONSN ---
- General Info Date of Service: 10/17/20 Subjective Update: Ms. Oreilly has remained fairly stable from a respiratory standpoint status post intubation and mechanical ventilation last night. Initially required very high level of FiO2 at 100%, this has been tapered down to 60% through the night. She is currently sedated and unable to provide meaningful information concerning symptoms or review of systems. - Patient Data Vitals - Most Recent: Last Vital Signs Temp 97.8 F 10/17/20 08:00 Pulse 103 H 10/17/20 11:00 Resp 30 H 10/17/20 11:00 BP 121/52 L 10/17/20 11:00 Pulse Ox 96 10/17/20 11:00 Weight - Most Recent: 170 lb I&O - Last 24 Hours: Intake & Output 10/16/20 10/17/20 10/17/20 22:59 06:59 14:59 Intake Total 150 506 Output Total 500 1190 65 Balance -350 -684 -65 Lab Results Last 24 Hours: Laboratory Results - last 24 hr 10/13/20 10/16/20 10/16/20 Range/Units 04:12 20:27 22:50 WBC (4.5-11.0) K/uL RBC (3.30-5.50) M/uL Hgb (12.0-15.0) g/dL Hct (36.0-48.0) % MCV (80-98) fL MCH (27-31) pg MCHC (32-36) % Plt Count (150-400) K/uL Neut % (Auto) (36-66) % Lymph % (Auto) (24-44) % Stark % (Auto) (2-6) % Eos % (Auto) (2-4) % Baso % (Auto) (0-1) % Puncture Site Left radial Line ABG pH 7.329 L 7.350 (7.350-7.450) ABG pCO2 45.4 H 44.8 H (35.0-42.0) mmHg ABG pO2 73.2 L 85.3 (75.0-100.0) mmHg ABG HCO3 23.3 24.1 (22.0-26.0) mmol/L ABG Total CO2 21.2 22.2 (21.0-25.0) mmol/L ABG O2 Saturation 90.2 L 94.9 L (95.0-98.0) % ABG O2 Content 15.8 15.2 (15.0-23.0) %vol ABG Base Excess -2.3 -1.1 mm/L ABG Hemoglobin 12.7 11.7 L (12.0-16.0) g/dL ABG Oxyhemoglobin 88.8 92.1 % ABG Carboxyhemoglobin 0.8 1.9 H (0.0-1.6) % ABG Methemoglobin 0.8 1.0 % Brown Test TNP O2 Delivery Device Resuscitation bag Ventilator Oxygen Flow Rate 15.0 L Sodium (140-148) mmol/L Potassium (3.6-5.2) mmol/L Chloride (100-108) mmol/L Carbon Dioxide (21-32) mmol/L Anion Gap (5.0-14.0) mmol/L BUN (7-18) mg/dL Creatinine (0.6-1.0) mg/dL Est Cr Clr Drug Dosing mL/min Estimated GFR (MDRD) (>60) Glucose (74-106) mg/dL Calcium (8.5-10.1) mg/dL Crossmatch See Detail 10/17/20 10/17/20 10/17/20 Range/Units 05:35 05:40 05:40 WBC 12.5 H (4.5-11.0) K/uL RBC 3.32 (3.30-5.50) M/uL Hgb 11.4 L (12.0-15.0) g/dL Hct 34.3 L (36.0-48.0) % MCV 103 H (80-98) fL MCH 34 H (27-31) pg MCHC 33 (32-36) % Plt Count 240 (150-400) K/uL Neut % (Auto) 79 H (36-66) % Lymph % (Auto) 12 L (24-44) % Stark % (Auto) 6 (2-6) % Eos % (Auto) 2 (2-4) % Baso % (Auto) 2 H (0-1) % Puncture Site Line ABG pH 7.485 H (7.350-7.450) ABG pCO2 33.8 L (35.0-42.0) mmHg ABG pO2 75.1 (75.0-100.0) mmHg ABG HCO3 25.2 (22.0-26.0) mmol/L ABG Total CO2 22.5 (21.0-25.0) mmol/L ABG O2 Saturation 95.3 (95.0-98.0) % ABG O2 Content 15.4 (15.0-23.0) %vol ABG Base Excess 2.4 mm/L ABG Hemoglobin 11.8 L (12.0-16.0) g/dL ABG Oxyhemoglobin 92.5 % ABG Carboxyhemoglobin 1.9 H (0.0-1.6) % ABG Methemoglobin 1.0 % Brown Test O2 Delivery Device Bipap Oxygen Flow Rate L Sodium 134 L (140-148) mmol/L Potassium 3.0 L (3.6-5.2) mmol/L Chloride 97 L (100-108) mmol/L Carbon Dioxide 25 (21-32) mmol/L Anion Gap 15.0 H (5.0-14.0) mmol/L BUN 8 (7-18) mg/dL Creatinine 0.7 (0.6-1.0) mg/dL Est Cr Clr Drug Dosing 81.18 mL/min Estimated GFR (MDRD) > 60 (>60) Glucose 97 (74-106) mg/dL Calcium 8.3 L (8.5-10.1) mg/dL Crossmatch Clem Results Last 24 Hours: Microbiology 10/17/20 01:22 Gram Stain - Final Endotrachael Aspirate Med Orders - Current: Current Medications Acetaminophen (Tylenol Extra Strength) 500 mg PO Q6H PRN PRN Reason: Pain/Fever Last Admin: 10/16/20 15:11 Dose: 500 mg Documented by: Benzocaine/Menthol (Cepacol Sore Throat) 1 lozenge MUCMEM Q2H PRN PRN Reason: Cough Last Admin: 10/13/20 22:24 Dose: 1 shanna Documented by: Diphenhydramine HCl (Benadryl) 50 mg PO Q6H PRN PRN Reason: Itching Last Admin: 10/14/20 23:00 Dose: 50 mg Documented by: Enoxaparin Sodium (Lovenox) 40 mg SUBCUT Q24H YEHUDA Fluoxetine HCl (Prozac) 40 mg PO DAILY YEHUDA Last Admin: 10/17/20 08:11 Dose: Not Given Documented by: Fluoxetine HCl (Prozac) 20 mg PO QPM YEHUDA Last Admin: 10/16/20 16:33 Dose: 20 mg Documented by: Furosemide (Lasix) 40 mg IVPUSH NOW ONE Stop: 10/17/20 22:01 Hydroxyzine HCl (Vistaril) 100 mg IM Q4H PRN PRN Reason: Pain Last Admin: 10/12/20 07:33 Dose: 100 mg Documented by: Ceftriaxone Sodium 1 gm/ (Sodium Chloride) 50 mls @ 100 mls/hr IV Q24H YEHUDA Last Admin: 10/16/20 15:11 Dose: 100 mls/hr Documented by: Levofloxacin/Dextrose 750 mg/ (Premix) 150 mls @ 100 mls/hr IV Q24H YEHUDA Last Admin: 10/16/20 21:14 Dose: 100 mls/hr Documented by: Propofol (Diprivan 100 Ml) 100 mls @ 2.313 mls/hr IV TITRATE YEHUDA; Protocol Last Titration: 10/17/20 11:50 Dose: 45 mcg/kg/min, 20.82 mls/hr Documented by: Vancomycin HCl 1.25 gm/ Sodium (Chloride) 250 mls @ 166.667 mls/hr IV Q12H YEHUDA Last Admin: 10/17/20 11:09 Dose: 166.667 mls/hr Documented by: Heparin Sodium (Porcine) 5,000 (units/ Sodium Chloride) 501 mls @ 0 mls/hr IV ASDIRECTED [facility]; Protocol Potassium Chloride 40 meq/ (Premix) 100 mls @ 25 mls/hr IV ONETIME ONE Stop: 10/17/20 15:29 Last Admin: 10/17/20 11:18 Dose: 25 mls/hr Documented by: Lactobacillus Rhamnosus (Culturelle) 1 cap PO BID YEHUDA Last Admin: 10/17/20 08:11 Dose: Not Given Documented by: Levalbuterol HCl (Xopenex) 1.25 mg NEB QIDRT [facility] Last Admin: 10/17/20 10:44 Dose: 1.25 mg Documented by: Levalbuterol HCl (Xopenex) 1.25 mg NEB Q4H PRN PRN Reason: shortness of breath/wheezing Lisinopril (Prinivil) 20 mg PO BEDTIME [facility] Last Admin: 10/16/20 21:11 Dose: Not Given Documented by: Lorazepam (Ativan) 0.5 mg PO Q4H PRN PRN Reason: Anxiety Last Admin: 10/16/20 16:32 Dose: 0.5 mg Documented by: Lorazepam (Ativan) 0 mg PO ASDIRECTED YEHUDA; Protocol Last Admin: 10/16/20 17:57 Dose: 2 mg Documented by: Lorazepam (Ativan) 0 mg IV ASDIRECTED [facility]; Protocol Last Admin: 10/16/20 20:05 Dose: 2 mg Documented by: Miscellaneous Information (Remove Patch) 1 ea TRDERM BEDTIME [facility] Last Admin: 10/16/20 21:11 Dose: Not Given Documented by: Nicotine (Habitrol) 14 mg TRDERM DAILY [facility] Last Admin: 10/17/20 08:41 Dose: Not Given Documented by: Ondansetron HCl (Zofran) 4 mg IVPUSH Q4H PRN PRN Reason: Nausea Last Admin: 10/12/20 11:02 Dose: 4 mg Documented by: Oxycodone HCl (Oxycodone) 5 mg PO Q4H PRN PRN Reason: Pain Pantoprazole Sodium (Protonix Iv) 40 mg IVPUSH Q24H [facility] Last Admin: 10/16/20 21:42 Dose: 40 mg Documented by: Potassium Gluconate (99mg Tab (Ptom)) 2 each PO BIDMEALS [facility] Last Admin: 10/17/20 08:10 Dose: Not Given Documented by: Potassium Chloride (Klor-Con M20) 40 meq PO ONETIME ONE Stop: 10/17/20 17:01 Sodium Chloride (Saline Flush) 10 ml FLUSH ONETIME PRN PRN Reason: PER RADIOLOGY PROTOCOL Last Admin: 10/16/20 17:10 Dose: 10 ml Documented by: Sodium Chloride ([place] Nasal [place]) 0 ml NELLY Q2H PRN PRN Reason: Congestion Last Admin: 10/15/20 08:35 Dose: 1 spray Documented by: Sodium Chloride ([place] Saline Nasal Gel) 0 gm NELLY ASDIRECTED PRN PRN Reason: Congestion Last Admin: 10/15/20 08:36 Dose: 1 applic Documented by: Trazodone HCl (Trazodone) 100 mg PO BEDTIME [facility] Last Admin: 10/16/20 21:11 Dose: Not Given Documented by: Trolamine Salicylate (Aspercreme 10%) 0 gm TOP Q4H PRN PRN Reason: back pain Last Admin: 10/15/20 21:45 Dose: 1 applic Documented by: Discontinued Medications Albuterol (Proventil Neb Soln) 2.5 mg NEB Q2H PRN PRN Reason: wheezing/shortness of breath Albuterol/Ipratropium (Duoneb 3.0-0.5 Mg/3 Ml) 3 ml INH QIDRT YEHUDA Last Admin: 10/14/20 06:59 Dose: 3 ml Documented by: Albuterol/Ipratropium (Duoneb 3.0-0.5 Mg/3 Ml) 3 ml INH ASDIRECTED PRN PRN Reason: Shortness of Breath Cyanocobalamin (Vitamin B12) 1,000 mcg IM ONETIME ONE Stop: 10/11/20 10:31 Last Admin: 10/11/20 11:31 Dose: 1,000 mcg Documented by: Cyclobenzaprine HCl (Flexeril) 10 mg PO Q8H PRN PRN Reason: Muscle Spasm Last Admin: 10/15/20 20:59 Dose: 10 mg Documented by: Dexamethasone (Decadron) Confirm Administered Dose 4 mg .ROUTE .STK-MED ONE Stop: 10/13/20 08:42 Diphenhydramine HCl (Benadryl) 50 mg IVPUSH Q4H PRN PRN Reason: Itching Diphenhydramine HCl (Benadryl) 25 mg PO Q6H PRN PRN Reason: Itching Last Admin: 10/12/20 21:51 Dose: 25 mg Documented by: Enoxaparin Sodium (Lovenox) 40 mg SUBCUT DAILY [facility] Last Admin: 10/16/20 21:42 Dose: 40 mg Documented by: Etomidate (Amidate) 30 mg IVPUSH ONETIME ONE Stop: 10/16/20 20:16 Fentanyl (Sublimaze) Confirm Administered Dose 100 mcg .ROUTE .STK-MED ONE Stop: 10/11/20 09:02 Fluoxetine HCl (Prozac) 60 mg PO DAILY [facility] Furosemide (Lasix) 40 mg IVPUSH NOW ONE Stop: 10/13/20 14:01 Last Admin: 10/13/20 13:54 Dose: 40 mg Documented by: Furosemide (Lasix) 40 mg IVPUSH ONETIME ONE Stop: 10/14/20 00:00 Last Admin: 10/13/20 23:40 Dose: 40 mg Documented by: Furosemide (Lasix) 40 mg IVPUSH ONETIME ONE Stop: 10/14/20 09:01 Last Admin: 10/14/20 08:58 Dose: 40 mg Documented by: Furosemide (Lasix) 40 mg IVPUSH Q8H YEHUDA Stop: 10/15/20 01:01 Last Admin: 10/15/20 00:40 Dose: Not Given Documented by: Furosemide (Lasix) 40 mg IVPUSH Q8H YEHUDA Stop: 10/15/20 16:01 Last Admin: 10/15/20 16:05 Dose: 40 mg Documented by: Furosemide (Lasix) 40 mg IVPUSH NOW ONE Stop: 10/16/20 14:21 Last Admin: 10/16/20 14:27 Dose: 40 mg Documented by: Furosemide (Lasix) 40 mg IVPUSH NOW ONE Stop: 10/16/20 23:01 Last Admin: 10/16/20 22:54 Dose: 40 mg Documented by: Furosemide (Lasix) 40 mg IVPUSH NOW ONE Stop: 10/17/20 10:51 Last Admin: 10/17/20 11:07 Dose: 40 mg Documented by: Glycopyrrolate (Glycopyrrolate) 0.4 mg IVPUSH ONETIME ONE Stop: 10/11/20 10:31 Last Admin: 10/11/20 12:12 Dose: 0.4 mg Documented by: Heparin Sodium (Porcine) (Heparin Sodium) Confirm Administered Dose 5,000 units .ROUTE .STK-MED ONE Stop: 10/16/20 20:31 Last Admin: 10/16/20 21:11 Dose: 5,000 units Documented by: Lactated Ringer's (Ringers, Lactated) 1,000 mls @ 999 mls/hr IV BOLUS ONE Stop: 10/11/20 11:30 Last Admin: 10/11/20 10:56 Dose: 999 mls/hr Documented by: Multivitamins/Minerals 10 ml/Thiamine HCl 200 mg/ Zinc 1 ml / Lactated Ringer's 1,013 mls @ 500 mls/hr IV ONETIME ONE Stop: 10/11/20 13:31 Last Admin: 10/11/20 11:47 Dose: 500 mls/hr Documented by: Ampicillin Sodium/Sulbactam (Sodium 1.5 gm/ Sodium Chloride) 50 mls @ 100 mls/hr IV ONETIME ONE Stop: 10/11/20 10:59 Last Admin: 10/11/20 12:13 Dose: 100 mls/hr Documented by: Dextrose/Lactated Ringer's (Dextrose 5%-Lactated Ringers) 1,000 mls @ 125 mls/hr IV ASDIRECTED [facility] Last Admin: 10/13/20 09:18 Dose: 125 mls/hr Documented by: Sodium Chloride (Normal Saline) 75 mls @ 3 mls/sec IV ONETIME ONE Stop: 10/12/20 09:05 Last Admin: 10/12/20 09:28 Dose: 3 mls/sec Documented by: Meropenem 500 mg/ Sodium (Chloride) 50 mls @ 100 mls/hr IV ONCALL ONE Stop: 10/13/20 11:59 Last Admin: 10/14/20 06:32 Dose: Not Given Documented by: Acetaminophen 1,000 mg/ Premix 100 mls @ 400 mls/hr IV NOW ONE Stop: 10/12/20 23:51 Last Admin: 10/12/20 23:52 Dose: 400 mls/hr Documented by: Linezolid (Zyvox) Confirm Administered Dose 300 mls @ as directed .ROUTE .STK- MED ONE Stop: 10/13/20 09:56 Dextrose/Lactated Ringer's (Dextrose 5%-Lactated Ringers) 1,000 mls @ 25 mls/hr IV ASDIRECTED [facility] Stop: 10/15/20 16:00 Last Admin: 10/14/20 16:56 Dose: 25 mls/hr Documented by: Potassium Chloride 20 meq/Lidocaine HCl 2 ml/ Sodium Chloride 112 mls @ 56 mls/hr IV Q2H [facility] Stop: 10/15/20 12:29 Last Admin: 10/15/20 11:10 Dose: 56 mls/hr Documented by: Magnesium Sulfate (Magnesium Sulfate In Water Premix) 2 gm in 50 mls @ 25 mls/hr IV Q6H [facility] Stop: 10/15/20 15:59 Last Admin: 10/15/20 13:21 Dose: 25 mls/hr Documented by: Doxycycline Hyclate 100 mg/ (Sodium Chloride) 100 mls @ 100 mls/hr IV Q12H [facility] Last Admin: 10/16/20 15:56 Dose: 100 mls/hr Documented by: Propofol (Diprivan 100 Ml) Confirm Administered Dose 100 mls @ as directed .ROUTE .STK-MED ONE Stop: 10/16/20 20:18 Last Admin: 10/16/20 21:25 Dose: Not Given Documented by: Vancomycin HCl 1.25 gm/ Sodium (Chloride) 250 mls @ 166.667 mls/hr IV Q12H YEHUDA Last Admin: 10/16/20 22:54 Dose: 166.667 mls/hr Documented by: Iopamidol (Isovue-300 (61%)) 30 ml PO ASDIRECTED ONE Stop: 10/12/20 09:05 Last Admin: 10/12/20 09:29 Dose: 30 ml Documented by: Iopamidol (Isovue-300 (61%)) 100 ml IV . DIRECTED PRN PRN Reason: RADIOLOGY EXAM Last Admin: 10/12/20 09:27 Dose: 100 ml Documented by: Lisinopril (Prinivil) Confirm Administered Dose 20 mg .ROUTE .STK-MED ONE Stop: 10/12/20 21:33 Last Admin: 10/12/20 21:42 Dose: Not Given Documented by: Lorazepam (Ativan) 0.5 mg PO Q6H PRN PRN Reason: Anxiety Last Admin: 10/16/20 03:30 Dose: 0.5 mg Documented by: Lorazepam (Ativan) 0.5 mg IVPUSH ONETIME ONE Stop: 10/16/20 07:46 Last Admin: 10/16/20 07:53 Dose: 0.5 mg Documented by: Meropenem (Merrem) Confirm Administered Dose 500 mg .ROUTE .STK-MED ONE Stop: 10/13/20 09:55 Midazolam HCl (Versed 1 Mg/Ml) Confirm Administered Dose 2 mg .ROUTE .STK-MED ONE Stop: 10/11/20 09:02 Morphine Sulfate (Morphine Document Control Supervisor 150 Mg In 30 Ml) 0 mg IV ASDIRECTED PRN; Protocol PRN Reason: Pain Last Admin: 10/13/20 19:38 Dose: 150 mg Documented by: Morphine Sulfate (Morphine) 2 mg IVPUSH ONETIME ONE Stop: 10/11/20 13:38 Last Admin: 10/11/20 13:56 Dose: 2 mg Documented by: Morphine Sulfate (Morphine) 4 mg IVPUSH ONETIME ONE Stop: 10/16/20 07:46 Last Admin: 10/16/20 07:53 Dose: 4 mg Documented by: Naloxone HCl (Narcan) 0.1 mg IV ASDIRECTED PRN PRN Reason: decreased respiratory rate Ondansetron HCl (Zofran) Confirm Administered Dose 4 mg .ROUTE .STK-MED ONE Stop: 10/13/20 08:42 Oxycodone HCl (Oxycodone) 5 - 10 mg PO Q4H PRN PRN Reason: Pain Last Admin: 10/16/20 14:04 Dose: 10 mg Documented by: Pantoprazole Sodium (Protonix) 40 mg PO ACBREAKFAST [facility] Last Admin: 10/16/20 09:18 Dose: 40 mg Documented by: Phenobarbital (Phenobarbital Sodium) 260 mg IVPUSH ONETIME ONE Stop: 10/16/20 19:06 Last Admin: 10/16/20 19:33 Dose: 260 mg Documented by: Potassium Chloride (Potassium Chloride) 40 meq PO BID@0900,1200 [facility] Stop: 10/15/20 12:01 Last Admin: 10/15/20 19:42 Dose: Not Given Documented by: Propofol (Diprivan 20 Ml) Confirm Administered Dose 200 mg .ROUTE .STK-MED ONE Stop: 10/11/20 09:02 Rocuronium [place] (Zemuron) 100 mg IVPUSH ONETIME ONE Stop: 10/16/20 20:16 Succinylcholine Chloride (Quelicin) Confirm Administered Dose 200 mg .ROUTE .STK-MED ONE Stop: 10/16/20 20:12 Last Admin: 10/16/20 21:10 Dose: Not Given Documented by: Vancomycin HCl (Vancomycin) 1 gm IV .PHARMACY TO DOSE [facility] Stop: 10/17/20 07:00 - Exam Quality Assessment: Supplemental Oxygen (Mechanical ventilation), Urine Catheter, DVT Prophylaxis General: Sedated, Lethargic Lungs: Rales, Rhonchi. No: Crackles, Wheezing Cardiovascular: Regular Rhythm, No Murmurs, Tachycardia GI/Abdominal Exam: Soft, Non-Tender, No Organomegaly, No Distention Extremities: Non-Tender, No Pedal Edema Sepsis Event Note - Evaluation Sepsis Screening Result: Severe Sepsis Risk - Focused Exam Vital Signs: Vital Signs Temp Temp Pulse Resp BP Pulse Ox 10/17/20 11:00 103 H 30 H 121/52 L 96 10/17/20 10:45 93 10/17/20 10:00 92 24 H 100/60 93 L 10/17/20 09:00 93 24 H 103/61 92 L 10/17/20 08:00 97.8 F 93 27 H 102/72 94 L 10/17/20 07:17 94 L 10/17/20 07:04 100 10/17/20 07:00 98 27 H 100/71 94 L 10/17/20 06:00 95 23 H 101/59 L 95 10/17/20 05:00 88 27 H 100/70 94 L 10/17/20 04:00 98.9 F 94 27 H 96/57 L 92 L 10/17/20 03:45 25 H 96 10/17/20 03:00 99 26 H 89/55 L 97 10/17/20 02:00 102 H 28 H 108/75 96 10/17/20 01:03 28 H 95 10/17/20 01:00 107 H 29 H 88/56 L 96 10/17/20 00:30 112 H 26 H 102/61 94 L Consult PN Assessment/Plan Procedures: Procedures ASSAY OF LIPASE (10/07/20) BREAST TOMOSYNTHESIS BI (09/17/18) COMPLETE CBC AUTOMATED (10/07/20) COMPLETE CBC W/AUTO DIFF WBC (11/16/13) COMPREHEN METABOLIC PANEL (10/07/20) CT ABD & PELV W/CONTRAST (10/07/20) CULTURE AEROBIC IDENTIFY (11/20/13) EMERGENCY DEPT VISIT (10/10/20) EMERGENCY DEPT VISIT (10/07/20) EMERGENCY DEPT VISIT (04/09/18) EMERGENCY DEPT VISIT (02/18/17) EMERGENCY DEPT VISIT (05/19/14) EMERGENCY DEPT VISIT (11/16/13) EXTREMITY STUDY (11/16/13) METABOLIC PANEL TOTAL CA (09/19/16) MICROBE SUSCEPTIBLE CLEM (11/20/13) POLYSOM 6/> YRS 4/> MINI (01/22/16) PT EVALUATION (11/27/13) RBC SED RATE NONAUTOMATED (11/16/13) ROUTINE VENIPUNCTURE (10/07/20) SCR MAMMO BI INCL CAD (09/17/18) THER/PROPH/DIAG INJ IV PUSH (10/07/20) THER/PROPH/DIAG INJ SC/IM (05/19/14) THERAPEUTIC EXERCISES (12/15/13) TTE W/DOPPLER COMPLETE (05/03/14) TX/PRO/DX INJ NEW DRUG ADDON (10/07/20) URINALYSIS AUTO W/SCOPE (09/19/16) URINE BACTERIA CULTURE (11/20/13) X-RAY EXAM OF LOWER LEG (05/19/14) X-RAY EXAM OF SINUSES (02/18/17) Problem List Initiated/Reviewed/Updated: Yes My Orders Last 24 Hours: My Active Orders 10/16/20 14:17 LORazepam [Ativan] 0.5 mg PO Q4H PRN 10/16/20 14:18 oxyCODONE 5 mg PO Q4H PRN 10/16/20 14:35 Resuscitation Status Routine 10/16/20 14:45 Lactobacillus Rhamnosus GG [Culturelle] 1 cap PO BID 10/16/20 15:00 cefTRIAXone [Rocephin] 1 gm Sodium Chloride 0.9% [Normal Saline] 50 ml IV Q24H 10/16/20 16:55 Notify Provider [RC] PRN 10/16/20 17:00 LORazepam [Ativan] See Protocol PO ASDIRECTED 10/16/20 19:15 LORazepam [Ativan] See Protocol IV ASDIRECTED 10/16/20 20:15 Heparin Sodium 5,000 units Sodium Chloride 0.9% [Normal Saline] 500 ml IV ASDIRECTED 10/16/20 20:49 RASS Sedation Scale [RC] ASDIRECTED Desired Level of Sedation (RASS) [AST] Click to Edit 10/16/20 21:00 Levofloxacin/Dextrose 5%-Water [Levaquin in D5W 750 MG/150 ML] 750 mg Premix Bag 1 bag IV Q24H propofoL [Diprivan 100 ML] 100 ml IV TITRATE 10/16/20 21:13 Mechanical Ventilation [RT Ventilator, Adult] [RC] Q2H 10/16/20 21:30 Pantoprazole [ProTONIX IV] 40 mg IVPUSH Q24H 10/17/20 01:22 CULTURE RESPIRATORY + SMEAR [RM] Routine 10/17/20 Breakfast NPO Now [Nothing per Oral Now Diet] [DIET] 10/17/20 11:30 Potassium Chloride Riders [KCL 40 MEQ in Water 100 ML] 40 meq Premix Bag 1 bag IV ONETIME 10/17/20 17:00 BASIC METABOLIC PANEL,BMP [CHEM] Stat Potassium Chloride [Klor-Con M20] 40 meq PO ONETIME ONE 10/17/20 17:47 BLOOD GAS ARTERIAL [BG] Stat 10/17/20 20:00 Enoxaparin [Lovenox] 40 mg SUBCUT Q24H 10/17/20 22:00 Furosemide [Lasix] 40 mg IVPUSH NOW ONE 10/18/20 05:00 Chest 1V Frontal [CR] DAILY BLOOD GAS ARTERIAL [BG] Timed CBC WITH AUTO DIFF [HEME] Timed COMPREHENSIVE METABOLIC PN,CMP [CHEM] Timed MAGNESIUM [CHEM] Timed 10/19/20 05:00 Chest 1V Frontal [CR] DAILY 10/20/20 05:00 Chest 1V Frontal [CR] DAILY 10/21/20 05:00 Chest 1V Frontal [CR] DAILY 10/22/20 05:00 Chest 1V Frontal [CR] DAILY Plan: ASSESSMENT AND RECOMMENDATIONS Acute respiratory failure with hypoxia-History of ARDS with previous surgeries and volume resuscitation. This post intubation and mechanical ventilation overnight. She has been stable with current management and FiO2 has been tapered downward to 60%. She is ventilating relatively easily, peak pressures in the low 20s. Attempt was made during the night to proceed with prone ventilation which was unsuccessful because of increased hypoxia. Echocardiogram obtained this morning, preliminary report, shows preserved left ventricular systolic function. -IV antibiotic therapy ceftriaxone, vancomycin, and levofloxacin -Mechanical ventilation; AC of 18, tidal volume 440 mL, FiO2 of 60%, PEEP of 5 -Furosemide 40 mg twice today -Continue Freeman catheter for strict intake and output monitoring -Minimize IV fluids Generalized abdominal pain-concern for mesh adherent to her liver. Surgical intervention was planned but is on hold until respiratory status improves. Pain is somewhat better today. -Regular diet -Surgical cares per Dr. Anna
--- NOTE | 2020-10-17 13:30 | PN ---
DATE OF SERVICE: 10/17/2020 Overnight, the patient required mechanical ventilation. At this point was obviously in an alcohol withdrawal syndrome as well in addition to the ARDS. At this point, we will follow the case, and obviously, we will need to wait for resolution of the current medical problem prior to consideration of any surgical intervention. Obdulio Anna MD /[id number]
[2020-10-17] MEDS: cefTRIAXone 1 GM in Sodium Chloride 0.9% 50 ML IV SCH (14:57)
[2020-10-17] MEDS: LORazepam 2 MG/ML SDV IV SCH ×2 (15:41→21:45)
[2020-10-17] MEDS ORDERED: Potassium Chloride 20 MEQ Tab.ER PO ONE (17:00)
[2020-10-17] MEDS: Lisinopril 20 MG Tab PO SCH (20:09)
[2020-10-17] MEDS: traZODone 50 MG Tab PO SCH (20:10)
[2020-10-17] MEDS: Enoxaparin 40 MG/0.4 ML Syringe SUBCUT SCH (20:15)
[2020-10-17] MEDS: Levofloxacin/Dextrose 5%-Water 750 MG in Premix Bag 1 BAG IV SCH (20:15)
[2020-10-17] MEDS: Pantoprazole 40 MG Vial IVPUSH SCH (21:34)
[2020-10-18] MEDS: propofoL 100 ML IV SCH ×7 (01:30→23:59)
[2020-10-18] MEDS: LORazepam 2 MG/ML SDV IV SCH (06:15)
[2020-10-18] MEDS: Levalbuterol HCl 1.25 MG/3 ML Neb NEB SCH ×4 (07:06→20:25)
[2020-10-18] MEDS: Lactobacillus Rhamnosus GG (Probiotic) Cap PO SCH ×2 (08:30→20:23)
[2020-10-18] MEDS: POTASSIUM GLUCONATE 99 MG PO SCH ×2 (08:30→18:31)
[2020-10-18] MEDS: FLUoxetine 20 MG Cap PO SCH ×2 (08:31→16:20)
[2020-10-18] MEDS: Nicotine 14 MG/24 Hr Patch TRDERM SCH (08:51)
--- NOTE | 2020-10-18 09:22 | CR ---
CHEST: Portable 10/18/2020 at 4:29 AM CLINICAL HISTORY:Respiratory failure COMPARISON:10/17/2020 FINDINGS: Endotracheal tube is in the mid trachea 5 cm from the macho. Diffuse bilateral pulmonary infiltrates persist without significant change. Impression: Diffuse bilateral pulmonary infiltrates persist unchanged Endotracheal tube is withdrawn slightly in the mid trachea
[2020-10-18] MEDS ORDERED: Furosemide 40 MG/4 ML VIAL IVPUSH ONE (12:30)
--- NOTE | 2020-10-18 12:41 | PCM.CONSN ---
- General Info Date of Service: 10/18/20 Subjective Update: Ms. Oreilly is remained fairly stable since yesterday. She continues to ventilate relatively easily, peak pressures remain in the low 20s and she is currently on 55% FiO2. Vital signs have been stable and she has remained afebrile. She is unable to provide meaningful information concerning symptoms or review of systems because of sedation and intubation. - Patient Data Vitals - Most Recent: Last Vital Signs Temp 96.2 F L 10/18/20 07:00 Pulse 93 10/18/20 11:00 Resp 30 H 10/18/20 11:00 BP 118/75 10/18/20 11:00 Pulse Ox 94 L 10/18/20 11:00 Weight - Most Recent: 173 lb 8.061 oz I&O - Last 24 Hours: Intake & Output 10/17/20 10/18/20 10/18/20 22:59 06:59 14:59 Intake Total 691 679 Output Total 338 693 Balance 353 -14 Lab Results Last 24 Hours: Laboratory Results - last 24 hr 10/11/20 10/17/20 10/17/20 Range/Units 13:42 16:55 16:55 WBC (4.5-11.0) K/uL RBC (3.30-5.50) M/uL Hgb (12.0-15.0) g/dL Hct (36.0-48.0) % MCV (80-98) fL MCH (27-31) pg MCHC (32-36) % Plt Count (150-400) K/uL Neut % (Auto) (36-66) % Lymph % (Auto) (24-44) % [place] % (Auto) (2-6) % Eos % (Auto) (2-4) % Baso % (Auto) (0-1) % Puncture Site A-line ABG pH 7.465 H (7.350-7.450) ABG pCO2 35.4 (35.0-42.0) mmHg ABG pO2 67.6 L (75.0-100.0) mmHg ABG HCO3 25.2 (22.0-26.0) mmol/L ABG Total CO2 22.7 (21.0-25.0) mmol/L ABG O2 Saturation 92.9 L (95.0-98.0) % ABG O2 Content 14.7 L (15.0-23.0) %vol ABG Base Excess 2.0 mm/L ABG Hemoglobin 11.4 L (12.0-16.0) g/dL ABG Oxyhemoglobin 90.9 % ABG Carboxyhemoglobin 1.2 (0.0-1.6) % ABG Methemoglobin 1.0 % Brown Test A-line O2 Delivery Device Bipap Oxygen Flow Rate L Sodium 136 L (140-148) mmol/L Potassium 3.2 L (3.6-5.2) mmol/L Chloride 100 (100-108) mmol/L Carbon Dioxide 25 (21-32) mmol/L Anion Gap 14.2 H (5.0-14.0) mmol/L BUN 8 (7-18) mg/dL Creatinine 0.7 (0.6-1.0) mg/dL Est Cr Clr Drug Dosing 81.77 mL/min Estimated GFR (MDRD) > 60 (>60) Glucose 82 (74-106) mg/dL Calcium 8.3 L (8.5-10.1) mg/dL Magnesium (1.8-2.4) mg/dL Total Bilirubin (0.2-1.0) mg/dL AST (15-37) U/L ALT (12-78) U/L Alkaline Phosphatase (46-116) U/L Total Protein (6.4-8.2) g/dL Albumin (3.4-5.0) g/dL Globulin (2.3-3.5) g/dL Albumin/Globulin Ratio (1.2-2.2) Vitamin A 38.8 (20.1-62.0) ug/dL 10/18/20 10/18/20 10/18/20 Range/Units 04:20 04:20 04:20 WBC 13.8 H (4.5-11.0) K/uL RBC 3.17 L (3.30-5.50) M/uL Hgb 11.5 L (12.0-15.0) g/dL Hct 33.0 L (36.0-48.0) % MCV 104 H (80-98) fL MCH 36 H (27-31) pg MCHC 35 (32-36) % Plt Count 266 (150-400) K/uL Neut % (Auto) 68 H (36-66) % Lymph % (Auto) 20 L (24-44) % [place] % (Auto) 6 (2-6) % Eos % (Auto) 3 (2-4) % Baso % (Auto) 3 H (0-1) % Puncture Site Line ABG pH 7.503 H (7.350-7.450) ABG pCO2 33.1 L (35.0-42.0) mmHg ABG pO2 69.5 L (75.0-100.0) mmHg ABG HCO3 25.8 (22.0-26.0) mmol/L ABG Total CO2 22.9 (21.0-25.0) mmol/L ABG O2 Saturation 94.1 L (95.0-98.0) % ABG O2 Content 15.3 (15.0-23.0) %vol ABG Base Excess 3.2 mm/L ABG Hemoglobin 11.8 L (12.0-16.0) g/dL ABG Oxyhemoglobin 91.7 % ABG Carboxyhemoglobin 1.5 (0.0-1.6) % ABG Methemoglobin 1.1 % Brown Test O2 Delivery Device Bipap Oxygen Flow Rate L Sodium 136 L (140-148) mmol/L Potassium 3.0 L (3.6-5.2) mmol/L Chloride 100 (100-108) mmol/L Carbon Dioxide 26 (21-32) mmol/L Anion Gap 13.0 (5.0-14.0) mmol/L BUN 10 (7-18) mg/dL Creatinine 0.7 (0.6-1.0) mg/dL Est Cr Clr Drug Dosing 81.77 mL/min Estimated GFR (MDRD) > 60 (>60) Glucose 84 (74-106) mg/dL Calcium 8.3 L (8.5-10.1) mg/dL Magnesium 1.6 L (1.8-2.4) mg/dL Total Bilirubin 0.6 D (0.2-1.0) mg/dL AST 29 (15-37) U/L ALT 21 (12-78) U/L Alkaline Phosphatase 159 H (46-116) U/L Total Protein 5.8 L (6.4-8.2) g/dL Albumin 2.1 L (3.4-5.0) g/dL Globulin 3.7 H (2.3-3.5) g/dL Albumin/Globulin Ratio 0.6 L (1.2-2.2) Vitamin A (20.1-62.0) ug/dL Clem Results Last 24 Hours: Microbiology 10/17/20 01:22 Gram Stain - Final Endotrachael Aspirate Respiratory Culture - Preliminary NO GROWTH AFTER 1 DAY Med Orders - Current: Current Medications Acetaminophen (Tylenol Extra Strength) 500 mg PO Q6H PRN PRN Reason: Pain/Fever Last Admin: 10/16/20 15:11 Dose: 500 mg Documented by: Benzocaine/Menthol (Cepacol Sore Throat) 1 lozenge MUCMEM Q2H PRN PRN Reason: Cough Last Admin: 10/13/20 22:24 Dose: 1 shanna Documented by: Diphenhydramine HCl (Benadryl) 50 mg PO Q6H PRN PRN Reason: Itching Last Admin: 10/14/20 23:00 Dose: 50 mg Documented by: Enoxaparin Sodium (Lovenox) 40 mg SUBCUT Q24H [facility] Last Admin: 10/17/20 20:15 Dose: 40 mg Documented by: Fluoxetine HCl (Prozac) 40 mg PO DAILY [facility] Last Admin: 10/18/20 08:31 Dose: Not Given Documented by: Fluoxetine HCl (Prozac) 20 mg PO QPM [facility] Last Admin: 10/17/20 16:48 Dose: Not Given Documented by: Furosemide (Lasix) 40 mg IVPUSH NOW ONE Stop: 10/18/20 12:31 Furosemide (Lasix) 40 mg IVPUSH NOW ONE Stop: 10/19/20 01:01 Hydroxyzine HCl (Vistaril) 100 mg IM Q4H PRN PRN Reason: Pain Last Admin: 10/12/20 07:33 Dose: 100 mg Documented by: Ceftriaxone Sodium 1 gm/ (Sodium Chloride) 50 mls @ 100 mls/hr IV Q24H [facility] Last Admin: 10/17/20 14:57 Dose: 100 mls/hr Documented by: Levofloxacin/Dextrose 750 mg/ (Premix) 150 mls @ 100 mls/hr IV Q24H [facility] Last Admin: 10/17/20 20:15 Dose: 100 mls/hr Documented by: Propofol (Diprivan 100 Ml) 100 mls @ 2.313 mls/hr IV TITRATE [facility]; Protocol Last Admin: 10/18/20 09:16 Dose: 54.9 mcg/kg/min, 25.4 mls/hr Documented by: Vancomycin HCl 1.25 gm/ Sodium (Chloride) 250 mls @ 166.667 mls/hr IV Q12H [facility] Last Admin: 10/18/20 11:43 Dose: 166.667 mls/hr Documented by: Heparin Sodium (Porcine) 5,000 (units/ Sodium Chloride) 501 mls @ 0 mls/hr IV ASDIRECTED [facility]; Protocol Potassium Chloride 20 meq/ (Premix) 100 mls @ 50 mls/hr IV Q2H [facility] Stop: 10/18/20 13:59 Magnesium Sulfate (Magnesium Sulfate In Water Premix) 2 gm in 50 mls @ 12.5 mls/hr IV Q6H [facility] Stop: 10/18/20 19:59 Potassium Chloride 40 meq/ (Premix) 100 mls @ 25 mls/hr IV ONETIME ONE Stop: 10/18/20 22:59 Lactobacillus Rhamnosus (Culturelle) 1 cap PO BID [facility] Last Admin: 10/18/20 08:30 Dose: Not Given Documented by: Levalbuterol HCl (Xopenex) 1.25 mg NEB QIDRT [facility] Last Admin: 10/18/20 10:41 Dose: 1.25 mg Documented by: Levalbuterol HCl (Xopenex) 1.25 mg NEB Q4H PRN PRN Reason: shortness of breath/wheezing Lisinopril (Prinivil) 20 mg PO BEDTIME [facility] Last Admin: 10/17/20 20:09 Dose: Not Given Documented by: Lorazepam (Ativan) 0.5 mg PO Q4H PRN PRN Reason: Anxiety Last Admin: 10/16/20 16:32 Dose: 0.5 mg Documented by: Lorazepam (Ativan) 0 mg PO ASDIRECTED [facility]; Protocol Last Admin: 10/16/20 17:57 Dose: 2 mg Documented by: Lorazepam (Ativan) 0 mg IV ASDIRECTED [facility]; Protocol Last Admin: 10/18/20 06:15 Dose: 2 mg Documented by: Miscellaneous Information (Remove Patch) 1 ea TRDERM BEDTIME [facility] Last Admin: 10/17/20 20:10 Dose: Not Given Documented by: Nicotine (Habitrol) 14 mg TRDERM DAILY [facility] Last Admin: 10/18/20 08:51 Dose: 14 mg Documented by: Ondansetron HCl (Zofran) 4 mg IVPUSH Q4H PRN PRN Reason: Nausea Last Admin: 10/12/20 11:02 Dose: 4 mg Documented by: Oxycodone HCl (Oxycodone) 5 mg PO Q4H PRN PRN Reason: Pain Pantoprazole Sodium (Protonix Iv) 40 mg IVPUSH Q24H [facility] Last Admin: 10/17/20 21:34 Dose: 40 mg Documented by: Potassium Gluconate (99mg Tab (Ptom)) 2 each PO BIDMEALS [facility] Last Admin: 10/18/20 08:30 Dose: Not Given Documented by: Sodium Chloride (Saline Flush) 10 ml FLUSH ONETIME PRN PRN Reason: PER RADIOLOGY PROTOCOL Last Admin: 10/16/20 17:10 Dose: 10 ml Documented by: Sodium Chloride ([place] Nasal [place]) 0 ml NELLY Q2H PRN PRN Reason: Congestion Last Admin: 10/15/20 08:35 Dose: 1 spray Documented by: Sodium Chloride ([place] Saline Nasal Gel) 0 gm NELLY ASDIRECTED PRN PRN Reason: Congestion Last Admin: 10/15/20 08:36 Dose: 1 applic Documented by: Trazodone HCl (Trazodone) 100 mg PO BEDTIME [facility] Last Admin: 10/17/20 20:10 Dose: Not Given Documented by: Trolamine Salicylate (Aspercreme 10%) 0 gm TOP Q4H PRN PRN Reason: back pain Last Admin: 10/15/20 21:45 Dose: 1 applic Documented by: Discontinued Medications Albuterol (Proventil Neb Soln) 2.5 mg NEB Q2H PRN PRN Reason: wheezing/shortness of breath Albuterol/Ipratropium (Duoneb 3.0-0.5 Mg/3 Ml) 3 ml INH QIDRT [facility] Last Admin: 10/14/20 06:59 Dose: 3 ml Documented by: Albuterol/Ipratropium (Duoneb 3.0-0.5 Mg/3 Ml) 3 ml INH ASDIRECTED PRN PRN Reason: Shortness of Breath Cyanocobalamin (Vitamin B12) 1,000 mcg IM ONETIME ONE Stop: 10/11/20 10:31 Last Admin: 10/11/20 11:31 Dose: 1,000 mcg Documented by: Cyclobenzaprine HCl (Flexeril) 10 mg PO Q8H PRN PRN Reason: Muscle Spasm Last Admin: 10/15/20 20:59 Dose: 10 mg Documented by: Dexamethasone (Decadron) Confirm Administered Dose 4 mg .ROUTE .STK-MED ONE Stop: 10/13/20 08:42 Diphenhydramine HCl (Benadryl) 50 mg IVPUSH Q4H PRN PRN Reason: Itching Diphenhydramine HCl (Benadryl) 25 mg PO Q6H PRN PRN Reason: Itching Last Admin: 10/12/20 21:51 Dose: 25 mg Documented by: Enoxaparin Sodium (Lovenox) 40 mg SUBCUT DAILY [facility] Last Admin: 10/16/20 21:42 Dose: 40 mg Documented by: Etomidate (Amidate) 30 mg IVPUSH ONETIME ONE Stop: 10/16/20 20:16 Last Admin: 10/16/20 20:15 Dose: 30 mg Documented by: Fentanyl (Sublimaze) Confirm Administered Dose 100 mcg .ROUTE .STK-MED ONE Stop: 10/11/20 09:02 Fluoxetine HCl (Prozac) 60 mg PO DAILY [facility] Furosemide (Lasix) 40 mg IVPUSH NOW ONE Stop: 10/13/20 14:01 Last Admin: 10/13/20 13:54 Dose: 40 mg Documented by: Furosemide (Lasix) 40 mg IVPUSH ONETIME ONE Stop: 10/14/20 00:00 Last Admin: 10/13/20 23:40 Dose: 40 mg Documented by: Furosemide (Lasix) 40 mg IVPUSH ONETIME ONE Stop: 10/14/20 09:01 Last Admin: 10/14/20 08:58 Dose: 40 mg Documented by: Furosemide (Lasix) 40 mg IVPUSH Q8H [facility] Stop: 10/15/20 01:01 Last Admin: 10/15/20 00:40 Dose: Not Given Documented by: Furosemide (Lasix) 40 mg IVPUSH Q8H [facility] Stop: 10/15/20 16:01 Last Admin: 10/15/20 16:05 Dose: 40 mg Documented by: Furosemide (Lasix) 40 mg IVPUSH NOW ONE Stop: 10/16/20 14:21 Last Admin: 10/16/20 14:27 Dose: 40 mg Documented by: Furosemide (Lasix) 40 mg IVPUSH NOW ONE Stop: 10/16/20 23:01 Last Admin: 10/16/20 22:54 Dose: 40 mg Documented by: Furosemide (Lasix) 40 mg IVPUSH NOW ONE Stop: 10/17/20 10:51 Last Admin: 10/17/20 11:07 Dose: 40 mg Documented by: Furosemide (Lasix) 40 mg IVPUSH NOW ONE Stop: 10/17/20 22:01 Last Admin: 10/17/20 21:34 Dose: 40 mg Documented by: Glycopyrrolate (Glycopyrrolate) 0.4 mg IVPUSH ONETIME ONE Stop: 10/11/20 10:31 Last Admin: 10/11/20 12:12 Dose: 0.4 mg Documented by: Heparin Sodium (Porcine) (Heparin Sodium) Confirm Administered Dose 5,000 units .ROUTE .STK-MED ONE Stop: 10/16/20 20:31 Last Admin: 10/16/20 21:11 Dose: 5,000 units Documented by: Lactated Ringer's (Ringers, Lactated) 1,000 mls @ 999 mls/hr IV BOLUS ONE Stop: 10/11/20 11:30 Last Admin: 10/11/20 10:56 Dose: 999 mls/hr Documented by: Multivitamins/Minerals 10 ml/Thiamine HCl 200 mg/ Zinc 1 ml / Lactated Ringer's 1,013 mls @ 500 mls/hr IV ONETIME ONE Stop: 10/11/20 13:31 Last Admin: 10/11/20 11:47 Dose: 500 mls/hr Documented by: Ampicillin Sodium/Sulbactam (Sodium 1.5 gm/ Sodium Chloride) 50 mls @ 100 mls /hr IV ONETIME ONE Stop: 10/11/20 10:59 Last Admin: 10/11/20 12:13 Dose: 100 mls/hr Documented by: Dextrose/Lactated Ringer's (Dextrose 5%-Lactated Ringers) 1,000 mls @ 125 mls/hr IV ASDIRECTED [facility] Last Admin: 10/13/20 09:18 Dose: 125 mls/hr Documented by: Sodium Chloride (Normal Saline) 75 mls @ 3 mls/sec IV ONETIME ONE Stop: 10/12/20 09:05 Last Admin: 10/12/20 09:28 Dose: 3 mls/sec Documented by: Meropenem 500 mg/ Sodium (Chloride) 50 mls @ 100 mls/hr IV ONCALL ONE Stop: 10/13/20 11:59 Last Admin: 10/14/20 06:32 Dose: Not Given Documented by: Acetaminophen 1,000 mg/ Premix 100 mls @ 400 mls/hr IV NOW ONE Stop: 10/12/20 23:51 Last Admin: 10/12/20 23:52 Dose: 400 mls/hr Documented by: Linezolid (Zyvox) Confirm Administered Dose 300 mls @ as directed .ROUTE .STK- MED ONE Stop: 10/13/20 09:56 Dextrose/Lactated Ringer's (Dextrose 5%-Lactated Ringers) 1,000 mls @ 25 mls/hr IV ASDIRECTED [facility] Stop: 10/15/20 16:00 Last Admin: 10/14/20 16:56 Dose: 25 mls/hr Documented by: Potassium Chloride 20 meq/Lidocaine HCl 2 ml/ Sodium Chloride 112 mls @ 56 mls/hr IV Q2H [facility] Stop: 10/15/20 12:29 Last Admin: 10/15/20 11:10 Dose: 56 mls/hr Documented by: Magnesium Sulfate (Magnesium Sulfate In Water Premix) 2 gm in 50 mls @ 25 mls/hr IV Q6H [facility] Stop: 10/15/20 15:59 Last Admin: 10/15/20 13:21 Dose: 25 mls/hr Documented by: Doxycycline Hyclate 100 mg/ (Sodium Chloride) 100 mls @ 100 mls/hr IV Q12H [facility] Last Admin: 10/16/20 15:56 Dose: 100 mls/hr Documented by: Propofol (Diprivan 100 Ml) Confirm Administered Dose 100 mls @ as directed .ROUTE .STK-MED ONE Stop: 10/16/20 20:18 Last Admin: 10/16/20 21:25 Dose: Not Given Documented by: Vancomycin HCl 1.25 gm/ Sodium (Chloride) 250 mls @ 166.667 mls/hr IV Q12H [facility] Last Admin: 10/16/20 22:54 Dose: 166.667 mls/hr Documented by: Potassium Chloride 40 meq/ (Premix) 100 mls @ 25 mls/hr IV ONETIME ONE Stop: 10/17/20 15:29 Last Admin: 10/17/20 11:18 Dose: 25 mls/hr Documented by: Iopamidol (Isovue-300 (61%)) 30 ml PO ASDIRECTED ONE Stop: 10/12/20 09:05 Last Admin: 10/12/20 09:29 Dose: 30 ml Documented by: Iopamidol (Isovue-300 (61%)) 100 ml IV . DIRECTED PRN PRN Reason: RADIOLOGY EXAM Last Admin: 10/12/20 09:27 Dose: 100 ml Documented by: Lisinopril (Prinivil) Confirm Administered Dose 20 mg .ROUTE .STK-MED ONE Stop: 10/12/20 21:33 Last Admin: 10/12/20 21:42 Dose: Not Given Documented by: Lorazepam (Ativan) 0.5 mg PO Q6H PRN PRN Reason: Anxiety Last Admin: 10/16/20 03:30 Dose: 0.5 mg Documented by: Lorazepam (Ativan) 0.5 mg IVPUSH ONETIME ONE Stop: 10/16/20 07:46 Last Admin: 10/16/20 07:53 Dose: 0.5 mg Documented by: Meropenem (Merrem) Confirm Administered Dose 500 mg .ROUTE .STK-MED ONE Stop: 10/13/20 09:55 Midazolam HCl (Versed 1 Mg/Ml) Confirm Administered Dose 2 mg .ROUTE .STK-MED ONE Stop: 10/11/20 09:02 Morphine Sulfate (Morphine Fruit Farmer 150 Mg In 30 Ml) 0 mg IV ASDIRECTED PRN; Protocol PRN Reason: Pain Last Admin: 10/13/20 19:38 Dose: 150 mg Documented by: Morphine Sulfate (Morphine) 2 mg IVPUSH ONETIME ONE Stop: 10/11/20 13:38 Last Admin: 10/11/20 13:56 Dose: 2 mg Documented by: Morphine Sulfate (Morphine) 4 mg IVPUSH ONETIME ONE Stop: 10/16/20 07:46 Last Admin: 10/16/20 07:53 Dose: 4 mg Documented by: Naloxone HCl (Narcan) 0.1 mg IV ASDIRECTED PRN PRN Reason: decreased respiratory rate Ondansetron HCl (Zofran) Confirm Administered Dose 4 mg .ROUTE .STK-MED ONE Stop: 10/13/20 08:42 Oxycodone HCl (Oxycodone) 5 - 10 mg PO Q4H PRN PRN Reason: Pain Last Admin: 10/16/20 14:04 Dose: 10 mg Documented by: Pantoprazole Sodium (Protonix) 40 mg PO ACBREAKFAST [facility] Last Admin: 10/16/20 09:18 Dose: 40 mg Documented by: Phenobarbital (Phenobarbital Sodium) 260 mg IVPUSH ONETIME ONE Stop: 10/16/20 19:06 Last Admin: 10/16/20 19:33 Dose: 260 mg Documented by: Potassium Chloride (Potassium Chloride) 40 meq PO BID@0900,1200 [facility] Stop: 10/15/20 12:01 Last Admin: 10/15/20 19:42 Dose: Not Given Documented by: Potassium Chloride (Klor-Con M20) 40 meq PO ONETIME ONE Stop: 10/17/20 17:01 Last Admin: 10/17/20 16:48 Dose: Not Given Documented by: Propofol (Diprivan 20 Ml) Confirm Administered Dose 200 mg .ROUTE .STK-MED ONE Stop: 10/11/20 09:02 Rocuronium [place] (Zemuron) 100 mg IVPUSH ONETIME ONE Stop: 10/16/20 20:16 Last Admin: 10/16/20 20:12 Dose: 100 mg Documented by: Succinylcholine Chloride (Quelicin) Confirm Administered Dose 200 mg .ROUTE .STK-MED ONE Stop: 10/16/20 20:12 Last Admin: 10/16/20 21:10 Dose: Not Given Documented by: Vancomycin HCl (Vancomycin) 1 gm IV .PHARMACY TO DOSE [facility] Stop: 10/17/20 07:00 - Exam Quality Assessment: Supplemental Oxygen, Urine Catheter, DVT Prophylaxis General: Sedated, Lethargic Lungs: Rales, Rhonchi. No: Crackles, Wheezing Cardiovascular: Regular Rate, Regular Rhythm, No Murmurs GI/Abdominal Exam: Soft, Non-Tender, No Organomegaly, No Distention Extremities: Non-Tender, No Pedal Edema Sepsis Event Note - Evaluation Sepsis Screening Result: Sepsis Risk - Focused Exam Vital Signs: Vital Signs Temp Pulse Resp BP BP Pulse Ox 10/18/20 11:00 93 30 H 118/75 94 L 10/18/20 10:49 92 10/18/20 10:00 83 25 H 108/73 93 L 10/18/20 09:00 84 25 H 109/72 93 L 10/18/20 08:00 89 25 H 108/71 93 L 10/18/20 07:02 83 10/18/20 07:00 96.2 F L 87 25 H 90/56 L 92 L 10/18/20 06:00 27 H 108/66 96/59 L 92 L 10/18/20 05:00 25 H 100/63 95/59 L 91 L 10/18/20 04:00 26 H 109/73 98/55 L 89 L 10/18/20 03:00 25 H 103/62 91/52 L 90 L 10/18/20 02:00 24 H 99/64 91/52 L 90 L 10/18/20 01:00 24 H 100/66 87/50 L 91 L Consult PN Assessment/Plan Procedures: Procedures ASSAY OF LIPASE (10/07/20) BREAST TOMOSYNTHESIS BI (09/17/18) COMPLETE CBC AUTOMATED (10/07/20) COMPLETE CBC W/AUTO DIFF WBC (11/16/13) COMPREHEN METABOLIC PANEL (10/07/20) CT ABD & PELV W/CONTRAST (10/07/20) CULTURE AEROBIC IDENTIFY (11/20/13) EMERGENCY DEPT VISIT (10/10/20) EMERGENCY DEPT VISIT (10/07/20) EMERGENCY DEPT VISIT (04/09/18) EMERGENCY DEPT VISIT (02/18/17) EMERGENCY DEPT VISIT (05/19/14) EMERGENCY DEPT VISIT (11/16/13) EXTREMITY STUDY (11/16/13) METABOLIC PANEL TOTAL CA (09/19/16) MICROBE SUSCEPTIBLE CLEM (11/20/13) POLYSOM 6/> YRS 4/> MINI (01/22/16) PT EVALUATION (11/27/13) RBC SED RATE NONAUTOMATED (11/16/13) ROUTINE VENIPUNCTURE (10/07/20) SCR MAMMO BI INCL CAD (09/17/18) THER/PROPH/DIAG INJ IV PUSH (10/07/20) THER/PROPH/DIAG INJ SC/IM (05/19/14) THERAPEUTIC EXERCISES (12/15/13) TTE W/DOPPLER COMPLETE (05/03/14) TX/PRO/DX INJ NEW DRUG ADDON (10/07/20) URINALYSIS AUTO W/SCOPE (09/19/16) URINE BACTERIA CULTURE (11/20/13) X-RAY EXAM OF LOWER LEG (05/19/14) X-RAY EXAM OF SINUSES (02/18/17) Problem List Initiated/Reviewed/Updated: Yes My Orders Last 24 Hours: My Active Orders 10/17/20 20:00 Enoxaparin [Lovenox] 40 mg SUBCUT Q24H 10/17/20 21:15 Initiate/Renew Non-Violent Restraints (All Ages) Q24H 10/18/20 09:40 Central Venous Line Insertion [OM.PC] Routine 10/18/20 10:00 Magnesium Sulfate/Water [Magnesium Sulfate in Water Premix] 2 gm in 50 ml IV Q6H Potassium Chloride [KCL 20 MEQ in Water 100 ML] 20 meq Premix Bag 1 bag IV Q2H 10/18/20 12:30 Furosemide [Lasix] 40 mg IVPUSH NOW ONE 10/18/20 19:00 Potassium Chloride Riders [KCL 40 MEQ in Water 100 ML] 40 meq Premix Bag 1 bag IV ONETIME 10/18/20 21:15 Initiate/Renew Non-Violent Restraints (All Ages) Q24H 10/19/20 01:00 Furosemide [Lasix] 40 mg IVPUSH NOW ONE 10/19/20 05:00 Chest 1V Frontal [CR] DAILY BLOOD GAS ARTERIAL [BG] Timed CBC WITH AUTO DIFF [HEME] Timed COMPREHENSIVE METABOLIC PN,CMP [CHEM] Timed MAGNESIUM [CHEM] Timed 10/19/20 21:15 Initiate/Renew Non-Violent Restraints (All Ages) Q24H 10/20/20 05:00 Chest 1V Frontal [CR] DAILY 10/20/20 21:15 Initiate/Renew Non-Violent Restraints (All Ages) Q24H 10/21/20 05:00 Chest 1V Frontal [CR] DAILY 10/21/20 21:15 Initiate/Renew Non-Violent Restraints (All Ages) Q24H 10/22/20 05:00 Chest 1V Frontal [CR] DAILY 10/22/20 21:15 Initiate/Renew Non-Violent Restraints (All Ages) Q24H 10/23/20 21:15 Initiate/Renew Non-Violent Restraints (All Ages) Q24H 10/24/20 21:15 Initiate/Renew Non-Violent Restraints (All Ages) Q24H 10/25/20 21:15 Initiate/Renew Non-Violent Restraints (All Ages) Q24H Plan: ASSESSMENT AND RECOMMENDATIONS Acute respiratory failure with hypoxia-History of ARDS with previous surgeries and volume resuscitation. Stable on current ventilator settings, no significant improvement over the last 24 hours -IV antibiotic therapy ceftriaxone, vancomycin, and levofloxacin -Mechanical ventilation; AC of 18, tidal volume 440 mL, FiO2 of 55%, PEEP of 5 -Furosemide 40 mg twice today -Continue Freeman catheter for strict intake and output monitoring -Minimize IV fluids Generalized abdominal pain-concern for mesh adherent to her liver. Surgical intervention was planned but is on hold until respiratory status improves. Pain is somewhat better today. -NPO -Surgical cares per Dr. Anna
[2020-10-18] MEDS: Magnesium Sulfate/Water 2 GM/50 ML BAG IV SCH ×2 (12:54→15:49)
[2020-10-18] MEDS: Potassium Chloride 20 MEQ in Premix Bag 1 BAG IV SCH ×2 (12:54→15:28)
[2020-10-18] MEDS: cefTRIAXone 1 GM in Sodium Chloride 0.9% 50 ML IV SCH (15:52)
[2020-10-18] MEDS ORDERED: Potassium Chloride Riders 40 MEQ in Premix Bag 1 BAG IV ONE (19:00)
[2020-10-18] MEDS: Lisinopril 20 MG Tab PO SCH (20:23)
[2020-10-18] MEDS: traZODone 50 MG Tab PO SCH (20:23)
[2020-10-18] MEDS: Enoxaparin 40 MG/0.4 ML Syringe SUBCUT SCH (20:27)
[2020-10-18] MEDS: Levofloxacin/Dextrose 5%-Water 750 MG in Premix Bag 1 BAG IV SCH (20:28)
[2020-10-18] MEDS: Pantoprazole 40 MG Vial IVPUSH SCH (20:32)
[2020-10-19] MEDS ORDERED: Furosemide 40 MG/4 ML VIAL IVPUSH ONE ×2 (01:00→12:30)
[2020-10-19] MEDS: propofoL 100 ML IV SCH ×5 (03:51→19:20)
[2020-10-19] MEDS: Levalbuterol HCl 1.25 MG/3 ML Neb NEB SCH ×4 (07:12→21:39)
[2020-10-19] MEDS: POTASSIUM GLUCONATE 99 MG PO SCH ×2 (07:55→16:29)
[2020-10-19] MEDS ORDERED: Potassium Chloride Riders 40 MEQ in Premix Bag 1 BAG IV ONE (08:30)
--- NOTE | 2020-10-19 09:06 | CR ---
CHEST: Portable 10/19/2020 at 4:37 AM CLINICAL HISTORY:Respiratory failure COMPARISON:10/18/2020 FINDINGS: Endotracheal tube remains in the midtrachea. There is a right the subclavian catheter. Tip is in the lower portion of the right atrium. Diffuse bilateral pulmonary infiltrates persist without significant interval change. IMPRESSION: Endotracheal tube and right screening catheter in place Persistent diffuse bilateral pulmonary infiltrates without significant interval change.
[2020-10-19] MEDS: Heparin Sodium 5,000 UNITS in Sodium Chloride 0.9% 500 ML IV SCH (09:54)
[2020-10-19] MEDS: Lactobacillus Rhamnosus GG (Probiotic) Cap PO SCH ×2 (10:04→20:16)
[2020-10-19] MEDS: Nicotine 14 MG/24 Hr Patch TRDERM SCH (10:05)
[2020-10-19] MEDS: FLUoxetine 20 MG Cap PO SCH ×2 (10:06→16:28)
[2020-10-19] MEDS ORDERED: Vancomycin 1.3 GM in Sodium Chloride 0.9% 250 ML IV SCH (12:00)
--- NOTE | 2020-10-19 12:42 | PCM.CONSN ---
- General Info Date of Service: 10/19/20 Subjective Update: Ms. Oreilly is to require mechanical ventilation but otherwise has been relatively stable. Continues to ventilate relatively easily with low peak pressures and FiO2 of 55%. Not yet ready to begin spontaneous breathing trials. She remains sedated and is unable to provide meaningful information concerning symptoms or review of systems. - Patient Data Vitals - Most Recent: Last Vital Signs Temp 98 F 10/19/20 12:00 Pulse 91 10/19/20 12:00 Resp 26 H 10/19/20 12:00 BP 127/67 10/19/20 12:00 Pulse Ox 96 10/19/20 12:00 Weight - Most Recent: 173 lb 8.061 oz I&O - Last 24 Hours: Intake & Output 10/18/20 10/19/20 10/19/20 22:59 06:59 14:59 Intake Total 884 250 350 Output Total 825 1135 Balance 59 -885 350 Lab Results Last 24 Hours: Laboratory Results - last 24 hr 10/19/20 10/19/20 10/19/20 Range/Units 06:33 06:33 06:33 WBC 12.4 H (4.5-11.0) K/uL RBC 3.38 (3.30-5.50) M/uL Hgb 11.6 L (12.0-15.0) g/dL Hct 35.3 L (36.0-48.0) % MCV 104 H (80-98) fL MCH 34 H (27-31) pg MCHC 33 (32-36) % Plt Count 320 (150-400) K/uL Add Manual Diff Yes Neutrophils % (Manual) 77 H (36-66) % Band Neutrophils % 1 L (5-11) % Lymphocytes % (Manual) 12 L (24-44) % Monocytes % (Manual) 5 (2-6) % Eosinophils % (Manual) 5 H (2-4) % Puncture Site A-line ABG pH 7.495 H (7.350-7.450) ABG pCO2 31.6 L (35.0-42.0) mmHg ABG pO2 75.5 (75.0-100.0) mmHg ABG HCO3 24.1 (22.0-26.0) mmol/L ABG Total CO2 21.4 (21.0-25.0) mmol/L ABG O2 Saturation 95.2 (95.0-98.0) % ABG O2 Content 15.9 (15.0-23.0) %vol ABG Base Excess 1.8 mm/L ABG Hemoglobin 12.2 (12.0-16.0) g/dL ABG Oxyhemoglobin 92.7 % ABG Carboxyhemoglobin 1.9 H (0.0-1.6) % ABG Methemoglobin 0.7 % Brown Test A-line O2 Delivery Device Bipap Oxygen Flow Rate L Sodium 136 L (140-148) mmol/L Potassium 3.4 L (3.6-5.2) mmol/L Chloride 102 (100-108) mmol/L Carbon Dioxide 26 (21-32) mmol/L Anion Gap 11.4 (5.0-14.0) mmol/L BUN 12 (7-18) mg/dL Creatinine 0.7 (0.6-1.0) mg/dL Est Cr Clr Drug Dosing 81.77 mL/min Estimated GFR (MDRD) > 60 (>60) Glucose 95 (74-106) mg/dL Calcium 8.3 L (8.5-10.1) mg/dL Magnesium 1.8 (1.8-2.4) mg/dL Total Bilirubin 0.6 (0.2-1.0) mg/dL AST 34 (15-37) U/L ALT 21 (12-78) U/L Alkaline Phosphatase 140 H (46-116) U/L Total Protein 6.0 L (6.4-8.2) g/dL Albumin 2.1 L (3.4-5.0) g/dL Globulin 3.9 H (2.3-3.5) g/dL Albumin/Globulin Ratio 0.5 L (1.2-2.2) Vancomycin Trough (10.0-20.0) ug/mL 10/19/20 Range/Units 10:41 WBC (4.5-11.0) K/uL RBC (3.30-5.50) M/uL Hgb (12.0-15.0) g/dL Hct (36.0-48.0) % MCV (80-98) fL MCH (27-31) pg MCHC (32-36) % Plt Count (150-400) K/uL Add Manual Diff Neutrophils % (Manual) (36-66) % Band Neutrophils % (5-11) % Lymphocytes % (Manual) (24-44) % Monocytes % (Manual) (2-6) % Eosinophils % (Manual) (2-4) % Puncture Site ABG pH (7.350-7.450) ABG pCO2 (35.0-42.0) mmHg ABG pO2 (75.0-100.0) mmHg ABG HCO3 (22.0-26.0) mmol/L ABG Total CO2 (21.0-25.0) mmol/L ABG O2 Saturation (95.0-98.0) % ABG O2 Content (15.0-23.0) %vol ABG Base Excess mm/L ABG Hemoglobin (12.0-16.0) g/dL ABG Oxyhemoglobin % ABG Carboxyhemoglobin (0.0-1.6) % ABG Methemoglobin % Brown Test O2 Delivery Device Oxygen Flow Rate L Sodium (140-148) mmol/L Potassium (3.6-5.2) mmol/L Chloride (100-108) mmol/L Carbon Dioxide (21-32) mmol/L Anion Gap (5.0-14.0) mmol/L BUN (7-18) mg/dL Creatinine (0.6-1.0) mg/dL Est Cr Clr Drug Dosing mL/min Estimated GFR (MDRD) (>60) Glucose (74-106) mg/dL Calcium (8.5-10.1) mg/dL Magnesium (1.8-2.4) mg/dL Total Bilirubin (0.2-1.0) mg/dL AST (15-37) U/L ALT (12-78) U/L Alkaline Phosphatase (46-116) U/L Total Protein (6.4-8.2) g/dL Albumin (3.4-5.0) g/dL Globulin (2.3-3.5) g/dL Albumin/Globulin Ratio (1.2-2.2) Vancomycin Trough 14.2 (10.0-20.0) ug/mL Clem Results Last 24 Hours: Microbiology 10/17/20 01:22 Gram Stain - Final Endotrachael Aspirate Respiratory Culture - Final NO GROWTH AFTER 2 DAYS Med Orders - Current: Current Medications Acetaminophen (Tylenol Extra Strength) 500 mg PO Q6H PRN PRN Reason: Pain/Fever Last Admin: 10/16/20 15:11 Dose: 500 mg Documented by: Benzocaine/Menthol (Cepacol Sore Throat) 1 lozenge MUCMEM Q2H PRN PRN Reason: Cough Last Admin: 10/13/20 22:24 Dose: 1 shanna Documented by: Diphenhydramine HCl (Benadryl) 50 mg PO Q6H PRN PRN Reason: Itching Last Admin: 10/14/20 23:00 Dose: 50 mg Documented by: Enoxaparin Sodium (Lovenox) 40 mg SUBCUT Q24H YEHUDA Last Admin: 10/18/20 20:27 Dose: 40 mg Documented by: Fluoxetine HCl (Prozac) 40 mg PO DAILY [facility] Last Admin: 10/19/20 10:06 Dose: Not Given Documented by: Fluoxetine HCl (Prozac) 20 mg PO QPM YEHUDA Last Admin: 10/18/20 16:20 Dose: Not Given Documented by: Furosemide (Lasix) 40 mg IVPUSH NOW ONE Stop: 10/20/20 01:01 Hydroxyzine HCl (Vistaril) 100 mg IM Q4H PRN PRN Reason: Pain Last Admin: 10/12/20 07:33 Dose: 100 mg Documented by: Ceftriaxone Sodium 1 gm/ (Sodium Chloride) 50 mls @ 100 mls/hr IV Q24H [facility] Last Admin: 10/18/20 15:52 Dose: 100 mls/hr Documented by: Levofloxacin/Dextrose 750 mg/ (Premix) 150 mls @ 100 mls/hr IV Q24H [facility] Last Admin: 10/18/20 20:28 Dose: 100 mls/hr Documented by: Propofol (Diprivan 100 Ml) 100 mls @ 2.313 mls/hr IV TITRATE [facility]; Protocol Last Admin: 10/19/20 11:08 Dose: 55 mcg/kg/min, 25.447 mls/hr Documented by: Heparin Sodium (Porcine) 5,000 (units/ Sodium Chloride) 501 mls @ 0 mls/hr IV ASDIRECTED [facility]; Protocol Last Admin: 10/19/20 09:54 Dose: 1 mls/hr, 1 mls/hr Documented by: Vancomycin HCl 1.3 gm/ Sodium (Chloride) 250 mls @ 166.667 mls/hr IV Q12H [facility] Last Admin: 10/19/20 12:18 Dose: 166.667 mls/hr Documented by: Lactobacillus Rhamnosus (Culturelle) 1 cap PO BID [facility] Last Admin: 10/19/20 10:04 Dose: Not Given Documented by: Levalbuterol HCl (Xopenex) 1.25 mg NEB QIDRT [facility] Last Admin: 10/19/20 10:39 Dose: 1.25 mg Documented by: Levalbuterol HCl (Xopenex) 1.25 mg NEB Q4H PRN PRN Reason: shortness of breath/wheezing Lisinopril (Prinivil) 20 mg PO BEDTIME [facility] Last Admin: 10/18/20 20:23 Dose: Not Given Documented by: Lorazepam (Ativan) 0.5 mg PO Q4H PRN PRN Reason: Anxiety Last Admin: 10/16/20 16:32 Dose: 0.5 mg Documented by: Lorazepam (Ativan) 0 mg PO ASDIRECTED [facility]; Protocol Last Admin: 10/16/20 17:57 Dose: 2 mg Documented by: Lorazepam (Ativan) 0 mg IV ASDIRECTED [facility]; Protocol Last Admin: 10/18/20 06:15 Dose: 2 mg Documented by: Miscellaneous Information (Remove Patch) 1 ea TRDERM BEDTIME [facility] Last Admin: 10/18/20 20:44 Dose: 1 ea Documented by: Nicotine (Habitrol) 14 mg TRDERM DAILY [facility] Last Admin: 10/19/20 10:05 Dose: 14 mg Documented by: Ondansetron HCl (Zofran) 4 mg IVPUSH Q4H PRN PRN Reason: Nausea Last Admin: 10/12/20 11:02 Dose: 4 mg Documented by: Oxycodone HCl (Oxycodone) 5 mg PO Q4H PRN PRN Reason: Pain Pantoprazole Sodium (Protonix Iv) 40 mg IVPUSH Q24H [facility] Last Admin: 10/18/20 20:32 Dose: 40 mg Documented by: Potassium Gluconate (99mg Tab (Ptom)) 2 each PO BIDMEALS [facility] Last Admin: 10/19/20 07:55 Dose: Not Given Documented by: Sodium Chloride (Saline Flush) 10 ml FLUSH ONETIME PRN PRN Reason: PER RADIOLOGY PROTOCOL Last Admin: 10/16/20 17:10 Dose: 10 ml Documented by: Sodium Chloride ([place] Nasal [place]) 0 ml NELLY Q2H PRN PRN Reason: Congestion Last Admin: 10/15/20 08:35 Dose: 1 spray Documented by: Sodium Chloride ([place] Saline Nasal Gel) 0 gm NELLY ASDIRECTED PRN PRN Reason: Congestion Last Admin: 10/15/20 08:36 Dose: 1 applic Documented by: Trazodone HCl (Trazodone) 100 mg PO BEDTIME YEHUDA Last Admin: 10/18/20 20:23 Dose: Not Given Documented by: Trolamine Salicylate (Aspercreme 10%) 0 gm TOP Q4H PRN PRN Reason: back pain Last Admin: 10/15/20 21:45 Dose: 1 applic Documented by: Discontinued Medications Albuterol (Proventil Neb Soln) 2.5 mg NEB Q2H PRN PRN Reason: wheezing/shortness of breath Albuterol/Ipratropium (Duoneb 3.0-0.5 Mg/3 Ml) 3 ml INH QIDRT YEHUDA Last Admin: 10/14/20 06:59 Dose: 3 ml Documented by: Albuterol/Ipratropium (Duoneb 3.0-0.5 Mg/3 Ml) 3 ml INH ASDIRECTED PRN PRN Reason: Shortness of Breath Cyanocobalamin (Vitamin B12) 1,000 mcg IM ONETIME ONE Stop: 10/11/20 10:31 Last Admin: 10/11/20 11:31 Dose: 1,000 mcg Documented by: Cyclobenzaprine HCl (Flexeril) 10 mg PO Q8H PRN PRN Reason: Muscle Spasm Last Admin: 10/15/20 20:59 Dose: 10 mg Documented by: Dexamethasone (Decadron) Confirm Administered Dose 4 mg .ROUTE .STK-MED ONE Stop: 10/13/20 08:42 Diphenhydramine HCl (Benadryl) 50 mg IVPUSH Q4H PRN PRN Reason: Itching Diphenhydramine HCl (Benadryl) 25 mg PO Q6H PRN PRN Reason: Itching Last Admin: 10/12/20 21:51 Dose: 25 mg Documented by: Enoxaparin Sodium (Lovenox) 40 mg SUBCUT DAILY [facility] Last Admin: 10/16/20 21:42 Dose: 40 mg Documented by: Etomidate (Amidate) 30 mg IVPUSH ONETIME ONE Stop: 10/16/20 20:16 Last Admin: 10/16/20 20:15 Dose: 30 mg Documented by: Fentanyl (Sublimaze) Confirm Administered Dose 100 mcg .ROUTE .STK-MED ONE Stop: 10/11/20 09:02 Fluoxetine HCl (Prozac) 60 mg PO DAILY [facility] Furosemide (Lasix) 40 mg IVPUSH NOW ONE Stop: 10/13/20 14:01 Last Admin: 10/13/20 13:54 Dose: 40 mg Documented by: Furosemide (Lasix) 40 mg IVPUSH ONETIME ONE Stop: 10/14/20 00:00 Last Admin: 10/13/20 23:40 Dose: 40 mg Documented by: Furosemide (Lasix) 40 mg IVPUSH ONETIME ONE Stop: 10/14/20 09:01 Last Admin: 10/14/20 08:58 Dose: 40 mg Documented by: Furosemide (Lasix) 40 mg IVPUSH Q8H [facility] Stop: 10/15/20 01:01 Last Admin: 10/15/20 00:40 Dose: Not Given Documented by: Furosemide (Lasix) 40 mg IVPUSH Q8H [facility] Stop: 10/15/20 16:01 Last Admin: 10/15/20 16:05 Dose: 40 mg Documented by: Furosemide (Lasix) 40 mg IVPUSH NOW ONE Stop: 10/16/20 14:21 Last Admin: 10/16/20 14:27 Dose: 40 mg Documented by: Furosemide (Lasix) 40 mg IVPUSH NOW ONE Stop: 10/16/20 23:01 Last Admin: 10/16/20 22:54 Dose: 40 mg Documented by: Furosemide (Lasix) 40 mg IVPUSH NOW ONE Stop: 10/17/20 10:51 Last Admin: 10/17/20 11:07 Dose: 40 mg Documented by: Furosemide (Lasix) 40 mg IVPUSH NOW ONE Stop: 10/17/20 22:01 Last Admin: 10/17/20 21:34 Dose: 40 mg Documented by: Furosemide (Lasix) 40 mg IVPUSH NOW ONE Stop: 10/18/20 12:31 Last Admin: 10/18/20 13:04 Dose: 40 mg Documented by: Furosemide (Lasix) 40 mg IVPUSH NOW ONE Stop: 10/19/20 01:01 Last Admin: 10/19/20 01:55 Dose: 40 mg Documented by: Furosemide (Lasix) 40 mg IVPUSH NOW ONE Stop: 10/19/20 12:31 Glycopyrrolate (Glycopyrrolate) 0.4 mg IVPUSH ONETIME ONE Stop: 10/11/20 10:31 Last Admin: 10/11/20 12:12 Dose: 0.4 mg Documented by: Heparin Sodium (Porcine) (Heparin Sodium) Confirm Administered Dose 5,000 units .ROUTE .STK-MED ONE Stop: 10/16/20 20:31 Last Admin: 10/16/20 21:11 Dose: 5,000 units Documented by: Lactated Ringer's (Ringers, Lactated) 1,000 mls @ 999 mls/hr IV BOLUS ONE Stop: 10/11/20 11:30 Last Admin: 10/11/20 10:56 Dose: 999 mls/hr Documented by: Multivitamins/Minerals 10 ml/Thiamine HCl 200 mg/ Zinc 1 ml / Lactated Ringer's 1,013 mls @ 500 mls/hr IV ONETIME ONE Stop: 10/11/20 13:31 Last Admin: 10/11/20 11:47 Dose: 500 mls/hr Documented by: Ampicillin Sodium/Sulbactam (Sodium 1.5 gm/ Sodium Chloride) 50 mls @ 100 mls/hr IV ONETIME ONE Stop: 10/11/20 10:59 Last Admin: 10/11/20 12:13 Dose: 100 mls/hr Documented by: Dextrose/Lactated Ringer's (Dextrose 5%-Lactated Ringers) 1,000 mls @ 125 mls/hr IV ASDIRECTED [facility] Last Admin: 10/13/20 09:18 Dose: 125 mls/hr Documented by: Sodium Chloride (Normal Saline) 75 mls @ 3 mls/sec IV ONETIME ONE Stop: 10/12/20 09:05 Last Admin: 10/12/20 09:28 Dose: 3 mls/sec Documented by: Meropenem 500 mg/ Sodium (Chloride) 50 mls @ 100 mls/hr IV ONCALL ONE Stop: 10/13/20 11:59 Last Admin: 10/14/20 06:32 Dose: Not Given Documented by: Acetaminophen 1,000 mg/ Premix 100 mls @ 400 mls/hr IV NOW ONE Stop: 10/12/20 23:51 Last Admin: 10/12/20 23:52 Dose: 400 mls/hr Documented by: Linezolid (Zyvox) Confirm Administered Dose 300 mls @ as directed .ROUTE .[facility] ONE Stop: 10/13/20 09:56 Dextrose/Lactated Ringer's (Dextrose 5%-Lactated Ringers) 1,000 mls @ 25 mls/hr IV ASDIRECTED [facility] Stop: 10/15/20 16:00 Last Admin: 10/14/20 16:56 Dose: 25 mls/hr Documented by: Potassium Chloride 20 meq/Lidocaine HCl 2 ml/ Sodium Chloride 112 mls @ 56 mls/hr IV Q2H [facility] Stop: 10/15/20 12:29 Last Admin: 10/15/20 11:10 Dose: 56 mls/hr Documented by: Magnesium Sulfate (Magnesium Sulfate In Water Premix) 2 gm in 50 mls @ 25 mls/hr IV Q6H [facility] Stop: 10/15/20 15:59 Last Admin: 10/15/20 13:21 Dose: 25 mls/hr Documented by: Doxycycline Hyclate 100 mg/ (Sodium Chloride) 100 mls @ 100 mls/hr IV Q12H [facility] Last Admin: 10/16/20 15:56 Dose: 100 mls/hr Documented by: Propofol (Diprivan 100 Ml) Confirm Administered Dose 100 mls @ as directed .ROUTE .[facility]-MED ONE Stop: 10/16/20 20:18 Last Admin: 10/16/20 21:25 Dose: Not Given Documented by: Vancomycin HCl 1.25 gm/ Sodium (Chloride) 250 mls @ 166.667 mls/hr IV Q12H [facility] Last Admin: 10/16/20 22:54 Dose: 166.667 mls/hr Documented by: Vancomycin HCl 1.25 gm/ Sodium (Chloride) 250 mls @ 166.667 mls/hr IV Q12H [facility] Last Admin: 10/18/20 23:45 Dose: 166.667 mls/hr Documented by: Potassium Chloride 40 meq/ (Premix) 100 mls @ 25 mls/hr IV ONETIME ONE Stop: 10/17/20 15:29 Last Admin: 10/17/20 11:18 Dose: 25 mls/hr Documented by: Potassium Chloride 20 meq/ (Premix) 100 mls @ 50 mls/hr IV Q2H [facility] Stop: 10/18/20 13:59 Last Admin: 10/18/20 15:28 Dose: 50 mls/hr Documented by: Magnesium Sulfate (Magnesium Sulfate In Water Premix) 2 gm in 50 mls @ 12.5 mls/hr IV Q6H YEHU[facility] Stop: 10/18/20 19:59 Last Admin: 10/18/20 15:49 Dose: 12.5 mls/hr Documented by: Potassium Chloride 40 meq/ (Premix) 100 mls @ 25 mls/hr IV ONETIME ONE Stop: 10/18/20 22:59 Last Admin: 10/18/20 18:32 Dose: 25 mls/hr Documented by: Sodium Chloride (Normal Saline) 500 mls @ as directed IV .STK-MED ONE Stop: 10/16/20 20:31 Potassium Chloride 40 meq/ (Premix) 100 mls @ 25 mls/hr IV ONETIME ONE Stop: 10/19/20 12:29 Last Admin: 10/19/20 09:52 Dose: 25 mls/hr Documented by: Iopamidol (Isovue-300 (61%)) 30 ml PO ASDIRECTED ONE Stop: 10/12/20 09:05 Last Admin: 10/12/20 09:29 Dose: 30 ml Documented by: Iopamidol (Isovue-300 (61%)) 100 ml IV . DIRECTED PRN PRN Reason: RADIOLOGY EXAM Last Admin: 10/12/20 09:27 Dose: 100 ml Documented by: Lisinopril (Prinivil) Confirm Administered Dose 20 mg .ROUTE .STK-MED ONE Stop: 10/12/20 21:33 Last Admin: 10/12/20 21:42 Dose: Not Given Documented by: Lorazepam (Ativan) 0.5 mg PO Q6H PRN PRN Reason: Anxiety Last Admin: 10/16/20 03:30 Dose: 0.5 mg Documented by: Lorazepam (Ativan) 0.5 mg IVPUSH ONETIME ONE Stop: 10/16/20 07:46 Last Admin: 10/16/20 07:53 Dose: 0.5 mg Documented by: Meropenem (Merrem) Confirm Administered Dose 500 mg .ROUTE .STK-MED ONE Stop: 10/13/20 09:55 Midazolam HCl (Versed 1 Mg/Ml) Confirm Administered Dose 2 mg .ROUTE .STK-MED ONE Stop: 10/11/20 09:02 Morphine Sulfate (Morphine Hoth[employer] Worker 150 Mg In 30 Ml) 0 mg IV ASDIRECTED PRN; Protocol PRN Reason: Pain Last Admin: 10/13/20 19:38 Dose: 150 mg Documented by: Morphine Sulfate (Morphine) 2 mg IVPUSH ONETIME ONE Stop: 10/11/20 13:38 Last Admin: 10/11/20 13:56 Dose: 2 mg Documented by: Morphine Sulfate (Morphine) 4 mg IVPUSH ONETIME ONE Stop: 10/16/20 07:46 Last Admin: 10/16/20 07:53 Dose: 4 mg Documented by: Naloxone HCl (Narcan) 0.1 mg IV ASDIRECTED PRN PRN Reason: decreased respiratory rate Ondansetron HCl (Zofran) Confirm Administered Dose 4 mg .ROUTE .STK-MED ONE Stop: 10/13/20 08:42 Oxycodone HCl (Oxycodone) 5 - 10 mg PO Q4H PRN PRN Reason: Pain Last Admin: 10/16/20 14:04 Dose: 10 mg Documented by: Pantoprazole Sodium (Protonix) 40 mg PO [facility]FA[facility] Last Admin: 10/16/20 09:18 Dose: 40 mg Documented by: Phenobarbital (Phenobarbital Sodium) 260 mg IVPUSH ONETIME ONE Stop: 10/16/20 19:06 Last Admin: 10/16/20 19:33 Dose: 260 mg Documented by: Potassium Chloride (Potassium Chloride) 40 meq PO BID@0900,1200 [facility] Stop: 10/15/20 12:01 Last Admin: 10/15/20 19:42 Dose: Not Given Documented by: Potassium Chloride (Klor-Con M20) 40 meq PO ONETIME ONE Stop: 10/17/20 17:01 Last Admin: 10/17/20 16:48 Dose: Not Given Documented by: Propofol (Diprivan 20 Ml) Confirm Administered Dose 200 mg .ROUTE .STK-MED ONE Stop: 10/11/20 09:02 Rocuronium [place] (Zemuron) 100 mg IVPUSH ONETIME ONE Stop: 10/16/20 20:16 Last Admin: 10/16/20 20:12 Dose: 100 mg Documented by: Succinylcholine Chloride (Quelicin) Confirm Administered Dose 200 mg .ROUTE .STK-MED ONE Stop: 10/16/20 20:12 Last Admin: 10/16/20 21:10 Dose: Not Given Documented by: Vancomycin HCl (Vancomycin) 1 gm IV .PHARMACY TO DOSE YEHUDA Stop: 10/17/20 07:00 - Exam Quality Assessment: Supplemental Oxygen (Ventilator), Central Line/PICC, Urine Catheter, DVT Prophylaxis General: Sedated, Lethargic Lungs: Rales. No: Crackles, Rhonchi, Wheezing Cardiovascular: Regular Rate, Regular Rhythm, No Murmurs GI/Abdominal Exam: Soft, Non-Tender, No Organomegaly, No Distention Extremities: Non-Tender, No Pedal Edema Sepsis Event Note - Evaluation Sepsis Screening Result: Sepsis Risk - Focused Exam Vital Signs: Vital Signs Temp Temp Pulse Resp BP BP Pulse Ox 10/19/20 12:00 98 F 91 26 H 127/67 96 10/19/20 11:00 90 25 H 117/67 96 10/19/20 10:39 92 10/19/20 09:00 97.2 F 107 H 15 115/78 95 10/19/20 08:00 85 118/75 10/19/20 07:12 80 10/19/20 07:00 79 18 109/72 91 L 10/19/20 06:00 26 H 100/65 86/47 L 93 L 10/19/20 05:00 24 H 102/67 104/57 L 93 L 10/19/20 04:00 23 H 112/69 113/59 L 92 L 10/19/20 03:00 97.8 F 25 H 104/67 104/56 L 90 L 10/19/20 02:00 26 H 110/70 111/59 L 91 L 10/19/20 01:00 23 H 115/71 118/60 94 L Consult PN Assessment/Plan Procedures: Procedures ASSAY OF LIPASE (10/07/20) BREAST TOMOSYNTHESIS BI (09/17/18) COMPLETE CBC AUTOMATED (10/07/20) COMPLETE CBC W/AUTO DIFF WBC (11/16/13) COMPREHEN METABOLIC PANEL (10/07/20) CT ABD & PELV W/CONTRAST (10/07/20) CULTURE AEROBIC IDENTIFY (11/20/13) EMERGENCY DEPT VISIT (10/10/20) EMERGENCY DEPT VISIT (10/07/20) EMERGENCY DEPT VISIT (04/09/18) EMERGENCY DEPT VISIT (02/18/17) EMERGENCY DEPT VISIT (05/19/14) EMERGENCY DEPT VISIT (11/16/13) EXTREMITY STUDY (11/16/13) METABOLIC PANEL TOTAL CA (09/19/16) MICROBE SUSCEPTIBLE CLEM (11/20/13) POLYSOM 6/> YRS 4/> MINI (01/22/16) PT EVALUATION (11/27/13) RBC SED RATE NONAUTOMATED (11/16/13) ROUTINE VENIPUNCTURE (10/07/20) SCR MAMMO BI INCL CAD (09/17/18) THER/PROPH/DIAG INJ IV PUSH (10/07/20) THER/PROPH/DIAG INJ SC/IM (05/19/14) THERAPEUTIC EXERCISES (12/15/13) TTE W/DOPPLER COMPLETE (05/03/14) TX/PRO/DX INJ NEW DRUG ADDON (10/07/20) URINALYSIS AUTO W/SCOPE (09/19/16) URINE BACTERIA CULTURE (11/20/13) X-RAY EXAM OF LOWER LEG (05/19/14) X-RAY EXAM OF SINUSES (02/18/17) Problem List Initiated/Reviewed/Updated: Yes My Orders Last 24 Hours: My Active Orders 10/18/20 14:09 Pressure Reduction Mattress [OM.PC] Routine 10/18/20 21:15 Initiate/Renew Non-Violent Restraints (All Ages) Q24H 10/19/20 21:15 Initiate/Renew Non-Violent Restraints (All Ages) Q24H 10/20/20 01:00 Furosemide [Lasix] 40 mg IVPUSH NOW ONE 10/20/20 05:00 Chest 1V Frontal [CR] DAILY BLOOD GAS ARTERIAL [BG] Timed CBC WITH AUTO DIFF [HEME] Timed COMPREHENSIVE METABOLIC PN,CMP [CHEM] Timed MAGNESIUM [CHEM] Timed 10/20/20 21:15 Initiate/Renew Non-Violent Restraints (All Ages) Q24H 10/21/20 05:00 Chest 1V Frontal [CR] DAILY 10/21/20 21:15 Initiate/Renew Non-Violent Restraints (All Ages) Q24H 10/22/20 05:00 Chest 1V Frontal [CR] DAILY 10/22/20 21:15 Initiate/Renew Non-Violent Restraints (All Ages) Q24H 10/23/20 21:15 Initiate/Renew Non-Violent Restraints (All Ages) Q24H 10/24/20 21:15 Initiate/Renew Non-Violent Restraints (All Ages) Q24H 10/25/20 21:15 Initiate/Renew Non-Violent Restraints (All Ages) Q24H 10/26/20 21:15 Initiate/Renew Non-Violent Restraints (All Ages) Q24H Plan: ASSESSMENT AND RECOMMENDATIONS Acute respiratory failure with hypoxia-History of ARDS with previous surgeries a nd volume resuscitation. Stable on current ventilator settings, no significant improvement over the last 24 hours. Ongoing good diuresis on a daily basis has not resulted in significant improvement in respiratory status -IV antibiotic therapy ceftriaxone, and levofloxacin -Discontinue IV vancomycin -Mechanical ventilation; AC of 18, tidal volume 440 mL, FiO2 of 55%, PEEP of 5 -Furosemide 40 mg twice today -Continue Freeman catheter for strict intake and output monitoring -Minimize IV fluids Alcohol withdrawal-stable with current management Generalized abdominal pain-concern for mesh adherent to her liver. Surgical intervention was planned but is on hold until respiratory status improves. Pain is somewhat better today. -NPO -Surgical cares per Dr. Anna
[2020-10-19] MEDS: cefTRIAXone 1 GM in Sodium Chloride 0.9% 50 ML IV SCH (15:14)
[2020-10-19] MEDS: LORazepam 2 MG/ML SDV IVPUSH PRN ×2 (15:52→21:30)
[2020-10-19] MEDS: Enoxaparin 40 MG/0.4 ML Syringe SUBCUT SCH (19:28)
[2020-10-19] MEDS: Lisinopril 20 MG Tab PO SCH (20:16)
[2020-10-19] MEDS: traZODone 50 MG Tab PO SCH (20:17)
[2020-10-19] MEDS: Pantoprazole 40 MG Vial IVPUSH SCH (21:38)
[2020-10-19] MEDS: Levofloxacin/Dextrose 5%-Water 750 MG in Premix Bag 1 BAG IV SCH (21:39)
[2020-10-20] MEDS: LORazepam 2 MG/ML SDV IVPUSH PRN ×4 (00:27→21:15)
[2020-10-20] MEDS ORDERED: Furosemide 40 MG/4 ML VIAL IVPUSH ONE (01:00)
[2020-10-20] MEDS: propofoL 100 ML IV SCH ×6 (05:55→23:24)
[2020-10-20] MEDS: Levalbuterol HCl 1.25 MG/3 ML Neb NEB SCH ×4 (07:06→20:24)
[2020-10-20] MEDS: POTASSIUM GLUCONATE 99 MG PO SCH (07:37)
[2020-10-20] MEDS: FLUoxetine 20 MG Cap PO SCH (08:42)
[2020-10-20] MEDS: Lactobacillus Rhamnosus GG (Probiotic) Cap PO SCH (08:42)
--- NOTE | 2020-10-20 09:20 | CR ---
CHEST: Portable 10/20/2020 at 4:44 AM CLINICAL HISTORY:Respiratory failure COMPARISON:10/19/2020 FINDINGS: Endotracheal tube remains in the distal third of the trachea at 3 cm from the macho. This has advanced slightly. There is a right to subclavian catheter. The tip is in the lower right atrium. Diffuse bilateral pulmonary infiltrates are similar to prior study. IMPRESSION: Persistent diffuse bilateral pulmonary infiltrates without significant change Endotracheal tube and right subclavian catheter described above
[2020-10-20] MEDS: Nicotine 14 MG/24 Hr Patch TRDERM SCH (09:27)
[2020-10-20] MEDS: Furosemide 40 MG/4 ML VIAL IVPUSH SCH ×2 (11:25→21:00)
--- NOTE | 2020-10-20 12:50 | PCM.PN ---
- General Info Date of Service: 10/20/20 Subjective Update: Patient remains on ventilatory support, AC with FiO2 of 55% and PEEP 5 Patient is up about 1L fluid still Unable to give history o/w Functional Status: Reports: Pain Controlled - Review of Systems General: Reports: No Symptoms HEENT: Reports: No Symptoms Pulmonary: Reports: Cough Cardiovascular: Reports: Other (Some hypotension noted but still with MAP >65) Gastrointestinal: Reports: No Symptoms Genitourinary: Reports: No Symptoms Musculoskeletal: Reports: No Symptoms Skin: Reports: No Symptoms Neurological: Reports: No Symptoms Psychiatric: Reports: No Symptoms - Patient Data Vitals - Most Recent: Last Vital Signs Temp 97.6 F 10/20/20 09:08 Pulse 82 10/20/20 10:49 Resp 26 H 10/20/20 10:00 BP 100/66 10/20/20 10:00 Pulse Ox 94 L 10/20/20 10:00 Weight - Most Recent: 173 lb 8.061 oz I&O - Last 24 Hours: Intake & Output 10/19/20 10/20/20 10/20/20 22:59 06:59 14:59 Intake Total 770 640 Output Total 1775 565 500 Balance -1005 75 -500 Imaging Impressions - Last 24 Hours: XR still showing diffuse bilateral pulmonary infiltrates that have remained unchanged since admission to ICU and intubation Lab Results Last 24 Hours: Laboratory Results - last 24 hr 10/20/20 10/20/20 10/20/20 Range/Units 05:17 05:17 05:17 WBC 12.4 H (4.5-11.0) K/uL RBC 3.50 (3.30-5.50) M/uL Hgb 12.2 (12.0-15.0) g/dL Hct 36.8 (36.0-48.0) % MCV 105 H (80-98) fL MCH 35 H (27-31) pg MCHC 33 (32-36) % Plt Count 327 (150-400) K/uL Add Manual Diff Yes Neutrophils % (Manual) 72 H (36-66) % Band Neutrophils % 2 L (5-11) % Lymphocytes % (Manual) 15 L (24-44) % Monocytes % (Manual) 5 (2-6) % Eosinophils % (Manual) 6 H (2-4) % Puncture Site Line ABG pH 7.476 H (7.350-7.450) ABG pCO2 34.2 L (35.0-42.0) mmHg ABG pO2 83.4 (75.0-100.0) mmHg ABG HCO3 24.9 (22.0-26.0) mmol/L ABG Total CO2 22.1 (21.0-25.0) mmol/L ABG O2 Saturation 96.2 (95.0-98.0) % ABG O2 Content 16.7 (15.0-23.0) %vol ABG Base Excess 2.1 mm/L ABG Hemoglobin 12.5 (12.0-16.0) g/dL ABG Oxyhemoglobin 94.2 % ABG Carboxyhemoglobin 1.3 (0.0-1.6) % ABG Methemoglobin 0.8 % O2 Delivery Device Bipap Oxygen Flow Rate L Sodium 138 L (140-148) mmol/L Potassium 3.3 L (3.6-5.2) mmol/L Chloride 102 (100-108) mmol/L Carbon Dioxide 26 (21-32) mmol/L Anion Gap 13.3 (5.0-14.0) mmol/L BUN 14 (7-18) mg/dL Creatinine 0.7 (0.6-1.0) mg/dL Est Cr Clr Drug Dosing 81.77 mL/min Estimated GFR (MDRD) > 60 (>60) Glucose 96 (74-106) mg/dL Calcium 8.7 (8.5-10.1) mg/dL Magnesium 1.6 L (1.8-2.4) mg/dL Total Bilirubin 0.5 (0.2-1.0) mg/dL AST 32 (15-37) U/L ALT 27 (12-78) U/L Alkaline Phosphatase 131 H (46-116) U/L Total Protein 6.4 (6.4-8.2) g/dL Albumin 2.2 L (3.4-5.0) g/dL Globulin 4.2 H (2.3-3.5) g/dL Albumin/Globulin Ratio 0.5 L (1.2-2.2) Med Orders - Current: Current Medications Acetaminophen (Tylenol Extra Strength) 500 mg PO Q6H PRN PRN Reason: Pain/Fever Last Admin: 10/16/20 15:11 Dose: 500 mg Documented by: Benzocaine/Menthol (Cepacol Sore Throat) 1 lozenge MUCMEM Q2H PRN PRN Reason: Cough Last Admin: 10/13/20 22:24 Dose: 1 shanna Documented by: Diphenhydramine HCl (Benadryl) 50 mg PO Q6H PRN PRN Reason: Itching Last Admin: 10/14/20 23:00 Dose: 50 mg Documented by: Enoxaparin Sodium (Lovenox) 40 mg SUBCUT Q24H [facility] Last Admin: 10/19/20 19:28 Dose: 40 mg Documented by: Fluoxetine HCl (Prozac) 40 mg PO DAILY [facility] Last Admin: 10/20/20 08:42 Dose: Not Given Documented by: Fluoxetine HCl (Prozac) 20 mg PO QPM [facility] Last Admin: 10/19/20 16:28 Dose: Not Given Documented by: Furosemide (Lasix) 40 mg IVPUSH BID [facility] Last Admin: 10/20/20 11:25 Dose: 40 mg Documented by: Hydroxyzine HCl (Vistaril) 100 mg IM Q4H PRN PRN Reason: Pain Last Admin: 10/12/20 07:33 Dose: 100 mg Documented by: Ceftriaxone Sodium 1 gm/ (Sodium Chloride) 50 mls @ 100 mls/hr IV Q24H [facility] Last Admin: 10/19/20 15:14 Dose: 100 mls/hr Documented by: Levofloxacin/Dextrose 750 mg/ (Premix) 150 mls @ 100 mls/hr IV Q24H [facility] Last Admin: 10/19/20 21:39 Dose: 100 mls/hr Documented by: Propofol (Diprivan 100 Ml) 100 mls @ 2.313 mls/hr IV TITRATE [facility]; Protocol Last Admin: 10/20/20 09:29 Dose: 60 mcg/kg/min, 27.76 mls/hr Documented by: Heparin Sodium (Porcine) 5,000 (units/ Sodium Chloride) 501 mls @ 0 mls/hr IV ASDIRECTED [facility]; Protocol Last Admin: 10/19/20 09:54 Dose: 1 mls/hr, 1 mls/hr Documented by: Lactobacillus Rhamnosus (Culturelle) 1 cap PO BID [facility] Last Admin: 10/20/20 08:42 Dose: Not Given Documented by: Levalbuterol HCl (Xopenex) 1.25 mg NEB QIDRT [facility] Last Admin: 10/20/20 10:49 Dose: 1.25 mg Documented by: Levalbuterol HCl (Xopenex) 1.25 mg NEB Q4H PRN PRN Reason: shortness of breath/wheezing Lisinopril (Prinivil) 20 mg PO BEDTIME [facility] Last Admin: 10/19/20 20:16 Dose: Not Given Documented by: Lorazepam (Ativan) 1 mg IVPUSH Q2H PRN PRN Reason: Agitation Last Admin: 10/20/20 10:32 Dose: 1 mg Documented by: Miscellaneous Information (Remove Patch) 1 ea TRDERM BEDTIME [facility] Last Admin: 10/19/20 20:17 Dose: 1 ea Documented by: Nicotine (Habitrol) 14 mg TRDERM DAILY [facility] Last Admin: 10/20/20 09:27 Dose: 14 mg Documented by: Ondansetron HCl (Zofran) 4 mg IVPUSH Q4H PRN PRN Reason: Nausea Last Admin: 10/12/20 11:02 Dose: 4 mg Documented by: Oxycodone HCl (Oxycodone) 5 mg PO Q4H PRN PRN Reason: Pain Pantoprazole Sodium (Protonix Iv) 40 mg IVPUSH Q24H [facility] Last Admin: 10/19/20 21:38 Dose: 40 mg Documented by: Potassium Gluconate (99mg Tab (Ptom)) 2 each PO BIDMEALS [facility] Last Admin: 10/20/20 07:37 Dose: Not Given Documented by: Sodium Chloride (Saline Flush) 10 ml FLUSH ONETIME PRN PRN Reason: PER RADIOLOGY PROTOCOL Last Admin: 10/16/20 17:10 Dose: 10 ml Documented by: Sodium Chloride ([place] Nasal [place]) 0 ml NELLY Q2H PRN PRN Reason: Congestion Last Admin: 10/15/20 08:35 Dose: 1 spray Documented by: Sodium Chloride ([place] Saline Nasal Gel) 0 gm NELLY ASDIRECTED PRN PRN Reason: Congestion Last Admin: 10/15/20 08:36 Dose: 1 applic Documented by: Trazodone HCl (Trazodone) 100 mg PO BEDTIME [facility] Last Admin: 01/20/21 20:17 Dose: Not Given Documented by: Trolamine Salicylate (Aspercreme 10%) 0 gm TOP Q4H PRN PRN Reason: back pain Last Admin: 10/15/20 21:45 Dose: 1 applic Documented by: Discontinued Medications Albuterol (Proventil Neb Soln) 2.5 mg NEB Q2H PRN PRN Reason: wheezing/shortness of breath Albuterol/Ipratropium (Duoneb 3.0-0.5 Mg/3 Ml) 3 ml INH QIDRT [facility] Last Admin: 10/14/20 06:59 Dose: 3 ml Documented by: Albuterol/Ipratropium (Duoneb 3.0-0.5 Mg/3 Ml) 3 ml INH ASDIRECTED PRN PRN Reason: Shortness of Breath Cyanocobalamin (Vitamin B12) 1,000 mcg IM ONETIME ONE Stop: 10/11/20 10:31 Last Admin: 10/11/20 11:31 Dose: 1,000 mcg Documented by: Cyclobenzaprine HCl (Flexeril) 10 mg PO Q8H PRN PRN Reason: Muscle Spasm Last Admin: 10/15/20 20:59 Dose: 10 mg Documented by: Dexamethasone (Decadron) Confirm Administered Dose 4 mg .ROUTE .STK-MED ONE Stop: 10/13/20 08:42 Diphenhydramine HCl (Benadryl) 50 mg IVPUSH Q4H PRN PRN Reason: Itching Diphenhydramine HCl (Benadryl) 25 mg PO Q6H PRN PRN Reason: Itching Last Admin: 10/12/20 21:51 Dose: 25 mg Documented by: Enoxaparin Sodium (Lovenox) 40 mg SUBCUT DAILY [facility] Last Admin: 10/16/20 21:42 Dose: 40 mg Documented by: Etomidate (Amidate) 30 mg IVPUSH ONETIME ONE Stop: 10/16/20 20:16 Last Admin: 10/16/20 20:15 Dose: 30 mg Documented by: Fentanyl (Sublimaze) Confirm Administered Dose 100 mcg .ROUTE .STK-MED ONE Stop: 10/11/20 09:02 Fluoxetine HCl (Prozac) 60 mg PO DAILY [facility] Furosemide (Lasix) 40 mg IVPUSH NOW ONE Stop: 10/13/20 14:01 Last Admin: 10/13/20 13:54 Dose: 40 mg Documented by: Furosemide (Lasix) 40 mg IVPUSH ONETIME ONE Stop: 10/14/20 00:00 Last Admin: 10/13/20 23:40 Dose: 40 mg Documented by: Furosemide (Lasix) 40 mg IVPUSH ONETIME ONE Stop: 10/14/20 09:01 Last Admin: 10/14/20 08:58 Dose: 40 mg Documented by: Furosemide (Lasix) 40 mg IVPUSH Q8H [facility] Stop: 10/15/20 01:01 Last Admin: 10/15/20 00:40 Dose: Not Given Documented by: Furosemide (Lasix) 40 mg IVPUSH Q8H [facility] Stop: 10/15/20 16:01 Last Admin: 10/15/20 16:05 Dose: 40 mg Documented by: Furosemide (Lasix) 40 mg IVPUSH NOW ONE Stop: 10/16/20 14:21 Last Admin: 10/16/20 14:27 Dose: 40 mg Documented by: Furosemide (Lasix) 40 mg IVPUSH NOW ONE Stop: 10/16/20 23:01 Last Admin: 10/16/20 22:54 Dose: 40 mg Documented by: Furosemide (Lasix) 40 mg IVPUSH NOW ONE Stop: 10/17/20 10:51 Last Admin: 10/17/20 11:07 Dose: 40 mg Documented by: Furosemide (Lasix) 40 mg IVPUSH NOW ONE Stop: 10/17/20 22:01 Last Admin: 10/17/20 21:34 Dose: 40 mg Documented by: Furosemide (Lasix) 40 mg IVPUSH NOW ONE Stop: 10/18/20 12:31 Last Admin: 10/18/20 13:04 Dose: 40 mg Documented by: Furosemide (Lasix) 40 mg IVPUSH NOW ONE Stop: 10/19/20 01:01 Last Admin: 10/19/20 01:55 Dose: 40 mg Documented by: Furosemide (Lasix) 40 mg IVPUSH NOW ONE Stop: 10/19/20 12:31 Last Admin: 10/19/20 15:07 Dose: 40 mg Documented by: Furosemide (Lasix) 40 mg IVPUSH NOW ONE Stop: 10/20/20 01:01 Last Admin: 10/20/20 02:12 Dose: 40 mg Documented by: Glycopyrrolate (Glycopyrrolate) 0.4 mg IVPUSH ONETIME ONE Stop: 10/11/20 10:31 Last Admin: 10/11/20 12:12 Dose: 0.4 mg Documented by: Heparin Sodium (Porcine) (Heparin Sodium) Confirm Administered Dose 5,000 units .ROUTE .STK-MED ONE Stop: 10/16/20 20:31 Last Admin: 10/16/20 21:11 Dose: 5,000 units Documented by: Lactated Ringer's (Ringers, Lactated) 1,000 mls @ 999 mls/hr IV BOLUS ONE Stop: 10/11/20 11:30 Last Admin: 10/11/20 10:56 Dose: 999 mls/hr Documented by: Multivitamins/Minerals 10 ml/Thiamine HCl 200 mg/ Zinc 1 ml / Lactated Ringer's 1,013 mls @ 500 mls/hr IV ONETIME ONE Stop: 10/11/20 13:31 Last Admin: 10/11/20 11:47 Dose: 500 mls/hr Documented by: Ampicillin Sodium/Sulbactam (Sodium 1.5 gm/ Sodium Chloride) 50 mls @ 100 mls/hr IV ONETIME ONE Stop: 10/11/20 10:59 Last Admin: 10/11/20 12:13 Dose: 100 mls/hr Documented by: Dextrose/Lactated Ringer's (Dextrose 5%-Lactated Ringers) 1,000 mls @ 125 mls/hr IV ASDIRECTED [facility] Last Admin: 10/13/20 09:18 Dose: 125 mls/hr Documented by: Sodium Chloride (Normal Saline) 75 mls @ 3 mls/sec IV ONETIME ONE Stop: 10/12/20 09:05 Last Admin: 10/12/20 09:28 Dose: 3 mls/sec Documented by: Meropenem 500 mg/ Sodium (Chloride) 50 mls @ 100 mls/hr IV ONCALL ONE Stop: 10/13/20 11:59 Last Admin: 10/14/20 06:32 Dose: Not Given Documented by: Acetaminophen 1,000 mg/ Premix 100 mls @ 400 mls/hr IV NOW ONE Stop: 10/12/20 23:51 Last Admin: 10/12/20 23:52 Dose: 400 mls/hr Documented by: Linezolid (Zyvox) Confirm Administered Dose 300 mls @ as directed .ROUTE .[facility] ONE Stop: 10/13/20 09:56 Dextrose/Lactated Ringer's (Dextrose 5%-Lactated Ringers) 1,000 mls @ 25 mls/hr IV ASDIRECTED [facility] Stop: 10/15/20 16:00 Last Admin: 10/14/20 16:56 Dose: 25 mls/hr Documented by: Potassium Chloride 20 meq/Lidocaine HCl 2 ml/ Sodium Chloride 112 mls @ 56 mls/hr IV Q2H [facility] Stop: 10/15/20 12:29 Last Admin: 10/15/20 11:10 Dose: 56 mls/hr Documented by: Magnesium Sulfate (Magnesium Sulfate In Water Premix) 2 gm in 50 mls @ 25 mls/hr IV Q6H [facility] Stop: 10/15/20 15:59 Last Admin: 10/15/20 13:21 Dose: 25 mls/hr Documented by: Doxycycline Hyclate 100 mg/ (Sodium Chloride) 100 mls @ 100 mls/hr IV Q12H [facility] Last Admin: 10/16/20 15:56 Dose: 100 mls/hr Documented by: Propofol (Diprivan 100 Ml) Confirm Administered Dose 100 mls @ as directed .ROUTE .[facility] ONE Stop: 10/16/20 20:18 Last Admin: 10/16/20 21:25 Dose: Not Given Documented by: Vancomycin HCl 1.25 gm/ Sodium (Chloride) 250 mls @ 166.667 mls/hr IV Q12H [facility] Last Admin: 10/16/20 22:54 Dose: 166.667 mls/hr Documented by: Vancomycin HCl 1.25 gm/ Sodium (Chloride) 250 mls @ 166.667 mls/hr IV Q12H [facility] Last Admin: 10/18/20 23:45 Dose: 166.667 mls/hr Documented by: Potassium Chloride 40 meq/ (Premix) 100 mls @ 25 mls/hr IV ONETIME ONE Stop: 10/17/20 15:29 Last Admin: 10/17/20 11:18 Dose: 25 mls/hr Documented by: Potassium Chloride 20 meq/ (Premix) 100 mls @ 50 mls/hr IV Q2H [facility] Stop: 10/18/20 13:59 Last Admin: 10/18/20 15:28 Dose: 50 mls/hr Documented by: Magnesium Sulfate (Magnesium Sulfate In Water Premix) 2 gm in 50 mls @ 12.5 mls/hr IV Q6H [facility] Stop: 10/18/20 19:59 Last Admin: 10/18/20 15:49 Dose: 12.5 mls/hr Documented by: Potassium Chloride 40 meq/ (Premix) 100 mls @ 25 mls/hr IV ONETIME ONE Stop: 10/18/20 22:59 Last Admin: 10/18/20 18:32 Dose: 25 mls/hr Documented by: Sodium Chloride (Normal Saline) 500 mls @ as directed IV .STK-MED ONE Stop: 10/16/20 20:31 Potassium Chloride 40 meq/ (Premix) 100 mls @ 25 mls/hr IV ONETIME ONE Stop: 10/19/20 12:29 Last Admin: 10/19/20 09:52 Dose: 25 mls/hr Documented by: Vancomycin HCl 1.3 gm/ Sodium (Chloride) 250 mls @ 166.667 mls/hr IV Q12H [facility] Last Admin: 10/19/20 12:18 Dose: 166.667 mls/hr Documented by: Iopamidol (Isovue-300 (61%)) 30 ml PO ASDIRECTED ONE Stop: 10/12/20 09:05 Last Admin: 10/12/20 09:29 Dose: 30 ml Documented by: Iopamidol (Isovue-300 (61%)) 100 ml IV . DIRECTED PRN PRN Reason: RADIOLOGY EXAM Last Admin: 10/12/20 09:27 Dose: 100 ml Documented by: Lisinopril (Prinivil) Confirm Administered Dose 20 mg .ROUTE .STK-MED ONE Stop: 10/12/20 21:33 Last Admin: 10/12/20 21:42 Dose: Not Given Documented by: Lorazepam (Ativan) 0.5 mg PO Q6H PRN PRN Reason: Anxiety Last Admin: 10/16/20 03:30 Dose: 0.5 mg Documented by: Lorazepam (Ativan) 0.5 mg IVPUSH ONETIME ONE Stop: 10/16/20 07:46 Last Admin: 10/16/20 07:53 Dose: 0.5 mg Documented by: Lorazepam (Ativan) 0.5 mg PO Q4H PRN PRN Reason: Anxiety Last Admin: 10/16/20 16:32 Dose: 0.5 mg Documented by: Lorazepam (Ativan) 0 mg PO ASDIRECTED [facility]; Protocol Last Admin: 10/16/20 17:57 Dose: 2 mg Documented by: Lorazepam (Ativan) 0 mg IV ASDIRECTED [facility]; Protocol Last Admin: 10/18/20 06:15 Dose: 2 mg Documented by: Meropenem (Merrem) Confirm Administered Dose 500 mg .ROUTE .STK-MED ONE Stop: 10/13/20 09:55 Midazolam HCl (Versed 1 Mg/Ml) Confirm Administered Dose 2 mg .ROUTE .STK-MED ONE Stop: 10/11/20 09:02 Morphine Sulfate (Morphine [facility]iatric Care [facility] 150 Mg In 30 Ml) 0 mg IV ASDIRECTED PRN; Protocol PRN Reason: Pain Last Admin: 10/13/20 19:38 Dose: 150 mg Documented by: Morphine Sulfate (Morphine) 2 mg IVPUSH ONETIME ONE Stop: 10/11/20 13:38 Last Admin: 10/11/20 13:56 Dose: 2 mg Documented by: Morphine Sulfate (Morphine) 4 mg IVPUSH ONETIME ONE Stop: 10/16/20 07:46 Last Admin: 10/16/20 07:53 Dose: 4 mg Documented by: Naloxone HCl (Narcan) 0.1 mg IV ASDIRECTED PRN PRN Reason: decreased respiratory rate Ondansetron HCl (Zofran) Confirm Administered Dose 4 mg .ROUTE .STK-MED ONE Stop: 10/13/20 08:42 Oxycodone HCl (Oxycodone) 5 - 10 mg PO Q4H PRN PRN Reason: Pain Last Admin: 10/16/20 14:04 Dose: 10 mg Documented by: Pantoprazole Sodium (Protonix) 40 mg PO ACBREAKFAST [facility] Last Admin: 10/16/20 09:18 Dose: 40 mg Documented by: Phenobarbital (Phenobarbital Sodium) 260 mg IVPUSH ONETIME ONE Stop: 10/16/20 19:06 Last Admin: 10/16/20 19:33 Dose: 260 mg Documented by: Potassium Chloride (Potassium Chloride) 40 meq PO BID@0900,1200 [facility] Stop: 10/15/20 12:01 Last Admin: 10/15/20 19:42 Dose: Not Given Documented by: Potassium Chloride (Klor-Con M20) 40 meq PO ONETIME ONE Stop: 10/17/20 17:01 Last Admin: 10/17/20 16:48 Dose: Not Given Documented by: Propofol (Diprivan 20 Ml) Confirm Administered Dose 200 mg .ROUTE .STK-MED ONE Stop: 10/11/20 09:02 Rocuronium [place] (Zemuron) 100 mg IVPUSH ONETIME ONE Stop: 10/16/20 20:16 Last Admin: 10/16/20 20:12 Dose: 100 mg Documented by: Succinylcholine Chloride (Quelicin) Confirm Administered Dose 200 mg .ROUTE .STK-MED ONE Stop: 10/16/20 20:12 Last Admin: 10/16/20 21:10 Dose: Not Given Documented by: Vancomycin HCl (Vancomycin) 1 gm IV .PHARMACY TO DOSE [facility] Stop: 10/17/20 07:00 - Exam Quality Assessment: Supplemental Oxygen, Central Line/PICC, Urine Catheter, DVT Prophylaxis General: Other (Sedated on ventilator) Lungs: Rhonchi Cardiovascular: Regular Rate, Regular Rhythm, No Murmurs GI/Abdominal Exam: Normal Bowel Sounds Sepsis Event Note - Evaluation Sepsis Screening Result: No Definite Risk - Focused Exam Vital Signs: Vital Signs Temp Temp Pulse Resp BP BP Pulse Ox 10/20/20 10:49 82 10/20/20 10:00 84 26 H 100/66 97/60 94 L 10/20/20 09:08 97.6 F 20 94/58 L 93/50 L 96 10/20/20 08:00 95 25 H 104/62 104/59 L 95 10/20/20 07:06 86 10/20/20 06:00 20 95/61 87/49 L 95 10/20/20 05:00 24 H 106/70 112/65 93 L 10/20/20 04:00 96.8 F L 20 99/61 93/52 L 97 10/20/20 03:00 23 H 88/57 L 110/75 94 L 10/20/20 02:00 26 H 104/77 99/63 94 L 10/20/20 01:00 26 H 87/59 L 80/59 L 93 L - Problem List Review Problem List Initiated/Reviewed/Updated: Yes - My Orders Last 24 Hours: My Active Orders 10/20/20 10:15 Furosemide [Lasix] 40 mg IVPUSH BID 10/21/20 08:58 ABG [BLOOD GAS ARTERIAL] [BG] DAILY CBC WITH AUTO DIFF [HEME] DAILY COMPREHENSIVE METABOLIC PN,CMP [CHEM] DAILY 10/22/20 08:58 ABG [BLOOD GAS ARTERIAL] [BG] DAILY CBC WITH AUTO DIFF [HEME] DAILY COMPREHENSIVE METABOLIC PN,CMP [CHEM] DAILY 10/23/20 08:58 CBC WITH AUTO DIFF [HEME] DAILY COMPREHENSIVE METABOLIC PN,CMP [CHEM] DAILY - Assessment Assessment:: HEENT - Patient remains intubated on ventilatory support. - Tube in good place and no signs of skin breakdown Cardiovascular The patient continues to have episodic hypotension, but has not yet manifested a MAP of < 65. She is in bilateral pulmonary edema and I think that this in large part is contributing to her continued need for iPPV. The patient, it sounds like after review of the records, required a lot of IV fluid resuscitation during the admission and initial proceduralization phase of her care. As of today she is down about 500 mL total for the admission thus far. - IV lasix 40 mg IV bid starting this AM - Monitor pressures and keep MAP >/= 65 - May need to consider restarting levophed if MAP goes below 65. - Monitor I/O strictly Respiratory Patient continues on ventilatory support - AC, PEEP 5, Rate 18, Vt 440. - Wean FiO2 from 50% to 45% today - If we get to 40-45% can consider weaning sedation, weaning ventilatory support F/E/N/Renal Creatinine stable, K low - Replace electrolytes as appropriate - Continue TPN Gastrointestinal Concern from Gen Surgery is that mesh may be attached to liver? Was not able to fully explore before patient decompensated. EtOH abuse chronic with ascites and hepatic dysfunction In active withdrawal - On propofol and ventilatory support - Could likely come off the vent out of withdrawal Neuromusculoskeletal Will need to assess after off of vent - PT/OT likely needed
[2020-10-20] MEDS: cefTRIAXone 1 GM in Sodium Chloride 0.9% 50 ML IV SCH (14:34)
[2020-10-20] MEDS: Levofloxacin/Dextrose 5%-Water 750 MG in Premix Bag 1 BAG IV SCH (20:30)
[2020-10-20] MEDS: Enoxaparin 40 MG/0.4 ML Syringe SUBCUT SCH (21:00)
[2020-10-20] MEDS: Pantoprazole 40 MG Vial IVPUSH SCH (21:01)
[2020-10-21] MEDS: LORazepam 2 MG/ML SDV IVPUSH PRN ×3 (00:22→22:26)
[2020-10-21] MEDS: propofoL 100 ML IV SCH ×6 (03:01→21:26)
[2020-10-21] MEDS: Levalbuterol HCl 1.25 MG/3 ML Neb NEB SCH ×4 (07:23→21:38)
[2020-10-21] MEDS ORDERED: Potassium Chloride Riders 40 MEQ in Premix Bag 1 BAG IV ONE (10:00)
[2020-10-21] MEDS: Nicotine 14 MG/24 Hr Patch TRDERM SCH (10:44)
--- NOTE | 2020-10-21 12:30 | PCM.PN ---
- General Info Date of Service: 10/21/20 Subjective Update: Patient doing somewhat better - down to 35% FIO2 had to get some ativan overnight because she was biting down on the ET tube Weaning/breathing trials starting today Functional Status: Reports: Pain Controlled - Review of Systems General: Reports: No Symptoms HEENT: Reports: No Symptoms Pulmonary: Reports: Other (Still on ventilator, but able to have weaned oxygen down to 35% FiO2) Cardiovascular: Reports: No Symptoms Gastrointestinal: Reports: No Symptoms - Patient Data Vitals - Most Recent: Last Vital Signs Temp 98.0 F 10/21/20 05:00 Pulse 83 10/20/20 18:00 Resp 22 H 10/21/20 06:00 BP 102/67 10/21/20 06:00 Pulse Ox 96 10/21/20 06:00 Weight - Most Recent: 189 lb 6.033 oz I&O - Last 24 Hours: Intake & Output 10/20/20 10/21/20 10/21/20 22:59 06:59 14:59 Intake Total 507 384 Output Total 1475 229 Balance -968 -91 Lab Results Last 24 Hours: Laboratory Results - last 24 hr 10/21/20 10/21/20 10/21/20 Range/Units 04:30 04:30 04:30 WBC 10.6 (4.5-11.0) K/uL RBC 3.52 (3.30-5.50) M/uL Hgb 12.4 (12.0-15.0) g/dL Hct 36.8 (36.0-48.0) % MCV 105 H (80-98) fL MCH 35 H (27-31) pg MCHC 34 (32-36) % Plt Count 347 (150-400) K/uL Neut % (Auto) 70 H (36-66) % Lymph % (Auto) 21 L (24-44) % [place] % (Auto) 6 (2-6) % Eos % (Auto) 3 (2-4) % Baso % (Auto) 1 (0-1) % Puncture Site Line ABG pH 7.508 H (7.350-7.450) ABG pCO2 34.2 L (35.0-42.0) mmHg ABG pO2 87.1 (75.0-100.0) mmHg ABG HCO3 27.0 H (22.0-26.0) mmol/L ABG Total CO2 23.7 (21.0-25.0) mmol/L ABG O2 Saturation 96.6 (95.0-98.0) % ABG O2 Content 16.8 (15.0-23.0) %vol ABG Base Excess 4.4 mm/L ABG Hemoglobin 12.6 (12.0-16.0) g/dL ABG Oxyhemoglobin 94.2 % ABG Carboxyhemoglobin 1.6 (0.0-1.6) % ABG Methemoglobin 0.9 % O2 Delivery Device Ventilator Oxygen Flow Rate L Sodium 141 (140-148) mmol/L Potassium 2.9 L* (3.6-5.2) mmol/L Chloride 100 (100-108) mmol/L Carbon Dioxide 28 (21-32) mmol/L Anion Gap 15.9 H (5.0-14.0) mmol/L BUN 11 (7-18) mg/dL Creatinine 0.6 (0.6-1.0) mg/dL Est Cr Clr Drug Dosing 95.40 mL/min Estimated GFR (MDRD) > 60 (>60) Glucose 97 (74-106) mg/dL Calcium 8.7 (8.5-10.1) mg/dL Total Bilirubin 0.4 (0.2-1.0) mg/dL AST 45 H (15-37) U/L ALT 26 (12-78) U/L Alkaline Phosphatase 116 (46-116) U/L Total Protein 6.5 (6.4-8.2) g/dL Albumin 2.2 L (3.4-5.0) g/dL Globulin 4.3 H (2.3-3.5) g/dL Albumin/Globulin Ratio 0.5 L (1.2-2.2) Med Orders - Current: Current Medications Acetaminophen (Tylenol Extra Strength) 500 mg PO Q6H PRN PRN Reason: Pain/Fever Last Admin: 10/16/20 15:11 Dose: 500 mg Documented by: Benzocaine/Menthol (Cepacol Sore Throat) 1 lozenge MUCMEM Q2H PRN PRN Reason: Cough Last Admin: 10/13/20 22:24 Dose: 1 shanna Documented by: Diphenhydramine HCl (Benadryl) 50 mg PO Q6H PRN PRN Reason: Itching Last Admin: 10/14/20 23:00 Dose: 50 mg Documented by: Enoxaparin Sodium (Lovenox) 40 mg SUBCUT Q24H [facility] Last Admin: 10/20/20 21:00 Dose: 40 mg Documented by: Fluoxetine HCl (Prozac) 40 mg PO DAILY [facility] Last Admin: 10/20/20 08:42 Dose: Not Given Documented by: Fluoxetine HCl (Prozac) 20 mg PO QPM [facility] Last Admin: 10/19/20 16:28 Dose: Not Given Documented by: Furosemide (Lasix) 40 mg IVPUSH BID [facility] Last Admin: 10/20/20 21:00 Dose: 40 mg Documented by: Hydroxyzine HCl (Vistaril) 100 mg IM Q4H PRN PRN Reason: Pain Last Admin: 10/12/20 07:33 Dose: 100 mg Documented by: Ceftriaxone Sodium 1 gm/ (Sodium Chloride) 50 mls @ 100 mls/hr IV Q24H [facility] Last Admin: 10/20/20 14:34 Dose: 100 mls/hr Documented by: Levofloxacin/Dextrose 750 mg/ (Premix) 150 mls @ 100 mls/hr IV Q24H [facility] Last Admin: 10/20/20 20:30 Dose: 100 mls/hr Documented by: Propofol (Diprivan 100 Ml) 100 mls @ 2.313 mls/hr IV TITRATE [facility]; Protocol Last Admin: 10/21/20 09:54 Dose: 55 mcg/kg/min, 25.447 mls/hr Documented by: Heparin Sodium (Porcine) 5,000 (units/ Sodium Chloride) 501 mls @ 0 mls/hr IV ASDIRECTED [facility]; Protocol Last Admin: 10/19/20 09:54 Dose: 1 mls/hr, 1 mls/hr Documented by: Potassium Chloride 40 meq/ (Premix) 100 mls @ 25 mls/hr IV ONETIME ONE Stop: 10/21/20 13:59 Last Admin: 10/21/20 10:45 Dose: 25 mls/hr Documented by: Lactobacillus Rhamnosus (Culturelle) 1 cap PO BID [facility] Last Admin: 10/20/20 08:42 Dose: Not Given Documented by: Levalbuterol HCl (Xopenex) 1.25 mg NEB QIDRT [facility] Last Admin: 10/21/20 11:03 Dose: 1.25 mg Documented by: Levalbuterol HCl (Xopenex) 1.25 mg NEB Q4H PRN PRN Reason: shortness of breath/wheezing Lisinopril (Prinivil) 20 mg PO BEDTIME [facility] Last Admin: 10/19/20 20:16 Dose: Not Given Documented by: Lorazepam (Ativan) 1 mg IVPUSH Q2H PRN PRN Reason: Agitation Last Admin: 10/21/20 03:01 Dose: 1 mg Documented by: Miscellaneous Information (Remove Patch) 1 ea TRDERM BEDTIME [facility] Last Admin: 10/20/20 21:01 Dose: 1 ea Documented by: Nicotine (Habitrol) 14 mg TRDERM DAILY [facility] Last Admin: 10/21/20 10:44 Dose: 14 mg Documented by: Ondansetron HCl (Zofran) 4 mg IVPUSH Q4H PRN PRN Reason: Nausea Last Admin: 10/12/20 11:02 Dose: 4 mg Documented by: Oxycodone HCl (Oxycodone) 5 mg PO Q4H PRN PRN Reason: Pain Pantoprazole Sodium (Protonix Iv) 40 mg IVPUSH Q24H [facility] Last Admin: 10/20/20 21:01 Dose: 40 mg Documented by: Potassium Gluconate (99mg Tab (Ptom)) 2 each PO BIDMEALS [facility] Last Admin: 10/20/20 07:37 Dose: Not Given Documented by: Sodium Chloride (Saline Flush) 10 ml FLUSH ONETIME PRN PRN Reason: PER RADIOLOGY PROTOCOL Last Admin: 10/16/20 17:10 Dose: 10 ml Documented by: Sodium Chloride ([place] Nasal [place]) 0 ml NELLY Q2H PRN PRN Reason: Congestion Last Admin: 10/15/20 08:35 Dose: 1 spray Documented by: Sodium Chloride ([place] Saline Nasal Gel) 0 gm NELLY ASDIRECTED PRN PRN Reason: Congestion Last Admin: 10/15/20 08:36 Dose: 1 applic Documented by: Trazodone HCl (Trazodone) 100 mg PO BEDTIME [facility] Last Admin: 10/19/20 20:17 Dose: Not Given Documented by: Trolamine Salicylate (Aspercreme 10%) 0 gm TOP Q4H PRN PRN Reason: back pain Last Admin: 10/15/20 21:45 Dose: 1 applic Documented by: Discontinued Medications Albuterol (Proventil Neb Soln) 2.5 mg NEB Q2H PRN PRN Reason: wheezing/shortness of breath Albuterol/Ipratropium (Duoneb 3.0-0.5 Mg/3 Ml) 3 ml INH QIDRT [facility] Last Admin: 10/14/20 06:59 Dose: 3 ml Documented by: Albuterol/Ipratropium (Duoneb 3.0-0.5 Mg/3 Ml) 3 ml INH ASDIRECTED PRN PRN Reason: Shortness of Breath Cyanocobalamin (Vitamin B12) 1,000 mcg IM ONETIME ONE Stop: 10/11/20 10:31 Last Admin: 10/11/20 11:31 Dose: 1,000 mcg Documented by: Cyclobenzaprine HCl (Flexeril) 10 mg PO Q8H PRN PRN Reason: Muscle Spasm Last Admin: 10/15/20 20:59 Dose: 10 mg Documented by: Dexamethasone (Decadron) Confirm Administered Dose 4 mg .ROUTE .STK-MED ONE Stop: 10/13/20 08:42 Diphenhydramine HCl (Benadryl) 50 mg IVPUSH Q4H PRN PRN Reason: Itching Diphenhydramine HCl (Benadryl) 25 mg PO Q6H PRN PRN Reason: Itching Last Admin: 10/12/20 21:51 Dose: 25 mg Documented by: Enoxaparin Sodium (Lovenox) 40 mg SUBCUT DAILY [facility] Last Admin: 10/16/20 21:42 Dose: 40 mg Documented by: Etomidate (Amidate) 30 mg IVPUSH ONETIME ONE Stop: 10/16/20 20:16 Last Admin: 10/16/20 20:15 Dose: 30 mg Documented by: Fentanyl (Sublimaze) Confirm Administered Dose 100 mcg .ROUTE .STK-MED ONE Stop: 10/11/20 09:02 Fluoxetine HCl (Prozac) 60 mg PO DAILY [facility] Furosemide (Lasix) 40 mg IVPUSH NOW ONE Stop: 10/13/20 14:01 Last Admin: 10/13/20 13:54 Dose: 40 mg Documented by: Furosemide (Lasix) 40 mg IVPUSH ONETIME ONE Stop: 10/14/20 00:00 Last Admin: 10/13/20 23:40 Dose: 40 mg Documented by: Furosemide (Lasix) 40 mg IVPUSH ONETIME ONE Stop: 10/14/20 09:01 Last Admin: 10/14/20 08:58 Dose: 40 mg Documented by: Furosemide (Lasix) 40 mg IVPUSH Q8H [facility] Stop: 10/15/20 01:01 Last Admin: 10/15/20 00:40 Dose: Not Given Documented by: Furosemide (Lasix) 40 mg IVPUSH Q8H [facility] Stop: 10/15/20 16:01 Last Admin: 10/15/20 16:05 Dose: 40 mg Documented by: Furosemide (Lasix) 40 mg IVPUSH NOW ONE Stop: 10/16/20 14:21 Last Admin: 10/16/20 14:27 Dose: 40 mg Documented by: Furosemide (Lasix) 40 mg IVPUSH NOW ONE Stop: 10/16/20 23:01 Last Admin: 10/16/20 22:54 Dose: 40 mg Documented by: Furosemide (Lasix) 40 mg IVPUSH NOW ONE Stop: 10/17/20 10:51 Last Admin: 10/17/20 11:07 Dose: 40 mg Documented by: Furosemide (Lasix) 40 mg IVPUSH NOW ONE Stop: 10/17/20 22:01 Last Admin: 10/17/20 21:34 Dose: 40 mg Documented by: Furosemide (Lasix) 40 mg IVPUSH NOW ONE Stop: 10/18/20 12:31 Last Admin: 10/18/20 13:04 Dose: 40 mg Documented by: Furosemide (Lasix) 40 mg IVPUSH NOW ONE Stop: 10/19/20 01:01 Last Admin: 10/19/20 01:55 Dose: 40 mg Documented by: Furosemide (Lasix) 40 mg IVPUSH NOW ONE Stop: 10/19/20 12:31 Last Admin: 10/19/20 15:07 Dose: 40 mg Documented by: Furosemide (Lasix) 40 mg IVPUSH NOW ONE Stop: 10/20/20 01:01 Last Admin: 10/20/20 02:12 Dose: 40 mg Documented by: Glycopyrrolate (Glycopyrrolate) 0.4 mg IVPUSH ONETIME ONE Stop: 10/11/20 10:31 Last Admin: 10/11/20 12:12 Dose: 0.4 mg Documented by: Heparin Sodium (Porcine) (Heparin Sodium) Confirm Administered Dose 5,000 units .ROUTE .STK-MED ONE Stop: 10/16/20 20:31 Last Admin: 10/16/20 21:11 Dose: 5,000 units Documented by: Lactated Ringer's (Ringers, Lactated) 1,000 mls @ 999 mls/hr IV BOLUS ONE Stop: 10/11/20 11:30 Last Admin: 10/11/20 10:56 Dose: 999 mls/hr Documented by: Multivitamins/Minerals 10 ml/Thiamine HCl 200 mg/ Zinc 1 ml / Lactated Ringer's 1,013 mls @ 500 mls/hr IV ONETIME ONE Stop: 10/11/20 13:31 Last Admin: 10/11/20 11:47 Dose: 500 mls/hr Documented by: Ampicillin Sodium/Sulbactam (Sodium 1.5 gm/ Sodium Chloride) 50 mls @ 100 mls/hr IV ONETIME ONE Stop: 10/11/20 10:59 Last Admin: 10/11/20 12:13 Dose: 100 mls/hr Documented by: Dextrose/Lactated Ringer's (Dextrose 5%-Lactated Ringers) 1,000 mls @ 125 mls/hr IV ASDIRECTED [facility] Last Admin: 10/13/20 09:18 Dose: 125 mls/hr Documented by: Sodium Chloride (Normal Saline) 75 mls @ 3 mls/sec IV ONETIME ONE Stop: 10/12/20 09:05 Last Admin: 10/12/20 09:28 Dose: 3 mls/sec Documented by: Meropenem 500 mg/ Sodium (Chloride) 50 mls @ 100 mls/hr IV ONCALL ONE Stop: 10/13/20 11:59 Last Admin: 10/14/20 06:32 Dose: Not Given Documented by: Acetaminophen 1,000 mg/ Premix 100 mls @ 400 mls/hr IV NOW ONE Stop: 10/12/20 23:51 Last Admin: 10/12/20 23:52 Dose: 400 mls/hr Documented by: Linezolid (Zyvox) Confirm Administered Dose 300 mls @ as directed .ROUTE .STK- MED ONE Stop: 10/13/20 09:56 Dextrose/Lactated Ringer's (Dextrose 5%-Lactated Ringers) 1,000 mls @ 25 mls/hr IV ASDIRECTED [facility] Stop: 10/15/20 16:00 Last Admin: 10/14/20 16:56 Dose: 25 mls/hr Documented by: Potassium Chloride 20 meq/Lidocaine HCl 2 ml/ Sodium Chloride 112 mls @ 56 mls/hr IV Q2H [facility] Stop: 10/15/20 12:29 Last Admin: 10/15/20 11:10 Dose: 56 mls/hr Documented by: Magnesium Sulfate (Magnesium Sulfate In Water Premix) 2 gm in 50 mls @ 25 mls/hr IV Q6H [facility] Stop: 10/15/20 15:59 Last Admin: 10/15/20 13:21 Dose: 25 mls/hr Documented by: Doxycycline Hyclate 100 mg/ (Sodium Chloride) 100 mls @ 100 mls/hr IV Q12H [facility] Last Admin: 10/16/20 15:56 Dose: 100 mls/hr Documented by: Propofol (Diprivan 100 Ml) Confirm Administered Dose 100 mls @ as directed .ROUTE .STK-MED ONE Stop: 10/16/20 20:18 Last Admin: 10/16/20 21:25 Dose: Not Given Documented by: Vancomycin HCl 1.25 gm/ Sodium (Chloride) 250 mls @ 166.667 mls/hr IV Q12H [facility] Last Admin: 10/16/20 22:54 Dose: 166.667 mls/hr Documented by: Vancomycin HCl 1.25 gm/ Sodium (Chloride) 250 mls @ 166.667 mls/hr IV Q12H [facility] Last Admin: 10/18/20 23:45 Dose: 166.667 mls/hr Documented by: Potassium Chloride 40 meq/ (Premix) 100 mls @ 25 mls/hr IV ONETIME ONE Stop: 10/17/20 15:29 Last Admin: 10/17/20 11:18 Dose: 25 mls/hr Documented by: Potassium Chloride 20 meq/ (Premix) 100 mls @ 50 mls/hr IV Q2H [facility] Stop: 10/18/20 13:59 Last Admin: 10/18/20 15:28 Dose: 50 mls/hr Documented by: Magnesium Sulfate (Magnesium Sulfate In Water Premix) 2 gm in 50 mls @ 12.5 mls/hr IV Q6H [facility] Stop: 10/18/20 19:59 Last Admin: 10/18/20 15:49 Dose: 12.5 mls/hr Documented by: Potassium Chloride 40 meq/ (Premix) 100 mls @ 25 mls/hr IV ONETIME ONE Stop: 10/18/20 22:59 Last Admin: 10/18/20 18:32 Dose: 25 mls/hr Documented by: Sodium Chloride (Normal Saline) 500 mls @ as directed IV .STK-MED ONE Stop: 10/16/20 20:31 Potassium Chloride 40 meq/ (Premix) 100 mls @ 25 mls/hr IV ONETIME ONE Stop: 10/19/20 12:29 Last Admin: 10/19/20 09:52 Dose: 25 mls/hr Documented by: Vancomycin HCl 1.3 gm/ Sodium (Chloride) 250 mls @ 166.667 mls/hr IV Q12H [facility] Last Admin: 10/19/20 12:18 Dose: 166.667 mls/hr Documented by: Iopamidol (Isovue-300 (61%)) 30 ml PO ASDIRECTED ONE Stop: 10/12/20 09:05 Last Admin: 10/12/20 09:29 Dose: 30 ml Documented by: Iopamidol (Isovue-300 (61%)) 100 ml IV . DIRECTED PRN PRN Reason: RADIOLOGY EXAM Last Admin: 10/12/20 09:27 Dose: 100 ml Documented by: Lisinopril (Prinivil) Confirm Administered Dose 20 mg .ROUTE .STK-MED ONE Stop: 10/12/20 21:33 Last Admin: 10/12/20 21:42 Dose: Not Given Documented by: Lorazepam (Ativan) 0.5 mg PO Q6H PRN PRN Reason: Anxiety Last Admin: 10/16/20 03:30 Dose: 0.5 mg Documented by: Lorazepam (Ativan) 0.5 mg IVPUSH ONETIME ONE Stop: 10/16/20 07:46 Last Admin: 10/16/20 07:53 Dose: 0.5 mg Documented by: Lorazepam (Ativan) 0.5 mg PO Q4H PRN PRN Reason: Anxiety Last Admin: 10/16/20 16:32 Dose: 0.5 mg Documented by: Lorazepam (Ativan) 0 mg PO ASDIRECTED [facility]; Protocol Last Admin: 10/16/20 17:57 Dose: 2 mg Documented by: Lorazepam (Ativan) 0 mg IV ASDIRECTED [facility]; Protocol Last Admin: 10/18/20 06:15 Dose: 2 mg Documented by: Meropenem (Merrem) Confirm Administered Dose 500 mg .ROUTE .STK-MED ONE Stop: 10/13/20 09:55 Midazolam HCl (Versed 1 Mg/Ml) Confirm Administered Dose 2 mg .ROUTE .STK-MED ONE Stop: 10/11/20 09:02 Morphine Sulfate (Morphine Shoe Sprayer 150 Mg In 30 Ml) 0 mg IV ASDIRECTED PRN; Protocol PRN Reason: Pain Last Admin: 10/13/20 19:38 Dose: 150 mg Documented by: Morphine Sulfate (Morphine) 2 mg IVPUSH ONETIME ONE Stop: 10/11/20 13:38 Last Admin: 10/11/20 13:56 Dose: 2 mg Documented by: Morphine Sulfate (Morphine) 4 mg IVPUSH ONETIME ONE Stop: 10/16/20 07:46 Last Admin: 10/16/20 07:53 Dose: 4 mg Documented by: Naloxone HCl (Narcan) 0.1 mg IV ASDIRECTED PRN PRN Reason: decreased respiratory rate Ondansetron HCl (Zofran) Confirm Administered Dose 4 mg .ROUTE .STK-MED ONE Stop: 10/13/20 08:42 Oxycodone HCl (Oxycodone) 5 - 10 mg PO Q4H PRN PRN Reason: Pain Last Admin: 10/16/20 14:04 Dose: 10 mg Documented by: Pantoprazole Sodium (Protonix) 40 mg PO ACBREAKFAST [facility] Last Admin: 10/16/20 09:18 Dose: 40 mg Documented by: Phenobarbital (Phenobarbital Sodium) 260 mg IVPUSH ONETIME ONE Stop: 10/16/20 19:06 Last Admin: 10/16/20 19:33 Dose: 260 mg Documented by: Potassium Chloride (Potassium Chloride) 40 meq PO BID@0900,1200 [facility] Stop: 10/15/20 12:01 Last Admin: 10/15/20 19:42 Dose: Not Given Documented by: Potassium Chloride (Klor-Con M20) 40 meq PO ONETIME ONE Stop: 10/17/20 17:01 Last Admin: 10/17/20 16:48 Dose: Not Given Documented by: Propofol (Diprivan 20 Ml) Confirm Administered Dose 200 mg .ROUTE .STK-MED ONE Stop: 10/11/20 09:02 Rocuronium [place] (Zemuron) 100 mg IVPUSH ONETIME ONE Stop: 10/16/20 20:16 Last Admin: 10/16/20 20:12 Dose: 100 mg Documented by: Succinylcholine Chloride (Quelicin) Confirm Administered Dose 200 mg .ROUTE .STK-MED ONE Stop: 10/16/20 20:12 Last Admin: 10/16/20 21:10 Dose: Not Given Documented by: Vancomycin HCl (Vancomycin) 1 gm IV .PHARMACY TO DOSE [facility] Stop: 10/17/20 07:00 - Exam Quality Assessment: Supplemental Oxygen, Urine Catheter, DVT Prophylaxis General: Sedated Lungs: Clear to Auscultation (Crackles are substantially reduced) Cardiovascular: Regular Rate, Regular Rhythm Sepsis Event Note - Evaluation Sepsis Screening Result: No Definite Risk - Focused Exam Vital Signs: Vital Signs Temp Resp BP BP Pulse Ox 10/21/20 06:00 22 H 102/67 109/67 96 10/21/20 05:00 98.0 F 18 107/69 112/66 96 10/21/20 04:00 18 97/66 96/58 L 96 10/21/20 03:00 18 96/61 90/54 L 96 10/21/20 02:00 95.9 F L 18 96/64 90/55 L 96 10/21/20 01:00 19 96/62 80/53 L 93 L - Problem List Review Problem List Initiated/Reviewed/Updated: Yes - My Orders Last 24 Hours: My Active Orders 10/21/20 10:00 Potassium Chloride [place] [KCL in Water 40 MEQ/100 ML] 40 meq Premix Bag 1 bag IV ONETIME 10/21/20 15:00 POTASSIUM,K [CHEM] Routine 10/22/20 04:00 ABG [BLOOD GAS ARTERIAL] [BG] DAILY CBC WITH AUTO DIFF [HEME] DAILY COMPREHENSIVE METABOLIC PN,CMP [CHEM] DAILY 10/23/20 04:00 ABG [BLOOD GAS ARTERIAL] [BG] DAILY CBC WITH AUTO DIFF [HEME] DAILY COMPREHENSIVE METABOLIC PN,CMP [CHEM] DAILY - Assessment Assessment:: HEENT - Patient remains intubated on ventilatory support. - Tube in good place and no signs of skin breakdown Cardiovascular The patient continues to have episodic hypotension, but has not yet manifested a MAP of < 65. She is in bilateral pulmonary edema and I think that this in large part is contributing to her continued need for iPPV. The patient, it sounds like after review of the records, required a lot of IV fluid resuscitation during the admission and initial proceduralization phase of her care. As of today she is down about 500 mL total for the admission thus far. - IV lasix 40 mg IV bid to continue as we are diuresing with good effect - Monitor pressures and keep MAP >/= 65 - May need to consider restarting levophed if MAP goes below 65. - Monitor I/O strictly Respiratory Patient continues on ventilatory support - AC, PEEP 5, Rate 18, Vt 440. Patient down to FiO2 of 35% - Start breathing trials today - D/C ventilatory support if able F/E/N/Renal Creatinine stable, K low - Replace electrolytes as appropriate - Continue TPN Gastrointestinal Concern from Gen Surgery is that mesh may be attached to liver? Was not able to fully explore before patient decompensated. EtOH abuse chronic with ascites and hepatic dysfunction In active withdrawal - On propofol and ventilatory support - Could likely come off the vent out of withdrawal Neuromusculoskeletal Will need to assess after off of vent - PT/OT likely needed
[2020-10-21] MEDS: Furosemide 40 MG/4 ML VIAL IVPUSH SCH ×2 (12:46→21:39)
[2020-10-21] MEDS: cefTRIAXone 1 GM in Sodium Chloride 0.9% 50 ML IV SCH (15:02)
[2020-10-21] MEDS: 1: AA 5%/Calcium/D15W/Lytes 1,000 ML with MVI, Adult with Vitamin K 10 ML, Zinc/Copper/M IV SCH ×3 (18:05)
[2020-10-21] MEDS: Enoxaparin 40 MG/0.4 ML Syringe SUBCUT SCH (21:28)
[2020-10-21] MEDS: Pantoprazole 40 MG Vial IVPUSH SCH (21:42)
[2020-10-21] MEDS: Levofloxacin/Dextrose 5%-Water 750 MG in Premix Bag 1 BAG IV SCH (21:46)
[2020-10-22] MEDS: propofoL 100 ML IV SCH ×2 (01:30→05:26)
[2020-10-22] MEDS ORDERED: Atropine/Diphenoxylate 0.025-2.5 MG Tab PO PRN (04:45)
[2020-10-22] MEDS: Levalbuterol HCl 1.25 MG/3 ML Neb NEB SCH ×4 (07:05→20:36)
[2020-10-22] MEDS: 1: AA 5%/Calcium/D15W/Lytes 1,000 ML with MVI, Adult with Vitamin K 10 ML, Zinc/Copper/M IV SCH ×3 (08:12)
[2020-10-22] MEDS: Furosemide 40 MG/4 ML VIAL IVPUSH SCH ×2 (10:36→20:30)
[2020-10-22] MEDS: Nicotine 14 MG/24 Hr Patch TRDERM SCH (10:36)
--- NOTE | 2020-10-22 11:14 | PCM.PN ---
- General Info Date of Service: 10/22/20 Subjective Update: Patient was able to be extubated this AM. Is on BiPap presently and thus far is tolerating well. Presented on 10/11 for hypoxia and abdominal pain. Has long h/o EtOH abuse and was in withdrawal at time of admission. Patient had CT that failed to show source of pain but was noted to have mesh adhering to liver? Patient rapidly developed ARDS during the admission. Was transferred to ICU and was intubated after failure to tolerate BiPAP. Was weaned to 35% FIO2 on 10/21 and an initial attempt to extubate failed. Was able to successfully extubate the patient today as noted above. She is down 921 mL on 10/22 She has fluctuating WBC 10/21 was 10.4, today 12.4 She is still groggy post extubation at time of evaluation today. Functional Status: Reports: Pain Controlled, Incentive Spirometry - Review of Systems General: Reports: No Symptoms HEENT: Reports: No Symptoms Pulmonary: Reports: Shortness of Breath, Cough, Other (Extubated today) Cardiovascular: Reports: No Symptoms Gastrointestinal: Reports: No Symptoms - Patient Data Vitals - Most Recent: Last Vital Signs Temp 96.3 F L 10/22/20 04:00 Pulse 87 10/22/20 06:00 Resp 18 10/22/20 07:00 BP 98/60 10/22/20 07:00 Pulse Ox 96 10/22/20 07:00 Weight - Most Recent: 187 lb 9.814 oz I&O - Last 24 Hours: Intake & Output 10/21/20 10/22/20 10/22/20 22:59 06:59 14:59 Intake Total 439 Output Total 1300 60 Balance -861 -60 Lab Results Last 24 Hours: Laboratory Results - last 24 hr 10/21/20 10/22/20 10/22/20 Range/Units 17:10 04:20 04:20 WBC 12.4 H (4.5-11.0) K/uL RBC 3.63 (3.30-5.50) M/uL Hgb 12.7 (12.0-15.0) g/dL Hct 38.3 (36.0-48.0) % MCV 106 H (80-98) fL MCH 35 H (27-31) pg MCHC 33 (32-36) % Plt Count 343 (150-400) K/uL Neut % (Auto) 77 H (36-66) % Lymph % (Auto) 15 L (24-44) % [place] % (Auto) 6 (2-6) % Eos % (Auto) 2 (2-4) % Baso % (Auto) 1 (0-1) % Puncture Site line ABG pH 7.492 H (7.350-7.450) ABG pCO2 37.6 (35.0-42.0) mmHg ABG pO2 110.0 H (75.0-100.0) mmHg ABG HCO3 28.5 H (22.0-26.0) mmol/L ABG Total CO2 25.0 (21.0-25.0) mmol/L ABG O2 Saturation 98.0 (95.0-98.0) % ABG O2 Content 17.6 (15.0-23.0) %vol ABG Base Excess 5.3 mm/L ABG Hemoglobin 13.0 (12.0-16.0) g/dL ABG Oxyhemoglobin 95.9 % ABG Carboxyhemoglobin 1.4 (0.0-1.6) % ABG Methemoglobin 0.7 % O2 Delivery Device Ventilator Oxygen Flow Rate L Sodium (140-148) mmol/L Potassium 3.7 (3.6-5.2) mmol/L Chloride (100-108) mmol/L Carbon Dioxide (21-32) mmol/L Anion Gap (5.0-14.0) mmol/L BUN (7-18) mg/dL Creatinine (0.6-1.0) mg/dL Est Cr Clr Drug Dosing mL/min Estimated GFR (MDRD) (>60) Glucose (74-106) mg/dL Calcium (8.5-10.1) mg/dL Total Bilirubin (0.2-1.0) mg/dL AST (15-37) U/L ALT (12-78) U/L Alkaline Phosphatase (46-116) U/L Total Protein (6.4-8.2) g/dL Albumin (3.4-5.0) g/dL Globulin (2.3-3.5) g/dL Albumin/Globulin Ratio (1.2-2.2) 10/22/20 Range/Units 04:20 WBC (4.5-11.0) K/uL RBC (3.30-5.50) M/uL Hgb (12.0-15.0) g/dL Hct (36.0-48.0) % MCV (80-98) fL MCH (27-31) pg MCHC (32-36) % Plt Count (150-400) K/uL Neut % (Auto) (36-66) % Lymph % (Auto) (24-44) % [place] % (Auto) (2-6) % Eos % (Auto) (2-4) % Baso % (Auto) (0-1) % Puncture Site ABG pH (7.350-7.450) ABG pCO2 (35.0-42.0) mmHg ABG pO2 (75.0-100.0) mmHg ABG HCO3 (22.0-26.0) mmol/L ABG Total CO2 (21.0-25.0) mmol/L ABG O2 Saturation (95.0-98.0) % ABG O2 Content (15.0-23.0) %vol ABG Base Excess mm/L ABG Hemoglobin (12.0-16.0) g/dL ABG Oxyhemoglobin % ABG Carboxyhemoglobin (0.0-1.6) % ABG Methemoglobin % O2 Delivery Device Oxygen Flow Rate L Sodium 140 (140-148) mmol/L Potassium 3.0 L (3.6-5.2) mmol/L Chloride 102 (100-108) mmol/L Carbon Dioxide 29 (21-32) mmol/L Anion Gap 12.0 (5.0-14.0) mmol/L BUN 17 D (7-18) mg/dL Creatinine 0.8 (0.6-1.0) mg/dL Est Cr Clr Drug Dosing 71.55 mL/min Estimated GFR (MDRD) > 60 (>60) Glucose 162 H (74-106) mg/dL Calcium 9.0 (8.5-10.1) mg/dL Total Bilirubin 0.3 (0.2-1.0) mg/dL AST 53 H (15-37) U/L ALT 32 (12-78) U/L Alkaline Phosphatase 115 (46-116) U/L Total Protein 7.0 (6.4-8.2) g/dL Albumin 2.4 L (3.4-5.0) g/dL Globulin 4.6 H (2.3-3.5) g/dL Albumin/Globulin Ratio 0.5 L (1.2-2.2) Med Orders - Current: Current Medications Acetaminophen (Tylenol Extra Strength) 500 mg PO Q6H PRN PRN Reason: Pain/Fever Last Admin: 10/16/20 15:11 Dose: 500 mg Documented by: Benzocaine/Menthol (Cepacol Sore Throat) 1 lozenge MUCMEM Q2H PRN PRN Reason: Cough Last Admin: 10/13/20 22:24 Dose: 1 shanna Documented by: Diphenhydramine HCl (Benadryl) 50 mg PO Q6H PRN PRN Reason: Itching Last Admin: 10/14/20 23:00 Dose: 50 mg Documented by: Enoxaparin Sodium (Lovenox) 40 mg SUBCUT Q24H [facility] Last Admin: 10/21/20 21:28 Dose: 40 mg Documented by: Fluoxetine HCl (Prozac) 40 mg PO DAILY [facility] Last Admin: 10/20/20 08:42 Dose: Not Given Documented by: Fluoxetine HCl (Prozac) 20 mg PO QPM [facility] Last Admin: 10/19/20 16:28 Dose: Not Given Documented by: Furosemide (Lasix) 40 mg IVPUSH BID [facility] Last Admin: 10/22/20 10:36 Dose: 40 mg Documented by: Hydroxyzine HCl (Vistaril) 100 mg IM Q4H PRN PRN Reason: Pain Last Admin: 10/12/20 07:33 Dose: 100 mg Documented by: Ceftriaxone Sodium 1 gm/ (Sodium Chloride) 50 mls @ 100 mls/hr IV Q24H [facility] Last Admin: 10/21/20 15:02 Dose: 100 mls/hr Documented by: Levofloxacin/Dextrose 750 mg/ (Premix) 150 mls @ 100 mls/hr IV Q24H [facility] Last Admin: 10/21/20 21:46 Dose: 100 mls/hr Documented by: Propofol (Diprivan 100 Ml) 100 mls @ 2.313 mls/hr IV TITRATE [facility]; Protocol Last Admin: 10/22/20 05:26 Dose: 55 mcg/kg/min, 25.447 mls/hr Documented by: Heparin Sodium (Porcine) 5,000 (units/ Sodium Chloride) 501 mls @ 0 mls/hr IV ASDIRECTED [facility]; Protocol Last Admin: 10/19/20 09:54 Dose: 1 mls/hr, 1 mls/hr Documented by: Multivitamins/Minerals 10 ml/Zinc 1 ml/ Amino Ac/Electrol/Dextrose/Calcium 1,011 mls @ 70 mls/hr IV .BY DURATION [facility] Last Admin: 10/21/20 18:05 Dose: 70 mls/hr Documented by: Amino Ac/Electrol/Dextrose/Calcium (Clinimix E 02/11) 1,000 mls @ 70 mls/hr IV .BY DURATION [facility] Last Admin: 10/22/20 08:12 Dose: 70 mls/hr Documented by: Lactobacillus Rhamnosus (Culturelle) 1 cap PO BID [facility] Last Admin: 10/20/20 08:42 Dose: Not Given Documented by: Levalbuterol HCl (Xopenex) 1.25 mg NEB QIDRT [facility] Last Admin: 10/22/20 10:25 Dose: 1.25 mg Documented by: Levalbuterol HCl (Xopenex) 1.25 mg NEB Q4H PRN PRN Reason: shortness of breath/wheezing Lisinopril (Prinivil) 20 mg PO BEDTIME [facility] Last Admin: 10/19/20 20:16 Dose: Not Given Documented by: Lorazepam (Ativan) 1 mg IVPUSH Q2H PRN PRN Reason: Agitation Last Admin: 10/21/20 22:26 Dose: 1 mg Documented by: Miscellaneous Information (Remove Patch) 1 ea TRDERM BEDTIME [facility] Last Admin: 10/21/20 21:50 Dose: 1 ea Documented by: Nicotine (Habitrol) 14 mg TRDERM DAILY [facility] Last Admin: 10/22/20 10:36 Dose: 14 mg Documented by: Ondansetron HCl (Zofran) 4 mg IVPUSH Q4H PRN PRN Reason: Nausea Last Admin: 10/12/20 11:02 Dose: 4 mg Documented by: Oxycodone HCl (Oxycodone) 5 mg PO Q4H PRN PRN Reason: Pain Pantoprazole Sodium (Protonix Iv) 40 mg IVPUSH Q24H [facility] Last Admin: 10/21/20 21:42 Dose: 40 mg Documented by: Potassium Gluconate (99mg Tab (Ptom)) 2 each PO BIDMEALS [facility] Last Admin: 10/20/20 07:37 Dose: Not Given Documented by: Sodium Chloride (Saline Flush) 10 ml FLUSH ONETIME PRN PRN Reason: PER RADIOLOGY PROTOCOL Last Admin: 10/16/20 17:10 Dose: 10 ml Documented by: Sodium Chloride ([place] Mel Nasal [place]) 0 ml NELLY Q2H PRN PRN Reason: Congestion Last Admin: 10/15/20 08:35 Dose: 1 spray Documented by: Sodium Chloride ([place] Saline Nasal Gel) 0 gm NELLY ASDIRECTED PRN PRN Reason: Congestion Last Admin: 10/15/20 08:36 Dose: 1 applic Documented by: Trazodone HCl (Trazodone) 100 mg PO BEDTIME [facility] Last Admin: 10/19/20 20:17 Dose: Not Given Documented by: Trolamine Salicylate (Aspercreme 10%) 0 gm TOP Q4H PRN PRN Reason: back pain Last Admin: 10/15/20 21:45 Dose: 1 applic Documented by: Discontinued Medications Albuterol (Proventil Neb Soln) 2.5 mg NEB Q2H PRN PRN Reason: wheezing/shortness of breath Albuterol/Ipratropium (Duoneb 3.0-0.5 Mg/3 Ml) 3 ml INH QIDRT [facility] Last Admin: 10/14/20 06:59 Dose: 3 ml Documented by: Albuterol/Ipratropium (Duoneb 3.0-0.5 Mg/3 Ml) 3 ml INH ASDIRECTED PRN PRN Reason: Shortness of Breath Cyanocobalamin (Vitamin B12) 1,000 mcg IM ONETIME ONE Stop: 10/11/20 10:31 Last Admin: 10/11/20 11:31 Dose: 1,000 mcg Documented by: Cyclobenzaprine HCl (Flexeril) 10 mg PO Q8H PRN PRN Reason: Muscle Spasm Last Admin: 10/15/20 20:59 Dose: 10 mg Documented by: Dexamethasone (Decadron) Confirm Administered Dose 4 mg .ROUTE .STK-MED ONE Stop: 10/13/20 08:42 Diphenhydramine HCl (Benadryl) 50 mg IVPUSH Q4H PRN PRN Reason: Itching Diphenhydramine HCl (Benadryl) 25 mg PO Q6H PRN PRN Reason: Itching Last Admin: 10/12/20 21:51 Dose: 25 mg Documented by: Diphenoxylate HCl/Atropine (Lomotil 0.025-2.5 Mg) 1 tab PO Q6H PRN PRN Reason: Diarrhea Enoxaparin Sodium (Lovenox) 40 mg SUBCUT DAILY [facility] Last Admin: 10/16/20 21:42 Dose: 40 mg Documented by: Etomidate (Amidate) 30 mg IVPUSH ONETIME ONE Stop: 10/16/20 20:16 Last Admin: 10/16/20 20:15 Dose: 30 mg Documented by: Fentanyl (Sublimaze) Confirm Administered Dose 100 mcg .ROUTE .STK-MED ONE Stop: 10/11/20 09:02 Fluoxetine HCl (Prozac) 60 mg PO DAILY [facility] Furosemide (Lasix) 40 mg IVPUSH NOW ONE Stop: 10/13/20 14:01 Last Admin: 10/13/20 13:54 Dose: 40 mg Documented by: Furosemide (Lasix) 40 mg IVPUSH ONETIME ONE Stop: 10/14/20 00:00 Last Admin: 10/13/20 23:40 Dose: 40 mg Documented by: Furosemide (Lasix) 40 mg IVPUSH ONETIME ONE Stop: 10/14/20 09:01 Last Admin: 10/14/20 08:58 Dose: 40 mg Documented by: Furosemide (Lasix) 40 mg IVPUSH Q8H [facility] Stop: 10/15/20 01:01 Last Admin: 10/15/20 00:40 Dose: Not Given Documented by: Furosemide (Lasix) 40 mg IVPUSH Q8H [facility] Stop: 10/15/20 16:01 Last Admin: 10/15/20 16:05 Dose: 40 mg Documented by: Furosemide (Lasix) 40 mg IVPUSH NOW ONE Stop: 10/16/20 14:21 Last Admin: 10/16/20 14:27 Dose: 40 mg Documented by: Furosemide (Lasix) 40 mg IVPUSH NOW ONE Stop: 10/16/20 23:01 Last Admin: 10/16/20 22:54 Dose: 40 mg Documented by: Furosemide (Lasix) 40 mg IVPUSH NOW ONE Stop: 10/17/20 10:51 Last Admin: 10/17/20 11:07 Dose: 40 mg Documented by: Furosemide (Lasix) 40 mg IVPUSH NOW ONE Stop: 10/17/20 22:01 Last Admin: 10/17/20 21:34 Dose: 40 mg Documented by: Furosemide (Lasix) 40 mg IVPUSH NOW ONE Stop: 10/18/20 12:31 Last Admin: 10/18/20 13:04 Dose: 40 mg Documented by: Furosemide (Lasix) 40 mg IVPUSH NOW ONE Stop: 10/19/20 01:01 Last Admin: 10/19/20 01:55 Dose: 40 mg Documented by: Furosemide (Lasix) 40 mg IVPUSH NOW ONE Stop: 10/19/20 12:31 Last Admin: 10/19/20 15:07 Dose: 40 mg Documented by: Furosemide (Lasix) 40 mg IVPUSH NOW ONE Stop: 10/20/20 01:01 Last Admin: 10/20/20 02:12 Dose: 40 mg Documented by: Glycopyrrolate (Glycopyrrolate) 0.4 mg IVPUSH ONETIME ONE Stop: 10/11/20 10:31 Last Admin: 10/11/20 12:12 Dose: 0.4 mg Documented by: Heparin Sodium (Porcine) (Heparin Sodium) Confirm Administered Dose 5,000 units .ROUTE .STK-MED ONE Stop: 10/16/20 20:31 Last Admin: 10/16/20 21:11 Dose: 5,000 units Documented by: Lactated Ringer's (Ringers, Lactated) 1,000 mls @ 999 mls/hr IV BOLUS ONE Stop: 10/11/20 11:30 Last Admin: 10/11/20 10:56 Dose: 999 mls/hr Documented by: Multivitamins/Minerals 10 ml/Thiamine HCl 200 mg/ Zinc 1 ml / Lactated Ringer's 1,013 mls @ 500 mls/hr IV ONETIME ONE Stop: 10/11/20 13:31 Last Admin: 10/11/20 11:47 Dose: 500 mls/hr Documented by: Ampicillin Sodium/Sulbactam (Sodium 1.5 gm/ Sodium Chloride) 50 mls @ 100 mls/hr IV ONETIME ONE Stop: 10/11/20 10:59 Last Admin: 10/11/20 12:13 Dose: 100 mls/hr Documented by: Dextrose/Lactated Ringer's (Dextrose 5%-Lactated Ringers) 1,000 mls @ 125 mls/hr IV ASDIRECTED [facility] Last Admin: 10/13/20 09:18 Dose: 125 mls/hr Documented by: Sodium Chloride (Normal Saline) 75 mls @ 3 mls/sec IV ONETIME ONE Stop: 10/12/20 09:05 Last Admin: 10/12/20 09:28 Dose: 3 mls/sec Documented by: Meropenem 500 mg/ Sodium (Chloride) 50 mls @ 100 mls/hr IV ONCALL ONE Stop: 10/13/20 11:59 Last Admin: 10/14/20 06:32 Dose: Not Given Documented by: Acetaminophen 1,000 mg/ Premix 100 mls @ 400 mls/hr IV NOW ONE Stop: 10/12/20 23:51 Last Admin: 10/12/20 23:52 Dose: 400 mls/hr Documented by: Linezolid (Zyvox) Confirm Administered Dose 300 mls @ as directed .ROUTE .STK- MED ONE Stop: 10/13/20 09:56 Dextrose/Lactated Ringer's (Dextrose 5%-Lactated Ringers) 1,000 mls @ 25 mls/hr IV ASDIRECTED [facility] Stop: 10/15/20 16:00 Last Admin: 10/14/20 16:56 Dose: 25 mls/hr Documented by: Potassium Chloride 20 meq/Lidocaine HCl 2 ml/ Sodium Chloride 112 mls @ 56 mls/hr IV Q2H [facility] Stop: 10/15/20 12:29 Last Admin: 10/15/20 11:10 Dose: 56 mls/hr Documented by: Magnesium Sulfate (Magnesium Sulfate In Water Premix) 2 gm in 50 mls @ 25 mls/hr IV Q6H [facility] Stop: 10/15/20 15:59 Last Admin: 10/15/20 13:21 Dose: 25 mls/hr Documented by: Doxycycline Hyclate 100 mg/ (Sodium Chloride) 100 mls @ 100 mls/hr IV Q12H [facility] Last Admin: 10/16/20 15:56 Dose: 100 mls/hr Documented by: Propofol (Diprivan 100 Ml) Confirm Administered Dose 100 mls @ as directed .ROUTE .STK-MED ONE Stop: 10/16/20 20:18 Last Admin: 10/16/20 21:25 Dose: Not Given Documented by: Vancomycin HCl 1.25 gm/ Sodium (Chloride) 250 mls @ 166.667 mls/hr IV Q12H [facility] Last Admin: 10/16/20 22:54 Dose: 166.667 mls/hr Documented by: Vancomycin HCl 1.25 gm/ Sodium (Chloride) 250 mls @ 166.667 mls/hr IV Q12H [facility] Last Admin: 10/18/20 23:45 Dose: 166.667 mls/hr Documented by: Potassium Chloride 40 meq/ (Premix) 100 mls @ 25 mls/hr IV ONETIME ONE Stop: 10/17/20 15:29 Last Admin: 10/17/20 11:18 Dose: 25 mls/hr Documented by: Potassium Chloride 20 meq/ (Premix) 100 mls @ 50 mls/hr IV Q2H [facility] Stop: 10/18/20 13:59 Last Admin: 10/18/20 15:28 Dose: 50 mls/hr Documented by: Magnesium Sulfate (Magnesium Sulfate In Water Premix) 2 gm in 50 mls @ 12.5 mls/hr IV Q6H [facility] Stop: 10/18/20 19:59 Last Admin: 10/18/20 15:49 Dose: 12.5 mls/hr Documented by: Potassium Chloride 40 meq/ (Premix) 100 mls @ 25 mls/hr IV ONETIME ONE Stop: 10/18/20 22:59 Last Admin: 10/18/20 18:32 Dose: 25 mls/hr Documented by: Sodium Chloride (Normal Saline) 500 mls @ as directed IV .STK-MED ONE Stop: 10/16/20 20:31 Potassium Chloride 40 meq/ (Premix) 100 mls @ 25 mls/hr IV ONETIME ONE Stop: 10/19/20 12:29 Last Admin: 10/19/20 09:52 Dose: 25 mls/hr Documented by: Vancomycin HCl 1.3 gm/ Sodium (Chloride) 250 mls @ 166.667 mls/hr IV Q12H [facility] Last Admin: 10/19/20 12:18 Dose: 166.667 mls/hr Documented by: Potassium Chloride 40 meq/ (Premix) 100 mls @ 25 mls/hr IV ONETIME ONE Stop: 10/21/20 13:59 Last Admin: 10/21/20 10:45 Dose: 25 mls/hr Documented by: Iopamidol (Isovue-300 (61%)) 30 ml PO ASDIRECTED ONE Stop: 10/12/20 09:05 Last Admin: 10/12/20 09:29 Dose: 30 ml Documented by: Iopamidol (Isovue-300 (61%)) 100 ml IV . DIRECTED PRN PRN Reason: RADIOLOGY EXAM Last Admin: 10/12/20 09:27 Dose: 100 ml Documented by: Lisinopril (Prinivil) Confirm Administered Dose 20 mg .ROUTE .STK-MED ONE Stop: 10/12/20 21:33 Last Admin: 10/12/20 21:42 Dose: Not Given Documented by: Lorazepam (Ativan) 0.5 mg PO Q6H PRN PRN Reason: Anxiety Last Admin: 10/16/20 03:30 Dose: 0.5 mg Documented by: Lorazepam (Ativan) 0.5 mg IVPUSH ONETIME ONE Stop: 10/16/20 07:46 Last Admin: 10/16/20 07:53 Dose: 0.5 mg Documented by: Lorazepam (Ativan) 0.5 mg PO Q4H PRN PRN Reason: Anxiety Last Admin: 10/16/20 16:32 Dose: 0.5 mg Documented by: Lorazepam (Ativan) 0 mg PO ASDIRECTED [facility]; Protocol Last Admin: 10/16/20 17:57 Dose: 2 mg Documented by: Lorazepam (Ativan) 0 mg IV ASDIRECTED [facility]; Protocol Last Admin: 10/18/20 06:15 Dose: 2 mg Documented by: Meropenem (Merrem) Confirm Administered Dose 500 mg .ROUTE .STK-MED ONE Stop: 10/13/20 09:55 Midazolam HCl (Versed 1 Mg/Ml) Confirm Administered Dose 2 mg .ROUTE .STK-MED ONE Stop: 10/11/20 09:02 Morphine Sulfate (Morphine [place] 150 Mg In 30 Ml) 0 mg IV ASDIRECTED PRN; Protocol PRN Reason: Pain Last Admin: 10/13/20 19:38 Dose: 150 mg Documented by: Morphine Sulfate (Morphine) 2 mg IVPUSH ONETIME ONE Stop: 10/11/20 13:38 Last Admin: 10/11/20 13:56 Dose: 2 mg Documented by: Morphine Sulfate (Morphine) 4 mg IVPUSH ONETIME ONE Stop: 10/16/20 07:46 Last Admin: 10/16/20 07:53 Dose: 4 mg Documented by: Naloxone HCl (Narcan) 0.1 mg IV ASDIRECTED PRN PRN Reason: decreased respiratory rate Ondansetron HCl (Zofran) Confirm Administered Dose 4 mg .ROUTE .STK-MED ONE Stop: 10/13/20 08:42 Oxycodone HCl (Oxycodone) 5 - 10 mg PO Q4H PRN PRN Reason: Pain Last Admin: 10/16/20 14:04 Dose: 10 mg Documented by: Pantoprazole Sodium (Protonix) 40 mg PO ACBREAKFAST [facility] Last Admin: 10/16/20 09:18 Dose: 40 mg Documented by: Phenobarbital (Phenobarbital Sodium) 260 mg IVPUSH ONETIME ONE Stop: 10/16/20 19:06 Last Admin: 10/16/20 19:33 Dose: 260 mg Documented by: Potassium Chloride (Potassium Chloride) 40 meq PO BID@0900,1200 [facility] Stop: 10/15/20 12:01 Last Admin: 10/15/20 19:42 Dose: Not Given Documented by: Potassium Chloride (Klor-Con M20) 40 meq PO ONETIME ONE Stop: 10/17/20 17:01 Last Admin: 10/17/20 16:48 Dose: Not Given Documented by: Propofol (Diprivan 20 Ml) Confirm Administered Dose 200 mg .ROUTE .STK-MED ONE Stop: 10/11/20 09:02 Rocuronium [place] (Zemuron) 100 mg IVPUSH ONETIME ONE Stop: 10/16/20 20:16 Last Admin: 10/16/20 20:12 Dose: 100 mg Documented by: Succinylcholine Chloride (Quelicin) Confirm Administered Dose 200 mg .ROUTE .STK-MED ONE Stop: 10/16/20 20:12 Last Admin: 10/16/20 21:10 Dose: Not Given Documented by: Vancomycin HCl (Vancomycin) 1 gm IV .PHARMACY TO DOSE [facility] Stop: 10/17/20 07:00 - Exam Quality Assessment: Supplemental Oxygen (BiPAP), Urine Catheter, DVT Prophylaxis General: Moderate Distress, Sedated Lungs: Clear to Auscultation, Normal Respiratory Effort Cardiovascular: Regular Rate, Regular Rhythm GI/Abdominal Exam: Normal Bowel Sounds Sepsis Event Note - Evaluation Sepsis Screening Result: No Definite Risk - Focused Exam Vital Signs: Vital Signs Temp Pulse Resp BP BP Pulse Ox Pulse Ox 10/22/20 07:00 18 98/60 93/59 L 96 10/22/20 06:00 87 18 110/77 106/69 96 95 10/22/20 05:00 86 18 99/68 96 10/22/20 04:00 96.3 F L 90 18 109/68 96/64 97 10/22/20 03:00 110 H 21 H 128/86 97 10/22/20 02:00 105 H 19 119/84 96 10/22/20 01:00 96 18 122/89 102/69 95 10/22/20 00:00 97.8 F 97 18 108/78 95 - Problem List Review Problem List Initiated/Reviewed/Updated: Yes - My Orders Last 24 Hours: My Active Orders 10/21/20 17:00 ALT Order 10/23/20 04:00 ABG [BLOOD GAS ARTERIAL] [BG] DAILY CBC WITH AUTO DIFF [HEME] DAILY COMPREHENSIVE METABOLIC PN,CMP [CHEM] DAILY - Assessment Assessment:: HEENT - Patient extubated on 10/22, no ETT in place - On BiPAP presently Cardiovascular Patient is down 941 mL for the admission to date. Pressures have been stable and she has been tolerating diuresis well which I think has contributed to the improvement in her respiratory mechanics - Continue lasix 40 mg IV bid for now - Continue to monitor pressures with target MAP of 65 - Monitor I/O strictly and would request daily weights be done as well. Respiratory Extubated on 10/22. On BiPAP at present and tolerating well - Monitor status, low threshhold to do repeat ABG F/E/N/Renal Creatinine stable, K low - Replace electrolytes as appropriate - Continue TPN - Advise caution with fluids given tendency to aRDS Gastrointestinal Concern from Gen Surgery is that mesh may be attached to liver? Was not able to fully explore before patient decompensated. 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
[2020-10-22] MEDS ORDERED: Central Total Parenteral Nutrition Bag IV SCH (12:00)
[2020-10-22] MEDS ORDERED: Potassium Chloride 20 MEQ in Premix Bag 1 BAG IV ONE (12:30)
[2020-10-22] MEDS: LORazepam 2 MG/ML SDV IVPUSH PRN ×4 (12:43→21:00)
[2020-10-22] MEDS: Heparin Sodium 5,000 UNITS in Sodium Chloride 0.9% 500 ML IV SCH (12:52)
[2020-10-22] MEDS: cefTRIAXone 1 GM in Sodium Chloride 0.9% 50 ML IV SCH (14:36)
[2020-10-22] MEDS: Enoxaparin 40 MG/0.4 ML Syringe SUBCUT SCH (20:27)
[2020-10-22] MEDS: Levofloxacin/Dextrose 5%-Water 750 MG in Premix Bag 1 BAG IV SCH (20:35)
[2020-10-22] MEDS: Pantoprazole 40 MG Vial IVPUSH SCH (21:50)
[2020-10-22] MEDS ORDERED: 1: AA 5%/Calcium/D15W/Lytes 1,000 ML with MVI, Adult with Vitamin K 10 ML, Zinc/Copper/M IV SCH ×3 (22:30)
[2020-10-23] MEDS: LORazepam 2 MG/ML SDV IVPUSH PRN (01:58)
[2020-10-23] MEDS: Levalbuterol HCl 1.25 MG/3 ML Neb NEB SCH ×4 (07:10→21:42)
[2020-10-23] MEDS: Nicotine 14 MG/24 Hr Patch TRDERM SCH (08:08)
[2020-10-23] MEDS ORDERED: LORazepam 2 MG/ML SDV IVPUSH PRN (09:30)
[2020-10-23] MEDS: Furosemide 40 MG/4 ML VIAL IVPUSH SCH (09:31)
--- NOTE | 2020-10-23 09:31 | PCM.PN ---
- General Info Date of Service: 10/23/20 Subjective Update: There were no acute events overnight. She has been stable with noninvasive ventilation. She is weak and mildly confused but overall doing fairly well. She has not had any fevers. Blood pressures have been stable. Heart rate is right around 100. Cultures remain negative. Potassium is a little low. White count slightly higher. She is up in the chair. She does not report any abdominal pain today. Functional Status: Reports: Pain Controlled - Review of Systems General: Reports: Weakness. Denies: Fever Neurological: Reports: Confusion - Patient Data Vitals - Most Recent: Last Vital Signs Temp 36.2 C 10/23/20 07:00 Pulse 87 10/23/20 06:00 Resp 22 H 10/23/20 07:00 BP 115/81 10/23/20 07:00 Pulse Ox 98 10/23/20 07:00 Weight - Most Recent: 84.2 kg I&O - Last 24 Hours: Intake & Output 10/22/20 10/23/20 10/23/20 22:59 06:59 14:59 Intake Total 2010 658 Output Total 200 1100 Balance 1810 -442 Lab Results Last 24 Hours: Laboratory Results - last 24 hr 10/23/20 10/23/20 10/23/20 Range/Units 03:55 03:55 03:55 WBC 14.0 H (4.5-11.0) K/uL RBC 3.71 (3.30-5.50) M/uL Hgb 12.7 (12.0-15.0) g/dL Hct 39.3 (36.0-48.0) % MCV 106 H (80-98) fL MCH 34 H (27-31) pg MCHC 32 (32-36) % Plt Count 321 (150-400) K/uL Neut % (Auto) 76 H (36-66) % Lymph % (Auto) 14 L (24-44) % [place] % (Auto) 7 H (2-6) % Eos % (Auto) 2 (2-4) % Baso % (Auto) 1 (0-1) % Puncture Site A-line ABG pH 7.442 (7.350-7.450) ABG pCO2 46.0 H (35.0-42.0) mmHg ABG pO2 86.0 (75.0-100.0) mmHg ABG HCO3 30.9 H (22.0-26.0) mmol/L ABG Total CO2 27.4 H (21.0-25.0) mmol/L ABG O2 Saturation 95.8 (95.0-98.0) % ABG O2 Content 17.1 (15.0-23.0) %vol ABG Base Excess 6.2 mm/L ABG Hemoglobin 12.9 (12.0-16.0) g/dL ABG Oxyhemoglobin 93.9 % ABG Carboxyhemoglobin 1.1 (0.0-1.6) % ABG Methemoglobin 0.9 % Brown Test A-line O2 Delivery Device Oxygen Flow Rate L Sodium 141 (140-148) mmol/L Potassium 3.2 L (3.6-5.2) mmol/L Chloride 103 (100-108) mmol/L Carbon Dioxide 30 (21-32) mmol/L Anion Gap 11.2 (5.0-14.0) mmol/L BUN 21 H (7-18) mg/dL Creatinine 0.6 (0.6-1.0) mg/dL Est Cr Clr Drug Dosing 95.40 mL/min Estimated GFR (MDRD) > 60 (>60) Glucose 154 H (74-106) mg/dL Calcium 9.1 (8.5-10.1) mg/dL Total Bilirubin 0.4 (0.2-1.0) mg/dL AST 29 (15-37) U/L ALT 27 (12-78) U/L Alkaline Phosphatase 108 (46-116) U/L Total Protein 7.3 (6.4-8.2) g/dL Albumin 2.5 L (3.4-5.0) g/dL Globulin 4.8 H (2.3-3.5) g/dL Albumin/Globulin Ratio 0.5 L (1.2-2.2) Med Orders - Current: Current Medications Acetaminophen (Tylenol Extra Strength) 500 mg PO Q6H PRN PRN Reason: Pain/Fever Last Admin: 10/16/20 15:11 Dose: 500 mg Documented by: Benzocaine/Menthol (Cepacol Sore Throat) 1 lozenge MUCMEM Q2H PRN PRN Reason: Cough Last Admin: 10/13/20 22:24 Dose: 1 shanna Documented by: Diphenhydramine HCl (Benadryl) 50 mg PO Q6H PRN PRN Reason: Itching Last Admin: 10/14/20 23:00 Dose: 50 mg Documented by: Enoxaparin Sodium (Lovenox) 40 mg SUBCUT Q24H ON LICENSE OF [facility] Last Admin: 10/22/20 20:27 Dose: 40 mg Documented by: Fluoxetine HCl (Prozac) 40 mg PO DAILY ON LICENSE OF [facility] Last Admin: 10/20/20 08:42 Dose: Not Given Documented by: Fluoxetine HCl (Prozac) 20 mg PO QPM ON LICENSE OF [facility] Last Admin: 10/19/20 16:28 Dose: Not Given Documented by: Furosemide (Lasix) 40 mg IVPUSH BID ON LICENSE OF [facility] Last Admin: 10/22/20 20:30 Dose: 40 mg Documented by: Hydroxyzine HCl (Vistaril) 100 mg IM Q4H PRN PRN Reason: Pain Last Admin: 10/12/20 07:33 Dose: 100 mg Documented by: Levofloxacin/Dextrose 750 mg/ (Premix) 150 mls @ 100 mls/hr IV Q24H ON LICENSE OF [facility] Last Admin: 10/22/20 20:35 Dose: 100 mls/hr Documented by: Multivitamins/Minerals 10 ml/Zinc 1 ml/ Amino Ac/Electrol/Dextrose/Calcium 1,011 mls @ 70 mls/hr IV .BY DURATION ON LICENSE OF [facility] Last Admin: 10/22/20 22:20 Dose: 70 mls/hr Documented by: Amino Ac/Electrol/Dextrose/Calcium (Clinimix E 5/15) 1,000 mls @ 70 mls/hr IV .BY DURATION ON LICENSE OF [facility] Potassium Chloride 40 meq/ (Premix) 100 mls @ 25 mls/hr IV ONETIME ONE Stop: 10/23/20 13:59 Lactobacillus Rhamnosus (Culturelle) 1 cap PO BID ON LICENSE OF [facility] Last Admin: 10/20/20 08:42 Dose: Not Given Documented by: Levalbuterol HCl (Xopenex) 1.25 mg NEB QIDRT ON LICENSE OF [facility] Last Admin: 10/23/20 07:10 Dose: 1.25 mg Documented by: Levalbuterol HCl (Xopenex) 1.25 mg NEB Q4H PRN PRN Reason: shortness of breath/wheezing Lisinopril (Prinivil) 20 mg PO BEDTIME ON LICENSE OF [facility] Last Admin: 10/19/20 20:16 Dose: Not Given Documented by: Lorazepam (Ativan) 1 mg IVPUSH Q2H PRN PRN Reason: Agitation Last Admin: 10/23/20 01:58 Dose: 1 mg Documented by: Miscellaneous Information (Remove Patch) 1 ea TRDERM BEDTIME ON LICENSE OF [facility] Last Admin: 10/22/20 21:00 Dose: 1 ea Documented by: Nicotine (Habitrol) 14 mg TRDERM DAILY ON LICENSE OF [facility] Last Admin: 10/23/20 08:08 Dose: 14 mg Documented by: Ondansetron HCl (Zofran) 4 mg IVPUSH Q4H PRN PRN Reason: Nausea Last Admin: 10/12/20 11:02 Dose: 4 mg Documented by: Oxycodone HCl (Oxycodone) 5 mg PO Q4H PRN PRN Reason: Pain Potassium Gluconate (99mg Tab (Ptom)) 2 each PO BIDMEALS ON LICENSE OF [facility] Last Admin: 10/20/20 07:37 Dose: Not Given Documented by: Sodium Chloride (Saline Flush) 10 ml FLUSH ONETIME PRN PRN Reason: PER RADIOLOGY PROTOCOL Last Admin: 10/16/20 17:10 Dose: 10 ml Documented by: Sodium Chloride ([place] Nasal [place]) 0 ml NELLY Q2H PRN PRN Reason: Congestion Last Admin: 10/15/20 08:35 Dose: 1 spray Documented by: Sodium Chloride ([place] Saline Nasal Gel) 0 gm NELLY ASDIRECTED PRN PRN Reason: Congestion Last Admin: 10/15/20 08:36 Dose: 1 applic Documented by: Trazodone HCl (Trazodone) 100 mg PO BEDTIME ON LICENSE OF [facility] Last Admin: 10/19/20 20:17 Dose: Not Given Documented by: Trolamine Salicylate (Aspercreme 10%) 0 gm TOP Q4H PRN PRN Reason: back pain Last Admin: 10/15/20 21:45 Dose: 1 applic Documented by: Discontinued Medications Albuterol (Proventil Neb Soln) 2.5 mg NEB Q2H PRN PRN Reason: wheezing/shortness of breath Albuterol/Ipratropium (Duoneb 3.0-0.5 Mg/3 Ml) 3 ml INH QIDRT ON LICENSE OF [facility] Last Admin: 10/14/20 06:59 Dose: 3 ml Documented by: Albuterol/Ipratropium (Duoneb 3.0-0.5 Mg/3 Ml) 3 ml INH ASDIRECTED PRN PRN Reason: Shortness of Breath Cyanocobalamin (Vitamin B12) 1,000 mcg IM ONETIME ONE Stop: 10/11/20 10:31 Last Admin: 10/11/20 11:31 Dose: 1,000 mcg Documented by: Cyclobenzaprine HCl (Flexeril) 10 mg PO Q8H PRN PRN Reason: Muscle Spasm Last Admin: 10/15/20 20:59 Dose: 10 mg Documented by: Dexamethasone (Decadron) Confirm Administered Dose 4 mg .ROUTE .STK-MED ONE Stop: 10/13/20 08:42 Diphenhydramine HCl (Benadryl) 50 mg IVPUSH Q4H PRN PRN Reason: Itching Diphenhydramine HCl (Benadryl) 25 mg PO Q6H PRN PRN Reason: Itching Last Admin: 10/12/20 21:51 Dose: 25 mg Documented by: Diphenoxylate HCl/Atropine (Lomotil 0.025-2.5 Mg) 1 tab PO Q6H PRN PRN Reason: Diarrhea Enoxaparin Sodium (Lovenox) 40 mg SUBCUT DAILY ON LICENSE OF [facility] Last Admin: 10/16/20 21:42 Dose: 40 mg Documented by: Etomidate (Amidate) 30 mg IVPUSH ONETIME ONE Stop: 10/16/20 20:16 Last Admin: 10/16/20 20:15 Dose: 30 mg Documented by: Fentanyl (Sublimaze) Confirm Administered Dose 100 mcg .ROUTE .STK-MED ONE Stop: 10/11/20 09:02 Fluoxetine HCl (Prozac) 60 mg PO DAILY ON LICENSE OF [facility] Furosemide (Lasix) 40 mg IVPUSH NOW ONE Stop: 10/13/20 14:01 Last Admin: 10/13/20 13:54 Dose: 40 mg Documented by: Furosemide (Lasix) 40 mg IVPUSH ONETIME ONE Stop: 10/14/20 00:00 Last Admin: 10/13/20 23:40 Dose: 40 mg Documented by: Furosemide (Lasix) 40 mg IVPUSH ONETIME ONE Stop: 10/14/20 09:01 Last Admin: 10/14/20 08:58 Dose: 40 mg Documented by: Furosemide (Lasix) 40 mg IVPUSH Q8H ON LICENSE OF [facility] Stop: 10/15/20 01:01 Last Admin: 10/15/20 00:40 Dose: Not Given Documented by: Furosemide (Lasix) 40 mg IVPUSH Q8H ON LICENSE OF [facility] Stop: 10/15/20 16:01 Last Admin: 10/15/20 16:05 Dose: 40 mg Documented by: Furosemide (Lasix) 40 mg IVPUSH NOW ONE Stop: 10/16/20 14:21 Last Admin: 10/16/20 14:27 Dose: 40 mg Documented by: Furosemide (Lasix) 40 mg IVPUSH NOW ONE Stop: 10/16/20 23:01 Last Admin: 10/16/20 22:54 Dose: 40 mg Documented by: Furosemide (Lasix) 40 mg IVPUSH NOW ONE Stop: 10/17/20 10:51 Last Admin: 10/17/20 11:07 Dose: 40 mg Documented by: Furosemide (Lasix) 40 mg IVPUSH NOW ONE Stop: 10/17/20 22:01 Last Admin: 10/17/20 21:34 Dose: 40 mg Documented by: Furosemide (Lasix) 40 mg IVPUSH NOW ONE Stop: 10/18/20 12:31 Last Admin: 10/18/20 13:04 Dose: 40 mg Documented by: Furosemide (Lasix) 40 mg IVPUSH NOW ONE Stop: 10/19/20 01:01 Last Admin: 10/19/20 01:55 Dose: 40 mg Documented by: Furosemide (Lasix) 40 mg IVPUSH NOW ONE Stop: 10/19/20 12:31 Last Admin: 10/19/20 15:07 Dose: 40 mg Documented by: Furosemide (Lasix) 40 mg IVPUSH NOW ONE Stop: 10/20/20 01:01 Last Admin: 10/20/20 02:12 Dose: 40 mg Documented by: Glycopyrrolate (Glycopyrrolate) 0.4 mg IVPUSH ONETIME ONE Stop: 10/11/20 10:31 Last Admin: 10/11/20 12:12 Dose: 0.4 mg Documented by: Heparin Sodium (Porcine) (Heparin Sodium) Confirm Administered Dose 5,000 units .ROUTE .[facility]-MED ONE Stop: 10/16/20 20:31 Last Admin: 10/16/20 21:11 Dose: 5,000 units Documented by: Lactated Ringer's (Ringers, Lactated) 1,000 mls @ 999 mls/hr IV BOLUS ONE Stop: 10/11/20 11:30 Last Admin: 10/11/20 10:56 Dose: 999 mls/hr Documented by: Multivitamins/Minerals 10 ml/Thiamine HCl 200 mg/ Zinc 1 ml / Lactated Ringer's 1,013 mls @ 500 mls/hr IV ONETIME ONE Stop: 10/11/20 13:31 Last Admin: 10/11/20 11:47 Dose: 500 mls/hr Documented by: Ampicillin Sodium/Sulbactam (Sodium 1.5 gm/ Sodium Chloride) 50 mls @ 100 mls/hr IV ONETIME ONE Stop: 10/11/20 10:59 Last Admin: 10/11/20 12:13 Dose: 100 mls/hr Documented by: Dextrose/Lactated Ringer's (Dextrose 5%-Lactated Ringers) 1,000 mls @ 125 mls/hr IV ASDIRECTED ON LICENSE OF [facility] Last Admin: 10/13/20 09:18 Dose: 125 mls/hr Documented by: Sodium Chloride (Normal Saline) 75 mls @ 3 mls/sec IV ONETIME ONE Stop: 10/12/20 09:05 Last Admin: 10/12/20 09:28 Dose: 3 mls/sec Documented by: Meropenem 500 mg/ Sodium (Chloride) 50 mls @ 100 mls/hr IV ONCALL ONE Stop: 10/13/20 11:59 Last Admin: 10/14/20 06:32 Dose: Not Given Documented by: Acetaminophen 1,000 mg/ Premix 100 mls @ 400 mls/hr IV NOW ONE Stop: 10/12/20 23:51 Last Admin: 10/12/20 23:52 Dose: 400 mls/hr Documented by: Linezolid (Zyvox) Confirm Administered Dose 300 mls @ as directed .ROUTE .STK- MED ONE Stop: 10/13/20 09:56 Dextrose/Lactated Ringer's (Dextrose 5%-Lactated Ringers) 1,000 mls @ 25 mls/hr IV ASDIRECTED ON LICENSE OF [facility] Stop: 10/15/20 16:00 Last Admin: 10/14/20 16:56 Dose: 25 mls/hr Documented by: Potassium Chloride 20 meq/Lidocaine HCl 2 ml/ Sodium Chloride 112 mls @ 56 mls/hr IV Q2H ON LICENSE OF [facility] Stop: 10/15/20 12:29 Last Admin: 10/15/20 11:10 Dose: 56 mls/hr Documented by: Magnesium Sulfate (Magnesium Sulfate In Water Premix) 2 gm in 50 mls @ 25 mls/hr IV Q6H ON LICENSE OF [facility] Stop: 10/15/20 15:59 Last Admin: 10/15/20 13:21 Dose: 25 mls/hr Documented by: Ceftriaxone Sodium 1 gm/ (Sodium Chloride) 50 mls @ 100 mls/hr IV Q24H ON LICENSE OF [facility] Last Admin: 10/22/20 14:36 Dose: 100 mls/hr Documented by: Doxycycline Hyclate 100 mg/ (Sodium Chloride) 100 mls @ 100 mls/hr IV Q12H ON LICENSE OF [facility] Last Admin: 10/16/20 15:56 Dose: 100 mls/hr Documented by: Propofol (Diprivan 100 Ml) Confirm Administered Dose 100 mls @ as directed .ROUTE .STK-MED ONE Stop: 10/16/20 20:18 Last Admin: 10/16/20 21:25 Dose: Not Given Documented by: Propofol (Diprivan 100 Ml) 100 mls @ 2.313 mls/hr IV TITRATE ON LICENSE OF [facility]; Protocol Last Admin: 10/22/20 05:26 Dose: 55 mcg/kg/min, 25.447 mls/hr Documented by: Vancomycin HCl 1.25 gm/ Sodium (Chloride) 250 mls @ 166.667 mls/hr IV Q12H ON LICENSE OF [facility] Last Admin: 10/16/20 22:54 Dose: 166.667 mls/hr Documented by: Vancomycin HCl 1.25 gm/ Sodium (Chloride) 250 mls @ 166.667 mls/hr IV Q12H ON LICENSE OF [facility] Last Admin: 10/18/20 23:45 Dose: 166.667 mls/hr Documented by: Heparin Sodium (Porcine) 5,000 (units/ Sodium Chloride) 501 mls @ 0 mls/hr IV ASDIRECTED ON LICENSE OF [facility]; Protocol Last Admin: 10/22/20 12:52 Dose: 1 mls/hr, 1 mls/hr Documented by: Potassium Chloride 40 meq/ (Premix) 100 mls @ 25 mls/hr IV ONETIME ONE Stop: 10/17/20 15:29 Last Admin: 10/17/20 11:18 Dose: 25 mls/hr Documented by: Potassium Chloride 20 meq/ (Premix) 100 mls @ 50 mls/hr IV Q2H ON LICENSE OF [facility] Stop: 10/18/20 13:59 Last Admin: 10/18/20 15:28 Dose: 50 mls/hr Documented by: Magnesium Sulfate (Magnesium Sulfate In Water Premix) 2 gm in 50 mls @ 12.5 mls/hr IV Q6H ON LICENSE OF [facility] Stop: 10/18/20 19:59 Last Admin: 10/18/20 15:49 Dose: 12.5 mls/hr Documented by: Potassium Chloride 40 meq/ (Premix) 100 mls @ 25 mls/hr IV ONETIME ONE Stop: 10/18/20 22:59 Last Admin: 10/18/20 18:32 Dose: 25 mls/hr Documented by: Sodium Chloride (Normal Saline) 500 mls @ as directed IV .STK-MED ONE Stop: 10/16/20 20:31 Potassium Chloride 40 meq/ (Premix) 100 mls @ 25 mls/hr IV ONETIME ONE Stop: 10/19/20 12:29 Last Admin: 10/19/20 09:52 Dose: 25 mls/hr Documented by: Vancomycin HCl 1.3 gm/ Sodium (Chloride) 250 mls @ 166.667 mls/hr IV Q12H ON LICENSE OF [facility] Last Admin: 10/19/20 12:18 Dose: 166.667 mls/hr Documented by: Potassium Chloride 40 meq/ (Premix) 100 mls @ 25 mls/hr IV ONETIME ONE Stop: 10/21/20 13:59 Last Admin: 10/21/20 10:45 Dose: 25 mls/hr Documented by: Multivitamins/Minerals 10 ml/Zinc 1 ml/ Amino Ac/Electrol/Dextrose/Calcium 1,011 mls @ 70 mls/hr IV .BY DURATION ON LICENSE OF [facility] Last Admin: 10/21/20 18:05 Dose: 70 mls/hr Documented by: Amino Ac/Electrol/Dextrose/Calcium (Clinimix E 5/15) 1,000 mls @ 70 mls/hr IV .BY DURATION ON LICENSE OF [facility] Last Admin: 10/22/20 08:12 Dose: 70 mls/hr Documented by: Potassium Chloride 20 meq/ (Premix) 100 mls @ 50 mls/hr IV ONETIME ONE Stop: 10/22/20 14:29 Last Admin: 10/22/20 12:45 Dose: 50 mls/hr Documented by: Iopamidol (Isovue-300 (61%)) 30 ml PO ASDIRECTED ONE Stop: 10/12/20 09:05 Last Admin: 10/12/20 09:29 Dose: 30 ml Documented by: Iopamidol (Isovue-300 (61%)) 100 ml IV . DIRECTED PRN PRN Reason: RADIOLOGY EXAM Last Admin: 10/12/20 09:27 Dose: 100 ml Documented by: Lisinopril (Prinivil) Confirm Administered Dose 20 mg .ROUTE .STK-MED ONE Stop: 10/12/20 21:33 Last Admin: 10/12/20 21:42 Dose: Not Given Documented by: Lorazepam (Ativan) 0.5 mg PO Q6H PRN PRN Reason: Anxiety Last Admin: 10/16/20 03:30 Dose: 0.5 mg Documented by: Lorazepam (Ativan) 0.5 mg IVPUSH ONETIME ONE Stop: 10/16/20 07:46 Last Admin: 10/16/20 07:53 Dose: 0.5 mg Documented by: Lorazepam (Ativan) 0.5 mg PO Q4H PRN PRN Reason: Anxiety Last Admin: 10/16/20 16:32 Dose: 0.5 mg Documented by: Lorazepam (Ativan) 0 mg PO ASDIRECTED YEHUDA; Protocol Last Admin: 10/16/20 17:57 Dose: 2 mg Documented by: Lorazepam (Ativan) 0 mg IV ASDIRECTED YEHUDA; Protocol Last Admin: 10/18/20 06:15 Dose: 2 mg Documented by: Meropenem (Merrem) Confirm Administered Dose 500 mg .ROUTE .STK-MED ONE Stop: 10/13/20 09:55 Midazolam HCl (Versed 1 Mg/Ml) Confirm Administered Dose 2 mg .ROUTE .STK-MED ONE Stop: 10/11/20 09:02 Morphine Sulfate (Morphine Cycle Specialist 150 Mg In 30 Ml) 0 mg IV ASDIRECTED PRN; Pr otocol PRN Reason: Pain Last Admin: 10/13/20 19:38 Dose: 150 mg Documented by: Morphine Sulfate (Morphine) 2 mg IVPUSH ONETIME ONE Stop: 10/11/20 13:38 Last Admin: 10/11/20 13:56 Dose: 2 mg Documented by: Morphine Sulfate (Morphine) 4 mg IVPUSH ONETIME ONE Stop: 10/16/20 07:46 Last Admin: 10/16/20 07:53 Dose: 4 mg Documented by: Naloxone HCl (Narcan) 0.1 mg IV ASDIRECTED PRN PRN Reason: decreased respiratory rate Non-Formulary Medication (Total Parenteral Nutrition, Central) 0 ml IV ASDIRECTED YEHUDA Stop: 10/22/20 16:00 Ondansetron HCl (Zofran) Confirm Administered Dose 4 mg .ROUTE .STK-MED ONE Stop: 10/13/20 08:42 Oxycodone HCl (Oxycodone) 5 - 10 mg PO Q4H PRN PRN Reason: Pain Last Admin: 10/16/20 14:04 Dose: 10 mg Documented by: Pantoprazole Sodium (Protonix) 40 mg PO ACBREAKFAST ON LICENSE OF [facility] Last Admin: 10/16/20 09:18 Dose: 40 mg Documented by: Pantoprazole Sodium (Protonix Iv) 40 mg IVPUSH Q24H ON LICENSE OF [facility] Last Admin: 10/22/20 21:50 Dose: 40 mg Documented by: Phenobarbital (Phenobarbital Sodium) 260 mg IVPUSH ONETIME ONE Stop: 10/16/20 19:06 Last Admin: 10/16/20 19:33 Dose: 260 mg Documented by: Potassium Chloride (Potassium Chloride) 40 meq PO BID@0900,1200 ON LICENSE OF [facility] Stop: 10/15/20 12:01 Last Admin: 10/15/20 19:42 Dose: Not Given Documented by: Potassium Chloride (Klor-Con M20) 40 meq PO ONETIME ONE Stop: 10/17/20 17:01 Last Admin: 10/17/20 16:48 Dose: Not Given Documented by: Propofol (Diprivan 20 Ml) Confirm Administered Dose 200 mg .ROUTE .STK-MED ONE Stop: 10/11/20 09:02 Rocuronium Artie (Zemuron) 100 mg IVPUSH ONETIME ONE Stop: 10/16/20 20:16 Last Admin: 10/16/20 20:12 Dose: 100 mg Documented by: Succinylcholine Chloride (Quelicin) Confirm Administered Dose 200 mg .ROUTE .STK-MED ONE Stop: 10/16/20 20:12 Last Admin: 10/16/20 21:10 Dose: Not Given Documented by: Vancomycin HCl (Vancomycin) 1 gm IV .PHARMACY TO DOSE YEHUDA Stop: 10/17/20 07:00 - Exam Quality Assessment: Supplemental Oxygen General: Alert, Cooperative, No Acute Distress. No: Oriented HEENT: Pupils Equal Lungs: Clear to Auscultation, Normal Respiratory Effort Cardiovascular: Regular Rate, Regular Rhythm GI/Abdominal Exam: Normal Bowel Sounds, Soft, Non-Tender, No Distention Extremities: No Pedal Edema. No: Increased Warmth Skin: Warm, Dry Psy/Mental Status: Alert, Normal Affect Sepsis Event Note - Evaluation Sepsis Screening Result: Severe Sepsis Risk - Focused Exam Vital Signs: Vital Signs Temp Temp Pulse Resp BP BP Pulse Ox 10/23/20 07:00 36.2 C 22 H 115/81 98 10/23/20 06:00 87 20 112/81 98 10/23/20 04:00 36.4 C 95 20 120/88 114/73 99 10/23/20 02:00 98 21 H 123/84 98 10/23/20 00:00 36.4 C 91 20 129/89 127/94 H 8 L 10/22/20 22:00 103 H 20 136/80 129/84 98 - Problem List Review Problem List Initiated/Reviewed/Updated: Yes - My Orders Last 24 Hours: My Active Orders 10/23/20 09:27 Potassium Chloride Riders [KCL in Water 40 MEQ/100 ML] 40 meq Premix Bag 1 bag IV ONETIME Arterial Line Discontinue [OM.PC] Routine 10/23/20 09:30 LORazepam [Ativan] 0.5 mg IVPUSH Q2H PRN 10/23/20 Lunch Clear Liquid Diet [DIET] 10/23/20 13:45 Insert Freeman Catheter [Insert Urinary Catheter] [OM.PC] Q24H 10/24/20 05:00 BASIC METABOLIC PANEL,BMP [CHEM] Timed CBC W/O DIFF,HEMOGRAM [HEME] Timed (1) MAGNESIUM [CHEM] Timed 10/24/20 09:00 Pantoprazole [ProTONIX] 40 mg PO DAILY - Plan Plan:: ASSESSMENT AND RECOMMENDATIONS ARDS-complicated by respiratory failure necessitating intubation. Extubated with steady improvement. No evidence for infection. -Discontinue ceftriaxone today -Continue levofloxacin today, reassess tomorrow -Noninvasive ventilation as needed, wean as able -Furosemide 40 mg twice today -Continue Freeman catheter for strict intake and output monitoring -Minimize IV fluids Alcohol dependence with acute withdrawal delirium-weak and a little lethargic but otherwise seems to be through her alcohol withdrawal. Generalized abdominal pain-concern for mesh adherent to her liver. Pain has resolved at this time. I think it would be best to avoid any sort of surgery at the very least until she has recovered from her respiratory status which would be weeks down the road. She currently has no pain and there is no strong indication for surgery. -Postpone surgery at least a couple of weeks and perhaps indefinitely unless condition changes Hypokalemia-improving with supplementation but still a little low. -Supplement throughout the day and recheck in the morning Maintenance issues- -Freeman catheter-this remains in placed for strict intake and output monitoring, reassess tomorrow -Diet-trial of clear liquids and advance of tolerating -GI-PPI Disposition-I anticipate discharge home possibly with home care after the hospital stay Julian Lara MD
[2020-10-23] MEDS ORDERED: Potassium Chloride Riders 40 MEQ in Premix Bag 1 BAG IV ONE (10:00)
[2020-10-23] MEDS: Enoxaparin 40 MG/0.4 ML Syringe SUBCUT SCH (20:47)
[2020-10-23] MEDS: Levofloxacin/Dextrose 5%-Water 750 MG in Premix Bag 1 BAG IV SCH (20:50)
[2020-10-23] MEDS: Lactobacillus Rhamnosus GG (Probiotic) Cap PO SCH (20:50)
[2020-10-23] MEDS ORDERED: diphenhydrAMINE 25 MG Cap PO PRN (22:29)
[2020-10-24] MEDS: hydrOXYzine HCL 100 MG/2 ML SDV IM PRN (03:20)
[2020-10-24] MEDS: Pantoprazole 40 MG Tab.CR PO SCH (07:38)
[2020-10-24] MEDS: Lactobacillus Rhamnosus GG (Probiotic) Cap PO SCH ×2 (08:27→20:54)
[2020-10-24] MEDS: Nicotine 14 MG/24 Hr Patch TRDERM SCH (08:27)
[2020-10-24] MEDS: Magnesium Sulfate/Water 2 GM/50 ML BAG IV SCH ×2 (08:28→15:14)
--- NOTE | 2020-10-24 09:45 | PCM.PN ---
- General Info Date of Service: 10/24/20 Subjective Update: No acute events overnight. No significant abdominal pain or nausea. Much more clear today. Quite weak but strength is a little better. No fevers. Still requiring 2 L of supplemental oxygen. Tolerating full liquids and is interested in trying food. We did talk about her triggers for drinking and she thinks this is probably related to a traumatic event suggesting PTSD as her trigger. She is committed to quitting and has good family resources. Functional Status: Reports: Pain Controlled, Tolerating Diet - Review of Systems General: Reports: Weakness. Denies: Fever Pulmonary: Reports: Cough, Sputum - Patient Data Vitals - Most Recent: Last Vital Signs Temp 36.2 C 10/24/20 08:00 Pulse 104 H 10/24/20 08:00 Resp 24 H 10/24/20 08:00 BP 105/68 10/24/20 08:00 Pulse Ox 99 10/24/20 08:00 Weight - Most Recent: 84.2 kg I&O - Last 24 Hours: Intake & Output 10/23/20 10/24/20 10/24/20 22:59 06:59 14:59 Intake Total 845 180 50 Output Total 500 250 Balance 345 -70 50 Lab Results Last 24 Hours: Laboratory Results - last 24 hr 10/24/20 10/24/20 Range/Units 05:00 05:00 WBC 14.2 H (4.5-11.0) K/uL RBC 3.69 (3.30-5.50) M/uL Hgb 12.6 (12.0-15.0) g/dL Hct 40.0 (36.0-48.0) % MCV 108 H (80-98) fL MCH 34 H (27-31) pg MCHC 32 (32-36) % Plt Count 353 (150-400) K/uL Sodium 139 L (140-148) mmol/L Potassium 3.3 L (3.6-5.2) mmol/L Chloride 102 (100-108) mmol/L Carbon Dioxide 30 (21-32) mmol/L Anion Gap 10.3 (5.0-14.0) mmol/L BUN 25 H (7-18) mg/dL Creatinine 0.7 (0.6-1.0) mg/dL Est Cr Clr Drug Dosing 81.77 mL/min Estimated GFR (MDRD) > 60 (>60) Glucose 101 (74-106) mg/dL Calcium 9.3 (8.5-10.1) mg/dL Magnesium 1.7 L (1.8-2.4) mg/dL Med Orders - Current: Current Medications Benzocaine/Menthol (Cepacol Sore Throat) 1 lozenge MUCMEM Q2H PRN PRN Reason: Cough Last Admin: 10/13/20 22:24 Dose: 1 shanna Documented by: Diphenhydramine HCl (Benadryl) 50 mg PO Q6H PRN PRN Reason: Itching Last Admin: 10/14/20 23:00 Dose: 50 mg Documented by: Diphenhydramine HCl (Benadryl) 50 mg PO BEDTIME PRN PRN Reason: Sleep Last Admin: 10/23/20 22:41 Dose: 50 mg Documented by: Enoxaparin Sodium (Lovenox) 40 mg SUBCUT Q24H [facility] Last Admin: 10/23/20 20:47 Dose: 40 mg Documented by: Fluoxetine HCl (Prozac) 40 mg PO DAILY [facility] Last Admin: 10/20/20 08:42 Dose: Not Given Documented by: Fluoxetine HCl (Prozac) 20 mg PO QPM [facility] Last Admin: 10/19/20 16:28 Dose: Not Given Documented by: Hydroxyzine HCl (Vistaril) 100 mg IM Q4H PRN PRN Reason: Pain Last Admin: 10/24/20 03:20 Dose: 100 mg Documented by: Potassium Chloride 40 meq/ (Premix) 100 mls @ 25 mls/hr IV ONETIME ONE Stop: 10/24/20 14:29 Magnesium Sulfate (Magnesium Sulfate In Water 2 Gm/50 Ml) 2 gm in 50 mls @ 25 mls/hr IV Q6H [facility] Stop: 10/24/20 16:29 Last Admin: 10/24/20 08:28 Dose: 25 mls/hr Documented by: Lactobacillus Rhamnosus (Culturelle) 1 cap PO BID [facility] Last Admin: 10/24/20 08:27 Dose: 1 cap Documented by: Levalbuterol HCl (Xopenex) 1.25 mg NEB QIDRT [facility] Last Admin: 10/23/20 21:42 Dose: 1.25 mg Documented by: Levalbuterol HCl (Xopenex) 1.25 mg NEB Q4H PRN PRN Reason: shortness of breath/wheezing Lisinopril (Prinivil) 20 mg PO BEDTIME [facility] Last Admin: 10/19/20 20:16 Dose: Not Given Documented by: Lorazepam (Ativan) 0.5 mg IVPUSH Q2H PRN PRN Reason: Agitation Miscellaneous Information (Remove Patch) 1 ea TRDERM BEDTIME [facility] Last Admin: 10/23/20 20:51 Dose: Not Given Documented by: Nicotine (Habitrol) 14 mg TRDERM DAILY [facility] Last Admin: 10/24/20 08:27 Dose: 14 mg Documented by: Ondansetron HCl (Zofran) 4 mg IVPUSH Q4H PRN PRN Reason: Nausea Last Admin: 10/12/20 11:02 Dose: 4 mg Documented by: Oxycodone HCl (Oxycodone) 5 mg PO Q4H PRN PRN Reason: Pain Pantoprazole Sodium (Protonix) 40 mg PO DAILY@0730 [facility] Last Admin: 10/24/20 07:38 Dose: 40 mg Documented by: Sodium Chloride (Saline Flush) 10 ml FLUSH ONETIME PRN PRN Reason: PER RADIOLOGY PROTOCOL Last Admin: 10/16/20 17:10 Dose: 10 ml Documented by: Sodium Chloride ([place] Nasal [place] Line) 0 ml NELLY Q2H PRN PRN Reason: Congestion Last Admin: 10/15/20 08:35 Dose: 1 spray Documented by: Sodium Chloride ([place] Saline Nasal Gel) 0 gm NELLY ASDIRECTED PRN PRN Reason: Congestion Last Admin: 10/15/20 08:36 Dose: 1 applic Documented by: Trazodone HCl (Trazodone) 100 mg PO BEDTIME [facility] Last Admin: 10/19/20 20:17 Dose: Not Given Documented by: Trolamine Salicylate (Aspercreme 10%) 0 gm TOP Q4H PRN PRN Reason: back pain Last Admin: 10/15/20 21:45 Dose: 1 applic Documented by: Discontinued Medications Acetaminophen (Tylenol Extra Strength) 500 mg PO Q6H PRN PRN Reason: Pain/Fever Last Admin: 10/16/20 15:11 Dose: 500 mg Documented by: Albuterol (Proventil Neb Soln) 2.5 mg NEB Q2H PRN PRN Reason: wheezing/shortness of breath Albuterol/Ipratropium (Duoneb 3.0-0.5 Mg/3 Ml) 3 ml INH QIDRT [facility] Last Admin: 10/14/20 06:59 Dose: 3 ml Documented by: Albuterol/Ipratropium (Duoneb 3.0-0.5 Mg/3 Ml) 3 ml INH ASDIRECTED PRN PRN Reason: Shortness of Breath Cyanocobalamin (Vitamin B12) 1,000 mcg IM ONETIME ONE Stop: 10/11/20 10:31 Last Admin: 10/11/20 11:31 Dose: 1,000 mcg Documented by: Cyclobenzaprine HCl (Flexeril) 10 mg PO Q8H PRN PRN Reason: Muscle Spasm Last Admin: 10/15/20 20:59 Dose: 10 mg Documented by: Dexamethasone (Decadron) Confirm Administered Dose 4 mg .ROUTE .STK-MED ONE Stop: 10/13/20 08:42 Diphenhydramine HCl (Benadryl) 50 mg IVPUSH Q4H PRN PRN Reason: Itching Diphenhydramine HCl (Benadryl) 25 mg PO Q6H PRN PRN Reason: Itching Last Admin: 10/12/20 21:51 Dose: 25 mg Documented by: Diphenoxylate HCl/Atropine (Lomotil 0.025-2.5 Mg) 1 tab PO Q6H PRN PRN Reason: Diarrhea Enoxaparin Sodium (Lovenox) 40 mg SUBCUT DAILY [facility] Last Admin: 10/16/20 21:42 Dose: 40 mg Documented by: Etomidate (Amidate) 30 mg IVPUSH ONETIME ONE Stop: 10/16/20 20:16 Last Admin: 10/16/20 20:15 Dose: 30 mg Documented by: Fentanyl (Sublimaze) Confirm Administered Dose 100 mcg .ROUTE .STK-MED ONE Stop: 10/11/20 09:02 Fluoxetine HCl (Prozac) 60 mg PO DAILY [facility] Furosemide (Lasix) 40 mg IVPUSH NOW ONE Stop: 10/13/20 14:01 Last Admin: 10/13/20 13:54 Dose: 40 mg Documented by: Furosemide (Lasix) 40 mg IVPUSH ONETIME ONE Stop: 10/14/20 00:00 Last Admin: 10/13/20 23:40 Dose: 40 mg Documented by: Furosemide (Lasix) 40 mg IVPUSH ONETIME ONE Stop: 10/14/20 09:01 Last Admin: 10/14/20 08:58 Dose: 40 mg Documented by: Furosemide (Lasix) 40 mg IVPUSH Q8H [facility] Stop: 10/15/20 01:01 Last Admin: 10/15/20 00:40 Dose: Not Given Documented by: Furosemide (Lasix) 40 mg IVPUSH Q8H [facility] Stop: 10/15/20 16:01 Last Admin: 10/15/20 16:05 Dose: 40 mg Documented by: Furosemide (Lasix) 40 mg IVPUSH NOW ONE Stop: 10/16/20 14:21 Last Admin: 10/16/20 14:27 Dose: 40 mg Documented by: Furosemide (Lasix) 40 mg IVPUSH NOW ONE Stop: 10/16/20 23:01 Last Admin: 10/16/20 22:54 Dose: 40 mg Documented by: Furosemide (Lasix) 40 mg IVPUSH NOW ONE Stop: 10/17/20 10:51 Last Admin: 10/17/20 11:07 Dose: 40 mg Documented by: Furosemide (Lasix) 40 mg IVPUSH NOW ONE Stop: 10/17/20 22:01 Last Admin: 10/17/20 21:34 Dose: 40 mg Documented by: Furosemide (Lasix) 40 mg IVPUSH NOW ONE Stop: 10/18/20 12:31 Last Admin: 10/18/20 13:04 Dose: 40 mg Documented by: Furosemide (Lasix) 40 mg IVPUSH NOW ONE Stop: 10/19/20 01:01 Last Admin: 10/19/20 01:55 Dose: 40 mg Documented by: Furosemide (Lasix) 40 mg IVPUSH NOW ONE Stop: 10/19/20 12:31 Last Admin: 10/19/20 15:07 Dose: 40 mg Documented by: Furosemide (Lasix) 40 mg IVPUSH NOW ONE Stop: 10/20/20 01:01 Last Admin: 10/20/20 02:12 Dose: 40 mg Documented by: Furosemide (Lasix) 40 mg IVPUSH BID [facility] Stop: 10/23/20 12:00 Last Admin: 10/23/20 09:31 Dose: 40 mg Documented by: Glycopyrrolate (Glycopyrrolate) 0.4 mg IVPUSH ONETIME ONE Stop: 10/11/20 10:31 Last Admin: 10/11/20 12:12 Dose: 0.4 mg Documented by: Heparin Sodium (Porcine) (Heparin Sodium) Confirm Administered Dose 5,000 units .ROUTE .STK-MED ONE Stop: 10/16/20 20:31 Last Admin: 10/16/20 21:11 Dose: 5,000 units Documented by: Lactated Ringer's (Ringers, Lactated) 1,000 mls @ 999 mls/hr IV BOLUS ONE Stop: 10/11/20 11:30 Last Admin: 10/11/20 10:56 Dose: 999 mls/hr Documented by: Multivitamins/Minerals 10 ml/Thiamine HCl 200 mg/ Zinc 1 ml / Lactated Ringer's 1,013 mls @ 500 mls/hr IV ONETIME ONE Stop: 10/11/20 13:31 Last Admin: 10/11/20 11:47 Dose: 500 mls/hr Documented by: Ampicillin Sodium/Sulbactam (Sodium 1.5 gm/ Sodium Chloride) 50 mls @ 100 mls/hr IV ONETIME ONE Stop: 10/11/20 10:59 Last Admin: 10/11/20 12:13 Dose: 100 mls/hr Documented by: Dextrose/Lactated Ringer's (Dextrose 5%-Lactated Ringers) 1,000 mls @ 125 mls/hr IV ASDIRECTED [facility] Last Admin: 10/13/20 09:18 Dose: 125 mls/hr Documented by: Sodium Chloride (Normal Saline) 75 mls @ 3 mls/sec IV ONETIME ONE Stop: 10/12/20 09:05 Last Admin: 10/12/20 09:28 Dose: 3 mls/sec Documented by: Meropenem 500 mg/ Sodium (Chloride) 50 mls @ 100 mls/hr IV ONCALL ONE Stop: 10/13/20 11:59 Last Admin: 10/14/20 06:32 Dose: Not Given Documented by: Acetaminophen 1,000 mg/ Premix 100 mls @ 400 mls/hr IV NOW ONE Stop: 10/12/20 23:51 Last Admin: 10/12/20 23:52 Dose: 400 mls/hr Documented by: Linezolid (Zyvox) Confirm Administered Dose 300 mls @ as directed .ROUTE .[facility] Stop: 10/13/20 09:56 Dextrose/Lactated Ringer's (Dextrose 5%-Lactated Ringers) 1,000 mls @ 25 mls/hr IV ASDIRECTED [facility] Stop: 10/15/20 16:00 Last Admin: 10/14/20 16:56 Dose: 25 mls/hr Documented by: Potassium Chloride 20 meq/Lidocaine HCl 2 ml/ Sodium Chloride 112 mls @ 56 mls/hr IV Q2H [facility] Stop: 10/15/20 12:29 Last Admin: 10/15/20 11:10 Dose: 56 mls/hr Documented by: Magnesium Sulfate (Magnesium Sulfate In Water Premix) 2 gm in 50 mls @ 25 mls/hr IV Q6H [facility] Stop: 10/15/20 15:59 Last Admin: 10/15/20 13:21 Dose: 25 mls/hr Documented by: Ceftriaxone Sodium 1 gm/ (Sodium Chloride) 50 mls @ 100 mls/hr IV Q24H [facility] Last Admin: 10/22/20 14:36 Dose: 100 mls/hr Documented by: Doxycycline Hyclate 100 mg/ (Sodium Chloride) 100 mls @ 100 mls/hr IV Q12H [facility] Last Admin: 10/16/20 15:56 Dose: 100 mls/hr Documented by: Propofol (Diprivan 100 Ml) Confirm Administered Dose 100 mls @ as directed .ROUTE .[facility] Stop: 10/16/20 20:18 Last Admin: 10/16/20 21:25 Dose: Not Given Documented by: Levofloxacin/Dextrose 750 mg/ (Premix) 150 mls @ 100 mls/hr IV Q24H [facility] Last Admin: 10/23/20 20:50 Dose: 100 mls/hr Documented by: Propofol (Diprivan 100 Ml) 100 mls @ 2.313 mls/hr IV TITRATE [facility]; Protocol Last Admin: 10/22/20 05:26 Dose: 55 mcg/kg/min, 25.447 mls/hr Documented by: Vancomycin HCl 1.25 gm/ Sodium (Chloride) 250 mls @ 166.667 mls/hr IV Q12H [facility] Last Admin: 10/16/20 22:54 Dose: 166.667 mls/hr Documented by: Vancomycin HCl 1.25 gm/ Sodium (Chloride) 250 mls @ 166.667 mls/hr IV Q12H [facility] Last Admin: 10/18/20 23:45 Dose: 166.667 mls/hr Documented by: Heparin Sodium (Porcine) 5,000 (units/ Sodium Chloride) 501 mls @ 0 mls/hr IV ASDIRECTED [facility]; Protocol Last Admin: 10/22/20 12:52 Dose: 1 mls/hr, 1 mls/hr Documented by: Potassium Chloride 40 meq/ (Premix) 100 mls @ 25 mls/hr IV ONETIME ONE Stop: 10/17/20 15:29 Last Admin: 10/17/20 11:18 Dose: 25 mls/hr Documented by: Potassium Chloride 20 meq/ (Premix) 100 mls @ 50 mls/hr IV Q2H [facility] Stop: 10/18/20 13:59 Last Admin: 10/18/20 15:28 Dose: 50 mls/hr Documented by: Magnesium Sulfate (Magnesium Sulfate In Water Premix) 2 gm in 50 mls @ 12.5 mls/hr IV Q6H [facility] Stop: 10/18/20 19:59 Last Admin: 10/18/20 15:49 Dose: 12.5 mls/hr Documented by: Potassium Chloride 40 meq/ (Premix) 100 mls @ 25 mls/hr IV ONETIME ONE Stop: 10/18/20 22:59 Last Admin: 10/18/20 18:32 Dose: 25 mls/hr Documented by: Sodium Chloride (Normal Saline) 500 mls @ as directed IV .STK-MED ONE Stop: 10/16/20 20:31 Potassium Chloride 40 meq/ (Premix) 100 mls @ 25 mls/hr IV ONETIME ONE Stop: 10/19/20 12:29 Last Admin: 10/19/20 09:52 Dose: 25 mls/hr Documented by: Vancomycin HCl 1.3 gm/ Sodium (Chloride) 250 mls @ 166.667 mls/hr IV Q12H [facility] Last Admin: 10/19/20 12:18 Dose: 166.667 mls/hr Documented by: Potassium Chloride 40 meq/ (Premix) 100 mls @ 25 mls/hr IV ONETIME ONE Stop: 10/21/20 13:59 Last Admin: 10/21/20 10:45 Dose: 25 mls/hr Documented by: Multivitamins/Minerals 10 ml/Zinc 1 ml/ Amino Ac/Electrol/Dextrose/Calcium 1,011 mls @ 70 mls/hr IV .BY DURATION [facility] Last Admin: 10/21/20 18:05 Dose: 70 mls/hr Documented by: Amino Ac/Electrol/Dextrose/Calcium (Clinimix E 5/15) 1,000 mls @ 70 mls/hr IV .BY DURATION [facility] Last Admin: 10/22/20 08:12 Dose: 70 mls/hr Documented by: Potassium Chloride 20 meq/ (Premix) 100 mls @ 50 mls/hr IV ONETIME ONE Stop: 10/22/20 14:29 Last Admin: 10/22/20 12:45 Dose: 50 mls/hr Documented by: Multivitamins/Minerals 10 ml/Zinc 1 ml/ Amino Ac/Electrol/Dextrose/Calcium 1,011 mls @ 70 mls/hr IV .BY DURATION [facility] Last Admin: 10/22/20 22:20 Dose: 70 mls/hr Documented by: Amino Ac/Electrol/Dextrose/Calcium (Clinimix E 5/15) 1,000 mls @ 70 mls/hr IV .BY DURATION [facility] Potassium Chloride 40 meq/ (Premix) 100 mls @ 25 mls/hr IV ONETIME ONE Stop: 10/23/20 13:59 Last Admin: 10/23/20 10:20 Dose: 25 mls/hr Documented by: Iopamidol (Isovue-300 (61%)) 30 ml PO ASDIRECTED ONE Stop: 10/12/20 09:05 Last Admin: 10/12/20 09:29 Dose: 30 ml Documented by: Iopamidol (Isovue-300 (61%)) 100 ml IV . DIRECTED PRN PRN Reason: RADIOLOGY EXAM Last Admin: 10/12/20 09:27 Dose: 100 ml Documented by: Lisinopril (Prinivil) Confirm Administered Dose 20 mg .ROUTE .STK-MED ONE Stop: 10/12/20 21:33 Last Admin: 10/12/20 21:42 Dose: Not Given Documented by: Lorazepam (Ativan) 0.5 mg PO Q6H PRN PRN Reason: Anxiety Last Admin: 10/16/20 03:30 Dose: 0.5 mg Documented by: Lorazepam (Ativan) 0.5 mg IVPUSH ONETIME ONE Stop: 10/16/20 07:46 Last Admin: 10/16/20 07:53 Dose: 0.5 mg Documented by: Lorazepam (Ativan) 0.5 mg PO Q4H PRN PRN Reason: Anxiety Last Admin: 10/16/20 16:32 Dose: 0.5 mg Documented by: Lorazepam (Ativan) 0 mg PO ASDIRECTED [facility]; Protocol Last Admin: 10/16/20 17:57 Dose: 2 mg Documented by: Lorazepam (Ativan) 0 mg IV ASDIRECTED [facility]; Protocol Last Admin: 10/18/20 06:15 Dose: 2 mg Documented by: Lorazepam (Ativan) 1 mg IVPUSH Q2H PRN PRN Reason: Agitation Last Admin: 10/23/20 01:58 Dose: 1 mg Documented by: Meropenem (Merrem) Confirm Administered Dose 500 mg .ROUTE .STK-MED ONE Stop: 10/13/20 09:55 Midazolam HCl (Versed 1 Mg/Ml) Confirm Administered Dose 2 mg .ROUTE .STK-MED ONE Stop: 10/11/20 09:02 Morphine Sulfate (Morphine School [employer] 150 Mg In 30 Ml) 0 mg IV ASDIRECTED PRN; Protocol PRN Reason: Pain Last Admin: 10/13/20 19:38 Dose: 150 mg Documented by: Morphine Sulfate (Morphine) 2 mg IVPUSH ONETIME ONE Stop: 10/11/20 13:38 Last Admin: 10/11/20 13:56 Dose: 2 mg Documented by: Morphine Sulfate (Morphine) 4 mg IVPUSH ONETIME ONE Stop: 10/16/20 07:46 Last Admin: 10/16/20 07:53 Dose: 4 mg Documented by: Naloxone HCl (Narcan) 0.1 mg IV ASDIRECTED PRN PRN Reason: decreased respiratory rate Non-Formulary Medication (Total Parenteral Nutrition, Central) 0 ml IV ASDIRECTED [facility] Stop: 10/22/20 16:00 Ondansetron HCl (Zofran) Confirm Administered Dose 4 mg .ROUTE .STK-MED ONE Stop: 10/13/20 08:42 Oxycodone HCl (Oxycodone) 5 - 10 mg PO Q4H PRN PRN Reason: Pain Last Admin: 10/16/20 14:04 Dose: 10 mg Documented by: Pantoprazole Sodium (Protonix) 40 mg PO ACBREAKFAST [facility] Last Admin: 10/16/20 09:18 Dose: 40 mg Documented by: Pantoprazole Sodium (Protonix Iv) 40 mg IVPUSH Q24H [facility] Last Admin: 10/22/20 21:50 Dose: 40 mg Documented by: Potassium Gluconate (99mg Tab (Ptom)) 2 each PO BIDMEALS [facility] Last Admin: 10/20/20 07:37 Dose: Not Given Documented by: Phenobarbital (Phenobarbital Sodium) 260 mg IVPUSH ONETIME ONE Stop: 10/16/20 19:06 Last Admin: 10/16/20 19:33 Dose: 260 mg Documented by: Potassium Chloride (Potassium Chloride) 40 meq PO BID@0900,1200 [facility] Stop: 10/15/20 12:01 Last Admin: 10/15/20 19:42 Dose: Not Given Documented by: Potassium Chloride (Klor-Con M20) 40 meq PO ONETIME ONE Stop: 10/17/20 17:01 Last Admin: 10/17/20 16:48 Dose: Not Given Documented by: Propofol (Diprivan 20 Ml) Confirm Administered Dose 200 mg .ROUTE .STK-MED ONE Stop: 10/11/20 09:02 Rocuronium [place] (Zemuron) 100 mg IVPUSH ONETIME ONE Stop: 10/16/20 20:16 Last Admin: 10/16/20 20:12 Dose: 100 mg Documented by: Succinylcholine Chloride (Quelicin) Confirm Administered Dose 200 mg .ROUTE .STK-MED ONE Stop: 10/16/20 20:12 Last Admin: 10/16/20 21:10 Dose: Not Given Documented by: Vancomycin HCl (Vancomycin) 1 gm IV .PHARMACY TO DOSE [facility] Stop: 10/17/20 07:00 - Exam Quality Assessment: Supplemental Oxygen General: Alert, Oriented, Cooperative, No Acute Distress Lungs: Normal Respiratory Effort, Crackles (rare both bases) Cardiovascular: Regular Rate, Regular Rhythm GI/Abdominal Exam: Soft, Non-Tender, No Distention Extremities: No Pedal Edema. No: Increased Warmth Skin: Warm, Dry Psy/Mental Status: Alert, Normal Affect Sepsis Event Note - Evaluation Sepsis Screening Result: Sepsis Risk - Focused Exam Vital Signs: Vital Signs Temp Pulse Resp BP Pulse Ox 10/24/20 08:00 36.2 C 104 H 24 H 105/68 99 10/24/20 06:00 92 13 94/67 100 10/24/20 04:00 36.1 C 94 16 101/74 97 10/24/20 02:00 87 14 94/56 L 98 10/24/20 00:00 36.3 C 93 20 98/65 99 10/23/20 22:00 98 20 99/69 97 - Problem List Review Problem List Initiated/Reviewed/Updated: Yes - My Orders Last 24 Hours: My Active Orders 10/23/20 09:27 Arterial Line Discontinue [OM.PC] Routine 10/23/20 09:30 LORazepam [Ativan] 0.5 mg IVPUSH Q2H PRN 10/23/20 22:29 diphenhydrAMINE [Benadryl] 50 mg PO BEDTIME PRN 10/24/20 07:30 Pantoprazole [ProTONIX] 40 mg PO DAILY@0730 10/24/20 08:30 Magnesium Sulfate/Water [Magnesium Sulfate in Water 2 GM/50 ML] 2 gm in 50 ml IV Q6H 10/24/20 09:39 Transfer Patient (Change bed) [ADT] Routine 10/24/20 09:42 PT Evaluation and Treatment [CONS] Routine 10/24/20 09:43 Discontinue Telemetry Monitoring [Cardiac Monitoring Discontinue] [RC] Click to Edit 10/24/20 10:30 Potassium Chloride Riders [KCL in Water 40 MEQ/100 ML] 40 meq Premix Bag 1 bag IV ONETIME 10/24/20 Lunch Regular Diet [DIET] 10/24/20 16:00 POTASSIUM,K [CHEM] Timed 10/25/20 05:00 BASIC METABOLIC PANEL,BMP [CHEM] Timed CBC W/O DIFF,HEMOGRAM [HEME] Timed (1) - Plan Plan:: ASSESSMENT AND RECOMMENDATIONS ARDS-complicated by respiratory failure necessitating intubation. Down to 2 L and is doing quite well from a respiratory status. -Pulmonary toilet -Discontinue levofloxacin -Hold on diuresis today -Remove Freeman catheter -Minimize IV fluids Alcohol dependence with acute withdrawal delirium-doing much better today with no evidence for ongoing alcohol withdrawal. She is determined to quit and has good family resources. -Outpatient counseling Generalized abdominal pain-concern for mesh adherent to her liver. Pain has resolved at this time. I think it would be best to avoid any sort of surgery at the very least until she has recovered from her respiratory status which would be weeks down the road. -Postpone surgery indefinitely unless condition changes Hypokalemia-improving with supplementation but still a little low. -Supplement throughout the day and recheck this afternoon Maintenance issues- -Freeman catheter-plan to remove today -Diet-regular -GI-PPI Disposition-I anticipate discharge home possibly with home care after the hospital stay Julian Lara MD
--- NOTE | 2020-10-24 09:47 | CR ---
CHEST: Portable 10/21/2020 4:35 AM CLINICAL HISTORY:Respiratory failure COMPARISON:10/20/2020 FINDINGS: Endotracheal tube remains in place. It has advanced is slightly now being 2.6 cm from the macho. Diffuse bilateral pulmonary infiltrates appear similar to prior study. IMPRESSION: Persistent bilateral pulmonary infiltrates without significant change.
[2020-10-24] MEDS ORDERED: Potassium Chloride Riders 40 MEQ in Premix Bag 1 BAG IV ONE (10:30)
--- NOTE | 2020-10-24 12:17 | CR ---
CHEST: Portable 10/22/2020 CLINICAL HISTORY:Respiratory failure COMPARISON:10/21/2020 FINDINGS: Endotracheal tube remains in the distal third of the trachea. There is a PICC line in place. Tip is in the right atrium. Diffuse bilateral pulmonary infiltrates persist. There appears to be some minimal improvement since prior study. IMPRESSION: Persistent bilateral pulmonary infiltrates. There appears to be some improvement since prior study. ET tube in good position
[2020-10-24] MEDS: Levalbuterol HCl 1.25 MG/3 ML Neb NEB SCH ×3 (13:43→21:03)
[2020-10-24] MEDS: Enoxaparin 40 MG/0.4 ML Syringe SUBCUT SCH (20:54)
[2020-10-24] MEDS: traZODone 50 MG Tab PO SCH (21:03)
[2020-10-25] MEDS: Levalbuterol HCl 1.25 MG/3 ML Neb NEB SCH ×4 (07:26→20:42)
[2020-10-25] MEDS: Pantoprazole 40 MG Tab.CR PO SCH (07:51)
[2020-10-25] MEDS: Acetaminophen 325 MG Tab PO PRN ×2 (07:51→16:01)
[2020-10-25] MEDS: Nicotine 14 MG/24 Hr Patch TRDERM SCH (08:19)
[2020-10-25] MEDS: Lactobacillus Rhamnosus GG (Probiotic) Cap PO SCH ×2 (08:19→20:32)
[2020-10-25] MEDS: FLUoxetine 20 MG Cap PO SCH ×2 (09:52→16:01)
--- NOTE | 2020-10-25 12:15 | PCM.PN ---
- General Info Date of Service: 10/25/20 Subjective Update: No acute events overnight. No significant abdominal pain. She does report a small quantity of blood in her stool today. No rectal pain. Dyspnea with exertion but comfortable at rest. Still requiring some supplemental oxygen. She does desaturate with activity. Functional Status: Reports: Pain Controlled, Tolerating Diet - Review of Systems General: Reports: Weakness. Denies: Fever Gastrointestinal: Reports: Hematochezia. Denies: Abdominal Pain - Patient Data Vitals - Most Recent: Last Vital Signs Temp 36.8 C 10/25/20 11:31 Pulse 95 10/25/20 11:31 Resp 18 10/25/20 11:31 BP 100/59 L 10/25/20 11:31 Pulse Ox 94 L 10/25/20 11:31 Weight - Most Recent: 83.5 kg I&O - Last 24 Hours: Intake & Output 10/24/20 10/25/20 10/25/20 22:59 06:59 14:59 Intake Total 700 Balance 700 Lab Results Last 24 Hours: Laboratory Results - last 24 hr 10/24/20 10/25/20 10/25/20 Range/Units 16:10 05:46 05:46 WBC 9.2 (4.5-11.0) K/uL RBC 3.37 (3.30-5.50) M/uL Hgb 11.9 L (12.0-15.0) g/dL Hct 36.3 (36.0-48.0) % MCV 108 H (80-98) fL MCH 35 H (27-31) pg MCHC 33 (32-36) % Plt Count 296 (150-400) K/uL Sodium 139 L (140-148) mmol/L Potassium 4.3 4.4 (3.6-5.2) mmol/L Chloride 105 (100-108) mmol/L Carbon Dioxide 26 (21-32) mmol/L Anion Gap 12.4 (5.0-14.0) mmol/L BUN 19 H (7-18) mg/dL Creatinine 0.6 (0.6-1.0) mg/dL Est Cr Clr Drug Dosing 95.40 mL/min Estimated GFR (MDRD) > 60 (>60) Glucose 103 (74-106) mg/dL Calcium 9.0 (8.5-10.1) mg/dL Med Orders - Current: Current Medications Acetaminophen (Tylenol) 650 mg PO Q4H PRN PRN Reason: pain Last Admin: 10/25/20 07:51 Dose: 650 mg Documented by: Benzocaine/Menthol (Cepacol Sore Throat) 1 lozenge MUCMEM Q2H PRN PRN Reason: Cough Last Admin: 10/13/20 22:24 Dose: 1 shanna Documented by: Diphenhydramine HCl (Benadryl) 50 mg PO Q6H PRN PRN Reason: Itching Last Admin: 10/14/20 23:00 Dose: 50 mg Documented by: Diphenhydramine HCl (Benadryl) 50 mg PO BEDTIME PRN PRN Reason: Sleep Last Admin: 10/23/20 22:41 Dose: 50 mg Documented by: Enoxaparin Sodium (Lovenox) 40 mg SUBCUT Q24H [facility] Last Admin: 10/24/20 20:54 Dose: 40 mg Documented by: Fluoxetine HCl (Prozac) 40 mg PO DAILY [facility] Last Admin: 10/25/20 09:52 Dose: 40 mg Documented by: Fluoxetine HCl (Prozac) 20 mg PO QPM [facility] Last Admin: 10/19/20 16:28 Dose: Not Given Documented by: Hydroxyzine HCl (Vistaril) 100 mg IM Q4H PRN PRN Reason: Pain Last Admin: 10/24/20 03:20 Dose: 100 mg Documented by: Lactobacillus Rhamnosus (Culturelle) 1 cap PO BID [facility] Last Admin: 10/25/20 08:19 Dose: 1 cap Documented by: Levalbuterol HCl (Xopenex) 1.25 mg NEB QIDRT [facility] Last Admin: 10/25/20 10:36 Dose: 1.25 mg Documented by: Levalbuterol HCl (Xopenex) 1.25 mg NEB Q4H PRN PRN Reason: shortness of breath/wheezing Lisinopril (Prinivil) 20 mg PO BEDTIME [facility] Last Admin: 10/19/20 20:16 Dose: Not Given Documented by: Lorazepam (Ativan) 0.5 mg IVPUSH Q2H PRN PRN Reason: Agitation Miscellaneous Information (Remove Patch) 1 ea TRDERM BEDTIME [facility] Last Admin: 10/24/20 20:55 Dose: Not Given Documented by: Nicotine (Habitrol) 14 mg TRDERM DAILY [facility] Last Admin: 10/25/20 08:19 Dose: 14 mg Documented by: Ondansetron HCl (Zofran) 4 mg IVPUSH Q4H PRN PRN Reason: Nausea Last Admin: 10/12/20 11:02 Dose: 4 mg Documented by: Oxycodone HCl (Oxycodone) 5 mg PO Q4H PRN PRN Reason: Pain Pantoprazole Sodium (Protonix) 40 mg PO DAILY@0730 [facility] Last Admin: 10/25/20 07:51 Dose: 40 mg Documented by: Sodium Chloride (Saline Flush) 10 ml FLUSH ONETIME PRN PRN Reason: PER RADIOLOGY PROTOCOL Last Admin: 10/16/20 17:10 Dose: 10 ml Documented by: Sodium Chloride ([place] Nasal [place]) 0 ml NELLY Q2H PRN PRN Reason: Congestion Last Admin: 10/15/20 08:35 Dose: 1 spray Documented by: Sodium Chloride ([place] Saline Nasal Gel) 0 gm NELLY ASDIRECTED PRN PRN Reason: Congestion Last Admin: 10/15/20 08:36 Dose: 1 applic Documented by: Trazodone HCl (Trazodone) 100 mg PO BEDTIME [facility] Last Admin: 10/24/20 21:03 Dose: 100 mg Documented by: Trolamine Salicylate (Aspercreme 10%) 0 gm TOP Q4H PRN PRN Reason: back pain Last Admin: 10/15/20 21:45 Dose: 1 applic Documented by: Discontinued Medications Acetaminophen (Tylenol Extra Strength) 500 mg PO Q6H PRN PRN Reason: Pain/Fever Last Admin: 10/16/20 15:11 Dose: 500 mg Documented by: Albuterol (Proventil Neb Soln) 2.5 mg NEB Q2H PRN PRN Reason: wheezing/shortness of breath Albuterol/Ipratropium (Duoneb 3.0-0.5 Mg/3 Ml) 3 ml INH QIDRT [facility] Last Admin: 10/14/20 06:59 Dose: 3 ml Documented by: Albuterol/Ipratropium (Duoneb 3.0-0.5 Mg/3 Ml) 3 ml INH ASDIRECTED PRN PRN Reason: Shortness of Breath Cyanocobalamin (Vitamin B12) 1,000 mcg IM ONETIME ONE Stop: 10/11/20 10:31 Last Admin: 10/11/20 11:31 Dose: 1,000 mcg Documented by: Cyclobenzaprine HCl (Flexeril) 10 mg PO Q8H PRN PRN Reason: Muscle Spasm Last Admin: 10/15/20 20:59 Dose: 10 mg Documented by: Dexamethasone (Decadron) Confirm Administered Dose 4 mg .ROUTE .STK-MED ONE Stop: 10/13/20 08:42 Diphenhydramine HCl (Benadryl) 50 mg IVPUSH Q4H PRN PRN Reason: Itching Diphenhydramine HCl (Benadryl) 25 mg PO Q6H PRN PRN Reason: Itching Last Admin: 10/12/20 21:51 Dose: 25 mg Documented by: Diphenoxylate HCl/Atropine (Lomotil 0.025-2.5 Mg) 1 tab PO Q6H PRN PRN Reason: Diarrhea Enoxaparin Sodium (Lovenox) 40 mg SUBCUT DAILY [facility] Last Admin: 10/16/20 21:42 Dose: 40 mg Documented by: Etomidate (Amidate) 30 mg IVPUSH ONETIME ONE Stop: 10/16/20 20:16 Last Admin: 10/16/20 20:15 Dose: 30 mg Documented by: Fentanyl (Sublimaze) Confirm Administered Dose 100 mcg .ROUTE .STK-MED ONE Stop: 10/11/20 09:02 Fluoxetine HCl (Prozac) 60 mg PO DAILY [facility] Furosemide (Lasix) 40 mg IVPUSH NOW ONE Stop: 10/13/20 14:01 Last Admin: 10/13/20 13:54 Dose: 40 mg Documented by: Furosemide (Lasix) 40 mg IVPUSH ONETIME ONE Stop: 10/14/20 00:00 Last Admin: 10/13/20 23:40 Dose: 40 mg Documented by: Furosemide (Lasix) 40 mg IVPUSH ONETIME ONE Stop: 10/14/20 09:01 Last Admin: 10/14/20 08:58 Dose: 40 mg Documented by: Furosemide (Lasix) 40 mg IVPUSH Q8H [facility] Stop: 10/15/20 01:01 Last Admin: 10/15/20 00:40 Dose: Not Given Documented by: Furosemide (Lasix) 40 mg IVPUSH Q8H YEHUDA Stop: 10/15/20 16:01 Last Admin: 10/15/20 16:05 Dose: 40 mg Documented by: Furosemide (Lasix) 40 mg IVPUSH NOW ONE Stop: 10/16/20 14:21 Last Admin: 10/16/20 14:27 Dose: 40 mg Documented by: Furosemide (Lasix) 40 mg IVPUSH NOW ONE Stop: 10/16/20 23:01 Last Admin: 10/16/20 22:54 Dose: 40 mg Documented by: Furosemide (Lasix) 40 mg IVPUSH NOW ONE Stop: 10/17/20 10:51 Last Admin: 10/17/20 11:07 Dose: 40 mg Documented by: Furosemide (Lasix) 40 mg IVPUSH NOW ONE Stop: 10/17/20 22:01 Last Admin: 10/17/20 21:34 Dose: 40 mg Documented by: Furosemide (Lasix) 40 mg IVPUSH NOW ONE Stop: 10/18/20 12:31 Last Admin: 10/18/20 13:04 Dose: 40 mg Documented by: Furosemide (Lasix) 40 mg IVPUSH NOW ONE Stop: 10/19/20 01:01 Last Admin: 10/19/20 01:55 Dose: 40 mg Documented by: Furosemide (Lasix) 40 mg IVPUSH NOW ONE Stop: 10/19/20 12:31 Last Admin: 10/19/20 15:07 Dose: 40 mg Documented by: Furosemide (Lasix) 40 mg IVPUSH NOW ONE Stop: 10/20/20 01:01 Last Admin: 10/20/20 02:12 Dose: 40 mg Documented by: Furosemide (Lasix) 40 mg IVPUSH BID YEHUDA Stop: 10/23/20 12:00 Last Admin: 10/23/20 09:31 Dose: 40 mg Documented by: Glycopyrrolate (Glycopyrrolate) 0.4 mg IVPUSH ONETIME ONE Stop: 10/11/20 10:31 Last Admin: 10/11/20 12:12 Dose: 0.4 mg Documented by: Heparin Sodium (Porcine) (Heparin Sodium) Confirm Administered Dose 5,000 units .ROUTE .[facility]-MED ONE Stop: 10/16/20 20:31 Last Admin: 10/16/20 21:11 Dose: 5,000 units Documented by: Lactated Ringer's (Ringers, Lactated) 1,000 mls @ 999 mls/hr IV BOLUS ONE Stop: 10/11/20 11:30 Last Admin: 10/11/20 10:56 Dose: 999 mls/hr Documented by: Multivitamins/Minerals 10 ml/Thiamine HCl 200 mg/ Zinc 1 ml / Lactated Ringer's 1,013 mls @ 500 mls/hr IV ONETIME ONE Stop: 10/11/20 13:31 Last Admin: 10/11/20 11:47 Dose: 500 mls/hr Documented by: Ampicillin Sodium/Sulbactam (Sodium 1.5 gm/ Sodium Chloride) 50 mls @ 100 mls/hr IV ONETIME ONE Stop: 10/11/20 10:59 Last Admin: 10/11/20 12:13 Dose: 100 mls/hr Documented by: Dextrose/Lactated Ringer's (Dextrose 5%-Lactated Ringers) 1,000 mls @ 125 mls/hr IV ASDIRECTED [facility] Last Admin: 10/13/20 09:18 Dose: 125 mls/hr Documented by: Sodium Chloride (Normal Saline) 75 mls @ 3 mls/sec IV ONETIME ONE Stop: 10/12/20 09:05 Last Admin: 10/12/20 09:28 Dose: 3 mls/sec Documented by: Meropenem 500 mg/ Sodium (Chloride) 50 mls @ 100 mls/hr IV ONCALL ONE Stop: 10/13/20 11:59 Last Admin: 10/14/20 06:32 Dose: Not Given Documented by: Acetaminophen 1,000 mg/ Premix 100 mls @ 400 mls/hr IV NOW ONE Stop: 10/12/20 23:51 Last Admin: 10/12/20 23:52 Dose: 400 mls/hr Documented by: Linezolid (Zyvox) Confirm Administered Dose 300 mls @ as directed .ROUTE .STK- MED ONE Stop: 10/13/20 09:56 Dextrose/Lactated Ringer's (Dextrose 5%-Lactated Ringers) 1,000 mls @ 25 mls/hr IV ASDIRECTED [facility] Stop: 10/15/20 16:00 Last Admin: 10/14/20 16:56 Dose: 25 mls/hr Documented by: Potassium Chloride 20 meq/Lidocaine HCl 2 ml/ Sodium Chloride 112 mls @ 56 mls/hr IV Q2H [facility] Stop: 10/15/20 12:29 Last Admin: 10/15/20 11:10 Dose: 56 mls/hr Documented by: Magnesium Sulfate (Magnesium Sulfate In Water Premix) 2 gm in 50 mls @ 25 mls/hr IV Q6H [facility] Stop: 10/15/20 15:59 Last Admin: 10/15/20 13:21 Dose: 25 mls/hr Documented by: Ceftriaxone Sodium 1 gm/ (Sodium Chloride) 50 mls @ 100 mls/hr IV Q24H [facility] Last Admin: 10/22/20 14:36 Dose: 100 mls/hr Documented by: Doxycycline Hyclate 100 mg/ (Sodium Chloride) 100 mls @ 100 mls/hr IV Q12H [facility] Last Admin: 10/16/20 15:56 Dose: 100 mls/hr Documented by: Propofol (Diprivan 100 Ml) Confirm Administered Dose 100 mls @ as directed .ROUTE .[facility]-MED ONE Stop: 10/16/20 20:18 Last Admin: 10/16/20 21:25 Dose: Not Given Documented by: Levofloxacin/Dextrose 750 mg/ (Premix) 150 mls @ 100 mls/hr IV Q24H [facility] Last Admin: 10/23/20 20:50 Dose: 100 mls/hr Documented by: Propofol (Diprivan 100 Ml) 100 mls @ 2.313 mls/hr IV TITRATE [facility]; Protocol Last Admin: 10/22/20 05:26 Dose: 55 mcg/kg/min, 25.447 mls/hr Documented by: Vancomycin HCl 1.25 gm/ Sodium (Chloride) 250 mls @ 166.667 mls/hr IV Q12H [facility] Last Admin: 10/16/20 22:54 Dose: 166.667 mls/hr Documented by: Vancomycin HCl 1.25 gm/ Sodium (Chloride) 250 mls @ 166.667 mls/hr IV Q12H [facility] Last Admin: 10/18/20 23:45 Dose: 166.667 mls/hr Documented by: Heparin Sodium (Porcine) 5,000 (units/ Sodium Chloride) 501 mls @ 0 mls/hr IV ASDIRECTED [facility]; Protocol Last Admin: 10/22/20 12:52 Dose: 1 mls/hr, 1 mls/hr Documented by: Potassium Chloride 40 meq/ (Premix) 100 mls @ 25 mls/hr IV ONETIME ONE Stop: 10/17/20 15:29 Last Admin: 10/17/20 11:18 Dose: 25 mls/hr Documented by: Potassium Chloride 20 meq/ (Premix) 100 mls @ 50 mls/hr IV Q2H [facility] Stop: 10/18/20 13:59 Last Admin: 10/18/20 15:28 Dose: 50 mls/hr Documented by: Magnesium Sulfate (Magnesium Sulfate In Water Premix) 2 gm in 50 mls @ 12.5 mls/hr IV Q6H [facility] Stop: 10/18/20 19:59 Last Admin: 10/18/20 15:49 Dose: 12.5 mls/hr Documented by: Potassium Chloride 40 meq/ (Premix) 100 mls @ 25 mls/hr IV ONETIME ONE Stop: 10/18/20 22:59 Last Admin: 10/18/20 18:32 Dose: 25 mls/hr Documented by: Sodium Chloride (Normal Saline) 500 mls @ as directed IV .STK-MED ONE Stop: 10/16/20 20:31 Potassium Chloride 40 meq/ (Premix) 100 mls @ 25 mls/hr IV ONETIME ONE Stop: 10/19/20 12:29 Last Admin: 10/19/20 09:52 Dose: 25 mls/hr Documented by: Vancomycin HCl 1.3 gm/ Sodium (Chloride) 250 mls @ 166.667 mls/hr IV Q12H [facility] Last Admin: 10/19/20 12:18 Dose: 166.667 mls/hr Documented by: Potassium Chloride 40 meq/ (Premix) 100 mls @ 25 mls/hr IV ONETIME ONE Stop: 10/21/20 13:59 Last Admin: 10/21/20 10:45 Dose: 25 mls/hr Documented by: Multivitamins/Minerals 10 ml/Zinc 1 ml/ Amino Ac/Electrol/Dextrose/Calcium 1,011 mls @ 70 mls/hr IV .BY DURATION [facility] Last Admin: 10/21/20 18:05 Dose: 70 mls/hr Documented by: Amino Ac/Electrol/Dextrose/Calcium (Clinimix E 02/11) 1,000 mls @ 70 mls/hr IV .BY DURATION [facility] Last Admin: 10/22/20 08:12 Dose: 70 mls/hr Documented by: Potassium Chloride 20 meq/ (Premix) 100 mls @ 50 mls/hr IV ONETIME ONE Stop: 10/22/20 14:29 Last Admin: 10/22/20 12:45 Dose: 50 mls/hr Documented by: Multivitamins/Minerals 10 ml/Zinc 1 ml/ Amino Ac/Electrol/Dextrose/Calcium 1,011 mls @ 70 mls/hr IV .BY DURATION [facility] Last Admin: 10/22/20 22:20 Dose: 70 mls/hr Documented by: Amino Ac/Electrol/Dextrose/Calcium (Clinimix E 5/15) 1,000 mls @ 70 mls/hr IV .BY DURATION [facility] Potassium Chloride 40 meq/ (Premix) 100 mls @ 25 mls/hr IV ONETIME ONE Stop: 10/23/20 13:59 Last Admin: 10/23/20 10:20 Dose: 25 mls/hr Documented by: Potassium Chloride 40 meq/ (Premix) 100 mls @ 25 mls/hr IV ONETIME ONE Stop: 10/24/20 14:29 Last Admin: 10/24/20 10:11 Dose: 25 mls/hr Documented by: Magnesium Sulfate (Magnesium Sulfate In Water 2 Gm/50 Ml) 2 gm in 50 mls @ 25 mls/hr IV Q6H [facility] Stop: 10/24/20 16:29 Last Admin: 10/24/20 15:14 Dose: 25 mls/hr Documented by: Iopamidol (Isovue-300 (61%)) 30 ml PO ASDIRECTED ONE Stop: 10/12/20 09:05 Last Admin: 10/12/20 09:29 Dose: 30 ml Documented by: Iopamidol (Isovue-300 (61%)) 100 ml IV . DIRECTED PRN PRN Reason: RADIOLOGY EXAM Last Admin: 10/12/20 09:27 Dose: 100 ml Documented by: Lisinopril (Prinivil) Confirm Administered Dose 20 mg .ROUTE .STK-MED ONE Stop: 10/12/20 21:33 Last Admin: 10/12/20 21:42 Dose: Not Given Documented by: Lorazepam (Ativan) 0.5 mg PO Q6H PRN PRN Reason: Anxiety Last Admin: 10/16/20 03:30 Dose: 0.5 mg Documented by: Lorazepam (Ativan) 0.5 mg IVPUSH ONETIME ONE Stop: 10/16/20 07:46 Last Admin: 10/16/20 07:53 Dose: 0.5 mg Documented by: Lorazepam (Ativan) 0.5 mg PO Q4H PRN PRN Reason: Anxiety Last Admin: 10/16/20 16:32 Dose: 0.5 mg Documented by: Lorazepam (Ativan) 0 mg PO ASDIRECTED YEHUDA; Protocol Last Admin: 10/16/20 17:57 Dose: 2 mg Documented by: Lorazepam (Ativan) 0 mg IV ASDIRECTED YEHUDA; Protocol Last Admin: 10/18/20 06:15 Dose: 2 mg Documented by: Lorazepam (Ativan) 1 mg IVPUSH Q2H PRN PRN Reason: Agitation Last Admin: 10/23/20 01:58 Dose: 1 mg Documented by: Meropenem (Merrem) Confirm Administered Dose 500 mg .ROUTE .STK-MED ONE Stop: 10/13/20 09:55 Midazolam HCl (Versed 1 Mg/Ml) Confirm Administered Dose 2 mg .ROUTE .STK-MED ONE Stop: 10/11/20 09:02 Morphine Sulfate (Morphine Anesthesiology Physician 150 Mg In 30 Ml) 0 mg IV ASDIRECTED PRN; Protocol PRN Reason: Pain Last Admin: 10/13/20 19:38 Dose: 150 mg Documented by: Morphine Sulfate (Morphine) 2 mg IVPUSH ONETIME ONE Stop: 10/11/20 13:38 Last Admin: 10/11/20 13:56 Dose: 2 mg Documented by: Morphine Sulfate (Morphine) 4 mg IVPUSH ONETIME ONE Stop: 10/16/20 07:46 Last Admin: 10/16/20 07:53 Dose: 4 mg Documented by: Naloxone HCl (Narcan) 0.1 mg IV ASDIRECTED PRN PRN Reason: decreased respiratory rate Non-Formulary Medication (Total Parenteral Nutrition, Central) 0 ml IV ASDIRECTED YEHUDA Stop: 10/22/20 16:00 Ondansetron HCl (Zofran) Confirm Administered Dose 4 mg .ROUTE .STK-MED ONE Stop: 10/13/20 08:42 Oxycodone HCl (Oxycodone) 5 - 10 mg PO Q4H PRN PRN Reason: Pain Last Admin: 10/16/20 14:04 Dose: 10 mg Documented by: Pantoprazole Sodium (Protonix) 40 mg PO ACBREAKFAST [facility] Last Admin: 10/16/20 09:18 Dose: 40 mg Documented by: Pantoprazole Sodium (Protonix Iv) 40 mg IVPUSH Q24H [facility] Last Admin: 10/22/20 21:50 Dose: 40 mg Documented by: Potassium Gluconate (99mg Tab (Ptom)) 2 each PO BIDMEALS [facility] Last Admin: 10/20/20 07:37 Dose: Not Given Documented by: Phenobarbital (Phenobarbital Sodium) 260 mg IVPUSH ONETIME ONE Stop: 10/16/20 19:06 Last Admin: 10/16/20 19:33 Dose: 260 mg Documented by: Potassium Chloride (Potassium Chloride) 40 meq PO BID@0900,1200 [facility] Stop: 10/15/20 12:01 Last Admin: 10/15/20 19:42 Dose: Not Given Documented by: Potassium Chloride (Klor-Con M20) 40 meq PO ONETIME ONE Stop: 10/17/20 17:01 Last Admin: 10/17/20 16:48 Dose: Not Given Documented by: Propofol (Diprivan 20 Ml) Confirm Administered Dose 200 mg .ROUTE .STK-MED ONE Stop: 10/11/20 09:02 Rocuronium [place] (Zemuron) 100 mg IVPUSH ONETIME ONE Stop: 10/16/20 20:16 Last Admin: 10/16/20 20:12 Dose: 100 mg Documented by: Succinylcholine Chloride (Quelicin) Confirm Administered Dose 200 mg .ROUTE .STK-MED ONE Stop: 10/16/20 20:12 Last Admin: 10/16/20 21:10 Dose: Not Given Documented by: Vancomycin HCl (Vancomycin) 1 gm IV .PHARMACY TO DOSE [facility] Stop: 10/17/20 07:00 - Exam Quality Assessment: Supplemental Oxygen General: Alert, Oriented, Cooperative, No Acute Distress Lungs: Normal Respiratory Effort. No: Wheezing GI/Abdominal Exam: Soft, No Distention Extremities: No Pedal Edema Psy/Mental Status: Alert, Normal Affect Sepsis Event Note - Evaluation Sepsis Screening Result: No Definite Risk - Focused Exam Vital Signs: Vital Signs Temp Pulse Resp BP Pulse Ox 10/25/20 11:31 36.8 C 95 18 100/59 L 94 L 10/25/20 07:26 77 10/25/20 07:17 36.9 C 79 16 95/61 92 L 10/25/20 06:23 98/60 10/25/20 02:30 36.9 C 78 20 88/58 L 94 L 10/25/20 00:47 36.8 C 79 20 91/56 L 95 - Problem List Review Problem List Initiated/Reviewed/Updated: Yes - My Orders Last 24 Hours: My Active Orders 10/24/20 Lunch Regular Diet [DIET] 10/25/20 07:37 Acetaminophen [TylenoL] 650 mg PO Q4H PRN - Assessment Assessment:: ASSESSMENT AND PLAN - Plan Plan:: ASSESSMENT AND RECOMMENDATIONS ARDS-complicated by respiratory failure necessitating intubation. Down to 1 L and is doing quite well from a respiratory status. Antibiotics have been discontinued. Stable at rest but desaturates with activity. -Pulmonary toilet -Hold on diuresis today -Outpatient pulmonary rehab Alcohol dependence with acute withdrawal delirium-doing much better today with no evidence for ongoing alcohol withdrawal. She is determined to quit and has good family resources. -Outpatient counseling Generalized abdominal pain-concern for mesh adherent to her liver. Pain has resolved and there are no plans for surgery in the future unless her condition changes. Hypokalemia-now normal after supplementation. Maintenance issues- -Freeman catheter-removed -Diet-regular -GI-PPI Disposition-I anticipate discharge home possibly with home care after the hospital stay Julian Lara MD
[2020-10-25] MEDS: Enoxaparin 40 MG/0.4 ML Syringe SUBCUT SCH (20:33)
[2020-10-25] MEDS: traZODone 50 MG Tab PO SCH (21:43)
[2020-10-26] MEDS: Acetaminophen 325 MG Tab PO PRN ×2 (03:13→13:48)
[2020-10-26] MEDS: Levalbuterol HCl 1.25 MG/3 ML Neb NEB SCH ×3 (07:13→15:19)
[2020-10-26] MEDS: Pantoprazole 40 MG Tab.CR PO SCH (07:27)
[2020-10-26] MEDS: Lactobacillus Rhamnosus GG (Probiotic) Cap PO SCH (09:19)
[2020-10-26] MEDS: FLUoxetine 20 MG Cap PO SCH (09:19)
[2020-10-26] MEDS: Nicotine 14 MG/24 Hr Patch TRDERM SCH (09:20)
--- NOTE | 2020-10-26 12:56 | PCM.DCSUM1 ---
Discharge Summary - Hospital Course Brief History: 54-year-old female with history of alcohol dependence, PTSD, bariatric surgery status who presented with epigastric abdominal pain. She was admitted with the anticipation she would go to surgery to have an exploratory laparotomy. Diagnosis: Stroke: No - Discharge Data Discharge Date: 10/26/20 Discharge Disposition: Home, Self-Care 01 Condition: Good - Referral to Home Health Primary Care Physician: Artemio Santiago MD - Discharge Diagnosis/Problem(s) (1) ARDS (adult respiratory distress syndrome) SNOMED Code(s): 50300914, 30724206 ICD Code: J80 - ACUTE RESPIRATORY DISTRESS SYNDROME Status: Acute Current Visit: Yes (2) Acute respiratory failure with hypoxia SNOMED Code(s): 31304138, 606665409 ICD Code: J96.01 - ACUTE RESPIRATORY FAILURE WITH HYPOXIA Status: Acute Current Visit: Yes (3) Alcohol dependence with withdrawal SNOMED Code(s): 37548749, 099203347 ICD Code: F10.239 - ALCOHOL DEPENDENCE WITH WITHDRAWAL, UNSPECIFIED Status: Acute Current Visit: Yes Qualifiers: Complication of substance-induced condition: with delirium Qualified Code(s): F10.231 - Alcohol dependence with withdrawal delirium (4) Abdominal pain SNOMED Code(s): 12797650 ICD Code: R10.9 - UNSPECIFIED ABDOMINAL PAIN Status: Acute Current Visit: No Qualifiers: Abdominal location: epigastric Qualified Code(s): R10.13 - Epigastric pain (5) Bariatric surgery status SNOMED Code(s): 725075956, 177351336, 421602864 ICD Code: Z98.84 - BARIATRIC SURGERY STATUS Status: Chronic Current Visit: No - Patient Summary/Data Consults: Consultations 10/11/20 13:09 Respiratory Care Assess and Treatment [CONS] Routine Comment: Physician Instructions: Post -Op Pneumonia Prevention 10/13/20 12:54 Consult to Physician [CONS] Stat Consulting Provider: Julian Lara Call Completed to Consulting Physician: Yes Reason for Consult: Patient now requiring 4 liters oxygen to maintain sats 90-92% Person Notified: shnanon Lara Date Notified: 10/13/20 Time Notified: 12:55 10/24/20 09:42 PT Evaluation and Treatment [CONS] Routine Please Evaluate and Treat. PT Reason for Consult: Strengthening This query below is only for informational purposes and is not editable. Admission Diagnosis/Problem: Abdominal pain Hospital Course: Kaushik was admitted to the hospital for management of epigastric abdominal pain that was thought secondary to mesh adherent to her liver. About 24 hours after admission I was consulted regarding worsening respiratory status. Patient had rapidly rising supplemental oxygen requirements with acute respiratory failure with hypoxia. X-ray was suggestive of early ARDS. The rapid decline in respiratory status was likely related to volume overload and a diastolic type heart failure. The patient was given a dose of furosemide and then was transferred to the intensive care unit for closer monitoring and consideration of initiating noninvasive positive pressure ventilation. She received aggressive diuresis over the next couple of days and unfortunately had a declining respiratory status. Supplemental oxygen requirements continued to increase despite aggressive diuresis. Her chest x-ray showed increasing diffuse bilateral infiltrates consistent with progressive ARDS. She did remain stable fortunately on high flow nasal cannula or with the facemask during the initial portion of her intensive care unit stay. Unfortunately her condition deteriorated further on October 16 and she required intubation and mechanical ventilation. She also appeared to be going into alcohol withdrawal with increasing confusion and tremulousness. She was empirically started on antibiotics at this point given her rapid decline though there is no strong evidence to point towards infection at the time. Over the next several days the diuresis was continued. Her supplemental oxygen requirements on the ventilator decreased. An echocardiogram was obtained when it was first able and this showed normal cardiac function and no significant abnormalities. Several weaning trials were held and initially she was failing but ultimately did well and was extubated on 22 October. She has had further improvement in her respiratory status since that time. We have been able to wean her supplemental oxygen all the way off at rest but she does desaturate quickly with any sort of activity and requires 3 L to maintain adequate oxygen saturation as outlined below. She has not had any pain since she has been extubated. Further discussions held with the patient revealed that she does drink a large amount of alcohol each day. This likely contributed to at least some mild alcoholic hepatitis and her epigastric abdominal pain. She is very interested in cessation from alcohol. She has good family support and will be seeking chemical dependency counseling after hospital discharge. She is stable and safe for discharge home at this time. She will be going home with home oxygen to use while she is active. She has follow-up scheduled with her primary care. Face to Face for home O2 - pt dropped sats to 84% with ambulation and required 3 L/min to keep sats 92%. Date of service-10/26/20 Dx: J80, J90.01 DERIAN:99 months Julian Lara MD - Patient Instructions Diet: Regular Diet as Tolerated Activity: As Tolerated Showering/Bathing: May Shower Notify Provider of: Fever, Increased Pain Other/Special Instructions: 1. You were in the hospital for management of epigastric abdominal pain. I suspect that the pain was related to heavy alcohol use. The pain has resolved without any sort of surgical intervention. I would strongly recommend alcohol cessation. I would encourage you to seek follow-up with a chemical dependency counselor. Your hospital stay was complicated by respiratory failure due to volume overload and ARDS. Your respiratory status has improved following diuresis and a short time on the ventilator. I have placed a referral to pulmonary rehab to help improve your endurance and respiratory status following hospital discharge. 2. Continue your usual home medications as previously prescribed. 3. Follow up with Dr. Santiago in 1 to 2 weeks and with a chemical dependency counselor as soon as you can get an appointment. - Discharge Plan *PRESCRIPTION DRUG MONITORING PROGRAM REVIEWED*: Not Applicable *COPY OF PRESCRIPTION DRUG MONITORING REPORT IN PATIENT DIMAS: Not Applicable Home Medications: Home Meds Nicotine [Habitrol] 14 mg TRDERM DAILY #30 patch 07/20/15 [Rx] Albuterol [Ventolin HFA] 1 - 2 puff IH Q4H PRN 03/12/16 [History] Cyanocobalamin (Vitamin B-12) [Vitamin B-12] 1 injection IM ASDIRECTED 03/12/16 [History] FLUoxetine [PROzac] 40 mg PO DAILY 03/12/16 [History] lisinopriL [Zestril] 20 mg PO BEDTIME 03/12/16 [History] Multivit-Min/FA/Lycopen/Lutein [Centrum Silver Tablet] 1 tab PO DAILY 09/19/16 [History] Calcium Citrate/Vitamin D3 [Calcium Cit-Vit D 250-200] 1 each PO BID 08/30/17 [History] diphenhydrAMINE [Benadryl] 25 mg PO BEDTIME PRN 08/30/17 [History] Ferrous Sulfate, Dried [Iron] 1 tab PO DAILY 04/09/18 [History] Acetaminophen/HYDROcodone [[place] 325-5 MG] 1 - 2 tab PO Q6H PRN #15 tab 10/08/20 [Rx] Ondansetron [Zofran ODT] 4 mg PO Q6H PRN #7 tab.dis 10/08/20 [Rx] Pantoprazole Sodium [Protonix] 40 mg PO DAILY #30 tablet.dr 10/08/20 [Rx] FLUoxetine HCl [Prozac] 20 mg PO QPM 10/11/20 [History] Potassium Gluconate 99 mg PO DAILY 10/15/20 [History] Oxygen Therapy Mode: Room Air Patient Handouts: Alcohol Abuse and Dependence Information, Adult, Acute Respiratory Distress Syndrome, Adult Referrals: Artemio Santiago MD [Primary Care Provider] - 11/03/20 1:30 pm (1-2 weeks -follow-up hospital stay for abdominal pain, ARDS with respiratory failure) - Discharge Summary/Plan Comment DC Time >30 min.: Yes (40-chem dep counseling, coordinating f/u ) - Patient Data Vitals - Most Recent: Last Vital Signs Temp 36.0 C L 10/26/20 11:17 Pulse 90 10/26/20 11:17 Resp 16 10/26/20 11:17 BP 97/63 10/26/20 11:17 Pulse Ox 96 10/26/20 11:17 Weight - Most Recent: 74.48 kg I&O - Last 24 hours: Intake & Output 10/25/20 10/26/20 10/26/20 22:59 06:59 14:59 Intake Total 360 300 Output Total 300 600 300 Balance 60 -300 -300 Med Orders - Current: Current Medications Acetaminophen (Tylenol) 650 mg PO Q4H PRN PRN Reason: pain Last Admin: 10/26/20 03:13 Dose: 650 mg Documented by: Benzocaine/Menthol (Cepacol Sore Throat) 1 lozenge MUCMEM Q2H PRN PRN Reason: Cough Last Admin: 10/13/20 22:24 Dose: 1 shanna Documented by: Diphenhydramine HCl (Benadryl) 50 mg PO Q6H PRN PRN Reason: Itching Last Admin: 10/14/20 23:00 Dose: 50 mg Documented by: Diphenhydramine HCl (Benadryl) 50 mg PO BEDTIME PRN PRN Reason: Sleep Last Admin: 10/23/20 22:41 Dose: 50 mg Documented by: Enoxaparin Sodium (Lovenox) 40 mg SUBCUT Q24H [facility] Last Admin: 10/25/20 20:33 Dose: 40 mg Documented by: Fluoxetine HCl (Prozac) 40 mg PO DAILY [facility] Last Admin: 10/26/20 09:19 Dose: 40 mg Documented by: Fluoxetine HCl (Prozac) 20 mg PO QPM [facility] Last Admin: 10/25/20 16:01 Dose: 20 mg Documented by: Hydroxyzine HCl (Vistaril) 100 mg IM Q4H PRN PRN Reason: Pain Last Admin: 10/24/20 03:20 Dose: 100 mg Documented by: Lactobacillus Rhamnosus (Culturelle) 1 cap PO BID [facility] Last Admin: 10/26/20 09:19 Dose: 1 cap Documented by: Levalbuterol HCl (Xopenex) 1.25 mg NEB QIDRT [facility] Last Admin: 10/26/20 10:54 Dose: 1.25 mg Documented by: Levalbuterol HCl (Xopenex) 1.25 mg NEB Q4H PRN PRN Reason: shortness of breath/wheezing Lorazepam (Ativan) 0.5 mg IVPUSH Q2H PRN PRN Reason: Agitation Miscellaneous Information (Remove Patch) 1 ea TRDERM BEDTIME [facility] Last Admin: 10/25/20 20:34 Dose: Not Given Documented by: Nicotine (Habitrol) 14 mg TRDERM DAILY [facility] Last Admin: 10/26/20 09:20 Dose: 14 mg Documented by: Ondansetron HCl (Zofran) 4 mg IVPUSH Q4H PRN PRN Reason: Nausea Last Admin: 10/12/20 11:02 Dose: 4 mg Documented by: Oxycodone HCl (Oxycodone) 5 mg PO Q4H PRN PRN Reason: Pain Pantoprazole Sodium (Protonix) 40 mg PO DAILY@0730 [facility] Last Admin: 10/26/20 07:27 Dose: 40 mg Documented by: Sodium Chloride (Saline Flush) 10 ml FLUSH ONETIME PRN PRN Reason: PER RADIOLOGY PROTOCOL Last Admin: 10/16/20 17:10 Dose: 10 ml Documented by: Sodium Chloride ([place] Nasal [place]) 0 ml NELLY Q2H PRN PRN Reason: Congestion Last Admin: 10/15/20 08:35 Dose: 1 spray Documented by: Sodium Chloride ([place] Saline Nasal Gel) 0 gm NELLY ASDIRECTED PRN PRN Reason: Congestion Last Admin: 10/15/20 08:36 Dose: 1 applic Documented by: Trazodone HCl (Trazodone) 100 mg PO BEDTIME [facility] Last Admin: 10/25/20 21:43 Dose: 50 mg Documented by: Trolamine Salicylate (Aspercreme 10%) 0 gm TOP Q4H PRN PRN Reason: back pain Last Admin: 10/15/20 21:45 Dose: 1 applic Documented by: Discontinued Medications Acetaminophen (Tylenol Extra Strength) 500 mg PO Q6H PRN PRN Reason: Pain/Fever Last Admin: 10/16/20 15:11 Dose: 500 mg Documented by: Albuterol (Proventil Neb Soln) 2.5 mg NEB Q2H PRN PRN Reason: wheezing/shortness of breath Albuterol/Ipratropium (Duoneb 3.0-0.5 Mg/3 Ml) 3 ml INH QIDRT [facility] Last Admin: 10/14/20 06:59 Dose: 3 ml Documented by: Albuterol/Ipratropium (Duoneb 3.0-0.5 Mg/3 Ml) 3 ml INH ASDIRECTED PRN PRN Reason: Shortness of Breath Cyanocobalamin (Vitamin B12) 1,000 mcg IM ONETIME ONE Stop: 10/11/20 10:31 Last Admin: 10/11/20 11:31 Dose: 1,000 mcg Documented by: Cyclobenzaprine HCl (Flexeril) 10 mg PO Q8H PRN PRN Reason: Muscle Spasm Last Admin: 10/15/20 20:59 Dose: 10 mg Documented by: Dexamethasone (Decadron) Confirm Administered Dose 4 mg .ROUTE .STK-MED ONE Stop: 10/13/20 08:42 Diphenhydramine HCl (Benadryl) 50 mg IVPUSH Q4H PRN PRN Reason: Itching Diphenhydramine HCl (Benadryl) 25 mg PO Q6H PRN PRN Reason: Itching Last Admin: 10/12/20 21:51 Dose: 25 mg Documented by: Diphenoxylate HCl/Atropine (Lomotil 0.025-2.5 Mg) 1 tab PO Q6H PRN PRN Reason: Diarrhea Enoxaparin Sodium (Lovenox) 40 mg SUBCUT DAILY [facility] Last Admin: 10/16/20 21:42 Dose: 40 mg Documented by: Etomidate (Amidate) 30 mg IVPUSH ONETIME ONE Stop: 10/16/20 20:16 Last Admin: 10/16/20 20:15 Dose: 30 mg Documented by: Fentanyl (Sublimaze) Confirm Administered Dose 100 mcg .ROUTE .STK-MED ONE Stop: 10/11/20 09:02 Fluoxetine HCl (Prozac) 60 mg PO DAILY [facility] Furosemide (Lasix) 40 mg IVPUSH NOW ONE Stop: 10/13/20 14:01 Last Admin: 10/13/20 13:54 Dose: 40 mg Documented by: Furosemide (Lasix) 40 mg IVPUSH ONETIME ONE Stop: 10/14/20 00:00 Last Admin: 10/13/20 23:40 Dose: 40 mg Documented by: Furosemide (Lasix) 40 mg IVPUSH ONETIME ONE Stop: 10/14/20 09:01 Last Admin: 10/14/20 08:58 Dose: 40 mg Documented by: Furosemide (Lasix) 40 mg IVPUSH Q8H [facility] Stop: 10/15/20 01:01 Last Admin: 10/15/20 00:40 Dose: Not Given Documented by: Furosemide (Lasix) 40 mg IVPUSH Q8H [facility] Stop: 10/15/20 16:01 Last Admin: 10/15/20 16:05 Dose: 40 mg Documented by: Furosemide (Lasix) 40 mg IVPUSH NOW ONE Stop: 10/16/20 14:21 Last Admin: 10/16/20 14:27 Dose: 40 mg Documented by: Furosemide (Lasix) 40 mg IVPUSH NOW ONE Stop: 10/16/20 23:01 Last Admin: 10/16/20 22:54 Dose: 40 mg Documented by: Furosemide (Lasix) 40 mg IVPUSH NOW ONE Stop: 10/17/20 10:51 Last Admin: 10/17/20 11:07 Dose: 40 mg Documented by: Furosemide (Lasix) 40 mg IVPUSH NOW ONE Stop: 10/17/20 22:01 Last Admin: 10/17/20 21:34 Dose: 40 mg Documented by: Furosemide (Lasix) 40 mg IVPUSH NOW ONE Stop: 10/18/20 12:31 Last Admin: 10/18/20 13:04 Dose: 40 mg Documented by: Furosemide (Lasix) 40 mg IVPUSH NOW ONE Stop: 10/19/20 01:01 Last Admin: 10/19/20 01:55 Dose: 40 mg Documented by: Furosemide (Lasix) 40 mg IVPUSH NOW ONE Stop: 10/19/20 12:31 Last Admin: 10/19/20 15:07 Dose: 40 mg Documented by: Furosemide (Lasix) 40 mg IVPUSH NOW ONE Stop: 10/20/20 01:01 Last Admin: 10/20/20 02:12 Dose: 40 mg Documented by: Furosemide (Lasix) 40 mg IVPUSH BID [facility] Stop: 10/23/20 12:00 Last Admin: 10/23/20 09:31 Dose: 40 mg Documented by: Glycopyrrolate (Glycopyrrolate) 0.4 mg IVPUSH ONETIME ONE Stop: 10/11/20 10:31 Last Admin: 10/11/20 12:12 Dose: 0.4 mg Documented by: Heparin Sodium (Porcine) (Heparin Sodium) Confirm Administered Dose 5,000 units .ROUTE .ST-MED ONE Stop: 10/16/20 20:31 Last Admin: 10/16/20 21:11 Dose: 5,000 units Documented by: Lactated Ringer's (Ringers, Lactated) 1,000 mls @ 999 mls/hr IV BOLUS ONE Stop: 10/11/20 11:30 Last Admin: 10/11/20 10:56 Dose: 999 mls/hr Documented by: Multivitamins/Minerals 10 ml/Thiamine HCl 200 mg/ Zinc 1 ml / Lactated Ringer's 1,013 mls @ 500 mls/hr IV ONETIME ONE Stop: 10/11/20 13:31 Last Admin: 10/11/20 11:47 Dose: 500 mls/hr Documented by: Ampicillin Sodium/Sulbactam (Sodium 1.5 gm/ Sodium Chloride) 50 mls @ 100 mls/hr IV ONETIME ONE Stop: 10/11/20 10:59 Last Admin: 10/11/20 12:13 Dose: 100 mls/hr Documented by: Dextrose/Lactated Ringer's (Dextrose 5%-Lactated Ringers) 1,000 mls @ 125 mls/hr IV ASDIRECTED [facility] Last Admin: 10/13/20 09:18 Dose: 125 mls/hr Documented by: Sodium Chloride (Normal Saline) 75 mls @ 3 mls/sec IV ONETIME ONE Stop: 10/12/20 09:05 Last Admin: 10/12/20 09:28 Dose: 3 mls/sec Documented by: Meropenem 500 mg/ Sodium (Chloride) 50 mls @ 100 mls/hr IV ONCALL ONE Stop: 10/13/20 11:59 Last Admin: 10/14/20 06:32 Dose: Not Given Documented by: Acetaminophen 1,000 mg/ Premix 100 mls @ 400 mls/hr IV NOW ONE Stop: 10/12/20 23:51 Last Admin: 10/12/20 23:52 Dose: 400 mls/hr Documented by: Linezolid (Zyvox) Confirm Administered Dose 300 mls @ as directed .ROUTE .STK- MED ONE Stop: 10/13/20 09:56 Dextrose/Lactated Ringer's (Dextrose 5%-Lactated Ringers) 1,000 mls @ 25 mls/hr IV ASDIRECTED [facility] Stop: 10/15/20 16:00 Last Admin: 10/14/20 16:56 Dose: 25 mls/hr Documented by: Potassium Chloride 20 meq/Lidocaine HCl 2 ml/ Sodium Chloride 112 mls @ 56 mls/hr IV Q2H [facility] Stop: 10/15/20 12:29 Last Admin: 10/15/20 11:10 Dose: 56 mls/hr Documented by: Magnesium Sulfate (Magnesium Sulfate In Water Premix) 2 gm in 50 mls @ 25 mls/hr IV Q6H [facility] Stop: 10/15/20 15:59 Last Admin: 10/15/20 13:21 Dose: 25 mls/hr Documented by: Ceftriaxone Sodium 1 gm/ (Sodium Chloride) 50 mls @ 100 mls/hr IV Q24H [facility] Last Admin: 10/22/20 14:36 Dose: 100 mls/hr Documented by: Doxycycline Hyclate 100 mg/ (Sodium Chloride) 100 mls @ 100 mls/hr IV Q12H [facility] Last Admin: 10/16/20 15:56 Dose: 100 mls/hr Documented by: Propofol (Diprivan 100 Ml) Confirm Administered Dose 100 mls @ as directed .ROUTE .STK-MED ONE Stop: 10/16/20 20:18 Last Admin: 10/16/20 21:25 Dose: Not Given Documented by: Levofloxacin/Dextrose 750 mg/ (Premix) 150 mls @ 100 mls/hr IV Q24H [facility] Last Admin: 10/23/20 20:50 Dose: 100 mls/hr Documented by: Propofol (Diprivan 100 Ml) 100 mls @ 2.313 mls/hr IV TITRATE [facility]; Protocol Last Admin: 10/22/20 05:26 Dose: 55 mcg/kg/min, 25.447 mls/hr Documented by: Vancomycin HCl 1.25 gm/ Sodium (Chloride) 250 mls @ 166.667 mls/hr IV Q12H [facility] Last Admin: 10/16/20 22:54 Dose: 166.667 mls/hr Documented by: Vancomycin HCl 1.25 gm/ Sodium (Chloride) 250 mls @ 166.667 mls/hr IV Q12H [facility] Last Admin: 10/18/20 23:45 Dose: 166.667 mls/hr Documented by: Heparin Sodium (Porcine) 5,000 (units/ Sodium Chloride) 501 mls @ 0 mls/hr IV ASDIRECTED [facility]; Protocol Last Admin: 10/22/20 12:52 Dose: 1 mls/hr, 1 mls/hr Documented by: Potassium Chloride 40 meq/ (Premix) 100 mls @ 25 mls/hr IV ONETIME ONE Stop: 10/17/20 15:29 Last Admin: 10/17/20 11:18 Dose: 25 mls/hr Documented by: Potassium Chloride 20 meq/ (Premix) 100 mls @ 50 mls/hr IV Q2H [facility] Stop: 10/18/20 13:59 Last Admin: 10/18/20 15:28 Dose: 50 mls/hr Documented by: Magnesium Sulfate (Magnesium Sulfate In Water Premix) 2 gm in 50 mls @ 12.5 mls/hr IV Q6H [facility] Stop: 10/18/20 19:59 Last Admin: 10/18/20 15:49 Dose: 12.5 mls/hr Documented by: Potassium Chloride 40 meq/ (Premix) 100 mls @ 25 mls/hr IV ONETIME ONE Stop: 10/18/20 22:59 Last Admin: 10/18/20 18:32 Dose: 25 mls/hr Documented by: Sodium Chloride (Normal Saline) 500 mls @ as directed IV .STK-MED ONE Stop: 10/16/20 20:31 Potassium Chloride 40 meq/ (Premix) 100 mls @ 25 mls/hr IV ONETIME ONE Stop: 10/19/20 12:29 Last Admin: 10/19/20 09:52 Dose: 25 mls/hr Documented by: Vancomycin HCl 1.3 gm/ Sodium (Chloride) 250 mls @ 166.667 mls/hr IV Q12H [facility] Last Admin: 10/19/20 12:18 Dose: 166.667 mls/hr Documented by: Potassium Chloride 40 meq/ (Premix) 100 mls @ 25 mls/hr IV ONETIME ONE Stop: 10/21/20 13:59 Last Admin: 10/21/20 10:45 Dose: 25 mls/hr Documented by: Multivitamins/Minerals 10 ml/Zinc 1 ml/ Amino Ac/Electrol/Dextrose/Calcium 1,011 mls @ 70 mls/hr IV .BY DURATION [facility] Last Admin: 10/21/20 18:05 Dose: 70 mls/hr Documented by: Amino Ac/Electrol/Dextrose/Calcium (Clinimix E 5/15) 1,000 mls @ 70 mls/hr IV .BY DURATION [facility] Last Admin: 10/22/20 08:12 Dose: 70 mls/hr Documented by: Potassium Chloride 20 meq/ (Premix) 100 mls @ 50 mls/hr IV ONETIME ONE Stop: 10/22/20 14:29 Last Admin: 10/22/20 12:45 Dose: 50 mls/hr Documented by: Multivitamins/Minerals 10 ml/Zinc 1 ml/ Amino Ac/Electrol/Dextrose/Calcium 1,011 mls @ 70 mls/hr IV .BY DURATION [facility] Last Admin: 10/22/20 22:20 Dose: 70 mls/hr Documented by: Amino Ac/Electrol/Dextrose/Calcium (Clinimix E 5/15) 1,000 mls @ 70 mls/hr IV .BY DURATION [facility] Potassium Chloride 40 meq/ (Premix) 100 mls @ 25 mls/hr IV ONETIME ONE Stop: 10/23/20 13:59 Last Admin: 10/23/20 10:20 Dose: 25 mls/hr Documented by: Potassium Chloride 40 meq/ (Premix) 100 mls @ 25 mls/hr IV ONETIME ONE Stop: 10/24/20 14:29 Last Admin: 10/24/20 10:11 Dose: 25 mls/hr Documented by: Magnesium Sulfate (Magnesium Sulfate In Water 2 Gm/50 Ml) 2 gm in 50 mls @ 25 mls/hr IV Q6H [facility] Stop: 10/24/20 16:29 Last Admin: 10/24/20 15:14 Dose: 25 mls/hr Documented by: Iopamidol (Isovue-300 (61%)) 30 ml PO ASDIRECTED ONE Stop: 10/12/20 09:05 Last Admin: 10/12/20 09:29 Dose: 30 ml Documented by: Iopamidol (Isovue-300 (61%)) 100 ml IV . DIRECTED PRN PRN Reason: RADIOLOGY EXAM Last Admin: 10/12/20 09:27 Dose: 100 ml Documented by: Lisinopril (Prinivil) 20 mg PO BEDTIME [facility] Last Admin: 10/19/20 20:16 Dose: Not Given Documented by: Lisinopril (Prinivil) Confirm Administered Dose 20 mg .ROUTE .STK-MED ONE Stop: 10/12/20 21:33 Last Admin: 10/12/20 21:42 Dose: Not Given Documented by: Lorazepam (Ativan) 0.5 mg PO Q6H PRN PRN Reason: Anxiety Last Admin: 10/16/20 03:30 Dose: 0.5 mg Documented by: Lorazepam (Ativan) 0.5 mg IVPUSH ONETIME ONE Stop: 10/16/20 07:46 Last Admin: 10/16/20 07:53 Dose: 0.5 mg Documented by: Lorazepam (Ativan) 0.5 mg PO Q4H PRN PRN Reason: Anxiety Last Admin: 10/16/20 16:32 Dose: 0.5 mg Documented by: Lorazepam (Ativan) 0 mg PO ASDIRECTED [facility]; Protocol Last Admin: 10/16/20 17:57 Dose: 2 mg Documented by: Lorazepam (Ativan) 0 mg IV ASDIRECTED [facility]; Protocol Last Admin: 10/18/20 06:15 Dose: 2 mg Documented by: Lorazepam (Ativan) 1 mg IVPUSH Q2H PRN PRN Reason: Agitation Last Admin: 10/23/20 01:58 Dose: 1 mg Documented by: Meropenem (Merrem) Confirm Administered Dose 500 mg .ROUTE .STK-MED ONE Stop: 10/13/20 09:55 Midazolam HCl (Versed 1 Mg/Ml) Confirm Administered Dose 2 mg .ROUTE .STK-MED ONE Stop: 10/11/20 09:02 Morphine Sulfate (Morphine Statistician 150 Mg In 30 Ml) 0 mg IV ASDIRECTED PRN; Protocol PRN Reason: Pain Last Admin: 10/13/20 19:38 Dose: 150 mg Documented by: Morphine Sulfate (Morphine) 2 mg IVPUSH ONETIME ONE Stop: 10/11/20 13:38 Last Admin: 10/11/20 13:56 Dose: 2 mg Documented by: Morphine Sulfate (Morphine) 4 mg IVPUSH ONETIME ONE Stop: 10/16/20 07:46 Last Admin: 10/16/20 07:53 Dose: 4 mg Documented by: Naloxone HCl (Narcan) 0.1 mg IV ASDIRECTED PRN PRN Reason: decreased respiratory rate Non-Formulary Medication (Total Parenteral Nutrition, Central) 0 ml IV ASDIREC JENNIFER [facility] Stop: 10/22/20 16:00 Ondansetron HCl (Zofran) Confirm Administered Dose 4 mg .ROUTE .STK-MED ONE Stop: 10/13/20 08:42 Oxycodone HCl (Oxycodone) 5 - 10 mg PO Q4H PRN PRN Reason: Pain Last Admin: 10/16/20 14:04 Dose: 10 mg Documented by: Pantoprazole Sodium (Protonix) 40 mg PO ACBREAKFAST [facility] Last Admin: 10/16/20 09:18 Dose: 40 mg Documented by: Pantoprazole Sodium (Protonix Iv) 40 mg IVPUSH Q24H [facility] Last Admin: 10/22/20 21:50 Dose: 40 mg Documented by: Potassium Gluconate (99mg Tab (Ptom)) 2 each PO BIDMEALS [facility] Last Admin: 10/20/20 07:37 Dose: Not Given Documented by: Phenobarbital (Phenobarbital Sodium) 260 mg IVPUSH ONETIME ONE Stop: 10/16/20 19:06 Last Admin: 10/16/20 19:33 Dose: 260 mg Documented by: Potassium Chloride (Potassium Chloride) 40 meq PO BID@0900,1200 [facility] Stop: 10/15/20 12:01 Last Admin: 10/15/20 19:42 Dose: Not Given Documented by: Potassium Chloride (Klor-Con M20) 40 meq PO ONETIME ONE Stop: 10/17/20 17:01 Last Admin: 10/17/20 16:48 Dose: Not Given Documented by: Propofol (Diprivan 20 Ml) Confirm Administered Dose 200 mg .ROUTE .STK-MED ONE Stop: 10/11/20 09:02 Rocuronium [place] (Zemuron) 100 mg IVPUSH ONETIME ONE Stop: 10/16/20 20:16 Last Admin: 10/16/20 20:12 Dose: 100 mg Documented by: Succinylcholine Chloride (Quelicin) Confirm Administered Dose 200 mg .ROUTE .STK-MED ONE Stop: 10/16/20 20:12 Last Admin: 10/16/20 21:10 Dose: Not Given Documented by: Vancomycin HCl (Vancomycin) 1 gm IV .PHARMACY TO DOSE [facility] Stop: 10/17/20 07:00
[2020-10-26 16:02] VITALS: BP 99/61; PULSE 89
--- NOTE | 2020-10-27 11:21 | CR ---
CHEST: Portable 10/24/2020 at 7:25 AM This is a redictation CLINICAL HISTORY:PICC COMPARISON:10/22/2020 FINDINGS: Patient has been extubated. Diffuse bilateral pulmonary infiltrates persist without significant interval change. Right upper extremity PICC line is in place. The tip is in the right atrium near the AV valve. IMPRESSION: Interval extubation Persistent diffuse bilateral pulmonary infiltrates PICC line tip remains in the right atrium. This was discussed with Dr. Anna. He had discussed this with nursing and instructed them to withdraw the catheter approximately 3 inches.
== END 2020-10-26 16:32 | disposition home or self-care (01) | DRG 896 ==
LOC: JP.SDS 10:00 → JP.MS 10:00 → EDSTATUS 12:00 → JP.MS 12:45 → JP.ICU 10-13 14:20 → JP.MS 10-24 16:35
PROVIDERS: ADMIT Surgery; ATTEND Surgery
PROC: 0DJ08ZZ Inspection of Upper Intestinal Tract, Via Natural or Artificial Opening Endoscopic (ICD-10-PCS; 2020-10-11)
PROC: 5A1955Z Respiratory Ventilation, Greater than 96 Consecutive Hours (ICD-10-PCS; principal; 2020-10-16)
PROC: 0BH18EZ Insertion of Endotracheal Airway into Trachea, Via Natural or Artificial Opening Endoscopic (ICD-10-PCS; 2020-10-16)
DX: F10.231 Alcohol dependence with withdrawal delirium (principal); J80 Acute respiratory distress syndrome; K91.2 Postsurgical malabsorption, not elsewhere classified; T85.848A Pain due to other internal prosthetic devices, implants and grafts, initial encounter; K70.10 Alcoholic hepatitis without ascites; E53.8 Deficiency of other specified B group vitamins; Z20.822 Contact with and (suspected) exposure to COVID-19; K21.9 Gastro-esophageal reflux disease without esophagitis; F32.9 Major depressive disorder, single episode, unspecified; F41.0 Panic disorder [episodic paroxysmal anxiety]; H54.7 Unspecified visual loss; D64.9 Anemia, unspecified; E66.9 Obesity, unspecified; Z96.659 Presence of unspecified artificial knee joint; E87.6 Hypokalemia; R16.0 Hepatomegaly, not elsewhere classified; Z98.84 Bariatric surgery status; Z87.891 Personal history of nicotine dependence; Z88.8 Allergy status to other drugs, medicaments and biological substances; Z88.0 Allergy status to penicillin; Z88.5 Allergy status to narcotic agent; Z79.899 Other long term (current) drug therapy; Z90.710 Acquired absence of both cervix and uterus; Z68.28 Body mass index [BMI] 28.0-28.9, adult
CPT/HCPCS: 36415; 36600; 51702; 71045; 71045-26; 71046; 71046-26; 74177; 74177-26; 76700; 76700-26; 80048; 80053; 80202; 82150; 82525; 82607; 82728; 82746; 82803; 83690; 83735; 84100; 84132; 84484; 84590; 84630; 85025; 85027; 86850; 86900; 86901; 86920; 86922; 87070; 87205; 93005; 93010; 93306; 94002; 94003; 94640; 94660; 94667; 94762; 97110-GP; 97162-GP; A9270-GY; C1751; C9113; J0131; J0295; J0330; J0696; J1100; J1644; J1650; J1940; J1956; J2001; J2020; J2060; J2185; J2250; J2270; J2405; J2560; J2704; J2710; J3010; J3370; J3410; J3411; J3420; J3475; J3480; J3490; J7040; J7050; J7120; J7121; J7612-GY; J7620-GY; Q9967; U0002

== ENCOUNTER 2022-04-09 11:27 | Emergency (ER) | payer MEDICAID ==
[2022-04-09 12:35] VITALS: BP 140/102; PULSE 94
[2022-04-09] MEDS ORDERED: Acetaminophen/HYDROcodone 325-5 MG Tab PO ONE (14:28)
== END 2022-04-09 16:08 | disposition home or self-care (01) ==
LOC: JP.ED 11:27
DX: S93.401A Sprain of unspecified ligament of right ankle, initial encounter (principal); S93.402A Sprain of unspecified ligament of left ankle, initial encounter; I10 Essential (primary) hypertension; K21.9 Gastro-esophageal reflux disease without esophagitis; E66.9 Obesity, unspecified; Z68.25 Body mass index [BMI] 25.0-25.9, adult; Z87.891 Personal history of nicotine dependence; Z79.899 Other long term (current) drug therapy; Z88.0 Allergy status to penicillin; Z88.5 Allergy status to narcotic agent; Z88.8 Allergy status to other drugs, medicaments and biological substances; X50.1XXA Overexertion from prolonged static or awkward postures, initial encounter
CPT/HCPCS: 73610; 99283; A9270

== ENCOUNTER 2022-04-17 10:29 | Inpatient (IN) | payer MEDICAID ==
[2022-04-17] MEDS ORDERED: Albuterol/Ipratropium 3.0-0.5 MG/3 ML Neb Soln NEB ONE (11:40)
[2022-04-17] MEDS ORDERED: Sodium Chloride 0.9% 10 ML Syringe FLUSH PRN (11:46)
[2022-04-17 12:05] LABS: ESTIMATED GFR 103 mL/min (>60)
[2022-04-17] MEDS ORDERED: Ketorolac 30 MG/ML SDV IVPUSH ONE (13:25)
[2022-04-17] MEDS ORDERED: Sodium Chloride 0.9% 1,000 ML IV SCH ×2 (13:30→14:30)
[2022-04-17] MEDS ORDERED: Polyethylene Glycol 3350 Powder 17 GM Packet PO PRN (14:20)
[2022-04-17] MEDS ORDERED: Temazepam 15 MG Cap PO PRN (14:20)
[2022-04-17] MEDS ORDERED: LORazepam 2 MG/ML SDV IV PRN ×2 (14:20→15:26)
[2022-04-17] MEDS ORDERED: Bisacodyl 5 MG Tab PO PRN (14:20)
[2022-04-17] MEDS ORDERED: methylPREDNISolone Sodium Succinate 40 MG/1 ML SDV IVPUSH ONE (15:30)
[2022-04-17] MEDS ORDERED: Azithromycin 500 MG in Sodium Chloride 0.9% 250 ML IV SCH (16:30)
[2022-04-17] MEDS: cefTRIAXone 1 GM in Sodium Chloride 0.9% 50 ML IV SCH (16:49)
[2022-04-17] MEDS: Enoxaparin 40 MG/0.4 ML Syringe SUBCUT SCH (16:49)
[2022-04-17] MEDS: Acetaminophen/HYDROcodone 325-5 MG Tab PO PRN (19:05)
[2022-04-17] MEDS: Albuterol/Ipratropium 3.0-0.5 MG/3 ML Neb Soln INH SCH (19:05)
[2022-04-17] MEDS: LORazepam 0.5 MG Tab PO PRN (19:09)
[2022-04-17] MEDS ORDERED: Albuterol 8 GM Inhaler INH PRN (19:37)
[2022-04-17] MEDS ORDERED: diphenhydrAMINE 25 MG Cap PO PRN (19:37)
[2022-04-17] MEDS ORDERED: Nicotine 14 MG/24 Hr Patch TRDERM SCH (19:45)
[2022-04-17] MEDS ORDERED: Lisinopril 10 MG Tab ONE (20:14)
[2022-04-17] MEDS: Potassium Chloride 20 MEQ Tab.ER PO SCH (20:18)
[2022-04-17] MEDS: Lisinopril 20 MG Tab PO SCH (20:19)
[2022-04-17] MEDS: Calcium Carbonate/Vitamin D3 1500 MG-400 Units Tab PO SCH (20:19)
[2022-04-17] MEDS: Albuterol 0.083% 2.5 MG/3 ML Neb Soln NEB PRN (23:09)
[2022-04-18] MEDS: Albuterol/Ipratropium 3.0-0.5 MG/3 ML Neb Soln INH SCH ×5 (00:52→20:19)
[2022-04-18] MEDS: Acetaminophen/HYDROcodone 325-5 MG Tab PO PRN ×5 (01:07→20:19)
[2022-04-18] MEDS: LORazepam 0.5 MG Tab PO PRN ×5 (01:07→20:19)
[2022-04-18] MEDS: cefTRIAXone 1 GM in Sodium Chloride 0.9% 50 ML IV SCH (03:54)
[2022-04-18] MEDS: Albuterol 0.083% 2.5 MG/3 ML Neb Soln NEB PRN ×2 (04:09→23:14)
[2022-04-18] MEDS ORDERED: guaiFENesin/Dextromethorphan 100-10 MG/5 ML Soln 10 ML Cup PO PRN (07:17)
[2022-04-18] MEDS: Calcium Carbonate/Vitamin D3 1500 MG-400 Units Tab PO SCH ×2 (08:20→20:20)
[2022-04-18] MEDS: FLUoxetine 20 MG Cap PO SCH ×2 (08:20→16:16)
[2022-04-18] MEDS: Multivitamins with Iron/Calcium/Folic Acid/Minerals Tab PO SCH (08:21)
[2022-04-18] MEDS: Ondansetron 4 MG/2 ML SDV IV PRN (08:39)
[2022-04-18] MEDS ORDERED: Benzonatate 100 MG Cap PO SCH (09:00)
[2022-04-18] MEDS: Lactobacillus Rhamnosus GG (Probiotic) Cap PO SCH ×2 (11:04→20:21)
[2022-04-18] MEDS ORDERED: Furosemide 40 MG/4 ML VIAL IVPUSH ONE (11:15)
[2022-04-18] MEDS: Doxycycline 100 MG in Sodium Chloride 0.9% 100 ML IV SCH ×2 (11:48→23:03)
[2022-04-18] MEDS: Enoxaparin 40 MG/0.4 ML Syringe SUBCUT SCH (16:15)
[2022-04-18] MEDS: Potassium Chloride 20 MEQ Tab.ER PO SCH (20:20)
[2022-04-18] MEDS: Nicotine 14 MG/24 Hr Patch TRDERM SCH (20:20)
[2022-04-18] MEDS: Lisinopril 20 MG Tab PO SCH (20:22)
[2022-04-19] MEDS: LORazepam 0.5 MG Tab PO PRN ×3 (00:07→19:43)
[2022-04-19] MEDS: Acetaminophen/HYDROcodone 325-5 MG Tab PO PRN ×4 (00:07→19:41)
[2022-04-19] MEDS: Benzonatate 100 MG Cap PO PRN (01:20)
[2022-04-19] MEDS ORDERED: LORazepam 2 MG/ML SDV IVPUSH ONE (02:59)
[2022-04-19] MEDS ORDERED: Furosemide 20 MG/2 ML VIAL IVPUSH ONE (02:59)
[2022-04-19] MEDS: guaiFENesin 600 MG Tab.ER PO SCH ×3 (05:40→21:43)
[2022-04-19] MEDS: Albuterol/Ipratropium 3.0-0.5 MG/3 ML Neb Soln INH SCH ×4 (07:00→21:50)
[2022-04-19] MEDS: Lactobacillus Rhamnosus GG (Probiotic) Cap PO SCH ×2 (09:09→21:43)
[2022-04-19] MEDS: FLUoxetine 20 MG Cap PO SCH ×2 (09:09→16:58)
[2022-04-19] MEDS: Calcium Carbonate/Vitamin D3 1500 MG-400 Units Tab PO SCH ×2 (09:10→21:43)
[2022-04-19] MEDS: Multivitamins with Iron/Calcium/Folic Acid/Minerals Tab PO SCH (09:10)
[2022-04-19] MEDS: Furosemide 40 MG/4 ML VIAL IVPUSH SCH ×2 (10:32→18:17)
[2022-04-19] MEDS: Acetaminophen 325 MG Tab PO PRN (10:33)
[2022-04-19] MEDS: Ondansetron 4 MG/2 ML SDV IV PRN (10:34)
[2022-04-19] MEDS: Magnesium Hydroxide 400 MG/5 ML Susp 30 ML Cup PO PRN (10:43)
[2022-04-19] MEDS: Doxycycline 100 MG in Sodium Chloride 0.9% 100 ML IV SCH ×2 (11:12→23:40)
[2022-04-19] MEDS: tiZANidine 2 MG Tab PO PRN (16:09)
[2022-04-19] MEDS: Enoxaparin 40 MG/0.4 ML Syringe SUBCUT SCH (16:09)
[2022-04-19] MEDS: Nicotine 14 MG/24 Hr Patch TRDERM SCH (21:42)
[2022-04-19] MEDS: Lisinopril 20 MG Tab PO SCH (21:44)
[2022-04-20] MEDS: LORazepam 0.5 MG Tab PO PRN ×4 (00:17→19:40)
[2022-04-20] MEDS: Acetaminophen/HYDROcodone 325-5 MG Tab PO PRN ×4 (00:17→23:24)
[2022-04-20 05:01] LABS: ESTIMATED GFR 107 mL/min (>60)
[2022-04-20] MEDS: Albuterol 0.083% 2.5 MG/3 ML Neb Soln NEB PRN (05:33)
[2022-04-20] MEDS: Albuterol/Ipratropium 3.0-0.5 MG/3 ML Neb Soln INH SCH ×5 (07:13→21:59)
[2022-04-20] MEDS: Calcium Carbonate/Vitamin D3 1500 MG-400 Units Tab PO SCH ×2 (09:41→21:51)
[2022-04-20] MEDS: guaiFENesin 600 MG Tab.ER PO SCH ×2 (09:41→21:51)
[2022-04-20] MEDS: Lactobacillus Rhamnosus GG (Probiotic) Cap PO SCH ×2 (09:41→21:50)
[2022-04-20] MEDS: Multivitamins with Iron/Calcium/Folic Acid/Minerals Tab PO SCH (09:41)
[2022-04-20] MEDS: FLUoxetine 20 MG Cap PO SCH ×2 (09:41→16:19)
[2022-04-20] MEDS: methylPREDNISolone Sodium Succinate 40 MG/1 ML SDV IVPUSH SCH ×2 (10:45→22:03)
[2022-04-20] MEDS: Doxycycline 100 MG in Sodium Chloride 0.9% 100 ML IV SCH ×2 (11:21→23:13)
[2022-04-20] MEDS: Enoxaparin 40 MG/0.4 ML Syringe SUBCUT SCH (16:19)
[2022-04-20] MEDS: Nicotine 14 MG/24 Hr Patch TRDERM SCH (21:50)
[2022-04-20] MEDS: Lisinopril 20 MG Tab PO SCH (21:51)
[2022-04-20] MEDS: Ondansetron 4 MG Tab.DIS PO PRN (23:24)
[2022-04-21] MEDS: Benzonatate 100 MG Cap PO PRN ×2 (01:25→09:22)
[2022-04-21] MEDS: Acetaminophen 325 MG Tab PO PRN (01:25)
[2022-04-21] MEDS: LORazepam 0.5 MG Tab PO PRN (01:26)
[2022-04-21] MEDS: Acetaminophen/HYDROcodone 325-5 MG Tab PO PRN ×3 (04:25→17:11)
[2022-04-21 04:50] LABS: ESTIMATED GFR 103 mL/min (>60)
[2022-04-21] MEDS: Albuterol/Ipratropium 3.0-0.5 MG/3 ML Neb Soln INH SCH ×4 (07:03→21:36)
[2022-04-21] MEDS: FLUoxetine 20 MG Cap PO SCH ×2 (09:03→16:37)
[2022-04-21] MEDS: Calcium Carbonate/Vitamin D3 1500 MG-400 Units Tab PO SCH ×2 (09:03→21:31)
[2022-04-21] MEDS: Multivitamins with Iron/Calcium/Folic Acid/Minerals Tab PO SCH (09:03)
[2022-04-21] MEDS: Lactobacillus Rhamnosus GG (Probiotic) Cap PO SCH ×2 (09:03→21:31)
[2022-04-21] MEDS: guaiFENesin 600 MG Tab.ER PO SCH ×2 (09:04→21:29)
[2022-04-21] MEDS: methylPREDNISolone Sodium Succinate 40 MG/1 ML SDV IVPUSH SCH ×2 (09:04→21:30)
[2022-04-21] MEDS: Doxycycline 100 MG in Sodium Chloride 0.9% 100 ML IV SCH ×2 (11:45→23:55)
[2022-04-21] MEDS: Codeine/guaiFENesin 10-100 MG/5 ML Syrup 5 ML Cup PO PRN ×2 (12:37→19:35)
[2022-04-21] MEDS: Enoxaparin 40 MG/0.4 ML Syringe SUBCUT SCH (16:37)
[2022-04-21] MEDS: Lisinopril 20 MG Tab PO SCH (21:31)
[2022-04-21] MEDS: Nicotine 14 MG/24 Hr Patch TRDERM SCH (21:32)
[2022-04-21] MEDS: hydrOXYzine HCl 25 MG Tab PO PRN (21:36)
[2022-04-22] MEDS: Benzonatate 100 MG Cap PO PRN ×2 (00:02→08:07)
[2022-04-22] MEDS: Acetaminophen/HYDROcodone 325-5 MG Tab PO PRN ×3 (00:03→13:12)
[2022-04-22] MEDS: Magnesium Hydroxide 400 MG/5 ML Susp 30 ML Cup PO PRN (00:03)
[2022-04-22] MEDS: Codeine/guaiFENesin 10-100 MG/5 ML Syrup 5 ML Cup PO PRN ×2 (03:25→23:27)
[2022-04-22 05:18] LABS: ESTIMATED GFR 107 mL/min (>60)
[2022-04-22] MEDS: Albuterol/Ipratropium 3.0-0.5 MG/3 ML Neb Soln INH SCH ×4 (07:06→21:16)
[2022-04-22] MEDS: Calcium Carbonate/Vitamin D3 1500 MG-400 Units Tab PO SCH ×2 (08:07→21:17)
[2022-04-22] MEDS: FLUoxetine 20 MG Cap PO SCH ×2 (08:07→17:27)
[2022-04-22] MEDS: Lactobacillus Rhamnosus GG (Probiotic) Cap PO SCH ×2 (08:08→21:16)
[2022-04-22] MEDS: guaiFENesin 600 MG Tab.ER PO SCH (08:08)
[2022-04-22] MEDS: Multivitamins with Iron/Calcium/Folic Acid/Minerals Tab PO SCH (08:08)
[2022-04-22] MEDS: methylPREDNISolone Sodium Succinate 40 MG/1 ML SDV IVPUSH SCH (10:43)
[2022-04-22] MEDS: Doxycycline 100 MG in Sodium Chloride 0.9% 100 ML IV SCH (10:54)
[2022-04-22] MEDS ORDERED: guaiFENesin/Dextromethorphan 100-10 MG/5 ML Soln 10 ML Cup PO SCH (12:00)
[2022-04-22] MEDS: Ondansetron 4 MG Tab.DIS PO PRN (13:12)
[2022-04-22] MEDS: hydrOXYzine HCl 25 MG Tab PO PRN (13:13)
[2022-04-22] MEDS: guaiFENesin 100 MG/5 ML Soln 10 ML UD Cup PO SCH ×2 (17:26→21:17)
[2022-04-22] MEDS: Lisinopril 20 MG Tab PO SCH (21:17)
[2022-04-22] MEDS: Nicotine 14 MG/24 Hr Patch TRDERM SCH (21:17)
[2022-04-22] MEDS: Doxycycline 100 MG Cap PO SCH (22:12)
[2022-04-23] MEDS: guaiFENesin 100 MG/5 ML Soln 10 ML UD Cup PO SCH ×7 (01:06→21:22)
[2022-04-23] MEDS: Acetaminophen/HYDROcodone 325-5 MG Tab PO PRN ×2 (01:06→21:14)
[2022-04-23] MEDS: hydrOXYzine HCl 25 MG Tab PO PRN (04:27)
[2022-04-23 05:08] LABS: ESTIMATED GFR 103 mL/min (>60)
[2022-04-23] MEDS: Codeine/guaiFENesin 10-100 MG/5 ML Syrup 5 ML Cup PO PRN ×2 (06:33→23:59)
[2022-04-23] MEDS: Albuterol/Ipratropium 3.0-0.5 MG/3 ML Neb Soln INH SCH ×4 (07:22→21:25)
[2022-04-23] MEDS ORDERED: methylPREDNISolone Sodium Succinate 40 MG/1 ML SDV IVPUSH SCH (09:00)
[2022-04-23] MEDS: Lactobacillus Rhamnosus GG (Probiotic) Cap PO SCH ×2 (09:36→21:14)
[2022-04-23] MEDS: Doxycycline 100 MG Cap PO SCH ×2 (09:36→21:16)
[2022-04-23] MEDS: FLUoxetine 20 MG Cap PO SCH ×2 (09:36→17:26)
[2022-04-23] MEDS: Calcium Carbonate/Vitamin D3 1500 MG-400 Units Tab PO SCH ×2 (09:37→21:17)
[2022-04-23] MEDS: Multivitamins with Iron/Calcium/Folic Acid/Minerals Tab PO SCH (09:37)
[2022-04-23] MEDS: predniSONE 20 MG Tab PO SCH (09:43)
[2022-04-23] MEDS: Nicotine 14 MG/24 Hr Patch TRDERM SCH (21:16)
[2022-04-23] MEDS: Cefdinir 300 MG Cap PO SCH (21:16)
[2022-04-23] MEDS: Lisinopril 20 MG Tab PO SCH (21:16)
[2022-04-23] MEDS ORDERED: Lidocaine 5% 700 MG Patch TOP PRN (23:47)
[2022-04-23] MEDS: tiZANidine 2 MG Tab PO PRN (23:59)
[2022-04-24] MEDS: guaiFENesin 100 MG/5 ML Soln 10 ML UD Cup PO SCH ×3 (02:58→09:42)
[2022-04-24] MEDS: Acetaminophen/HYDROcodone 325-5 MG Tab PO PRN (05:15)
[2022-04-24 06:36] LABS: ESTIMATED GFR 103 mL/min (>60)
[2022-04-24] MEDS: Albuterol/Ipratropium 3.0-0.5 MG/3 ML Neb Soln INH SCH (07:04)
[2022-04-24] MEDS: predniSONE 20 MG Tab PO SCH (08:13)
[2022-04-24] MEDS: Lactobacillus Rhamnosus GG (Probiotic) Cap PO SCH (08:14)
[2022-04-24] MEDS: Cefdinir 300 MG Cap PO SCH (08:14)
[2022-04-24] MEDS: Calcium Carbonate/Vitamin D3 1500 MG-400 Units Tab PO SCH (08:14)
[2022-04-24] MEDS: Multivitamins with Iron/Calcium/Folic Acid/Minerals Tab PO SCH (08:15)
[2022-04-24] MEDS: FLUoxetine 20 MG Cap PO SCH (08:15)
[2022-04-24] MEDS: Doxycycline 100 MG Cap PO SCH (09:42)
[2022-04-24 10:31] VITALS: BP 167/80; PULSE 115
[2022-05-11] MEDS ORDERED: Cyanocobalamin (Vitamin B12) 1,000 MCG/ML SDV IM SCH (09:00)
== END 2022-04-24 10:10 | disposition home or self-care (01) | DRG 193 ==
LOC: JP.ED 10:29 → JP.ICU 14:17
PROVIDERS: ADMIT Internal Medicine; ATTEND Hospitalist
DX: J18.9 Pneumonia, unspecified organism (principal); J96.01 Acute respiratory failure with hypoxia; E87.1 Hypo-osmolality and hyponatremia; I10 Essential (primary) hypertension; R79.81 Abnormal blood-gas level; D64.9 Anemia, unspecified; F32.A Depression, unspecified; F43.12 Post-traumatic stress disorder, chronic; E66.9 Obesity, unspecified; Z20.822 Contact with and (suspected) exposure to COVID-19; K21.9 Gastro-esophageal reflux disease without esophagitis; Z96.652 Presence of left artificial knee joint; Z96.661 Presence of right artificial ankle joint; Z68.29 Body mass index [BMI] 29.0-29.9, adult; Z79.52 Long term (current) use of systemic steroids; Z79.899 Other long term (current) drug therapy; Z79.2 Long term (current) use of antibiotics; Z98.84 Bariatric surgery status; Z87.01 Personal history of pneumonia (recurrent); Z87.19 Personal history of other diseases of the digestive system; Z98.890 Other specified postprocedural states; Z90.89 Acquired absence of other organs; Z87.81 Personal history of (healed) traumatic fracture; Z86.39 Personal history of other endocrine, nutritional and metabolic disease; Z90.49 Acquired absence of other specified parts of digestive tract; Z90.722 Acquired absence of ovaries, bilateral; Z87.891 Personal history of nicotine dependence; S93.409D Sprain of unspecified ligament of unspecified ankle, subsequent encounter
CPT/HCPCS: 36415; 36600; 71045; 71045-26; 71046; 71046-26; 80048; 80053; 81001; 82803; 83605; 84484; 85025; 85027; 86140; 87040; 87804; 87804-59; 94640; 97110-GP; 97140-GP; 97162-GP; 97530-GP; 99222; 99232; 99239; 99284; 99285; A9270-GY; J0456; J0696; J0713; J1650; J1885; J1940; J2060; J2405; J2920; J3490; J7030; J7050; J7512; J7620; Q0162; U0002

== ENCOUNTER 2023-03-11 11:26 | Emergency (ER) | payer MEDICAID ==
[2023-03-11] MEDS ORDERED: Acetaminophen/oxyCODONE 325-5 MG Tab PO ONE ×2 (12:16→17:07)
[2023-03-11] MEDS ORDERED: Ketorolac 30 MG/ML SDV IM ONE (12:17)
[2023-03-11 13:35] LABS: CALCIUM 8.9 mg/dL (8.5-10.1); CREATININE 0.7 mg/dL (0.6-1.0); EST CRCL DRUG DOSING (CG) 78.41 mL/min; POTASSIUM,K 4.1 mmol/L (3.6-5.2)
[2023-03-11 13:36] LABS: ANION GAP 12.1 mmol/L (5.0-14.0)
[2023-03-11 18:08] VITALS: BP 111/59; PULSE 96
== END 2023-03-11 19:33 | disposition home or self-care (01) ==
LOC: JP.ED 11:26
DX: S20.212A Contusion of left front wall of thorax, initial encounter (principal); I10 Essential (primary) hypertension; E66.9 Obesity, unspecified; Z88.5 Allergy status to narcotic agent; Z88.0 Allergy status to penicillin; Z68.27 Body mass index [BMI] 27.0-27.9, adult; Z79.899 Other long term (current) drug therapy; Z87.891 Personal history of nicotine dependence; W18.30XA Fall on same level, unspecified, initial encounter; Y93.01 Activity, walking, marching and hiking
CPT/HCPCS: 36415; 71101; 71250; 73562; 73721; 80048; 96372; 99284; A9270; J1885; 99283

== ENCOUNTER 2023-03-15 11:39 | Inpatient (IN) | payer MEDICAID ==
[2023-03-15] MEDS ORDERED: Sodium Chloride 0.9% 10 ML Syringe FLUSH PRN (12:33)
[2023-03-15 12:37] LABS: BASOPHILS ABSOLUTE AUTO 0.03 K/uL (0.00-0.10); BASOPHILS PERCENT AUTO 0.4 % (0.1-1.3); EOSINOPHILS ABSOLUTE AUTO 0.09 K/uL (0.00-0.40); EOSINOPHILS PERCENT AUTO 1.1 % (0.0-5.4); HEMATOCRIT 30.9 % (34.3-46.0); HEMOGLOBIN 11.3 g/dL (11.2-15.5); IMMATURE GRAN ABSOLUTE AUTO 0.04 K/uL (0.00-0.23); IMMATURE GRAN PERCENT AUTO 0.5 % (0.0-0.7); LYMPHOCYTES ABSOLUTE AUTO 1.13 K/uL (0.8-3.3); LYMPHOCYTES PERCENT AUTO 14.4 % (11.4-47.7); MEAN CORPUSCULAR HEMOGLOBIN 36.6 pg (31.6-35.5); MEAN CORPUSCULAR HGB CONC 36.6 g/dL (31.6-35.5); MONOCYTES ABSOLUTE AUTO 0.45 K/uL (0.20-0.90); MONOCYTES PERCENT AUTO 5.7 % (3.3-12.6); NEUTROPHILS ABSOLUTE AUTO 6.12 K/uL (1.0-7.6); NEUTROPHILS PERCENT AUTO 77.9 % (40.0-78.1); PLATELET COUNT,PLT 167 K/uL (130-375); RED BLOOD CELL COUNT 3.09 M/uL (3.77-5.24); WHITE BLOOD CELL COUNT,WBC 7.9 K/uL (3.2-11.0)
[2023-03-15 12:58] LABS: A/G RATIO 0.8 (1.2-2.2); ALANINE AMINOTRANSFERASE,ALT 54 U/L (12-78); ALKALINE PHOSPHATASE 244 U/L (46-116); ANION GAP 13.3 mmol/L (5.0-14.0); ASPARTATE AMNIOTRANSFERASE,AST 60 U/L (15-37); BILIRUBIN TOTAL 1.1 mg/dL (0.2-1.0); BLOOD UREA NITROGEN,BUN 6 mg/dL (7-18); CALCIUM 8.6 mg/dL (8.5-10.1); CARBON DIOXIDE,CO2 26 mmol/L (21-32); CHLORIDE,CL 96 mmol/L (100-108); CREATININE 0.6 mg/dL (0.6-1.0); EST CRCL DRUG DOSING (CG) 87.64 mL/min; ESTIMATED GFR 106 mL/min (>60); GLUCOSE RANDOM 105 mg/dL (74-106); POTASSIUM,K 4.3 mmol/L (3.6-5.2); PROTEIN TOTAL,TP 6.7 g/dL (6.4-8.2); SODIUM,NA 131 mmol/L (140-148)
[2023-03-15] MEDS ORDERED: Iopamidol 755 Mg/ML 100 ML Bottle IV ONE (14:02)
[2023-03-15] MEDS ORDERED: Sodium Chloride 0.9% 75 ML IV ONE (14:02)
[2023-03-15] MEDS ORDERED: Sodium Chloride 0.9% 10 ML Syringe FLUSH ONE (14:02)
[2023-03-15] MEDS ORDERED: Acetaminophen/oxyCODONE 325-7.5 MG Tab PO ONE (15:55)
[2023-03-15] MEDS ORDERED: Magnesium Hydroxide 400 MG/5 ML Susp 30 ML Cup PO PRN (16:07)
[2023-03-15] MEDS ORDERED: Ondansetron 4 MG Tab.DIS PO PRN (16:07)
[2023-03-15] MEDS ORDERED: Sennosides/Docusate Sodium 50-8.6 MG Tab PO PRN (16:07)
[2023-03-15] MEDS ORDERED: Ondansetron 4 MG/2 ML SDV IV PRN (16:07)
[2023-03-15] MEDS ORDERED: Lidocaine 5% 700 MG Patch TOP PRN (16:13)
[2023-03-15] MEDS ORDERED: Sodium Chloride 0.9% 1,000 ML IV SCH (16:15)
[2023-03-15] MEDS ORDERED: Albuterol 0.021% 0.63 MG/3 ML Neb Soln NEB PRN (16:17)
[2023-03-15] MEDS: Azithromycin 500 MG in Sodium Chloride 0.9% 250 ML IV SCH (18:36)
[2023-03-15] MEDS: FLUoxetine 10 MG Cap PO SCH (18:39)
[2023-03-15] MEDS: Enoxaparin 40 MG/0.4 ML Syringe SUBCUT SCH (18:39)
[2023-03-15] MEDS: cefTRIAXone 1 GM in Sodium Chloride 0.9% 50 ML IV SCH (19:52)
[2023-03-15] MEDS: oxyCODONE 5 MG Tab PO PRN (20:34)
[2023-03-15] MEDS: Losartan 50 MG Tab PO SCH (20:56)
[2023-03-15] MEDS: traZODone 50 MG Tab PO SCH (20:58)
[2023-03-15] MEDS: Melatonin 3 MG Tab PO SCH (20:59)
[2023-03-15] MEDS: LORazepam 0.5 MG Tab PO PRN (22:13)
[2023-03-15 23:26] LABS: APPEARANCE,URINE SLIGHTLY CLOUDY (CLEAR); BILIRUBIN,URINE NEGATIVE (NEGATIVE); COLOR,URINE YELLOW (YELLOW); GLUCOSE,URINE NEGATIVE (NEGATIVE); KETONES,URINE NEGATIVE (NEGATIVE); LEUKOCYTE ESTERASE,URINE TRACE (NEGATIVE); NITRITE,URINE NEGATIVE (NEGATIVE); OCCULT BLOOD,URINE NEGATIVE (NEGATIVE); PROTEIN,URINE NEGATIVE (NEGATIVE); UROBILINOGEN,URINE >=8.0 EU/dL (0.2-1.0)
[2023-03-15 23:32] LABS: AMORPHOUS SEDIMENT,URINE NOT SEEN; BACTERIA,URINE FEW; EPITHELIAL CELLS,URINE MANY; MUCUS,URINE NOT SEEN; RBC,URINE 0-5 (0-5)
[2023-03-16] MEDS: oxyCODONE 5 MG Tab PO PRN ×5 (01:06→23:08)
[2023-03-16] MEDS: LORazepam 0.5 MG Tab PO PRN ×3 (04:17→13:39)
[2023-03-16 04:19] LABS: HEMATOCRIT 30.3 % (34.3-46.0); HEMOGLOBIN 10.8 g/dL (11.2-15.5); MEAN CORPUSCULAR HEMOGLOBIN 36.2 pg (31.6-35.5); MEAN CORPUSCULAR HGB CONC 35.6 g/dL (31.6-35.5); MEAN CORPUSCULAR VOLUME 101.7 fL (81.4-99.0); RED BLOOD CELL COUNT 2.98 M/uL (3.77-5.24); WHITE BLOOD CELL COUNT,WBC 7.8 K/uL (3.2-11.0)
[2023-03-16 04:47] LABS: CREATININE 0.6 mg/dL (0.6-1.0); EST CRCL DRUG DOSING (CG) 87.64 mL/min; POTASSIUM,K 4.8 mmol/L (3.6-5.2)
[2023-03-16 05:03] LABS: ANION GAP 11.8 mmol/L (5.0-14.0)
[2023-03-16] MEDS: Cyclobenzaprine 10 MG Tab PO PRN (08:39)
[2023-03-16] MEDS: Ferrous Sulfate 325 MG Tab PO SCH (08:40)
[2023-03-16] MEDS: buPROPion 150 MG Tab.SR PO SCH (08:41)
[2023-03-16] MEDS: FLUoxetine 20 MG Cap PO SCH (08:41)
[2023-03-16] MEDS: Multivitamins with Iron/Calcium/Folic Acid/Minerals Tab PO SCH (08:41)
[2023-03-16] MEDS: Nicotine 7 MG/24 Hr Patch TRDERM SCH (08:55)
[2023-03-16] MEDS ORDERED: Sodium Chloride 0.9% 1,000 ML IV SCH ×2 (09:30→16:30)
[2023-03-16] MEDS: Acetaminophen 325 MG Tab PO PRN (10:45)
[2023-03-16] MEDS ORDERED: Benzonatate 100 MG Cap PO PRN (10:47)
[2023-03-16] MEDS: Codeine/guaiFENesin 10-100 MG/5 ML Syrup 5 ML Cup PO PRN (13:39)
[2023-03-16] MEDS: Albuterol 0.083% 2.5 MG/3 ML Neb Soln INH PRN ×2 (15:06→16:08)
[2023-03-16] MEDS: Azithromycin 500 MG in Sodium Chloride 0.9% 250 ML IV SCH (16:08)
[2023-03-16] MEDS: FLUoxetine 10 MG Cap PO SCH (16:17)
[2023-03-16] MEDS: Enoxaparin 40 MG/0.4 ML Syringe SUBCUT SCH (16:17)
[2023-03-16] MEDS: Morphine 2 MG/ML SYRINGE IVPUSH PRN ×2 (16:48→21:29)
[2023-03-16] MEDS: predniSONE 20 MG Tab PO SCH (16:56)
[2023-03-16] MEDS: cefTRIAXone 1 GM in Sodium Chloride 0.9% 50 ML IV SCH (17:30)
[2023-03-16 19:25] LABS: BASE EXCESS ARTERIAL -0.1 mm/L; BICARBONATE,ARTERIAL 22.7 mmol/L (22.0-26.0); CARBOXYHEMOGLOBIN 1.9 % (0.0-1.6); METHEMOGLOBIN 0.7 %; OXYHEMOGLOBIN 85.7 %; PCO2 ARTERIAL 32.4 mmHg (35.0-42.0); PO2 ARTERIAL 56.6 mmHg (75.0-100.0); TOTAL HEMOGLOBIN 11.6 g/dL (12.0-16.0)
[2023-03-16] MEDS ORDERED: Furosemide 40 MG/4 ML VIAL IVPUSH ONE (19:45)
[2023-03-16] MEDS ORDERED: LORazepam 2 MG/ML SDV IVPUSH PRN (20:11)
[2023-03-16] MEDS ORDERED: LORazepam 2 MG/ML SDV ONE (20:14)
[2023-03-16] MEDS: Losartan 50 MG Tab PO SCH (20:49)
[2023-03-16] MEDS: traZODone 50 MG Tab PO SCH (20:50)
[2023-03-16] MEDS: Sennosides/Docusate Sodium 50-8.6 MG Tab PO SCH ×2 (20:51→20:54)
[2023-03-16] MEDS: Melatonin 3 MG Tab PO SCH (20:53)
[2023-03-17] MEDS: Morphine 2 MG/ML SYRINGE IVPUSH PRN ×2 (03:21→08:32)
[2023-03-17] MEDS: Cyclobenzaprine 10 MG Tab PO PRN ×2 (03:31→20:23)
[2023-03-17] MEDS ORDERED: Lidocaine 5% 700 MG Patch TOP PRN (06:00)
[2023-03-17 06:15] LABS: CREATININE 0.6 mg/dL (0.6-1.0); EST CRCL DRUG DOSING (CG) 87.64 mL/min; POTASSIUM,K 4.3 mmol/L (3.6-5.2)
[2023-03-17 06:41] LABS: ANION GAP 13.3 mmol/L (5.0-14.0)
[2023-03-17] MEDS: Albuterol 0.083% 2.5 MG/3 ML Neb Soln INH PRN ×2 (07:38→15:05)
[2023-03-17] MEDS ORDERED: predniSONE 20 MG Tab PO SCH (08:00)
[2023-03-17] MEDS: predniSONE 20 MG Tab PO SCH (08:19)
[2023-03-17] MEDS: Sennosides/Docusate Sodium 50-8.6 MG Tab PO SCH ×2 (08:19→21:41)
[2023-03-17] MEDS: Ferrous Sulfate 325 MG Tab PO SCH (08:21)
[2023-03-17] MEDS: buPROPion 150 MG Tab.SR PO SCH (08:21)
[2023-03-17] MEDS: Multivitamins with Iron/Calcium/Folic Acid/Minerals Tab PO SCH (08:22)
[2023-03-17] MEDS: Nicotine 7 MG/24 Hr Patch TRDERM SCH (08:22)
[2023-03-17] MEDS: FLUoxetine 20 MG Cap PO SCH (08:22)
[2023-03-17] MEDS ORDERED: predniSONE 20 MG Tab PO ONE (12:00)
[2023-03-17] MEDS: oxyCODONE 5 MG Tab PO PRN (12:28)
[2023-03-17] MEDS: Azithromycin 500 MG in Sodium Chloride 0.9% 250 ML IV SCH (16:26)
[2023-03-17] MEDS: Enoxaparin 40 MG/0.4 ML Syringe SUBCUT SCH (16:33)
[2023-03-17] MEDS: FLUoxetine 10 MG Cap PO SCH (16:35)
[2023-03-17] MEDS: cefTRIAXone 1 GM in Sodium Chloride 0.9% 50 ML IV SCH (17:39)
[2023-03-17] MEDS: Acetaminophen/HYDROcodone 325-5 MG Tab PO PRN ×2 (17:43→21:43)
[2023-03-17] MEDS: Melatonin 3 MG Tab PO SCH (20:26)
[2023-03-17] MEDS: Losartan 50 MG Tab PO SCH (21:42)
[2023-03-17] MEDS: Codeine/guaiFENesin 10-100 MG/5 ML Syrup 5 ML Cup PO PRN (23:55)
[2023-03-18] MEDS: traZODone 50 MG Tab PO SCH (02:21)
[2023-03-18] MEDS: LORazepam 0.5 MG Tab PO PRN (02:25)
[2023-03-18] MEDS: Morphine 2 MG/ML SYRINGE IVPUSH PRN (02:25)
[2023-03-18 05:02] LABS: HEMATOCRIT 31.2 % (34.3-46.0); MEAN CORPUSCULAR HEMOGLOBIN 35.8 pg (31.6-35.5); MEAN CORPUSCULAR HGB CONC 35.3 g/dL (31.6-35.5); MEAN CORPUSCULAR VOLUME 101.6 fL (81.4-99.0); RED BLOOD CELL COUNT 3.07 M/uL (3.77-5.24)
[2023-03-18 05:20] LABS: CALCIUM 8.9 mg/dL (8.5-10.1); CREATININE 0.6 mg/dL (0.6-1.0); EST CRCL DRUG DOSING (CG) 87.64 mL/min; POTASSIUM,K 3.8 mmol/L (3.6-5.2)
[2023-03-18 05:38] LABS: ANION GAP 12.8 mmol/L (5.0-14.0)
[2023-03-18] MEDS: Acetaminophen/HYDROcodone 325-5 MG Tab PO PRN ×4 (05:56→20:05)
[2023-03-18] MEDS: Albuterol 0.083% 2.5 MG/3 ML Neb Soln INH PRN ×3 (07:06→14:42)
[2023-03-18] MEDS: Multivitamins with Iron/Calcium/Folic Acid/Minerals Tab PO SCH (08:17)
[2023-03-18] MEDS: Sennosides/Docusate Sodium 50-8.6 MG Tab PO SCH ×2 (08:17→23:10)
[2023-03-18] MEDS: FLUoxetine 20 MG Cap PO SCH (08:17)
[2023-03-18] MEDS: Ferrous Sulfate 325 MG Tab PO SCH (08:17)
[2023-03-18] MEDS: buPROPion 150 MG Tab.SR PO SCH (08:17)
[2023-03-18] MEDS: predniSONE 20 MG Tab PO SCH (08:18)
[2023-03-18] MEDS: Nicotine 7 MG/24 Hr Patch TRDERM SCH (08:18)
[2023-03-18] MEDS: Cyclobenzaprine 10 MG Tab PO PRN (08:21)
[2023-03-18] MEDS: Acetaminophen 325 MG Tab PO PRN (13:04)
[2023-03-18] MEDS: FLUoxetine 10 MG Cap PO SCH (16:20)
[2023-03-18] MEDS: Enoxaparin 40 MG/0.4 ML Syringe SUBCUT SCH (16:20)
[2023-03-18] MEDS: Azithromycin 500 MG in Sodium Chloride 0.9% 250 ML IV SCH (16:20)
[2023-03-18] MEDS: Ibuprofen 400 MG Tab PO PRN ×2 (16:41→23:12)
[2023-03-18] MEDS: cefTRIAXone 1 GM in Sodium Chloride 0.9% 50 ML IV SCH (17:34)
[2023-03-18] MEDS: Losartan 50 MG Tab PO SCH (20:53)
[2023-03-18] MEDS: Melatonin 3 MG Tab PO SCH (20:53)
[2023-03-18] MEDS: Codeine/guaiFENesin 10-100 MG/5 ML Syrup 5 ML Cup PO PRN (23:08)
[2023-03-19] MEDS: Cyclobenzaprine 10 MG Tab PO PRN ×2 (00:04→19:16)
[2023-03-19] MEDS: Acetaminophen/HYDROcodone 325-5 MG Tab PO PRN ×6 (00:05→23:20)
[2023-03-19] MEDS: traZODone 50 MG Tab PO SCH ×2 (00:06→23:21)
[2023-03-19] MEDS: Albuterol 0.083% 2.5 MG/3 ML Neb Soln INH PRN ×2 (07:06→10:29)
[2023-03-19] MEDS: predniSONE 20 MG Tab PO SCH (08:31)
[2023-03-19] MEDS: buPROPion 150 MG Tab.SR PO SCH (08:32)
[2023-03-19] MEDS: Multivitamins with Iron/Calcium/Folic Acid/Minerals Tab PO SCH (08:32)
[2023-03-19] MEDS: Ferrous Sulfate 325 MG Tab PO SCH (08:32)
[2023-03-19] MEDS: Nicotine 7 MG/24 Hr Patch TRDERM SCH (08:35)
[2023-03-19] MEDS: FLUoxetine 20 MG Cap PO SCH (08:35)
[2023-03-19] MEDS: Sennosides/Docusate Sodium 50-8.6 MG Tab PO SCH ×2 (08:37→20:40)
[2023-03-19] MEDS ORDERED: Cyanocobalamin (Vitamin B12) 1,000 MCG/ML SDV IM ONE (10:30)
[2023-03-19] MEDS: Ibuprofen 400 MG Tab PO PRN (17:34)
[2023-03-19] MEDS: FLUoxetine 10 MG Cap PO SCH (17:36)
[2023-03-19] MEDS: Enoxaparin 40 MG/0.4 ML Syringe SUBCUT SCH (17:36)
[2023-03-19] MEDS: Losartan 50 MG Tab PO SCH (20:40)
[2023-03-19] MEDS: Cefdinir 300 MG Cap PO SCH (20:40)
[2023-03-19] MEDS: Melatonin 3 MG Tab PO SCH (20:40)
[2023-03-20] MEDS: Cyclobenzaprine 10 MG Tab PO PRN (03:25)
[2023-03-20] MEDS: Ibuprofen 400 MG Tab PO PRN ×2 (03:25→07:51)
[2023-03-20] MEDS: Acetaminophen/HYDROcodone 325-5 MG Tab PO PRN ×2 (07:52→12:40)
[2023-03-20] MEDS: predniSONE 20 MG Tab PO SCH (07:52)
[2023-03-20] MEDS: Cefdinir 300 MG Cap PO SCH (07:59)
[2023-03-20] MEDS: FLUoxetine 20 MG Cap PO SCH (07:59)
[2023-03-20] MEDS: Ferrous Sulfate 325 MG Tab PO SCH (07:59)
[2023-03-20] MEDS: Nicotine 7 MG/24 Hr Patch TRDERM SCH (07:59)
[2023-03-20] MEDS: buPROPion 150 MG Tab.SR PO SCH (07:59)
[2023-03-20] MEDS: Multivitamins with Iron/Calcium/Folic Acid/Minerals Tab PO SCH (08:00)
[2023-03-20] MEDS: Sennosides/Docusate Sodium 50-8.6 MG Tab PO SCH (08:00)
[2023-03-20] MEDS: Albuterol 0.083% 2.5 MG/3 ML Neb Soln INH PRN (11:05)
[2023-03-20 11:18] VITALS: BP 142/89; PULSE 80
== END 2023-03-20 14:00 | disposition home or self-care (01) | DRG 193 ==
LOC: JP.ED 11:39 → JP.MS 16:07 → JP.ICU 03-16 19:18 → JP.MS 03-16 19:43
PROVIDERS: ADMIT Internal Medicine; ATTEND Hospitalist
DX: J18.9 Pneumonia, unspecified organism (principal); J96.01 Acute respiratory failure with hypoxia; S82.141A Displaced bicondylar fracture of right tibia, initial encounter for closed fracture; E87.1 Hypo-osmolality and hyponatremia; E87.6 Hypokalemia; K21.9 Gastro-esophageal reflux disease without esophagitis; F41.9 Anxiety disorder, unspecified; W18.39XA Other fall on same level, initial encounter; F32.A Depression, unspecified; D64.9 Anemia, unspecified; Z20.822 Contact with and (suspected) exposure to COVID-19; I11.0 Hypertensive heart disease with heart failure; I50.9 Heart failure, unspecified; Z96.659 Presence of unspecified artificial knee joint; E66.9 Obesity, unspecified; Z98.890 Other specified postprocedural states; Z90.49 Acquired absence of other specified parts of digestive tract; Z79.51 Long term (current) use of inhaled steroids; Z79.899 Other long term (current) drug therapy; Z88.8 Allergy status to other drugs, medicaments and biological substances; Z88.0 Allergy status to penicillin; Z90.710 Acquired absence of both cervix and uterus; Z90.721 Acquired absence of ovaries, unilateral; Z98.84 Bariatric surgery status; Y92.89 Other specified places as the place of occurrence of the external cause; Z88.5 Allergy status to narcotic agent
CPT/HCPCS: 36415; 36600; 51702; 71045; 71045-26; 71275; 71275-26; 80048; 80053; 81001; 82803; 85025; 85027; 93306; 94640; 97110-GP; 97116-GP; 97162-GP; 97165-GO; 97530-GP; 97535-GP; 99222; 99232; 99238; 99285; A9270-GY; J0456; J0696; J1650; J1940; J2060; J2270; J3420; J3490; J7030; J7050; J7512; Q9967; U0002

== ENCOUNTER 2024-04-27 12:01 | Emergency (ER) | payer MEDICAID ==
[2024-04-27] MEDS: oxyCODONE 5 MG Tab PO ONE (13:23)
[2024-04-27 14:48] VITALS: BP 150/98; PULSE 83
[2024-04-27] MEDS: Cyclobenzaprine 10 MG Tab PO ONE (15:38)
== END 2024-04-27 15:52 | disposition home or self-care (01) ==
LOC: JP.ED 12:01
DX: S22.41XA Multiple fractures of ribs, right side, initial encounter for closed fracture (principal); I10 Essential (primary) hypertension; K21.9 Gastro-esophageal reflux disease without esophagitis; E66.9 Obesity, unspecified; Z79.899 Other long term (current) drug therapy; Z88.6 Allergy status to analgesic agent; Z88.5 Allergy status to narcotic agent; Z87.891 Personal history of nicotine dependence; Z68.24 Body mass index [BMI] 24.0-24.9, adult; W01.198A Fall on same level from slipping, tripping and stumbling with subsequent striking against other object, initial encounter
CPT/HCPCS: 70450; 71250; 72125; 76377; 99285; A9270

== ENCOUNTER 2025-09-28 14:43 | Emergency (ER) | payer MEDICAID ==
[2025-09-28 16:01] VITALS: BP 156/98; PULSE 84
== END 2025-09-28 16:43 | disposition home or self-care (01) ==
LOC: JP.ED 14:43
DX: J10.1 Influenza due to other identified influenza virus with other respiratory manifestations (principal); J40 Bronchitis, not specified as acute or chronic; I10 Essential (primary) hypertension; K21.9 Gastro-esophageal reflux disease without esophagitis; Z88.5 Allergy status to narcotic agent; Z88.6 Allergy status to analgesic agent; Z88.8 Allergy status to other drugs, medicaments and biological substances; Z79.899 Other long term (current) drug therapy; Z90.49 Acquired absence of other specified parts of digestive tract
CPT/HCPCS: 71046; 71046-26; 87428-QW; 99285